=== PATIENT | female | born 1950 | race Caucasian/White ===

== ENCOUNTER 2020-05-05 13:05 | Emergency (ER) | payer MEDICARE, SELFPAY ==
--- NOTE | ~2020-05-05 | XR_ITS ---
EXAMINATION: XR chest 1V portable DATE: 05/05/2020 14:13 INDICATION: Cough and shortness of breath. TECHNIQUE: A single frontal view of the chest was obtained. COMPARISON: Chest 2 views 02/05/2018, CT abdomen and pelvis 08/18/2017 FINDINGS: The chest demonstrates clear lungs without pneumonia, pleural effusion, or pneumothorax. The heart si ze is normal. There are prominent paracardial fat pads. IMPRESSION: 1. No acute cardiopulmonary disease. Reviewed, dictated and finalized at location A.
[2020-05-05 13:05] VITALS: PULSE 107; RESP 16; TEMP 36.8; O2SAT 95
[2020-05-05 13:10] VITALS: BP 154/83
[2020-05-05 13:15] VITALS: PULSE 100
--- NOTE | 2020-05-05 13:38 | ED.SOB ---
HPI - SOB/Dyspnea General Chief Complaint: Shortness of Breath/Dyspnea Stated Complaint: sob Time Seen by Provider: 05/05/20 13:38 Source: patient Mode of arrival: ambulatory Limitations: no limitations History of Present Illness HPI Narrative: 69-year-old woman who smokes comes in today complaining of shortness of breath and cough which has been present for the last 2 weeks. Patient states that [facility] went to [facility] where they recommended she get a chest x-ray and prescribed Augmentin for her. She denies fever, nausea, vomiting, sputum production, diarrhea, abdominal pain and dysuria. She denies any sick contacts or contacts with patients who have COVID-19. She states that she is having sharp chest pains on her left chest and upper back that is worse with twisting her trunk, coughing, and taking a deep breath. MD elicited complaint: shortness of breath, cough and chest pain Onset (ago): week(s) (2) Timing: constant and progressively worsening Severity: moderate Exacerbating factors: exertion Relieving factors: rest Associated symptoms: chest pain and cough Treatment prior to arrival: none Related Data Home oxygen amount: none Home Medications Medication Instructions Recorded Confirmed amoxicillin-pot clavulanate 1 tablet PO BID 05/05/20 05/05/20 losartan-hydrochlorothiazide 1 tablet PO DAILY 05/05/20 05/05/20 Allergies Allergy/AdvReac Type Severity Reaction Status Date / Time oxycodone Allergy Intermediate Verified 02/24/18 14:04 alprazolam Allergy Mild NAUSEA AND Verified 10/19/08 10:48 VOMITING. 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 Uncoded 12/28/02 11:33 Review of Systems Constitutional: Constitutional: Denies chills and Denies fever(s) Eyes: Eyes: Denies change in vision and Denies photophobia ENT: Denies dysphagia, Denies nasal congestion and Denies sore throat Cardiovascular: Cardiovascular: Reports chest pain and Denies radiating jaw, neck or arm pain Respiratory: Respiratory: Reports cough, Reports dyspnea and Denies wheezing Gastrointestinal: Gastrointestinal: Denies abdominal pain, Denies diarrhea, Denies nausea and Denies vomiting Genitourinary: Genitourinary: Denies hematuria, Denies nocturia and Denies dysuria Musculoskeletal: Musculoskeletal: Reports back pain (with cough and deep breath), Denies arthralgias and Denies joint swelling Integumentary/Breasts: Skin/Breast: Denies pruritus, Denies erythema and Denies rash Neurologic: Denies vertigo, Denies dizziness and Denies syncope Endocrine: Endocrine: Denies polydipsia and Denies polyuria Hematologic/Lymphatic: Hematologic/Lymphatic: Denies easy bleeding and Denies easy bruising Allergic/Immunologic: Allergic/Immunologic: Denies lip swelling and Denies tongue swelling PMFSH Past Medical History Medical History (Updated 05/05/20 @ 15:14 by Jeremy Matt MD) Anxiety DVT (deep venous thrombosis) After knee surgery years ago. Hypertension Myocardial infarction Pneumonia Surgical History Surgical History H/O right knee surgery History of cholecystectomy History of coronary artery stent placement Social History Social History Smoking status: Current every day smoker Tobacco type: cigarettes Alcohol use details: rarely Substance use type: does not use Living arrangements: alone Exam Const: General: healthy appearing, no acute distress and alert Nutritional Appearance: obese Orientation/consciousness: patient oriented x3 Limitations: other limitations HENMT: Head: normal to inspection Ears: external ears normal, TM's normal bilaterally and EAC's normal General nose exam: Normal nares present Face and sinus: normal facial exam Mouth: Yes moist mucous membranes Throat: posterior oropharynx normal Eyes: Conjunctivae: conjunctivae normal Pupils: Equal, round and reactive pupi
--- NOTE | 2020-05-05 13:47 | ECG_ITS ---
Measurements Intervals [place] Rate: 94 P: 64 NC: 157 QRS: 53 QRSD: 109 T: 53 QT: 354 QTc: 445 Interpretive Statements SINUS RHYTHM NORMAL ECG Electronically Signed On 05-05-2020 15:47:36 CDT by Mike Sung D.O.
[2020-05-05] MEDS: ASPIRIN 81 MG CHEWABLE TABLET 324 MG PO (14:14)
[2020-05-05] MEDS: ALBUTEROL SULFATE (*SP) INHALER 4 PUFF INHALATION (14:14)
[2020-05-05 14:16] VITALS: PULSE 100; RESP 16; O2SAT 95
[2020-05-05 14:21] VITALS: PULSE 97; RESP 16; O2SAT 97
[2020-05-05 14:27] LABS: Basophils Absolute Auto 0.04 K/mm3 (0.00-0.10); Basophils Percent Auto 0.4 % (0.0-1.0); Eosinophils Percent Auto 2.1 % (1.0-6.0); Hematocrit 45.4 % (35.0-42.0); Hemoglobin 15.3 g/dL (11.7-13.8); Immature Granulocyte Absolute 0.03 K/mm3 (0.00-0.00); Immature Granulocyte Percent A 0.3 % (0.0-0.0); Lymphocytes Absolute Auto 2.37 K/mm3 (1.10-4.50); Lymphocytes Percent Auto 24.6 % (18.0-42.0); Mean Corpuscular HGB Conc 33.7 g/dL (32.0-36.0); Mean Corpuscular Hemoglobin 29.1 pg (27.0-31.0); Mean Corpuscular Volume 86.3 fL (78.0-102.0); Mean Platelet Volume 10.6 fl (9.2-11.8); Monocytes Absolute Auto 0.73 K/mm3 (0.10-0.90); Monocytes Percent Auto 7.6 % (2.0-11.0); Neutrophils Absolute Auto 6.3 K/mm3 (1.7-7.2); Platelet Count Result 257 K/mm3 (150-420); Red Blood Count 5.26 M/mm3 (4.20-5.40); Red Cell Distribution Width 12.6 % (11.6-14.4); White Blood Count 9.7 K/mm3 (4.8-10.8)
[2020-05-05 14:41] LABS: Partial Thromboplastin Time 29.4 SEC (22.3-31.6)
--- NOTE | 2020-05-05 14:43 | PC.NURSE ---
CRITICAL DDIMER 1.40 CALLED TO RN BY [employer]. DMITRIY HICKMAN NOTIFIED.
[2020-05-05 14:45] LABS: Alanine Aminotransferase 42 U/L (14-59); Albumin Level 3.8 g/dL (3.4-5.0); Alkaline Phosphatase 75 U/L (46-116); Anion Gap 13 mmol/L (8-16); Aspartate Amino Transferase 22 U/L (15-37); Bilirubin,Total 0.3 mg/dL (0.00-1.00); Blood Urea Nitrogen 17 mg/dL (7-18); Calcium 9.3 mg/dL (8.5-10.1); Carbon Dioxide 24 mmol/L (21-32); Chloride 102 mmol/L (98-108); Estimated CRCL calculation 51 ml/min; Estimated Glomerular Filt Rate > 60; Glucose 150 mg/dL (70-99); Osmolality Calculated 292 mOsm/kg (285-295); Potassium 3.5 mmol/L (3.5-5.1); Sodium 139 mmol/L (136-145); Total Protein 7.4 g/dL (6.4-8.2)
[2020-05-05 14:52] LABS: Troponin I < 0.02 ng/mL (0.00-0.056)
[2020-05-05 14:53] LABS: BNP < 5.0 pg/mL (0-100)
[2020-05-05 15:07] VITALS: BP 122/71; PULSE 86; RESP 14; O2SAT 98
[2020-05-06 15:24] LABS: SARS-CoV-2 RNA PCR Negative
== END 2020-05-05 15:10 | disposition home or self-care (01) ==
PROVIDERS: Emergency Provider Emergency Medicine; PCP Physician Assistant
DX: J40 Bronchitis, not specified as acute or chronic (principal); Z20.828 Contact with and (suspected) exposure to other viral communicable diseases; Z86.718 Personal history of other venous thrombosis and embolism; I10 Essential (primary) hypertension; F17.200 Nicotine dependence, unspecified, uncomplicated
CPT/HCPCS: 36415; 71045; 80053; 83880; 84484; 85025; 85380; 85610; 85730; 87635; 93005; 99283; 99284; A9270; C9803; U0003

== ENCOUNTER 2020-08-03 12:45 | Outpatient (CLI) | payer OTHER, SELFPAY ==
[2020-08-03 13:37] LABS: SARS-CoV-2 Ag Negative (Negative)
== END 2020-08-03 12:46 | disposition home or self-care (01) ==
PROVIDERS: PCP Physician Assistant; Visit Provider Physician Assistant
DX: Z20.822 Contact with and (suspected) exposure to COVID-19 (principal)
CPT/HCPCS: 87426; C9803

== ENCOUNTER 2020-11-02 12:47 | Outpatient (CLI) | payer OTHER, SELFPAY ==
--- NOTE | ~2020-11-02 | DEXA_ITS ---
Bone Density Report Name: Vero Ramos Age: 70 Sex: Female Ethnicity: White Date of : 1950 Indication: postmenopausal; screening for osteoporosis; asthma or emphysema; Referring Provider: Martinez Ag Study: Bone densitometry was performed. Exam Date: November 02, 2020 Accession number: [id number] Bone Density: Region BMD T-score Z-score Classification AP Spine(L1-L4) 0.919 -1.2 0.9 Osteopenia Femoral Neck (Left) 0.660 -1.7 0.0 Osteopenia Total Hip (Left) 0.792 -1.2 0.2 Osteopenia Femoral Neck (Right) 0.565 -2.6 -0.8 Osteoporosis Total Hip (Right) 0.700 -2.0 -0.5 Osteopenia Femoral Neck Mean 0.613 -2.1 -0.4 Osteopenia Total Hip Mean 0.746 -1.6 -0.2 Osteopenia World Health Organization criteria for BMD impression classify patients as: Normal (T-score at or above -1.0), Osteopenia (T-score between -1.0 and -2.5), or Osteoporosis (T-score at or below -2.5). 10-year Fracture Risk: FRAX not reported because: Some T-score for Spine Total or Hip Total or Femoral Neck at or below -2.5 Clinical Information Provided by Patient: Smokes Has used the following medications: Vitamin D Has the following medical conditions: Asthma or Emphysema Patient maximum height was 62 Menopause Age: 61 No regular weight bearing exercise Drinks caffeinated beverages Onset of menses at age 15 Number of children 3 Impression: The patient has osteoporosis, based on the Right Femoral Neck T-score. The patient has risk factors, including: smoking. Discussion: INCREASED RISK OF FRACTURE. BONE DENSITY IS UNDESIRABLY LOW AT ONE OR MORE SKELETAL SITES, CONSISTENT WITH POSTMENOPAUSAL OSTEOPOROSIS. This patient's lowest T-score meets the World Health Organization's (WHO) criteria for osteoporosis at one or more sites (T-score -2.5 or below). In untreated patients, the risk of osteoporotic fracture increases approximately two-fold for each 1.0 SD decrease in T-score. Low bone density is not the only risk factor for fracture; also consider factors such as patient's age, frailty or poor health, risk of falling, risk of injury, previous osteoporotic fracture, family history of osteoporosis, cigarette smoking, low body weight, etc. Not everyone with low bone mineral density has osteoporosis; osteomalacia and other metabolic bone disorders should also be considered. Patients who have osteoporosis should be evaluated for specific diseases and conditions (secondary causes) that may cause or contribute to bone loss. The [place] [employer]ocrinologists (AACE) and National Osteoporosis Foundation (NOF) recommend pharmacologic intervention for all postmenopausal women whose T-score is in this range. The patient should follow a healthful lifestyle (good nutrition with adequate calcium and vitamin D
== END 2020-11-02 12:48 | disposition home or self-care (01) ==
LOC: CHSIMG 12:49
DX: M81.0 Age-related osteoporosis without current pathological fracture (principal)
CPT/HCPCS: 77080

== ENCOUNTER 2021-10-19 12:44 | Outpatient (CLI) | payer OTHER, SELFPAY ==
--- NOTE | ~2021-10-19 | CT_ITS ---
EXAMINATION: CT lung screening DATE: 10/19/2021 13:06 INDICATION: Personal history of nicotine dependence, 52 pack year history TECHNIQUE: Computed tomography (CT) of the chest was performed without intravenous contrast. The dose -length product (DLP) was 115.50 mGy-cm. 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 COMPARISON: None FINDINGS: There is an approximately 1.8 x 1.2 cm part solid nodule of the right middle lobe with a 10 mm solid component. There is mild emphysema. Respiratory motion artifact limits evaluation of the yonatan ng bases. Atelectasis is noted. There is no pleural effusion or pneumothorax. No pathologically enlar ged thoracic lymph nodes are identified. The heart size is normal. There is moderate thoracic spondyl osis. IMPRESSION: 1. Lung-RADS category 4B: Very suspicious. Findings for which additional diagnostic testing and/or ti ssue sampling is recommended. Reviewed, dictated and finalized at location A. IMPRESSION: 1. Lung-RADS category 4B: Very suspicious. Findings for which additional diagno stic testing and/or tissue sampling is recommended.
== END 2021-10-19 12:45 | disposition home or self-care (01) ==
LOC: CHSIMG 12:48
PROVIDERS: PCP Hospitalist; Visit Provider Hospitalist
DX: Z12.2 Encounter for screening for malignant neoplasm of respiratory organs (principal); F17.210 Nicotine dependence, cigarettes, uncomplicated
CPT/HCPCS: 71271

== ENCOUNTER 2022-02-21 15:08 | Emergency (ER) | payer OTHER, SELFPAY ==
--- NOTE | ~2022-02-21 | XR_ITS ---
EXAMINATION: XR knee RT 2V DATE: 02/21/2022 15:49 INDICATION: Right knee pain TECHNIQUE: Two views of the right knee were obtained. COMPARISON: 12/16/2016 FINDINGS: Changes of total knee arthroplasty are noted. Alignment is normal. No fracture or osteochon dral lesion. No joint effusion/synovitis. Soft tissues are unremarkable. IMPRESSION: 1. No acute osseous abnormality. Reviewed, dictated and finalized at location A.
--- NOTE | ~2022-02-21 | US_ITS ---
EXAMINATION: US venous doppler LE RT DATE: 02/21/2022 15:49 INDICATION: Right lower extremity pain TECHNIQUE: Mckeon scale images without and with compression and Doppler images of the right lower extre mity veins were obtained. COMPARISON: None FINDINGS: The right common femoral vein, profunda femoral vein, femoral vein, popliteal vein, peronea l trunk, posterior tibial veins, and greater saphenous vein are patent. IMPRESSION: 1. Patent right lower extremity veins. No evidence of deep venous thrombosis. Reviewed, dictated and finalized at location A.
[2022-02-21 15:10] VITALS: BP 169/104; PULSE 92; RESP 20; TEMP 36.3; O2SAT 94
[2022-02-21] MEDS: KETOROLAC 30 MG/ML VIAL (*BKC) IM (15:54)
--- NOTE | 2022-02-21 16:12 | ED.LOWEXIN ---
HPI - Extremity Injury (Lower) General Chief Complaint: Extremity Injury, Lower Stated Complaint: leg pain Time Seen by Provider: 02/21/22 15:18 Source: patient Mode of arrival: ambulatory Limitations: no limitations History of Present Illness HPI Narrative: this is a 71-year-old female with a history of knee surgery about 4 to 5 years ago presents because she is having increased pain in her right knee with some mild calf pain and tenderness with no swelling no redness no fever chills no shortness of breath. complaint: knee injury Onset (ago): year(s) Related Data Home Medications Medication Instructions Recorded Confirmed gabapentin 100 mg capsule 100 mg PO TID 02/21/22 02/21/22 ipratropium 20 mcg-albuterol 100 1 puff inhalation QID PRN short of 02/21/22 02/21/22 mcg/actuation mist for inhalation breath (Combivent Respimat) losartan 50 mg-hydrochlorothiazide 1 tablet PO DAILY 02/21/22 02/21/22 12.5 mg tablet metformin 500 mg tablet,extended 500 mg PO DAILY 02/21/22 02/21/22 release 24 hr Allergies Allergy/AdvReac Type Severity Reaction Status Date / Time oxycodone Allergy Intermediate Verified 02/24/18 14:04 alprazolam Allergy Mild NAUSEA AND Verified 10/19/08 10:48 VOMITING. 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 Uncoded 12/28/02 11:33 Review of Systems Review of Systems: All systems reviewed & are unremarkable except as noted in HPI and below PMFSH Past Medical History Medical History Anxiety DVT (deep venous thrombosis) After knee surgery years ago. Hypertension Myocardial infarction Pneumonia Surgical History Surgical History H/O right knee surgery History of cholecystectomy History of coronary artery stent placement Social History Social History Smoking status: Current every day smoker Tobacco type: cigarettes Alcohol use details: rarely Substance use type: does not use Exam Const: General: healthy appearing and no acute distress Nutritional Appearance: well nourished Limitations: no limitations HENMT: Head: normal to inspection General nose exam: Normal external nose present Eyes: Conjunctivae: conjunctivae normal Neck: Neck: normal visual inspection, no lymphadenopathy and no meningeal signs Chest: Chest palpation & inspection: normal inspection of the chest Resp: Effort & Inspection: normal respiratory effort Auscultation: clear to auscultation bilaterally Cardio: Rate: regular rate Rhythm: regular rhythm GI: GI Palp: Yes Soft to palpation : General: Yes bladder normal to palpation Skin: General skin exam: normal color Rashes: no rashes Wounds: no wounds Neuro: General: patient oriented x3 and moves all extremities Cranial nerves: Yes Nystagmus not present Speech: normal speech Extrem: General: normal to inspection Psych: Mental Status: mental status grossly normal Course Course Emergency Course: X-ray and ultrasound performed which showed no acute DVT and no acute issues with her right knee Toradol was given and reassessment the patient and her pain has improved. Vital Signs Vital signs: Vital Signs Temperature 36.3 C L 02/21/22 15:10 Pulse Rate 92 02/21/22 15:10 Respiratory Rate 20 02/21/22 15:10 Blood Pressure 169/104 H 02/21/22 15:10 Pulse Oximetry 94 02/21/22 15:10 Oxygen Delivery Room Air 02/21/22 15:10 Temperature 36.3 C L 02/21/22 15:10 Pulse Rate 92 02/21/22 15:10 Respiratory Rate 20 02/21/22 15:10 Blood Pressure 169/104 H 02/21/22 15:10 Pulse Oximetry 94 02/21/22 15:10 Oxygen Delivery Room Air 02/21/22 15:10 Critical Care Time Critical Care Time Critical Care Time: No Discharge Plan Discharge Clinical Impression: Chronic knee pain Qualifiers: Laterality: right Qualified Code(s): M25.561 - Pain in
== END 2022-02-21 16:45 | disposition home or self-care (01) ==
PROVIDERS: Emergency Provider Emergency Medicine; PCP Hospitalist
DX: M25.561 Pain in right knee (principal); I10 Essential (primary) hypertension; Z86.718 Personal history of other venous thrombosis and embolism; F17.200 Nicotine dependence, unspecified, uncomplicated
CPT/HCPCS: 73560; 93971; 96372; 99284; J1885

== ENCOUNTER 2022-05-15 11:54 | Outpatient (CLI) | payer OTHER, SELFPAY ==
--- NOTE | ~2022-05-15 | XR_ITS ---
EXAMINATION: XR knee RT 3V DATE: 05/15/2022 12:18 INDICATION: Right knee pain TECHNIQUE: Three views of the right knee were obtained. COMPARISON: 02/21/2022 FINDINGS: There are changes of total knee arthroplasty. Bone alignment is normal. There is no fractur e. No joint effusion/synovitis. Soft tissues are unremarkable. IMPRESSION: 1. Changes of total knee arthroplasty without acute osseous abnormality. Reviewed, dictated and finalized at location B. NEER SECOND ASSISTANT
== END 2022-05-15 11:55 | disposition home or self-care (01) ==
LOC: CHSIMG 11:58
PROVIDERS: PCP Hospitalist; Visit Provider Physician Assistant
DX: M25.561 Pain in right knee (principal)
CPT/HCPCS: 73562

== ENCOUNTER 2023-02-20 11:20 | Outpatient (CLI) | payer OTHER, SELFPAY ==
--- NOTE | ~2023-02-20 | XR_ITS ---
EXAMINATION: XR chest 2V Exam Date/Time: 02/20/2023 11:30 CDT HISTORY: SINUS INFECTION X 8 YEARS/CP AND CONGESTION X 2 YEARS Comparison: 05/05/2020 10/19/2021. RESULT: Lines, tubes, and devices: None. Lungs and pleura: Increased size of the right middle lobe nodule, mixed solid and some solid in the prior CT. No focal consolidation, pneumothorax, or effusion Cardiomediastinal silhouette: Stable. Other: No acute osseous or upper abdominal finding. IMPRESSION: Enlarging, suspicious right middle lobe nodule. Recommend CT-guided biopsy, unless already performed elsewhere. Reviewed, dictated and finalized at location K. IMPRESSION: Enlarging, suspicious right middle lobe nodule. Recommend CT-guided biopsy, unl ess already performed elsewhere.
== END 2023-02-20 11:21 | disposition home or self-care (01) ==
LOC: CHSIMG 11:23
PROVIDERS: PCP Physician Assistant; Visit Provider Physician Assistant
DX: J20.8 Acute bronchitis due to other specified organisms (principal); R91.8 Other nonspecific abnormal finding of lung field
CPT/HCPCS: 71046

== ENCOUNTER 2023-04-03 12:50 | Emergency (ER) | payer OTHER, SELFPAY ==
[2023-04-03] VITALS (9 sets, daily range): BP systolic 162–189; BP diastolic 77–104; PULSE 106–120; RESP 19–20; TEMP 36.9; O2SAT 92–95
--- NOTE | ~2023-04-03 | XR_ITS ---
EXAMINATION: XR chest 1V portable DATE: 04/03/2023 13:42 INDICATION: Congestion TECHNIQUE: Portable AP upright view of the chest was obtained. COMPARISON: Chest radiograph dated 02/20/2023 FINDINGS: Mild linear discoid atelectasis/scarring at the lateral left lower lung zone. Possible 1 cm right mid dle lobe nodule opacity appears more subtle than on the prior study. No other airspace opacities, pul monary edema, pleural effusion or pneumothorax. The cardiomediastinal silhouette is normal. Mild dege nerative skeletal changes in the spine and right shoulder. IMPRESSION: 1. Persistent subtle 1 cm nodular opacity right midlung zone. Would recommend follow-up chest CT if t his has not been further worked up in the interval since the prior CT imaging on 10/19/2021. Reviewed, dictated and finalized at location A. IMPRESSION: 1. Persistent subtle 1 cm nodular opacity right midlung zone. Would recommend f ollow-up chest CT if this has not been further worked up in the interval since the prior CT imaging on 10/19/2021.
[2023-04-03 13:32] LABS: Occult Blood Positive (Negative)
[2023-04-03 13:41] LABS: Basophils Absolute Auto 0.04 K/mm3 (0.00-0.10); Basophils Percent Auto 0.4 % (0.0-1.0); Eosinophils Absolute Auto 0.21 K/mm3 (0.02-0.50); Eosinophils Percent Auto 1.9 % (1.0-6.0); Hematocrit 38.4 % (35.0-42.0); Hemoglobin 12.9 g/dL (11.7-13.8); Immature Granulocyte Absolute 0.03 K/mm3 (0.00-0.00); Immature Granulocyte Percent A 0.3 % (0.0-0.0); Lymphocytes Absolute Auto 1.37 K/mm3 (1.10-4.50); Lymphocytes Percent Auto 12.6 % (18.0-42.0); Mean Corpuscular HGB Conc 33.6 g/dL (32.0-36.0); Mean Corpuscular Hemoglobin 28.4 pg (27.0-31.0); Mean Corpuscular Volume 84.4 fL (78.0-102.0); Mean Platelet Volume 10.5 fl (9.2-11.8); Monocytes Absolute Auto 0.69 K/mm3 (0.10-0.90); Monocytes Percent Auto 6.3 % (2.0-11.0); Neutrophils Absolute Auto 8.6 K/mm3 (1.7-7.2); Neutrophils Percent Auto 78.5 % (50.0-70.0); Platelet Count Result 226 K/mm3 (150-420); Red Blood Count 4.55 M/mm3 (4.20-5.40); Red Cell Distribution Width 12.4 % (11.6-14.4); White Blood Count 10.9 K/mm3 (4.8-10.8)
[2023-04-03] MEDS: PANTOPRAZOLE SODIUM IV 40 MG VIAL 80 MG IV PUSH (13:41)
[2023-04-03] MEDS: MAG HYDROX/ALUMINUM HYD/SIMETH 30 ML, PHENobarb/HYOSCY/ATROPINE/SCOP 32.4 MG, LIDOCAINE... PO (13:41)
[2023-04-03 13:56] LABS: Alanine Aminotransferase 29 U/L (14-59); Albumin Level 3.7 g/dL (3.4-5.0); Alkaline Phosphatase 81 U/L (46-116); Anion Gap 14 mmol/L (8-16); Aspartate Amino Transferase 12 U/L (15-37); Bilirubin,Total 0.5 mg/dL (0.00-1.00); Blood Urea Nitrogen 24 mg/dL (7-18); Calcium 9.8 mg/dL (8.5-10.1); Carbon Dioxide 21 mmol/L (21-32); Chloride 105 mmol/L (98-108); Estimated Glomerular Filt Rate 40; Glucose 144 mg/dL (70-99); Osmolality Calculated 297 mOsm/kg (285-295); Potassium 3.7 mmol/L (3.5-5.1); Sodium 140 mmol/L (136-145); Total Protein 7.2 g/dL (6.4-8.2)
[2023-04-03 14:01] LABS: Lactic Acid Reflex 0.6 mmol/L (0.4-2.0)
--- NOTE | 2023-04-03 14:02 | ED.GENADULT ---
HPI - General Adult General Chief complaint: GI Bleed Stated complaint: blood in stool Time Seen by Provider: 04/03/23 13:24 Source: patient Mode of arrival: ambulatory Limitations: no limitations History of Present Illness HPI narrative: this is a 72-year-old female with a history of GERD with diabetes and hypertension that presents with some history of 2 to 3 months reflux symptoms with epigastric burning been taking [id number] medications with minimal relief, called her primary because she was having specks of blood on the toilet paper and presented to the emergency department. Otherwise no fever chills no overt GI bleed no fever chills no nausea vomiting no abdominal pain no diarrhea constipation. Onset (ago): month(s) Severity: mild and moderate Quality: burning Pain Consistency: intermittent Related Data Home Medications Medication Instructions Recorded Confirmed gabapentin 100 mg capsule 100 mg PO TID 02/21/22 02/21/22 ipratropium 20 mcg-albuterol 100 1 puff inhalation QID PRN short of 02/21/22 02/21/22 mcg/actuation mist for inhalation breath (Combivent Respimat) losartan 50 mg-hydrochlorothiazide 1 tablet PO DAILY 02/21/22 02/21/22 12.5 mg tablet metformin 500 mg tablet,extended 500 mg PO DAILY 02/21/22 02/21/22 release 24 hr Allergies Allergy/AdvReac Type Severity Reaction Status Date / Time oxycodone Allergy Intermediate Verified 02/24/18 14:04 alprazolam Allergy Mild NAUSEA AND Verified 10/19/08 10:48 VOMITING. 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 Uncoded 12/28/02 11:33 Review of Systems Review of Systems: All systems reviewed & are unremarkable except as noted in HPI and below PMFSH Past Medical History Medical History Anxiety DVT (deep venous thrombosis) After knee surgery years ago. Hypertension Myocardial infarction Pneumonia Surgical History Surgical History H/O right knee surgery History of cholecystectomy History of coronary artery stent placement Social History Social History Smoking status: Current every day smoker Tobacco type: cigarettes Alcohol use details: rarely Substance use type: does not use Living arrangements: alone Exam Const: General: healthy appearing, no acute distress and alert Nutritional Appearance: well nourished Orientation/consciousness: patient oriented x3 Limitations: no limitations Neck: Neck: normal visual inspection, no lymphadenopathy and no meningeal signs Chest: Chest palpation & inspection: normal inspection of the chest Resp: Effort & Inspection: normal respiratory effort Auscultation: clear to auscultation bilaterally Cardio: Rate: regular rate Rhythm: regular rhythm GI: GI Palp: Yes Soft to palpation Other: epigastric tenderness Urinary Catheter: Urinary Catheter: patent and draining Back/Spine/Pelvis: Back: no CVA tenderness Skin: General skin exam: normal color Rashes: no rashes Neuro: General: patient oriented x3 and moves all extremities Extrem: General: normal to inspection Psych: Mental Status: mental status grossly normal Affect: normal affect Course Course Emergency Course: labs reviewed with patient there is some her H&H is within normal limits patient had a positive stool guaiac but did have external hemorrhoids that were visualized and she described just specks of bright red blood on her toilet paper there is no over bleeding from the rectum or in the rectal vault, patient did receive IV Protonix and GI cocktail. The patient states that she has some congestion and had an x-ray of the chest performed which shows a nodule and advised patient to follow with her primary to have the nodule evaluated with a CT scan. Vital Signs Vital signs: Vital Signs Temperature 36.9 C 04/03/23 12:50 Pulse Rate 120 H
== END 2023-04-03 14:43 | disposition home or self-care (01) ==
PROVIDERS: Emergency Provider Emergency Medicine; PCP Hospitalist
DX: K64.9 Unspecified hemorrhoids (principal); K21.00 Gastro-esophageal reflux disease with esophagitis, without bleeding; E11.9 Type 2 diabetes mellitus without complications; I10 Essential (primary) hypertension; I25.2 Old myocardial infarction; F17.210 Nicotine dependence, cigarettes, uncomplicated; Z86.718 Personal history of other venous thrombosis and embolism
CPT/HCPCS: 36415; 71045; 80053; 82272; 83605; 85025; 96374; 99284; A9270; C9113

== ENCOUNTER 2023-04-09 22:19 | Emergency (ER) | payer OTHER, SELFPAY ==
[2023-04-09] VITALS (8 sets, daily range): BP systolic 175–199; BP diastolic 88–129; PULSE 118–125; RESP 24–30; TEMP 36.2; O2SAT 85–95
--- NOTE | ~2023-04-09 | XR_ITS ---
EXAMINATION: XR chest 1V portable Exam Date/Time: 04/09/2023 22:22 CDT HISTORY: Shortness of breath/HX OF COPD Comparison: 03/26/2023; CT lung screening 10/19/2021. RESULT: Lines, tubes, and devices: None. Lungs and pleura: Moderate diffuse reticular opacities, with indistinct vessels. Right midlung nodul e, located in the middle lobe and the prior CT. Ill-defined somewhat opacities in the right lower alexand[place] g, likely related to edema or atelectasis. Cardiomediastinal silhouette: Stable. Other: No acute osseous or upper abdominal finding. IMPRESSION: Moderate interstitial edema. Persistent, suspicious right middle lobe nodule. Reviewed, dictated and finalized at location K.
--- NOTE | 2023-04-09 22:20 | ECG_ITS ---
Measurements Intervals [place] Rate: 123 P: 65 MT: 157 QRS: 74 QRSD: 95 T: 7 QT: 315 QTc: 452 Interpretive Statements SINUS TACHYCARDIA WITH OCCASIONAL VENTRICULAR PREMATURE COMPLEXES NONSPECIFIC ST & T-WAVE ABNORMALITY ABNORMAL ECG COMPARED TO ECG 05/05/2020 14:05:31 SINUS TACHYCARDIA NOW PRESENT T-WAVE ABNORMALITY NOW PRESENT Electronically Signed On 04-12-2023 8:34:32 CDT by Sherwin Garcia M.D.
--- NOTE | 2023-04-09 22:34 | ED.SOB ---
HPI - SOB/Dyspnea General Chief Complaint: Upper Respiratory Infection Stated Complaint: Chest Pain Source: patient Mode of arrival: wheelchair History of Present Illness HPI Narrative: 72-year-old female smoker with a history of hypertension, coronary artery status post [place], COPD, Right middle lobe lung nodule, presents to long history -- worsening shortness of breath. patient is noted to be wheezing. patient was noted to be hypoxic on presentation with an oxygen saturation of 85% on room air. Patient was emergently placed on 5 L of O2. -- Cough which is productive of mucoid sputum. Patient is noted to have increased quantity of sputum production. -- Left-sided chest pain which radiates to the shoulder and the back of the chest. Pain is intermittent and unrelated to activity. No radiation of the pain. pain is rated as 7/10. No fever or chills. MD elicited complaint: shortness of breath, cough and chest pain Pertinent past history: COPD and DVT Onset (ago): week(s) Timing: constant Severity: severe Exacerbating factors: exertion Relieving factors: rest Known history of: COPD, diabetes and DVT Associated symptoms: chest pain, cough and wheezing Related Data Home oxygen amount: none Home Medications Medication Instructions Recorded Confirmed ipratropium 20 mcg-albuterol 100 1 puff inhalation QID PRN short of 02/21/22 04/09/23 mcg/actuation mist for inhalation breath (Combivent Respimat) losartan 50 mg-hydrochlorothiazide 1 tablet PO DAILY 02/21/22 04/09/23 12.5 mg tablet metformin 500 mg tablet,extended 500 mg PO DAILY 02/21/22 04/09/23 release 24 hr Allergies Allergy/AdvReac Type Severity Reaction Status Date / Time oxycodone Allergy Intermediate Verified 02/24/18 14:04 alprazolam Allergy Mild NAUSEA AND Verified 10/19/08 10:48 VOMITING. 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 Uncoded 12/28/02 11:33 Review of Systems Review of Systems: All systems reviewed & are unremarkable except as noted in HPI and below Constitutional: Constitutional: Reports as per HPI and Reports no additional constitutional complaints Eyes: Eyes: Reports as per HPI and Reports no additional eye complaints ENT: Reports system reviewed and no additional complaints, except as documented and Reports as per HPI Cardiovascular: Cardiovascular: Reports as per HPI and Reports no additional cardiovascular complaints Respiratory: Respiratory: Reports as per HPI, Reports no additional respiratory complaints, Reports cough, Reports dyspnea and Reports wheezing Gastrointestinal: Gastrointestinal: Reports as per HPI and Reports no additional gastrointestinal complaints Genitourinary: Genitourinary: Reports no additional female genitourinary complaints and Reports as per HPI Musculoskeletal: Musculoskeletal: Reports no additional musculoskeletal complaints and Reports as per HPI Integumentary/Breasts: Skin/Breast: Reports system reviewed and no additional complaints, except as docu and Reports as per HPI Neurologic: Reports system reviewed and no additional complaints, except as documented Psychiatric: Psychiatric: Reports no additional psychiatric complaints and Reports as per HPI Endocrine: Endocrine: Reports no additional endocrine complaints and Reports as per HPI Hematologic/Lymphatic: Hematologic/Lymphatic: Reports no additional hematologic/lymphatic complaints and Reports as per HPI Allergic/Immunologic: Allergic/Immunologic: Reports no additional allergic/immunologic complaints and Reports as per HPI PMFSH Past Medical History Medical History Anxiety DVT (deep venous thrombosis) After knee surgery years ago. Hypertension Myocardial infarction Pneumonia Surgical History Surgical History H/O right knee surgery History of cholecystectomy History of coronary artery stent placement Social History Soci
[2023-04-09] MEDS: ASPIRIN 81 MG CHEWABLE TABLET 324 MG PO (22:43)
[2023-04-09] MEDS: IPRATROPIUM 0.5 MG/ALBUTEROL SULFATE 2.5 MG AMPUL.NEB 3 ML INHALATION (22:44)
[2023-04-09] MEDS: methylPREDNISolone SOD SUCC 125 MG VIAL IV PUSH (22:44)
[2023-04-09 22:46] LABS: Base Excess ABG -5.3 mmol/L (0-2); Basophils Absolute Auto 0.07 K/mm3 (0.00-0.10); Basophils Percent Auto 0.5 % (0.0-1.0); Eosinophils Absolute Auto 0.21 K/mm3 (0.02-0.50); Eosinophils Percent Auto 1.4 % (1.0-6.0); HCO3 ABG 20.6 mmol/L (23-29); Hematocrit 38.3 % (35.0-42.0); Hemoglobin 12.9 g/dL (11.7-13.8); Immature Granulocyte Absolute 0.08 K/mm3 (0.00-0.00); Immature Granulocyte Percent A 0.5 % (0.0-0.0); Lymphocytes Percent Auto 12.1 % (18.0-42.0); Mean Corpuscular HGB Conc 33.7 g/dL (32.0-36.0); Mean Corpuscular Hemoglobin 28.4 pg (27.0-31.0); Mean Corpuscular Volume 84.4 fL (78.0-102.0); Mean Platelet Volume 11.1 fl (9.2-11.8); Monocytes Absolute Auto 0.85 K/mm3 (0.10-0.90); Monocytes Percent Auto 5.7 % (2.0-11.0); Neutrophils Absolute Auto 11.9 K/mm3 (1.7-7.2); Neutrophils Percent Auto 79.8 % (50.0-70.0); Oxygen Content ABG 17.8 %vol (16.0-22.0); Oxygen Saturation ABG 94.1 % (95-97); Oxyhemoglobin 91.5 % (94-100); PCO2 ABG 41.4 mmHg (35-45); PO2 ABG 72.6 mmHg (75-85); Platelet Count Result 279 K/mm3 (150-420); Red Blood Count 4.54 M/mm3 (4.20-5.40); Red Cell Distribution Width 12.2 % (11.6-14.4); Total Hemoglobin 13.8 g/dL (12.0-18.0); White Blood Count 14.9 K/mm3 (4.8-10.8); pH ABG 7.32 (7.35-7.45)
[2023-04-09 22:50] LABS: Device NASAL CANNULA; Modified Allen's Test Pass; Site Drawn RIGHT RADIAL
[2023-04-09] MEDS: FUROSEMIDE INJ 20 MG/2 ML VIAL IV PUSH (22:50)
[2023-04-09 23:03] LABS: INR 0.9; Partial Thromboplastin Time 31.9 SEC (23.90-30.70); Prothrombin Time 10.3 Seconds (9.50-12.10)
[2023-04-09 23:07] LABS: D Dimer 1.29 mg/L (0.19-0.50)
[2023-04-09 23:09] LABS: Appearance Urine Clear (Clear); Bilirubin Urine Negative (Negative); Blood Urine Negative (Negative); Color Urine Yellow (Yellow); Glucose Urine UA Negative (Negative); Ketones Urine Negative (Negative); Leukocyte Esterase Ur Negative LEU/UL (Negative); Nitrate Urine Negative (Negative); Protein Urine 2+ (Negative); Specific Grav Ur >= 1.030 (1.010-1.020); Urobilinogen Urine 0.2 mg/dL (0.2-1.0); pH Urine 5.5 (5.0-8.0)
[2023-04-09 23:11] LABS: Alanine Aminotransferase 48 U/L (14-59); Albumin Level 3.7 g/dL (3.4-5.0); Alkaline Phosphatase 87 U/L (46-116); Anion Gap 13 mmol/L (8-16); Aspartate Amino Transferase 20 U/L (15-37); Bilirubin,Total 0.3 mg/dL (0.00-1.00); Blood Urea Nitrogen 33 mg/dL (7-18); Calcium 9.2 mg/dL (8.5-10.1); Carbon Dioxide 22 mmol/L (21-32); Chloride 101 mmol/L (98-108); Estimated CRCL calculation 27 ml/min; Estimated Glomerular Filt Rate 30; Glucose 184 mg/dL (70-99); Osmolality Calculated 294 mOsm/kg (285-295); Potassium 3.8 mmol/L (3.5-5.1); Sodium 136 mmol/L (136-145); Total Protein 7.6 g/dL (6.4-8.2)
[2023-04-09 23:12] LABS: NT Pro B Type Natriuretic Pept 9751 pg/mL (0-125)
[2023-04-09 23:14] LABS: Add Urine Microscopic? YES; RBC Urine 0-2 /hpf (0-2); Squamous Epithelial Cell Urine Moderate /hpf (Few); WBC Urine 0-3 /hpf (0-3)
[2023-04-09 23:15] LABS: Bacteria Urine Trace /hpf
--- NOTE | 2023-04-09 23:22 | PC.NURSE ---
[id number] DISPATCHER RECEIVED CALL FROM LAB FOR CRITICAL TROP, 64. PHYSICIAN MADE AWARE.
[2023-04-09 23:24] LABS: Influenza A QL RT-PCR Negative (Negative); Influenza B QL RT-PCR Negative (Negative); SARS-CoV-2 RNA PCR Negative (Negative)
[2023-04-09 23:25] LABS: RSV RNA, RT-PCR Negative (Negative)
[2023-04-09] MEDS: NITROGLYCERIN SL 0.4 MG TABLET SUBLINGUAL (23:26)
[2023-04-10 00:30] VITALS: BP 178/91; PULSE 113; RESP 26; O2SAT 96
[2023-04-10] MEDS: HEPARIN SODIUM 5,000 UNITS/ML VIAL 5000 UNITS IV PUSH (00:41)
[2023-04-10] MEDS: HEPARIN SOD/D5W 100 UNITS/ML 25,000 UNITS/250 ML BAG 11 UNITS IV CONT (00:42)
[2023-04-10] MEDS: FUROSEMIDE INJ 20 MG/2 ML VIAL IV PUSH (00:50)
[2023-04-10 01:30] VITALS: BP 173/92; PULSE 109; RESP 22; O2SAT 94
--- NOTE | 2023-04-10 01:47 | PC.NURSE ---
0147-IV HEPARIN DRIP INFUSING AT TIME OF TRANSFER [facility].
== END 2023-04-10 01:47 | disposition short-term general hospital (02) ==
PROVIDERS: Emergency Provider Internal Medicine Critical Care Medicine; PCP Hospitalist
DX: J96.01 Acute respiratory failure with hypoxia (principal); J44.1 Chronic obstructive pulmonary disease with (acute) exacerbation; R07.9 Chest pain, unspecified; R79.1 Abnormal coagulation profile; I11.0 Hypertensive heart disease with heart failure; I50.9 Heart failure, unspecified; I25.10 Atherosclerotic heart disease of native coronary artery without angina pectoris; I25.2 Old myocardial infarction; Z20.822 Contact with and (suspected) exposure to COVID-19; Z86.718 Personal history of other venous thrombosis and embolism; Z79.84 Long term (current) use of oral hypoglycemic drugs; Z79.51 Long term (current) use of inhaled steroids; F17.210 Nicotine dependence, cigarettes, uncomplicated
CPT/HCPCS: 36415; 36600; 71045; 80053; 81001; 82805; 83605; 83880; 84484; 85025; 85380; 85610; 85730; 87637; 93005; 96374; 96375; 99291; A9270; J1644; J1940; J2930

== ENCOUNTER 2023-04-28 17:09 | Inpatient (IN) | payer OTHER, SELFPAY ==
[2023-04-28] VITALS (83 sets, daily range): BP systolic 83–181; BP diastolic 51–110; PULSE 71–122; RESP 18–27; TEMP 36.3; O2SAT 91–100; BMI 32.6
--- NOTE | ~2023-04-28 | XR_ITS ---
EXAMINATION: XR chest port-a-cath/central INDICATION: Permacath insertion TECHNIQUE: Portable AP chest at 1547 hours COMPARISON: 05/10/2023 FINDINGS: A right internal jugular catheter is been inserted which ends with its tip in the midsuperi or vena cava. No pneumothorax is identified. There is mild atelectasis of the left midlung zone. Smal l pleural effusions are present. Cardiomegaly is noted. There is mild pulmonary edema with interval i mprovement. Surgical clips in the right upper quadrant are likely from prior cholecystectomy. IMPRESSION: 1. Right internal jugular permacath insertion. No pneumothorax. 2. Mild pulmonary edema with interval improvement. Reviewed, dictated and finalized at location B. 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
--- NOTE | ~2023-04-28 | XR_ITS ---
EXAMINATION: XR chest 1V portable DATE: 05/09/2023 05:45 INDICATION: Respiratory failure. TECHNIQUE: A single frontal view of the chest was obtained. COMPARISON: Chest single view 05/08/2023 FINDINGS: There are airspace and interstitial opacities throughout the lungs bilaterally with a lower lung predominance. There are small pleural effusions. No pneumothorax. Cardiomegaly is noted. A righ t internal jugular central venous catheter is seen with tip in the superior vena cava. IMPRESSION: 1. Worsened diffuse lung disease, likely moderate pulmonary edema. 2. Small pleural effusions. Reviewed, dictated and finalized at location E.
--- NOTE | ~2023-04-28 | XR_ITS ---
Portable chest x-ray Comparison: 04/29/2023 Clinical History: COPD Findings: Endotracheal tube and NG tube are in satisfactory positions. Possible mild bibasilar pulmo nary edema. Probable underlying COPD. Cardiomediastinal silhouette is stable. Bones and soft tissues are unremarkable. Impression: Support tubes, as above. Suspected mild bibasilar pulmonary edema. Underlying COPD. Reviewed, dictated and finalized at location . Impression: Support tubes, as above. Suspected mild bibasilar pulmonary edema. Underlying COPD.
--- NOTE | ~2023-04-28 | XR_ITS ---
EXAMINATION: XR chest 1V portable DATE: 05/07/2023 05:40 INDICATION: Respiratory failure. TECHNIQUE: A single frontal view of the chest was obtained. COMPARISON: Chest single view 05/06/2023 FINDINGS: There is a diffuse interstitial pattern in the lungs, consistent with mild pulmonary edema. There is a nodule in right middle lobe. There are small pleural effusions. No pneumothorax. The hear t size is normal. The endotracheal tube tip is 4.0 cm above the ana. The nasogastric tube tip is b eyond the inferior margin of the radiograph, but at least to the stomach. A right internal jugular ce ntral venous catheter is seen with tip at the superior cavoatrial junction. IMPRESSION: 1. Mild pulmonary edema. 2. Nodule in right lung middle lobe suspicious for primary bronchogenic carcinoma. 3. Small pleural effusions. Reviewed, dictated and finalized at location E. IMPRESSION: 1. Mild pulmonary edema. 2. Nodule in right lung middle lobe suspicious for primary bronchogenic carcino ma. 3. Small pleural effusions.
--- NOTE | ~2023-04-28 | XR_ITS ---
EXAMINATION: XR fl guide central line place INDICATION: Permacath insertion TECHNIQUE: A single intraoperative fluoroscopic images submitted for review. Total fluoroscopic time was 21.4 seconds. COMPARISON: None available FINDINGS: Fluoroscopic image demonstrates a partially imaged right internal jugular permacath. Its ti p is followed to at least the midsuperior vena cava. IMPRESSION: 1. Please refer to procedure note for full details. Reviewed, dictated and finalized at location B. 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
--- NOTE | ~2023-04-28 | XR_ITS ---
Portable chest x-ray Comparison: 04/28/2023 Clinical History: COPD Findings: Endotracheal tube and NG tube are in satisfactory positions. There is bibasilar airspace d isease Cardiomediastinal silhouette is stable. Bones and soft tissues are unremarkable. Impression: Probable bibasilar pulmonary edema/atelectasis. Correlate clinically for pneumonia. Support tubes, as above. Reviewed, dictated and finalized at location . Impression: Probable bibasilar pulmonary edema/atelectasis. Correlate clinically for pneumo cesar. Support tubes, as above.
--- NOTE | ~2023-04-28 | XR_ITS ---
EXAMINATION: XR chest 1V portable DATE: 05/06/2023 05:37 INDICATION: Respiratory failure. TECHNIQUE: A single frontal view of the chest was obtained. COMPARISON: Chest single view 05/05/2023 FINDINGS: There is a nodule in right middle lobe. There are airspace opacities in the lower lung zone s. No pleural effusion or pneumothorax. The heart size is normal. The endotracheal tube tip is 3.5 cm above the ana. A right internal jugular central venous catheter is seen with tip at the superior cavoatrial junction. The nasogastric tube tip is beyond the inferior margin of the radiograph, but at least to the stomach. IMPRESSION: 1. Worsened airspace opacities in the lower lung zones, consistent with atelectasis versus pneumonia. 2. Nodule in right lung middle lobe suspicious for primary bronchogenic carcinoma. Reviewed, dictated and finalized at location E. IMPRESSION: 1. Worsened airspace opacities in the lower lung zones, consistent with atelect asis versus pneumonia. 2. Nodule in right lung middle lobe suspicious for primary bronchogenic carcino ma.
--- NOTE | ~2023-04-28 | XR_ITS ---
XR chest port-a-cath/central 05/01/2023 10:52 Indication: Hemodialysis catheter placement Procedure: AP portable chest Comparison: Comparison to multiple prior studies sequentially, with oldest reviewed study dated 04/07. Findings: Endotracheal tube tip 4.8 cm above the ana. NG tube in in the stomach. Cardiomegaly. Mil d interstitial edema. Focal nodular opacity right mid thorax, suspicious for malignancy. Impression: 1: Cardiomegaly with mild interstitial edema. 2: Focal nodular opacity right mid thorax, suspicious for malignancy. This corresponds to a pulmonary nodule seen on CT dated 04/28/2023. Reviewed, dictated and finalized at location L. Impression: 1: Cardiomegaly with mild interstitial edema. 2: Focal nodular opacity right mid thorax, suspicious for malignancy. This trey esponds to a pulmonary nodule seen on CT dated 04/28/2023.
--- NOTE | ~2023-04-28 | XR_ITS ---
Clinical Indication: Evaluate hemodialysis catheter for kink AP and lateral views of the chest: Comparison: 05/12/2023 Findings: Right-sided dialysis catheter is unremarkable. The lungs are clear, without evidence of foc al consolidation or pleural effusion. Cardiomediastinal silhouette is within normal limits. Bones an d soft tissues are unremarkable. Impression: Unremarkable. Dialysis catheter. Clear lungs. Reviewed, dictated and finalized at location M. 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 Dialysis catheter. Clear lungs.
--- NOTE | ~2023-04-28 | XR_ITS ---
EXAMINATION: XR chest 1V portable DATE: 05/08/2023 05:20 INDICATION: Respiratory failure. TECHNIQUE: A single frontal view of the chest was obtained. COMPARISON: Chest single view 05/07/2023 FINDINGS: There is a diffuse interstitial pattern in the lungs. There are airspace opacities in the l ower lung zones. There are small pleural effusions. No pneumothorax. The heart size is normal. The en dotracheal tube tip is 4.1 cm above the ana. The nasogastric tube tip is beyond the inferior arnold n of the radiograph, but at least to the stomach. A right internal jugular central venous catheter is seen with tip in the superior vena cava. IMPRESSION: 1. Diffuse lung disease with worsening at right lung base, likely mild pulmonary edema and basilar at electasis versus pneumonia. 2. Small pleural effusions. Reviewed, dictated and finalized at location E. IMPRESSION: 1. Diffuse lung disease with worsening at right lung base, likely mild pulmonar y edema and basilar atelectasis versus pneumonia. 2. Small pleural effusions.
--- NOTE | ~2023-04-28 | XR_ITS ---
EXAMINATION: XR chest 1V portable DATE: 05/02/2023 05:44 INDICATION: Chronic obstructive pulmonary disease. Intubation. TECHNIQUE: A single frontal view of the chest was obtained. COMPARISON: Chest single view 05/01/2023 FINDINGS: There is a diffuse interstitial pattern in the lungs. There is a nodule in right middle lob e. There are airspace opacities in the lower lung zones. There is a small left pleural effusion. No p neumothorax. The heart size is normal. The endotracheal tube tip is 4.9 cm above the ana. The naso gastric tube tip is beyond the inferior margin of the radiograph, but at least to the stomach. A righ t internal jugular central venous catheter is seen with tip in the superior vena cava. IMPRESSION: 1. Disuse lung disease with worsening in the lower lung zones, consistent with mild pulmonary edema a nd lower lung atelectasis versus pneumonia. 2. Small left pleural effusion. 3. Right middle lobe nodule suspicious for primary bronchogenic carcinoma. Reviewed, dictated and finalized at location E. IMPRESSION: 1. Disuse lung disease with worsening in the lower lung zones, consistent with mild pulmonary edema and lower lung atelectasis versus pneumonia. 2. Small left pleural effusion. 3. Right middle lobe nodule suspicious for primary bronchogenic carcinoma.
--- NOTE | ~2023-04-28 | XR_ITS ---
EXAMINATION: XR chest 1V portable DATE: 05/01/2023 05:26 INDICATION: Intubation. TECHNIQUE: A single frontal view of the chest was obtained. COMPARISON: Chest single view 04/30/2023, chest CT 04/28/2023 FINDINGS: There is a diffuse interstitial pattern, consistent with mild pulmonary edema. There is a n odule in right middle lobe. There are airspace opacities in the lower lung zones. No pleural effusion or pneumothorax. The heart size is normal. The endotracheal tube tip is 5.6 cm above the ana. The nasogastric tube tip is beyond the inferior margin of the radiograph, but at least to the stomach. IMPRESSION: 1. Mild pulmonary edema with interval improvement. 2. Airspace opacities in the lower lung zones with improvement on the left, consistent with atelectas is versus pneumonia. 3. Right middle lobe nodule suspicious for primary bronchogenic carcinoma. Reviewed, dictated and finalized at location E. IMPRESSION: 1. Mild pulmonary edema with interval improvement. 2. Airspace opacities in the lower lung zones with improvement on the left, con sistent with atelectasis versus pneumonia. 3. Right middle lobe nodule suspicious for primary bronchogenic carcinoma.
--- NOTE | ~2023-04-28 | XR_ITS ---
EXAMINATION: XR chest 1V portable DATE: 05/05/2023 06:11 INDICATION: Respiratory failure. TECHNIQUE: A single frontal view of the chest was obtained. COMPARISON: Chest single view 05/04/2023, chest CT 04/28/2023 FINDINGS: There are airspace opacities in the lower lung zones. Thierry B-lines are noted, consistent with mild pulmonary edema. There are small pleural effusions. No pneumothorax. The heart size is norm al. The endotracheal tube tip is 4.2 cm above the ana. The nasogastric tube tip is in the stomach. A right internal jugular central venous catheter is seen with tip in the superior vena cava. IMPRESSION: 1. Mild pulmonary edema. 2. Airspace opacities in the lower lung zones with worsening on the right, consistent with atelectasi s or less likely pneumonia. 3. Small pleural effusions with worsening on the right. Reviewed, dictated and finalized at location E. IMPRESSION: 1. Mild pulmonary edema. 2. Airspace opacities in the lower lung zones with worsening on the right, cons istent with atelectasis or less likely pneumonia. 3. Small pleural effusions with worsening on the right.
--- NOTE | ~2023-04-28 | XR_ITS ---
XR chest 1V portable DATE: 05/04/2023 06:10 INDICATION: Respiratory failure TECHNIQUE: Portable upright AP chest on 05/04/2023 at 0522 hours COMPARISON: 05/03/2023 portable AP chest at 0516 hours. FINDINGS: ET tube in satisfactory position 4.8 cm above ana. NG tube in stomach. Right internal ju gular central venous catheter tip overlies the lower superior vena cava. No pneumothorax. Small left pleural effusion. There is left lower lobe infiltrate and/or atelectasis and medial right basilar infiltrate or atelectasis. Cardiomegaly. Thierry B-lines are noted which may indicate pulmonary interstitial edema. IMPRESSION: Persistent bilateral lower lung infiltrate and/or atelectasis Cardiomegaly, suggestion of pulmonary social edema. Small left pleural effusion ET and NG tubes in satisfactory position Right internal jugular central venous catheter overlying the lower superior vena cava Reviewed, dictated and finalized at location A. IMPRESSION: Persistent bilateral lower lung infiltrate and/or atelectasis Cardiomegaly, suggestion of pulmonary social edema. Small left pleural effusion ET and NG tubes in satisfactory position Right internal jugular central venous catheter overlying the lower superior reyna a cava
--- NOTE | ~2023-04-28 | XR_ITS ---
XR chest 1V portable DATE: 05/03/2023 05:27 INDICATION: Mechanical ventilation. COPD. TECHNIQUE: Portable AP chest on 05/03/2023 at 0516 hours COMPARISON: 05/02/2023 portable AP chest at 0526 hours FINDINGS: ET tube tip in satisfactory position 4.4 cm above ana. NG tube in stomach. Right internal jugular central venous catheter tip overlies superior vena cava. No pneumothorax is de tected. There is bilateral predominantly lower lung infiltrate and/atelectasis, relatively stable since 05/02. Small left pleural effusion. Osteopenia. IMPRESSION: Bilateral predominantly lower lung zone infiltrates; little interval change since 023 Reviewed, dictated and finalized at location A. IMPRESSION: Bilateral predominantly lower lung zone infiltrates; little interva l change since 05/02/2023
--- NOTE | ~2023-04-28 | XR_ITS ---
EXAMINATION: XR chest ET placement, XR abdomen gastric tube insert DATE: 04/28/2023 17:34 INDICATION: Respiratory arrest postintubation and nasogastric tube placement. TECHNIQUE: Line 1. Portable AP supine view of the chest was obtained. 2. Portable AP supine view of the abdomen was obtained. COMPARISON: Chest radiograph dated 04/09/2023 FINDINGS: Chest: Endotracheal tube tip 2.8 cm above the ana. Diffuse increased interstitial pattern throughout both lungs with peripheral Thierry B-lines consistent with mild pulmonary edema. No pleural effusion or pn eumothorax. Cardiomegaly. Abdomen: Nasogastric tube tip in proximal side port in the body of the stomach. Cholecystectomy clips in right upper quadrant. No dilated loops of gas-filled bowel to suggest obstruction. IMPRESSION: 1. Endotracheal tube and nasogastric tube in expected positions. 2. Likely congestive heart failure with cardiomegaly and diffuse pulmonary edema throughout both lung s. Differential for the lung disease would include less likely pneumonia. Reviewed, dictated and finalized at location A. IMPRESSION: 1. Endotracheal tube and nasogastric tube in expected positions. 2. Likely congestive heart failure with cardiomegaly and diffuse pulmonary zarina a throughout both lungs. Differential for the lung disease would include less l ikely pneumonia.
--- NOTE | ~2023-04-28 | CT_ITS ---
EXAMINATION: CT chest abdomen pelvis wo con DATE: 04/28/2023 20:28 INDICATION: sepsis w/ unclear source . TECHNIQUE: Computed tomography (CT) of the chest, abdomen, and pelvis was performed with 100 mL Omnip aque-350 intravenous contrast. Automated exposure control and iterative reconstruction technique were employed. The dose-length product was 1432.48 mGy-cm. COMPARISON: CT lung screening 10/19/2021 FINDINGS: CHEST: Endotracheal tube terminating in the lower thoracic trachea. Nasogastric tube terminating in the stom ach. Thoracic aorta: Moderate arch calcification. Lung parenchyma and airways: Moderate interlobular septal thickening. Centrilobular groundglass nodul es. Nodular consolidative opacities in the right middle lobe and left lower lobe, adjacent to the ple ura, and possibly exhibiting pleural retraction. Lingular and bibasilar dependent atelectasis. Thoracic inlet, axillae and chest wall: No thyroid or soft tissue mass. No axillary lymphadenopathy. Mediastinum: No mass or lymphadenopathy. Heart and pericardium: Normal heart size. No pericardial effusion. Coronary artery calcifications: Moderate. Pleura: Small bilateral pleural fluid collections. Thoracic bones: No acute osseous finding in the chest. ABDOMEN/PELVIS: Liver: Normal. Biliary/Gallbladder: Gallbladder is absent. No bile duct dilation. Pancreas: No mass or duct dilation. Spleen: Normal. Adrenals:No mass. Kidneys: No suspicious mass, obstructing stone, or hydronephrosis. GI tract: No small or large bowel dilation. Normal appendix. Diverticulosis without diverticulitis. Mesentery/Peritoneum: No ascites, mass, or free air. Retroperitoneum: No mass Atherosclerotic abdominal aortic and/or arterial calcifications. Pelvis: The urinary bladder is decompressed by a Montemayor catheter. Normal-appearing uterus. Soft Tissues: Soft tissues and body wall unremarkable. Abdominopelvic bones: No acute osseous finding in the abdomen/pelvis. IMPRESSION: Nodular right middle and lower lobe opacities suspicious for neoplastic lesions. Consider PET/CT or t issue sampling. Moderate pulmonary edema. Small bilateral effusions. Infection is not excluded. No septic source detected in the chest, or abdomen/pelvis. Reviewed, dictated and finalized at location K. IMPRESSION: Nodular right middle and lower lobe opacities suspicious for neoplastic lesions . Consider PET/CT or tissue sampling. Moderate pulmonary edema. Small bilateral effusions. Infection is not excluded. No septic source detected in the chest, or abdomen/pelvis.
--- NOTE | ~2023-04-28 | XR_ITS ---
EXAMINATION: XR chest 1V portable INDICATION: Pulmonary edema TECHNIQUE: Portable AP chest at 0527 hours COMPARISON: 05/09/2023 FINDINGS: A right internal jugular central venous catheter ends with its tip in the superior vena cav a. A mild diffuse interstitial pattern persists but has improved. There is atelectasis of the left mi dlung zone. Cardiomegaly is noted. Small pleural effusions are stable. There is no pneumothorax. IMPRESSION: 1. Cardiomegaly with improving pulmonary edema. Reviewed, dictated and finalized at location F.
--- NOTE | 2023-04-28 17:15 | ECG_ITS ---
Measurements Intervals [place] Rate: 90 P: 68 SD: 174 QRS: 89 QRSD: 107 T: -56 QT: 425 QTc: 521 Interpretive Statements SINUS RHYTHM POSSIBLE LEFT ATRIAL ENLARGEMENT [-0.1mV P WAVE IN V1/V2] MODERATE INTRAVENTRICULAR CONDUCTION DELAY [105+ ms QRS DURATION, 80+ ms Q/S IN V1/V2, NO Q AND 60+ ms R IN I/aVL/V5/V6] ST DEVIATION AND MODERATE T-WAVE ABNORMALITY, CONSIDER INFERIOR ISCHEMIA [-0.1+ mV T WAVE IN II/aVF] COMPARED TO ECG 04/28/2023 19:09:14 THE RATE IS SLOWER THE INFERIOR ST-ELEVATION HAS IMPROVED. Electronically Signed On 04-29-2023 19:49:47 CDT by Sharri Lombardo M.D.
--- NOTE | 2023-04-28 17:20 | ED.SOB ---
HPI - SOB/Dyspnea General Chief Complaint: Shortness of Breath/Dyspnea Stated Complaint: resp arrest Time Seen by Provider: 04/28/23 17:14 History of Present Illness HPI Narrative: Patient is a 72-year-old female with a history of COPD, hypertension, diabetes presenting as a respiratory arrest. History obtained from EMS. Patient reportedly called them for shortness of breath. She reported a history of COPD, she continues to smoke cigarettes. She was very wheezy for EMS and then she started to decompensate. EMS gave a dose of etomidate and then attempted to intubate but the patient then started to clench so they put in an LMA. On arrival, patient arrives with LMA in place being bagged. Further history is limited secondary to acuity of condition. Related Data Home Medications Medication Instructions Recorded Confirmed ipratropium 20 mcg-albuterol 100 1 puff inhalation QID PRN short of 02/21/22 04/28/23 mcg/actuation mist for inhalation breath (Combivent Respimat) albuterol sulfate 90 mcg/actuation 2 puff inhalation Q8H PRN 04/28/23 04/28/23 aerosol inhaler Shortness Of Breath Or Wheezing amlodipine 5 mg tablet 5 mg PO DAILY 04/28/23 04/28/23 losartan 100 mg tablet 100 mg PO DAILY 04/28/23 04/28/23 Allergies Allergy/AdvReac Type Severity Reaction Status Date / Time oxycodone Allergy Intermediate Verified 02/24/18 14:04 alprazolam AdvReac Mild NAUSEA AND Verified 04/29/23 09:26 VOMITING. 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 Hypertension Myocardial infarction Pneumonia Surgical History Surgical History H/O right knee surgery History of cholecystectomy History of coronary artery stent placement Social History Social History Smoking packs per day: 1 Smoking cigarettes per day: 20.0 Smoking status: Current every day smoker Tobacco type: cigarettes Alcohol use details: rarely Substance use type: does not use Living arrangements: alone Spiritual care concerns: No Exam Narrative: GENERAL: Unresponsive, being bagged HEAD: Normocephalic, atraumatic. EYES: Pinpoint pupils ENT: Mucous membranes dry NECK: Grossly unremarkable CHEST: Being bagged via supraglottic device, crackles and wheezing appreciated diffusely HEART: Tachycardic, regular rhythm ABDOMEN: Soft, obese abdomen EXTREMITIES: Normal range of motion. No edema. SKIN: Warm, dry, no rash. NEURO: Unresponsive PSYCH: unresponsive Course Vital Signs Vital signs: Vital Signs Temperature 97.4 F L 04/28/23 17:09 Pulse Rate 118 H 04/28/23 17:09 Respiratory Rate 19 04/28/23 17:09 Blood Pressure 165/95 H 04/28/23 17:09 Pulse Oximetry 100 04/28/23 17:09 Oxygen Delivery Room Air 04/28/23 17:09 Temperature 98.7 F 05/07/23 20:00 Pulse Rate 82 05/07/23 23:03 Respiratory Rate 18 05/07/23 21:35 Blood Pressure 149/73 H 05/07/23 20:00 Pulse Oximetry 100 05/07/23 23:03 Oxygen Delivery Mechanical Ventilation 05/07/23 23:03 Fraction of Inspired Oxygen 35 05/07/23 23:03 Procedures Intubation Intubation #1: Intubation Date: 04/28/23 Intubation Time: 17:20 sedative: Etomidate paralytic: Succinylcholine Laryngoscope: fiber optic video scope Tube Size (cm): 7.5 Method of Intubation: orotracheal Number of Attempts: 1 Tube Secured Depth (cm): 23 Tube Secured Location: lips Tube Placement Confirmation: visualized tube passing through cords, equal breath sounds bilaterally, no breath soun
[2023-04-28] MEDS: FENTANYL 2,500MCG/NS250ML(*CRX 2,500 MCG/250 ML BAG IV CONT (17:28)
[2023-04-28] MEDS: ALBUTEROL SULFATE NEB 2.5 MG/3 ML INH 10 MG INHALATION ×2 (17:29→21:31)
[2023-04-28] MEDS: IPRATROPIUM BR 0.02% INH SOLN 0.5 MG/2.5 ML VIAL INHALATION ×2 (17:29→21:31)
[2023-04-28] MEDS: SODIUM CHLORIDE 0.9% IV 1,000 ML 999 ML IV CONT ×2 (17:30→22:34)
[2023-04-28 17:47] LABS: Alveolar/Arterial O2 Gradient 255.1 mmHg; Base Excess ABG -12.8 mEq/l (+/-2.0); Fractional Inspired Oxygen 100 %; Oxygen Content ABG 18.9 %vol (16.0-22.0); Oxygen Saturation ABG 99.6 % (95.0-100.0); PO2 FiO2 Ratio Arterial Blood 3.84 %; Total Hemoglobin 13.1 g/dL (12.0-18.0)
--- NOTE | 2023-04-28 18:02 | PCRCNOTE ---
RT called to ED 3 due to respiratory distress pt being bagged, Dr Jadon CONROY intubated successfully with a 7.5 at 23 at the lip. Patient placed on vent of settings of CMV 400 R 20 Peep 5 and fiO2 of 100%, ABG obtained results: ph 7.028, PCO2 73.9, PO2 384.0, HCO3 19.0, verbally read to Dr. Diop.
[2023-04-28 18:06] LABS: Device VENTILATOR; Modified Allen's Test Pass; PCO2 ABG 73.9 mmHg (35.0-45.0); Site Drawn RIGHT RADIAL; pH ABG 7.028 (7.350-7.450)
[2023-04-28] MEDS: PROPOFOL IV EMULSION 100 ML 7.7 MG IV CONT (18:06)
[2023-04-28 18:07] LABS: Arterial Blood Gas PEEP 5 cmH2O; Arterial Blood Gas Tidal Volume 400 ml; Arterial Blood Gas Vent Mode CMV; Arterial Blood Gas Ventilator rate 20 /MIN
[2023-04-28] MEDS: MIDAZOLAM HCL (*CRX) 2 MG/2 ML VIAL IV PUSH (18:23)
[2023-04-28] MEDS: MIDAZOLAM HCL (*CRX) 2 MG/2 ML VIAL (18:23)
[2023-04-28 18:32] LABS: Basophils Absolute Auto 0.1 K/mm3 (0.0-0.1); Basophils Percent Auto 0.6 % (0.2-1.2); Eosinophils Absolute Auto 0.3 K/mm3 (0-0.3); Eosinophils Percent Auto 1.3 % (0-4.4); Hematocrit 42.7 % (37.0-47.0); Immature Granulocyte Absolute 0.17 K/mm3 (0.00-0.031); Immature Granulocyte Percent A 0.9 % (0-0.5); Lymphocytes Absolute Auto 4.83 K/mm3 (0.9-3.2); Lymphocytes Percent Auto 24.7 % (18.3-44.2); Mean Corpuscular HGB Conc 30.4 g/dl (32-36); Mean Corpuscular Hemoglobin 27.4 pg (26-34); Mean Corpuscular Volume 89.9 fl (80-100); Mean Platelet Volume 11.9 fl (7.4-10.4); Monocytes Percent Auto 5.3 % (2.6-8.5); Neutrophils Absolute Auto 13.2 K/mm3 (1.3-6.7); Neutrophils Percent Auto 67.2 % (45.5-73.1); Platelet Count Result 341 k/mm3 (150-375); Red Blood Count 4.75 M/mm3 (4.2-5.4); Red Cell Distribution Width 12.8 % (11.5-14.5); White Blood Count 19.6 K/mm3 (4.5-10.0)
[2023-04-28 18:49] LABS: Alanine Aminotransferase 28 U/L (6-35); Albumin Level 4.5 g/dL (3.5-5.1); Alkaline Phosphatase 77 U/L (38-126); Anion Gap 14 mmol/L (8-16); Aspartate Amino Transferase 31 U/L (14-36); Bilirubin,Total 0.8 mg/dL (0.2-1.3); Blood Urea Nitrogen 29 mg/dL (7-17); Calcium 9.1 mg/dL (8.4-10.2); Carbon Dioxide 20 mmol/L (22-30); Chloride 103 mmol/L (98-107); Estimated CRCL calculation 31 ml/min; Estimated Glomerular Filt Rate 32; Glucose 384 mg/dL (65-110); Magnesium 2.5 mg/dL (1.6-2.3); Partial Thromboplastin Time 31.5 SECONDS (22.3-36.8); Potassium 3.8 mmol/L (3.4-5.0); Prothrombin Time 13.7 Seconds (11.1-14.7); Sodium 137 mmol/L (137-145)
[2023-04-28 18:55] LABS: NT Pro B Type Natriuretic Pept 8790 pg/mL (19.9-100); Troponin I 0.019 ng/mL (0.000-0.034)
[2023-04-28 18:59] LABS: Lactic Acid Reflex 2.2 mmol/L (0.7-2.0)
[2023-04-28] MEDS: CEFEPIME 2 GM/NS 50 ML 2 GM/50 ML BAG IVPB (19:15)
[2023-04-28 19:36] LABS: Influenza A QL RT-PCR Negative (Negative); Influenza B QL RT-PCR Negative (Negative); RSV RNA, RT-PCR Negative (Negative); SARS-CoV-2 RNA PCR Negative (Negative)
[2023-04-28] MEDS: VANCOMYCIN 1,250 MG/NS 250 ML 1,250 MG/250 ML BAG 166.67 MG IVPB (19:36)
--- NOTE | 2023-04-28 21:11 | ECG_ITS ---
Measurements Intervals [place] Rate: 100 P: 64 [place]: 148 QRS: 90 QRSD: 105 T: -57 QT: 402 QTc: 519 Interpretive Statements SINUS TACHYCARDIA MARKED ST ELEVATION, CONSIDER INFERIOR INJURY [MARKED ST ELEVATION W/O NORMALLY INFLECTED T WAVE IN II/aVF] ACUTE [place] COMPARED TO ECG 04/09/2023 22:27:[address]-ELEVATION IS NEW Electronically Signed On 04-29-2023 19:47:26 CDT by Sharri Lombardo M.D.
[2023-04-28 21:16] LABS: Alveolar/Arterial O2 Gradient 208.5 mmHg; Fractional Inspired Oxygen 50 %; HCO3 ABG 16.9 mEq/l (22.0-26.0); Oxygen Content ABG 15.6 %vol (16.0-22.0); Oxygen Saturation ABG 88.1 % (95.0-100.0); Oxyhemoglobin 88.5 % THb (90.0-100.0); PO2 ABG 76.8 mmHg (80.0-100.0); PO2 FiO2 Ratio Arterial Blood 1.54 %; Total Hemoglobin 12.5 g/dL (12.0-18.0)
[2023-04-28 21:22] LABS: pH ABG 7.044 (7.350-7.450)
[2023-04-28 21:23] LABS: Arterial Blood Gas PEEP 5 cmH2O; Arterial Blood Gas Tidal Volume 400 ml; Arterial Blood Gas Vent Mode CMV; Arterial Blood Gas Ventilator rate 20 /MIN; Device VENTILATOR; Modified Allen's Test Pass; PCO2 ABG 63.3 mmHg (35.0-45.0); Site Drawn RIGHT RADIAL
[2023-04-28 21:23] LABS: Ethanol < 10 mg/dL (<10); Triglycerides 268 mg/dL (<150)
[2023-04-28] MEDS: FUROSEMIDE INJ 40 MG/4 ML VIAL IV PUSH (21:27)
[2023-04-28] MEDS: VANCOMYCIN 1,000 MG/NS 250 ML 1,000 MG/250 ML BAG 250 MG IVPB (21:27)
--- NOTE | 2023-04-28 21:38 | PM.IMHP ---
H&P: HPI History of Present Illness Date/Time: 04/28/23 21:38 Chief Complaint: SOB Narrative: This is a 72-year-old female with past medical history significant for tobacco dependence, COPD,/emphysema, lung nodule, mi, DVT, hypertension. Patient is a and everyday current smoker, was brought to the emergency room via EMS after patient called due to shortness of breath patient with LMA in place and being back upon arrival to emergency room intubated in emergency room preliminary workup was significant for lactic acid of 7, an ABG showed a pH of 7.028 pCO2 73 PO2 383 this was on while on the ventilator, chemistry panel was significant for a creatinine of 2.5 BUN 34 anion gap 18. EXAMINATION: CT chest abdomen pelvis wo con DATE: 04/28/2023 20:28 INDICATION: sepsis w/ unclear source . TECHNIQUE: Computed tomography (CT) of the chest, abdomen, and pelvis was performed with 100 mL Omnipaque-350 intravenous contrast. Automated exposure control and iterative reconstruction technique were employed. The dose-length product was 1432.48 mGy-cm. COMPARISON: CT lung screening 10/19/2021 FINDINGS: CHEST: Endotracheal tube terminating in the lower thoracic trachea. Nasogastric tube terminating in the stomach. Thoracic aorta: Moderate arch calcification. Lung parenchyma and airways: Moderate interlobular septal thickening. Centrilobular groundglass nodules. Nodular consolidative opacities in the right middle lobe and left lower lobe, adjacent to the pleura, and possibly exhibiting pleural retraction. Lingular and bibasilar dependent atelectasis. Thoracic inlet, axillae and chest wall: No thyroid or soft tissue mass. No axillary lymphadenopathy. Mediastinum: No mass or lymphadenopathy. Heart and pericardium: Normal heart size. No pericardial effusion. Coronary artery calcifications: Moderate. Pleura: Small bilateral pleural fluid collections. Thoracic bones: No acute osseous finding in the chest. ABDOMEN/PELVIS: Liver: Normal.? Biliary/Gallbladder: Gallbladder is absent. No bile duct dilation. Pancreas: No mass or duct dilation. Spleen: Normal. Adrenals:No mass. Kidneys: No suspicious mass, obstructing stone, or hydronephrosis. GI tract: No small or large bowel dilation. Normal appendix. Diverticulosis without diverticulitis. Mesentery/Peritoneum: No ascites, mass, or free air. Retroperitoneum: No mass Atherosclerotic abdominal aortic and/or arterial calcifications. Pelvis: The urinary bladder is decompressed by a Montemayor catheter. Normal-appearing uterus. Soft Tissues: Soft tissues and body wall unremarkable. Abdominopelvic bones:? No acute osseous finding in the abdomen/pelvis. IMPRESSION: Nodular right middle and lower lobe opacities suspicious for neoplastic lesions. Consider PET/CT or tissue sampling. Moderate pulmonary edema. Small bilateral effusions. Infection is not excluded. No septic source detected in the chest, or abdomen/pelvis. ekg Rate 90 NV 174 QRSd 107 QT 425 QTc 521 --[place]-- P 68 QRS 89 T -56 SINUS RHYTHM POSSIBLE LEFT ATRIAL ENLARGEMENT [-0.1mV P WAVE IN V1/V2] MODERATE INTRAVENTRICULAR CONDUCTION DELAY [105+ ms QRS DURATION, 80+ ms Q/S IN V1/V2, NO Q AND 60+ ms R IN I/aVL/V5/V6] ST DEVIATION AND MODERATE T-WAVE ABNORMALITY, CONSIDER INFERIOR ISCHEMIA [-0.1+ mV T WAVE IN II/aVF] COMPARED TO ECG 04/09/2023 22:27:01 SINUS RHYTHM NOW PRESENT INTRAVENTRICULAR CONDUCTION DELAY NOW PRESENT Review of Systems Review of Systems: sob ROS unobtainable: Yes unobtainable due to medical condition (on ventilator support) [facility] Past Medical History Medical History Anxiety DVT (deep venous thrombosis) After knee surgery years ago. Hypertension Myocardial infarction Pneumonia Surgical History Surgical History H/O right knee surgery History of cholecystectomy History of coronary artery stent placement
[2023-04-28 21:45] LABS: Reflex Lactic Acid Yes or No Add Lactic
[2023-04-28 22:09] LABS: Lactic Acid 4.1 mmol/L (0.7-2.0)
[2023-04-28 22:28] LABS: Troponin I 0.371 ng/mL (0.000-0.034)
[2023-04-28] MEDS: PROPOFOL IV EMULSION 100 ML 17.96 MG (22:40)
[2023-04-28 23:13] LABS: MRSA (PCR) NOT DETECTED (NOT DETECTE)
[2023-04-28 23:44] LABS: Glucose Point of Care 229 mg/dl (65-105)
--- NOTE | 2023-04-28 23:52 | ADMGEN ---
This patient, Vero Ramos, was admitted to Intensive Care Unit-5. Patient/family oriented to hospital policies and general routines including ID bracelet, bed and alarms, visiting hours, pain management, procedures, bathroom and other care routines, personal items, smoking policy, room service/diet, and visiting hours. Information on how to activate the Rapid Response Team has been discussed. Patient/Family are encouraged to report perceived risks to care and to ask questions if they do not understand what they are told or what they should do.
[2023-04-29] VITALS (60 sets, daily range): BP systolic 92–151; BP diastolic 49–85; PULSE 70–115; RESP 18–24; TEMP 32.8–36.9; O2SAT 93–100; BMI 34.2
--- NOTE | 2023-04-29 | ECHO_ITS ---
Patient Info Name: Vero Ramos Age: 72 years : 1950 Gender: Female Ht: 62 in Wt: 178 lbs BSA: 1.91 m2 HR: 107 bpm BP: 161 / 85 mmHg Heart Rhythm: Sinus Rhythm Technical Quality: Fair Exam Date: 04/29/2023 9:59 AM Exam Location: [facility] Pulmonary Exam Room: ICU5 Patient Status: Inpatient Admit Date: 04/29/2023 Staff Ordering Physician: El Vargas MD Field Sales Engineer: Juanita Teague RDCS Attending Provider: El Vargas MD Referring Physician: Alicia ESPOSITO; Exam Type: CA echo doppler color flow Study Info Indications - ELEVATED TROPONINS Complete two-dimensional, color flow and Doppler transthoracic echocardiogram is performed with contrast to opacify the left ventricle and to improve the deliniation of the left ventricle endocardial borders. Contrast/Agitated Saline Contrast/Ag. Saline: Definity Amount: 2.00 ml Administered By: Juanita Teague [facility] Existing IV Access: Yes IV Access Condition: patent with no signs of infiltration Summary 1. Mild left ventricular enlargement with mild concentric hypertrophy. Mild global hypokinesis with severe hypokinesis to akinesis of the basal inferior and septal segments. Ejection fraction visually is 40-45%. Grade 2 diastolic dysfunction is present. 2. Left atrial chamber dimension is severely enlarged. 3. No pulmonary hypertension, estimated pulmonary arterial systolic pressure is 30 mmHg. 4. No significant valve disease. 5. Technically difficult study. Definity echo contrast used. 6. Normal sinus rhythm. Left Ventricle Left ventricular chamber dimension is mildly enlarged. Left ventricular systolic function is mildly reduced, estimated at 40-45%. There is mildly increased left ventricular wall thickness. Left ventricular septal wall motion is normal. The left ventricular diastolic function is grade II diastolic dysfunction. Right Ventricle Right ventricular chamber dimension is normal. Right ventricular systolic function is normal. Left Atria Left atrial chamber dimension is severely enlarged. Right Atria Right atrial chamber dimension is normal. Aortic Valve The aortic valve is trileaflet. There is moderate aortic valve sclerosis. There is no aortic valve stenosis. There is no aortic valve regurgitation. Pulmonic Valve The pulmonic valve is normal. There is no pulmonic valve stenosis. There is no pulmonic regurgitation. Mitral Valve The mitral valve has normal leaflets. There is no mitral valve stenosis. There is trace mitral valve regurgitation. Tricuspid Valve The tricuspid valve leaflets are normal. There is no significant tricuspid valve stenosis. There is trace tricuspid valve regurgitation. No pulmonary hypertension, estimated pulmonary arterial systolic pressure is 30 mmHg. Pericardium/Pleural The pericardium appears normal. There is no pericardial effusion. Inferior Vena Cava Normal inferior vena cava with >50% collapse upon inspiration consistent with Empty right atrial pressure, 8 mmHg. Aorta The aortic root size at the sinus of Valsalva is normal. The prox ascending aorta size is normal. Left Ventricular Outflow Tract Name Value Normal LVOT 2D LVOT Diameter 2.1 cm LVOT Doppler
[2023-04-29] MEDS: SODIUM CHLORIDE 0.9% IV 1,000 ML 999 ML IV CONT ×2 (00:02→05:56)
[2023-04-29] MEDS: FENTANYL 2,500MCG/NS250ML(*CRX 2,500 MCG/250 ML BAG 20 MCG IV CONT (00:03)
[2023-04-29] MEDS: PROPOFOL IV EMULSION 100 ML 17.96 MG IV CONT (00:07)
[2023-04-29] MEDS: MIDAZOLAM 100MG/NS 100ML(*CRX) 100 MG/100 ML BAG IV CONT ×2 (00:28→17:27)
[2023-04-29] MEDS: SODIUM BICARBONATE 8.4% 50 MEQ/50 ML SYRINGE 100 MEQ IV PUSH (00:35)
[2023-04-29 01:19] LABS: Triglycerides 220 mg/dL (<150)
[2023-04-29] MEDS: IPRATROPIUM BR 0.02% INH SOLN 0.5 MG/2.5 ML VIAL INHALATION ×4 (01:45→19:07)
[2023-04-29] MEDS: LEVALBUTEROL NEB 1.25 MG/3 ML INHALATION ×4 (01:46→19:07)
--- NOTE | 2023-04-29 01:57 | ECG_ITS ---
Measurements Intervals Elbe Rate: 88 P: 66 ME: 171 QRS: 76 QRSD: 111 T: -22 QT: 400 QTc: 485 Interpretive Statements SINUS RHYTHM POSSIBLE LEFT ATRIAL ENLARGEMENT [-0.1mV P WAVE IN V1/V2] SEPTAL MYOCARDIAL INFARCTION [40+ ms Q WAVE IN V1/V2], PROBABLY OLD COMPARED TO ECG 04/28/2023 21:15:02 MYOCARDIAL INFARCT FINDING NOW PRESENT Electronically Signed On 04-29-2023 19:51:56 CDT by Sharri Lombardo M.D.
[2023-04-29] MEDS: PROPOFOL IV EMULSION 100 ML 10.26 MG IV CONT (03:27)
[2023-04-29 04:39] LABS: Hematocrit 36.9 % (37.0-47.0); Hemoglobin 10.9 g/dL (12.0-15.0); Mean Corpuscular HGB Conc 29.5 g/dl (32-36); Mean Corpuscular Hemoglobin 27.6 pg (26-34); Mean Corpuscular Volume 93.4 fl (80-100); Mean Platelet Volume 11.1 fl (7.4-10.4); Platelet Count Result 161 k/mm3 (150-375); Red Blood Count 3.95 M/mm3 (4.2-5.4); Red Cell Distribution Width 12.9 % (11.5-14.5); White Blood Count 12.7 K/mm3 (4.5-10.0)
[2023-04-29 04:51] LABS: Anion Gap 18 mmol/L (8-16); Blood Urea Nitrogen 34 mg/dL (7-17); Calcium 7.7 mg/dL (8.4-10.2); Carbon Dioxide 12 mmol/L (22-30); Chloride 111 mmol/L (98-107); Estimated CRCL calculation 19 ml/min; Estimated Glomerular Filt Rate 19; Glucose 219 mg/dL (65-110); Lactic Acid Reflex 7.4 mmol/L (0.7-2.0); Magnesium 2.3 mg/dL (1.6-2.3); Phosphorus 5.3 mg/dL (2.5-4.5); Potassium 3.8 mmol/L (3.4-5.0); Sodium 141 mmol/L (137-145)
[2023-04-29 04:57] LABS: Hemoglobin A1C 6.4 % (<5.7)
[2023-04-29 05:21] LABS: Alveolar/Arterial O2 Gradient 204.7 mmHg; Base Excess ABG -10.5 mEq/l (+/-2.0); Carboxyhemoglobin 0.3 % THb (0-2.0); Fractional Inspired Oxygen 50 %; HCO3 ABG 15.9 mEq/l (22.0-26.0); Methemoglobin ABG 0.2 %THb (0-1.5); Oxygen Content ABG 15.9 %vol (16.0-22.0); Oxygen Saturation ABG 97.3 % (95.0-100.0); Oxyhemoglobin 96.6 % THb (90.0-100.0); PO2 ABG 110.2 mmHg (80.0-100.0); Reduced Hemoglobin 2.9 %THb (0-5.0); Total Hemoglobin 11.6 g/dL (12.0-18.0)
[2023-04-29 05:24] LABS: Arterial Blood Gas PEEP 5 cmH2O; Arterial Blood Gas Tidal Volume 400 ml; Arterial Blood Gas Vent Mode CMV; Arterial Blood Gas Ventilator rate 24 /MIN; Device VENTILATOR; Modified Allen's Test Pass; Site Drawn LEFT RADIAL
--- NOTE | 2023-04-29 09:14 | WPDCNINT ---
Assessment and Plan Assessment and plan (1) Acute kidney injury superimposed on CKD: Code(s): N17.9 - Acute kidney failure, unspecified; N18.9 - Chronic kidney disease, unspecified Status: Acute Assessment and Plan: Patient appears to have chronic kidney disease as her last recorded creatinine were elevated. She has elevated phosphate Presented with elevated creatinine of 1.6 which has increased to 2.5. Poor urine output Will give cautious amount of IV fluids since patient does have pulmonary edema CT scan does not show any obstruction or stones. Check CK level and urine electrolytes Consult nephrology Sodium bicarbonate for metabolic acidosis (2) Acute respiratory failure with hypoxia and hypercarbia: Code(s): J96.01 - Acute respiratory failure with hypoxia; J96.02 - Acute respiratory failure with hypercapnia Status: Acute Assessment and Plan: Multifactorial acute Respiratory failure secondary to AECOPD, pulmonary edema, ? CAP Patient intubated in the ER Continue full mechanical ventilation support to prevent hypoxemia/hypercarbia and end organ damage. ABG and PCXR reviewed and will repeat in am. Low tidal volume ventilation strategy to prevent volutrauma Continue Solu-Medrol, bronchodilators Hold Lasix due to acute renal failure COVID and flu PCR negative Nasal MRSA screen negative Blood culture sent. Will also check sputum cultures Empiric Rocephin and doxycycline. Will DC vancomycin (3) NSTEMI (non-ST elevated myocardial infarction): Code(s): I21.4 - Non-ST elevation (NSTEMI) myocardial infarction Status: Acute Assessment and Plan: Patient presented with elevated troponin. EKG reviewed and shows no ST changes Check echocardiogram Consult cardiology Aspirin Will start beta-topher once blood pressure allows (4) Congestive heart failure: Code(s): I50.9 - Heart failure, unspecified Status: Acute Assessment and Plan: Check echocardiogram (5) Pulmonary edema: Code(s): J81.1 - Chronic pulmonary edema Status: Acute Assessment and Plan: See above (6) COPD (chronic obstructive pulmonary disease): Code(s): J44.9 - Chronic obstructive pulmonary disease, unspecified Status: Acute Assessment and Plan: See above (7) Lung nodule: Code(s): R91.1 - Solitary pulmonary nodule Status: Acute Assessment and Plan: Patient has a known right middle lobe lung nodule which was evident again on the CT scan. Patient was supposed to get workup done outpatient I and I am not sure if there was any done. Will try to obtain records from [facility] before pursuing further workup Plan DVT prophylaxis -Lovenox Stress ulcer prophylaxis -PPI Nutrition -start Tube Feeds Code Status - Full Code Total Critical Care Time - 45 minutes Due to a high probability of clinically significant, life threatening deterioration, the patient required my highest level of preparedness to intervene emergently and I personally spent this critical care time directly and personally managing the patient. This critical care time included obtaining a history; examining the patient; pulse oximetry; ordering and review of studies; arranging urgent treatment with development of a management plan; evaluation of patient's response to treatment; frequent reassessment; and discussions with other providers. It was exclusive of separately billable procedures and treating other patients and teaching time. 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
[2023-04-29] MEDS: methylPREDNISolone SOD SUCC 125 MG VIAL 60 MG IV PUSH (09:16)
[2023-04-29] MEDS: ASPIRIN 325 MG TABLET FEED TUBE (09:17)
[2023-04-29] MEDS: ENOXAPARIN 30 MG/0.3 ML SYRINGE SUB-Q (09:17)
[2023-04-29] MEDS: PANTOPRAZOLE SODIUM IV 40 MG VIAL IV PUSH (09:17)
[2023-04-29] MEDS: DOXYCYCLINE 100 MG/NS 100 ML 100 MG/100 ML BAG IVPB ×2 (09:18→20:02)
[2023-04-29] MEDS: cefTRIAXone 2 GM/NS 100 ML 2 GM/100 ML BAG IVPB (09:18)
--- NOTE | 2023-04-29 09:46 | P.CONNP_ITS ---
Assessment and Plan Assessment and plan (1) FRANCIS (acute kidney injury): Code(s): N17.9 - Acute kidney failure, unspecified Status: Acute Assessment and Plan: * clear deterioration noted on this hospitalization * admission creatinine 1.6mg/dl and up to 2.5mg/dl by AM labs * complicated by low urine output and metabolic acidosis * etiology? 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 * follow repeat labs and UOP (2) Stage 3b chronic kidney disease: Code(s): N18.32 - Chronic kidney disease, stage 3b Status: Chronic Assessment and Plan: * has baseline CKD or is this just random fluctuations in baseline kidney function??? * creatinine running around 1.3 - 1.7mg/dl by recent labs done at [facility] * HOWEVER, labs review from other hospitalizations at other facilities demonstrate that her creatinine has been as low as 0.9mg/dl in this year.... * however, perhaps this normal creatinine value could be dilutional from her previous bouts of CHF... * risk factors for CKD include HTN, vascular disease, and age (3) Acute respiratory failure with hypoxia and hypercarbia: Code(s): J96.01 - Acute respiratory failure with hypoxia; J96.02 - Acute respiratory fail ure with hypercapnia Status: Acute Assessment and Plan: * multifactorial etiology: * COPD exacerbation * pulmonary edema * pneumonia * other? * on ventilator support * continue sternoids and bronchodilators * viral testing negative to date * empiric antibiotics for pneumonia * continue supportive therapy (4) NSTEMI (non-ST elevated myocardial infarction): Code(s): I21.4 - Non-ST elevation (NSTEMI) myocardial infarction Status: Acute Assessment and Plan: * elevated troponins noted on admission * no acute EKG changes noted * Cardiology consulted * echo pending * follow telemetery (5) Congestive heart failure: Code(s): I50.9 - Heart failure, unspecified Status: Acute Assessment and Plan: * known apparent history * evidence of pulmonary edema by imaging * checking Echo * diuresis on hold but may still be needed (6) COPD (chronic obstructive pulmonary disease): Code(s): J44.9 - Chronic obstructive pulmonary disease, unspecified Status: Acute Assessment and Plan: * on steroids and bronchodilators * see #3 * continue supportive therapy I will continue follow patient with you while she remains hospitalized and make further recommendations as needed. Thank you for allowing me to participate in care this patient. History of Present Illness Reason for Consult Consult date: 04/29/23 Reason for consult: acute renal failure (on chronic kidney disease?) Chief Complaint Chief complaint: Respiratory Arrest History of Present Illness Narrative: Most the information I have obtained is from review of the electronic medical record as well as discussion with the physician/nurses involved in the patient's care as the patient is unable to provide any history as she is currently intubated and on mechanical ventilation. The patient is a same 2-year-old female with a past medical history as outlined below who presented to [facility] Emergency Room with complaints
--- NOTE | 2023-04-29 09:46 | PM.CNNEP ---
Assessment and Plan Assessment and plan (1) FRANCIS (acute kidney injury): Code(s): N17.9 - Acute kidney failure, unspecified Status: Acute Assessment and Plan: clear deterioration noted on this hospitalization admission creatinine 1.6mg/dl and up to 2.5mg/dl by AM labs complicated by low urine output and metabolic acidosis etiology? 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 follow repeat labs and UOP (2) Stage 3b chronic kidney disease: Code(s): N18.32 - Chronic kidney disease, stage 3b Status: Chronic Assessment and Plan: has baseline CKD or is this just random fluctuations in baseline kidney function??? creatinine running around 1.3 - 1.7mg/dl by recent labs done at [facility] HOWEVER, labs review from other hospitalizations at other facilities demonstrate that her creatinine has been as low as 0.9mg/dl in this year.... however, perhaps this normal creatinine value could be dilutional from her previous bouts of CHF... risk factors for CKD include HTN, vascular disease, and age (3) Acute respiratory failure with hypoxia and hypercarbia: Code(s): J96.01 - Acute respiratory failure with hypoxia; J96.02 - Acute respiratory failure with hypercapnia Status: Acute Assessment and Plan: multifactorial etiology: COPD exacerbation pulmonary edema pneumonia other? on ventilator support continue sternoids and bronchodilators viral testing negative to date empiric antibiotics for pneumonia continue supportive therapy (4) NSTEMI (non-ST elevated myocardial infarction): Code(s): I21.4 - Non-ST elevation (NSTEMI) myocardial infarction Status: Acute Assessment and Plan: elevated troponins noted on admission no acute EKG changes noted Cardiology consulted echo pending follow telemetery (5) Congestive heart failure: Code(s): I50.9 - Heart failure, unspecified Status: Acute Assessment and Plan: known apparent history evidence of pulmonary edema by imaging checking Echo diuresis on hold but may still be needed (6) COPD (chronic obstructive pulmonary disease): Code(s): J44.9 - Chronic obstructive pulmonary disease, unspecified Status: Acute Assessment and Plan: on steroids and bronchodilators see #3 continue supportive therapy I will continue follow patient with you while she remains hospitalized and make further recommendations as needed. Thank you for allowing me to participate in care this patient. History of Present Illness Reason for Consult Consult date: 04/29/23 Reason for consult: acute renal failure (on chronic kidney disease?) Chief Complaint Chief complaint: Respiratory Arrest History of Present Illness Narrative: Most the information I have obtained is from review of the electronic medical record as well as discussion with the physician/nurses involved in the patient's care as the patient is unable to provide any history as she is currently intubated and on mechanical ventilation. The patient is a same 2-year-old female with a past medical history as outlined below who presented to [facility] Emergency Room with complaints of shortness of breath. The patient apparently was just recently hospitalized at [facility] in [place] with respiratory failure. The specifics of that hospitalization are not entirely clear to me and records have been requested. In any case, to the progressive and ongoing symptoms of shortness of breath, EMS was called. Supplemental oxygen was provided to the patient and she was subsequently transferred to the ER. Workup and evaluation emergency room demonstrated the patien
[2023-04-29] MEDS: PERFLUTREN LIPID MICROSPHERES 1.5 ML VIAL DILUTED TO 10 ML TOTAL VOLUME IV PUSH (10:30)
[2023-04-29] MEDS: SODIUM BICARBONATE TAB 650 MG TABLET PO (10:53)
[2023-04-29] MEDS: LACTATED RINGERS 1,000 ML 100 ML IV CONT ×2 (10:54→19:57)
--- NOTE | 2023-04-29 10:59 | IVDEFINITY ---
Prior to administration of IV Definity the patient was educated on the risks and benefits of the imaging enhancing agent including potential adverse side effects. The patient verbalized understanding. Allergies were verified. No exclusion criteria were identified and at least one of the following inclusion criteria were met: 1) physician request, 2) patient technically difficult to image (per the [place] [employer] guidelines of two or more segments not discernable within the apical view), or 3) questionable left ventricular function. ?
--- NOTE | 2023-04-29 15:15 | PM.CNCAR ---
Assessment and Plan Assessment and plan (1) NSTEMI (non-ST elevated myocardial infarction): Code(s): I21.4 - Non-ST elevation (NSTEMI) myocardial infarction Status: Acute Assessment and Plan: Patient has elevated troponin levels (0.019, 0.371, and 1.960) in the setting of acute respiratory failure and acidosis. It does sound like she had been complaining of chest pain over the past couple of weeks, and she has a known history of coronary artery disease. Initial ECG concerning for inferior ST elevation but subsequent EKG shows resolution of ST segment elevation. Most recent ECG available shows a sinus rhythm with no ST or T-wave abnormalities concerning for ischemia. Awaiting records from [facility] from recent visit. Will also request records from [facility] in [place] to gather some details about previous LHC/stenting. Will initiate anticoagulation for NSTEMI with heparin drip per protocol Start aspirin, statin Start beta-topher Check echo Anticipate ischemic evaluation with coronary angiogram sometime in the next couple of days, when renal function improves. Unsure of her baseline-hope to get more information about this with medical records from outside hospital. (2) Congestive heart failure: Code(s): I50.9 - Heart failure, unspecified Status: Acute Assessment and Plan: Per report from patient's family, has history of CHF. Mild CHF on chest x-ray. Echo is pending. She does not appear significantly volume overloaded on exam, would hold off on any further diuretics because of acute kidney injury. Continue to monitor volume status. (3) Acute kidney injury superimposed on CKD: Code(s): N17.9 - Acute kidney failure, unspecified; N18.9 - Chronic kidney disease, unspecified Status: Acute Assessment and Plan: Unsure of patient's baseline, but does have acute kidney injury with creatinine in up to 3.5 this evening. Avoid nephrotoxic agents. Will need to wait for renal function to improve before undergoing coronary angiogram. Nephrology has been consulted. History of Present Illness History of Present Illness Consult date/time: 04/29/23 15:15 Requesting physician: Cristobal Grider MD Consult reason: Other (NSTEMI) Reason For Visit: Respiratory Arrest Narrative: Vero Ramos is a 72-year-old female with a history of COPD, coronary artery disease, and CHF. She presented to the hospital with a chief complaint of shortness of breath. Patient was brought to the emergency department via EMS and she was intubated in the emergency department. According to the family at the bedside, patient has had multiple recent emergency department visits and hospitalizations for shortness of breath and chest pain. The family states that the patient has also been treated for CHF recently. She does have a history of coronary artery disease and according to the family has had multiple myocardial infarctions and had some stents placed about 8 years ago at [facility]. Per family report, patient has been complaining of some intermittent chest pain for the past couple of weeks. 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 She is currently intubated in the ICU and Cardiology is being asked to see her because of elevated troponin levels. Review of Systems Review of Systems: ROS unobtainable: Yes unobtainable due to endotracheal tube and unobtainable due to medical condition PMF Past Medical History Medical History Anxiety DVT (deep venous thrombosis) After knee surgery years ago. Hypertension Myocardial infarction Pneumonia Surgical History Surgical History H/O right knee surgery History of cholecystectomy History of coronary artery stent placement Social History Socia
[2023-04-29 17:12] LABS: Anion Gap 10 mmol/L (8-16); Blood Urea Nitrogen 41 mg/dL (7-17); Calcium 7.6 mg/dL (8.4-10.2); Carbon Dioxide 18 mmol/L (22-30); Chloride 111 mmol/L (98-107); Estimated CRCL calculation 14 ml/min; Estimated Glomerular Filt Rate 13; Glucose 130 mg/dL (65-110); Sodium 139 mmol/L (137-145)
[2023-04-29] MEDS: SODIUM BICARBONATE TAB 650 MG TABLET FEED TUBE (17:27)
[2023-04-29] MEDS: HEPARIN SODIUM 5,000 UNITS/ML VIAL 4000 UNITS IV PUSH (17:42)
[2023-04-29] MEDS: HEPARIN SOD/D5W 100 UNITS/ML 25,000 UNITS/250 ML BAG 8 UNITS IV CONT (17:43)
[2023-04-29] MEDS: FENTANYL 2,500MCG/NS250ML(*CRX 2,500 MCG/250 ML BAG 12.5 MCG IV CONT (20:00)
[2023-04-30] VITALS (41 sets, daily range): BP systolic 97–138; BP diastolic 50–90; PULSE 90–109; RESP 19–25; TEMP 36.1–36.8; O2SAT 94–100
[2023-04-30] MEDS: LEVALBUTEROL NEB 1.25 MG/3 ML INHALATION ×4 (01:08→20:43)
[2023-04-30] MEDS: IPRATROPIUM BR 0.02% INH SOLN 0.5 MG/2.5 ML VIAL INHALATION ×4 (01:08→20:47)
[2023-04-30 01:14] LABS: Basophils Percent Auto 0.1 % (0.2-1.2); Hematocrit 32.1 % (37.0-47.0); Hemoglobin 9.8 g/dL (12.0-15.0); Immature Granulocyte Absolute 0.08 K/mm3 (0.00-0.031); Immature Granulocyte Percent A 0.4 % (0-0.5); Lymphocytes Percent Auto 3.2 % (18.3-44.2); Mean Corpuscular HGB Conc 30.5 g/dl (32-36); Mean Corpuscular Hemoglobin 27.3 pg (26-34); Mean Corpuscular Volume 89.4 fl (80-100); Mean Platelet Volume 11.4 fl (7.4-10.4); Monocytes Absolute Auto 0.8 K/mm3 (0.1-0.6); Monocytes Percent Auto 4.2 % (2.6-8.5); Neutrophils Absolute Auto 17.2 K/mm3 (1.3-6.7); Neutrophils Percent Auto 92.1 % (45.5-73.1); Platelet Count Result 150 k/mm3 (150-375); Red Blood Count 3.59 M/mm3 (4.2-5.4); Red Cell Distribution Width 13.4 % (11.5-14.5); White Blood Count 18.7 K/mm3 (4.5-10.0)
[2023-04-30 01:25] LABS: Glucose Point of Care 146 mg/dl (65-105)
[2023-04-30 01:34] LABS: Alanine Aminotransferase 47 U/L (6-35); Albumin Level 3.6 g/dL (3.5-5.1); Alkaline Phosphatase 58 U/L (38-126); Anion Gap 12 mmol/L (8-16); Aspartate Amino Transferase 119 U/L (14-36); Bilirubin,Total 0.3 mg/dL (0.2-1.3); Blood Urea Nitrogen 49 mg/dL (7-17); Calcium 8.2 mg/dL (8.4-10.2); Carbon Dioxide 18 mmol/L (22-30); Chloride 108 mmol/L (98-107); Estimated CRCL calculation 12 ml/min; Estimated Glomerular Filt Rate 11; Glucose 142 mg/dL (65-110); Sodium 138 mmol/L (137-145)
[2023-04-30 01:35] LABS: Partial Thromboplastin Time 60.1 SECONDS (22.3-36.8)
[2023-04-30] MEDS: PROPOFOL IV EMULSION 100 ML 7.7 MG IV CONT (01:41)
[2023-04-30] MEDS: HEPARIN SODIUM 5,000 UNITS/ML VIAL 2500 UNITS IV PUSH ×3 (01:44→20:49)
[2023-04-30 04:08] LABS: Alveolar/Arterial O2 Gradient 87.6 mmHg; Base Excess ABG -8.6 mEq/l (+/-2.0); Carboxyhemoglobin 0.3 % THb (0-2.0); Fractional Inspired Oxygen 30 %; HCO3 ABG 17.6 mEq/l (22.0-26.0); Methemoglobin ABG 0.2 %THb (0-1.5); Oxygen Content ABG 14.1 %vol (16.0-22.0); Oxygen Saturation ABG 94.4 % (95.0-100.0); Oxyhemoglobin 94.1 % THb (90.0-100.0); PCO2 ABG 39.1 mmHg (35.0-45.0); PO2 ABG 80.4 mmHg (80.0-100.0); PO2 FiO2 Ratio Arterial Blood 2.68 %; Reduced Hemoglobin 5.4 %THb (0-5.0); Total Hemoglobin 10.6 g/dL (12.0-18.0)
[2023-04-30 04:10] LABS: Arterial Blood Gas Vent Mode CMV; Arterial Blood Gas Ventilator rate 24 /MIN; Device VENTILATOR; Modified Allen's Test Pass; Site Drawn LEFT RADIAL; pH ABG 7.272 (7.350-7.450)
[2023-04-30 04:11] LABS: Arterial Blood Gas PEEP 5 cmH2O; Arterial Blood Gas Tidal Volume 400 ml
[2023-04-30] MEDS: SODIUM BICARBONATE 8.4% 50 MEQ/50 ML SYRINGE 100 MEQ IV PUSH (05:09)
[2023-04-30] MEDS: ASPIRIN 81 MG ENTERIC TABLET PO (08:27)
[2023-04-30] MEDS: SODIUM BICARBONATE TAB 650 MG TABLET FEED TUBE ×2 (08:27→16:41)
[2023-04-30] MEDS: FUROSEMIDE INJ 100 MG/10 ML VIAL 80 MG IV PUSH (08:27)
[2023-04-30] MEDS: ATORVASTATIN 40 MG TABLET 80 MG PO (08:28)
[2023-04-30] MEDS: cefTRIAXone 2 GM/NS 100 ML 2 GM/100 ML BAG IVPB (08:28)
[2023-04-30] MEDS: DOXYCYCLINE 100 MG/NS 100 ML 100 MG/100 ML BAG IVPB ×2 (08:30→20:49)
[2023-04-30] MEDS: PANTOPRAZOLE SODIUM IV 40 MG VIAL IV PUSH (08:30)
[2023-04-30] MEDS: methylPREDNISolone SOD SUCC 125 MG VIAL 60 MG IV PUSH (08:30)
[2023-04-30] MEDS: METOPROLOL TARTRATE 12.5 MG TABLET FEED TUBE ×2 (08:31→20:49)
[2023-04-30 08:53] LABS: Partial Thromboplastin Time 55.3 SECONDS (22.3-36.8)
--- NOTE | 2023-04-30 09:25 | WPDINTPN ---
Progress Note: A&P Assessment and Plan (1) Acute kidney injury superimposed on CKD: Code(s): N17.9 - Acute kidney failure, unspecified; N18.9 - Chronic kidney disease, unspecified Status: Acute Assessment and Plan: Patient appears to have chronic kidney disease as her last recorded creatinine were elevated. She has elevated phosphate Presented with elevated creatinine of 1.6 has continued to increase and she has minimal urine output Appears to have developed ATN Patient was given cautious amount of IV fluids after admission but has not made any impact Will give Lasix IV x1 CT scan does not show any obstruction or stones. Pending urine electrolytes nephrology following Continue per tube sodium bicarbonate for metabolic acidosis May need SLURRY CONTROL TENDER (2) Acute respiratory failure with hypoxia and hypercarbia: Code(s): J96.01 - Acute respiratory failure with hypoxia; J96.02 - Acute respiratory failure with hypercapnia Status: Acute Assessment and Plan: Multifactorial acute Respiratory failure secondary to AECOPD, pulmonary edema, ? CAP Patient intubated in the ER Continue full mechanical ventilation support to prevent hypoxemia/hypercarbia and end organ damage. ABG and PCXR reviewed and will repeat in am. Low tidal volume ventilation strategy to prevent volutrauma She continues to have diffuse wheezing and high peak pressures on the ventilator continue Solu-Medrol, bronchodilators Will give a dose of Lasix COVID and flu PCR negative Nasal MRSA screen negative Blood culture and sputum cultures pending. Procalcitonin level pending Continue empiric Rocephin and doxycycline. (3) NSTEMI (non-ST elevated myocardial infarction): Code(s): I21.4 - Non-ST elevation (NSTEMI) myocardial infarction Status: Acute Assessment and Plan: Patient presented with elevated troponin. EKG reviewed and shows no ST changes Cardiology following and patient is now on aspirin statin low-dose beta-topher and heparin infusion Echocardiogram Summary ? 1. Mild left ventricular enlargement with mild concentric hypertrophy.? Mild global hypokinesis with severe hypokinesis to akinesis of the basal inferior and septal segments.? Ejection fraction visually is 40-45%.? Grade 2 diastolic dysfunction is present. ? 2. Left atrial chamber dimension is severely enlarged. ? 3. No pulmonary hypertension, estimated pulmonary arterial systolic pressure is 30 mmHg. ? 4. No significant valve disease. ? 5. Technically difficult study.? Definity echo contrast used. ? 6. Normal sinus rhythm. (4) Congestive heart failure: Code(s): I50.9 - Heart failure, unspecified Status: Acute Assessment and Plan: See above (5) Pulmonary edema: Code(s): J81.1 - Chronic pulmonary edema Status: Acute Assessment and Plan: See above (6) COPD (chronic obstructive pulmonary disease): Code(s): J44.9 - Chronic obstructive pulmonary disease, unspecified Status: Acute Assessment and Plan: See above (7) Lung nodule: Code(s): R91.1 - Solitary pulmonary nodule Status: Acute Assessment and Plan: Patient has a known right middle lobe lung nodule which was evident again on the CT scan. Patient was supposed to get workup done outpatient I and I am not sure if there was any done. Will try to obtain records from [facility] before pursuing further workup Plan DVT prophylaxis -heparin drip Stress ulcer prophylaxis -PPI Nutrition -continue Tube Feeds Code Status - Full Code Spoke to patient's daughter granddaughter and other family members at bedside yesterday I updated them with patient's current status including respiratory failure COPD exacerbation pulmonary edema congestive heart failure acute kidney failure and possibility of her needing dialysis. Total Critical Care Time - 32 minutes Due to a high probability of clinically significant, life threatening deterioratio
[2023-04-30] MEDS: PROPOFOL IV EMULSION 100 ML 5.13 MG IV CONT (09:55)
[2023-04-30 10:05] LABS: Procalcitonin 6.4 ng/mL
[2023-04-30 10:32] LABS: Creatinine Urine < 3.2 mg/dL
[2023-04-30 11:06] LABS: Glucose Point of Care 161 mg/dl (65-105)
--- NOTE | 2023-04-30 11:51 | PCFNICU ---
ICU Rounding Note: Pt current nutrition is Nepro @ 40 ml/h, providin kcal, 98 g protein, 640 ml free water. Nutrition recommendation: Continue with current tube feeding orders. Agree with current orders. Last recorded weight is 86 kg. Bowel Motility: No bowel movement recorded yet Labs Reviewed: Hgb 9.8, Hct 32.1, GFR 11, BUN 49, Cre 4.1 (up from 2.5 yesterday). Glu 142 Meds Noted: Fentanyl, versed, propofol @5 ml/h= 132 kcals Skin: WNL Additional Notes: Remains on mechanical ventilation. Tolerating tube feedings well. Continue with current tube feeding orders with no changes. Following daily in ICU rounds. Will monitior weight, labs, skin, tube feeding tolerance, meds every Friday and Friday. .
--- NOTE | 2023-04-30 12:33 | P.PNNP_ITS ---
Progress Note: A&P Assessment and Plan (1) FRANCIS (acute kidney injury): Code(s): N17.9 - Acute kidney failure, unspecified Status: Acute Assessment and Plan: * conitnue to deteriorate * admission creatinine 1.6mg/dl -- continues to worsen * complicated by low urine output and metabolic acidosis * etiology? 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 * she remains at risk for LOSS CONTROL REPRESENTATIVE/hemodialysis... * follow repeat labs and UOP (2) Stage 3b chronic kidney disease: Code(s): N18.32 - Chronic kidney disease, stage 3b Status: Chronic Assessment and Plan: * has baseline CKD or is this just random fluctuations in baseline kidney function??? * creatinine running around 1.3 - 1.7mg/dl by recent labs done at [facility] * HOWEVER, labs review from other hospitalizations at other facilities demonstrate that her creatinine has been as low as 0.9mg/dl in this year.... * however, perhaps this normal creatinine value could be dilutional from her previous bouts of CHF... * risk factors for CKD include HTN, vascular disease, and age (3) Acute respiratory failure with hypoxia and hypercarbia: Code(s): J96.01 - Acute respiratory failure with hypoxia; J96.02 - Acute respiratory failure with hypercapnia Status: Acute Assessment and Plan: * multifactorial etiology: * COPD exacerbation * pulmonary edema * pneumonia * other? * on ventilator support * continue steroids and bronchodilators * viral testing negative to date * empiric antibiotics for pneumonia * follow culture data * continue supportive therapy (4) NSTEMI (non-ST elevated myocardial infarction): Code(s): I21.4 - Non-ST elevation (NSTEMI) myocardial infarction Status: Acute Assessment and Plan: * elevated troponins noted on admission * no acute EKG changes noted * Cardiology recommendations noted * Echo results noted * follow telemetry (5) Congestive heart failure: Code(s): I50.9 - Heart failure, unspecified Status: Acute Assessment and Plan: * known apparent history * evidence of pulmonary edema by imaging * Echo with EF of 40-45% with grade 2 diastolic dysfunction * trial of diuretics today (6) COPD (chronic obstructive pulmonary disease): Code(s): J44.9 - Chronic obstructive pulmonary disease, unspecified Status: Acute Assessment and Plan: * on steroids and bronchodilators * see #3 * continue supportive therapy Will continue to follow. Subjective Date/time seen: 04/30/23 12:33 Interval history: Follow-up for acute kidney injury/acute renal failure (possibly on chronic kidney disease). Remains intubated/sedated and on mechanical ventilation; renal function continues to worsen in association with minimal urine output; otherwise appears hemodynamically stable; no acute issues/events overnight. Exam Narrative: General: elderly female intubated/sedated and on mechaical ventilation Heart: normal S1 and S2; no rub Lungs: coarse breath sounds with associated wheezing Abdomen: soft, nontender, nondistended, positive bowel sounds Extremities: no cyanosis or clubbing; trace edema Skin: warm and dry
--- NOTE | 2023-04-30 12:33 | PM.PNNEP ---
Progress Note: A&P Assessment and Plan (1) FRANCIS (acute kidney injury): Code(s): N17.9 - Acute kidney failure, unspecified Status: Acute Assessment and Plan: conitnue to deteriorate admission creatinine 1.6mg/dl -- continues to worsen complicated by low urine output and metabolic acidosis etiology? 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 she remains at risk for JUNIOR ACCOUNT EXECUTIVE/hemodialysis... follow repeat labs and UOP (2) Stage 3b chronic kidney disease: Code(s): N18.32 - Chronic kidney disease, stage 3b Status: Chronic Assessment and Plan: has baseline CKD or is this just random fluctuations in baseline kidney function??? creatinine running around 1.3 - 1.7mg/dl by recent labs done at [facility] HOWEVER, labs review from other hospitalizations at other facilities demonstrate that her creatinine has been as low as 0.9mg/dl in this year.... however, perhaps this normal creatinine value could be dilutional from her previous bouts of CHF... risk factors for CKD include HTN, vascular disease, and age (3) Acute respiratory failure with hypoxia and hypercarbia: Code(s): J96.01 - Acute respiratory failure with hypoxia; J96.02 - Acute respiratory failure with hypercapnia Status: Acute Assessment and Plan: multifactorial etiology: COPD exacerbation pulmonary edema pneumonia other? on ventilator support continue steroids and bronchodilators viral testing negative to date empiric antibiotics for pneumonia follow culture data continue supportive therapy (4) NSTEMI (non-ST elevated myocardial infarction): Code(s): I21.4 - Non-ST elevation (NSTEMI) myocardial infarction Status: Acute Assessment and Plan: elevated troponins noted on admission no acute EKG changes noted Cardiology recommendations noted Echo results noted follow telemetry (5) Congestive heart failure: Code(s): I50.9 - Heart failure, unspecified Status: Acute Assessment and Plan: known apparent history evidence of pulmonary edema by imaging Echo with EF of 40-45% with grade 2 diastolic dysfunction trial of diuretics today (6) COPD (chronic obstructive pulmonary disease): Code(s): J44.9 - Chronic obstructive pulmonary disease, unspecified Status: Acute Assessment and Plan: on steroids and bronchodilators see #3 continue supportive therapy Will continue to follow. Subjective Date/time seen: 04/30/23 12:33 Interval history: Follow-up for acute kidney injury/acute renal failure (possibly on chronic kidney disease). Remains intubated/sedated and on mechanical ventilation; renal function continues to worsen in association with minimal urine output; otherwise appears hemodynamically stable; no acute issues/events overnight. Exam Narrative: General: elderly female intubated/sedated and on mechaical ventilation Heart: normal S1 and S2; no rub Lungs: coarse breath sounds with associated wheezing Abdomen: soft, nontender, nondistended, positive bowel sounds Extremities: no cyanosis or clubbing; trace edema Skin: warm and dry Objective Data Vital Signs Vital Signs: Vital Signs Temp Pulse Resp BP Pulse Ox O2 Del Method FiO2 04/30/23 12:00 98.3 F 90 24 H 114/67 94 04/30/23 12:00 90 04/30/23 11:22 92 24 H 04/30/23 11:11 93 95 Mechanical Ventilation 30 04/30/23 09:55 104 H 24 H 04/30/23 10:00 98.3 F 92 24 H 138/90 96 04/30/23 10:00 92 04/30/23 08:00 98.1 F 106 H 19 122/87 97 04/30/23 08:00 106 H 19 97 Mechanical Ventilation 30 04/30/23 08:00 106 H 04/30/23
[2023-04-30 13:43] LABS: Partial Thromboplastin Time 76.1 SECONDS (22.3-36.8)
[2023-04-30 16:25] LABS: Glucose Point of Care 191 mg/dl (65-105)
--- NOTE | 2023-04-30 16:34 | PM.IMPN ---
Progress Note: A&P Assessment and Plan (1) Acute respiratory failure with hypoxia and hypercarbia: Code(s): J96.01 - Acute respiratory failure with hypoxia; J96.02 - Acute respiratory failure with hypercapnia Status: Acute Assessment and Plan: Patient brought in by EMS for SOB. Attempted to intubate in the field but unable; patient intuabted in ED on admission. CXR showing CMG, diffuse pulmonary edema. ABG 7.//384 on MV. Stacy resp failure is multifactorial from CHF/pulm edema, COPD, AMI and/or possibly CAP. COVID and flu PCR negative. Nasal MRSA screen negative Continue full mechanical ventilation support to prevent hypoxemia/hypercarbia and end organ damage. ABG improved but still extremely acidotic. PCXR showing now only mild pulm edema. Low tidal volume ventilation strategy to prevent volutrauma She continues to have diffuse wheezing Sputum culture pending. BCx NGTD Continue Solu-Medrol, bronchodilators. abx Bicarb added for the metabolic acidosis. (2) NSTEMI (non-ST elevated myocardial infarction): Code(s): I21.4 - Non-ST elevation (NSTEMI) myocardial infarction Status: Acute Assessment and Plan: Patient presented in acute respiratory failure with CXR consistent with pulm edema. Troponin elevated and has climbed to 1.[address] elevation c/w inferior injury with improvement on repeat EKG. Echo showing EF 40-45% with mild global HK with severe HK-AK of the basal inferior and septal segments. Grade II diastolic dysfxn Cardiology following and appreciate their input. Concern for STEMI. Currently on Heparin drip, ASA, Lipitor and Lopressor. Will need heart cath once more stable (3) Acute kidney injury superimposed on CKD: Code(s): N17.9 - Acute kidney failure, unspecified; N18.9 - Chronic kidney disease, unspecified Status: Acute Assessment and Plan: Patient with CKD with prior values between 1.3-1.6. Cr 1.6 on admission. Creatinine has climbed to 4.1. Serum bicarb 18 with nml gap. Potassium 5.0. Consider ATN from CHF, COPD, PNA, AMI. Consider also AIN or RAAD No UA. Patient was given cautious amount of IV fluids after admission but has not made any impact Lasix IV given on 04/28 and again today. UOP listed as zero yesterday and so far today. I/O: +5.8L CT scan does not show any obstruction or stones. Nephrology following and appreciate their input. Continue per tube sodium bicarbonate for metabolic acidosis May need SCIENTIFIC MANAGER (4) Congestive heart failure: Code(s): I50.9 - Heart failure, unspecified Status: Acute Assessment and Plan: Patient with acute systolic and diastolic CHF. See above (5) COPD (chronic obstructive pulmonary disease): Code(s): J44.9 - Chronic obstructive pulmonary disease, unspecified Status: Acute Assessment and Plan: As above. (6) Lung nodule: Code(s): R91.1 - Solitary pulmonary nodule Status: Acute Assessment and Plan: Patient has a known right middle lobe lung nodule which was evident again on the CT scan. Patient was supposed to get workup done outpatient but not sure was done Old records ordered. (7) Tobacco dependence: Code(s): F17.200 - Nicotine dependence, unspecified, uncomplicated Status: Acute Assessment and Plan: Patient will need to be educated about the benefits of smoking cessation. Plan DVT prophylaxis -heparin drip Stress ulcer prophylaxis -PPI Nutrition -continue Tube Feeds Code Status - Full Code Subjective Date/time seen: 04/30/23 16:34 Interval history: 72yo female with tobacco abuse, known lung nodule, CAD with [place], DVT and HTN here for SOB. Assuming care. Chart reviewed. Patient intubated and sedated. Lasix IV given with poor response. Review of Systems Review of Systems: ROS unobtainable: Yes unobtainable due to endotracheal tube Exam Narrative: AF 98.0 113/62 94 24 96% MV
[2023-04-30] MEDS: FENTANYL 2,500MCG/NS250ML(*CRX 2,500 MCG/250 ML BAG 12.5 MCG IV CONT (16:41)
[2023-04-30] MEDS: MIDAZOLAM 100MG/NS 100ML(*CRX) 100 MG/100 ML BAG IV CONT (16:43)
--- NOTE | 2023-04-30 18:56 | PM.PNCARD ---
Progress Note: A&P Assessment and Plan (1) NSTEMI (non-ST elevated myocardial infarction): Code(s): I21.4 - Non-ST elevation (NSTEMI) myocardial infarction Status: Acute Assessment and Plan: Patient has elevated troponin levels (0.019, 0.371, and 1.960) in the setting of acute respiratory failure and acidosis. It does sound like she had been complaining of chest pain over the past couple of weeks, and she has a known history of coronary artery disease. Initial ECG concerning for inferior ST elevation but subsequent EKG shows resolution of ST segment elevation. Most recent ECG available shows a sinus rhythm with no ST or T-wave abnormalities concerning for ischemia. Awaiting records from [facility] from recent visit. Will also request records from [facility] in [place] to gather some details about previous LHC/stenting. Continue aspirin, statin, heparin, and beta-topher Echo showed moderate left ventricular dysfunction Anticipate ischemic evaluation with coronary angiogram hopefully prior to discharge, if renal function permits. Unsure of her baseline-hope to get more information about this with medical records from outside hospital. (2) Congestive heart failure: Code(s): I50.9 - Heart failure, unspecified Status: Acute Assessment and Plan: Mild acute systolic and diastolic CHF on chest x-ray. EF 40-45%.. She does not appear significantly volume overloaded on exam, would hold off on any further diuretics because of acute kidney injury. Continue to monitor volume status. (3) Acute kidney injury superimposed on CKD: Code(s): N17.9 - Acute kidney failure, unspecified; N18.9 - Chronic kidney disease, unspecified Status: Acute Assessment and Plan: Unsure of patient's baseline, but does have acute kidney injury with oliguric renal failure. Avoid nephrotoxic agents. Will need to wait for renal function to improve before undergoing coronary angiogram. Nephrology has been consulted. (4) Acute respiratory failure with hypoxia and hypercarbia: Code(s): J96.01 - Acute respiratory failure with hypoxia; J96.02 - Acute respiratory failure with hypercapnia Status: Acute Assessment and Plan: Multifactorial. intubated sedated. Per hospitalist. Subjective Date/time seen: 04/30/23 18:56 Interval history: Patient admitted with shortness of breath and respiratory failure requiring intubation, multifactorial secondary to CHF, COPD, possibly the CAP. Found to have had a non-STEMI with a peak troponin of 1.96. She had transient inferior ST-elevation which has resolved. Unfortunately she developed acute kidney failure. Echo showed EF 40-45%, diastolic dysfunction with hypokinesis of the inferior wall. 04/29/2023: Recommend aspirin, statin, heparin drip, beta-topher, echo, and anticipate ischemic evaluation with angiogram prior to discharge. 04/30/2023: Remains intubated sedated, on heparin drip and getting tube feedings. Creatinine has gone up to 4.1; has oliguric acute renal failure. Telemetry shows sinus rhythm/sinus tach with rare PVCs. EKG from 04/29/2023 at 2:06 a.m. shows sinus rhythm, nonspecific T-wave changes, resolution of the inferior ST elevation and no development of inferior Q-waves. Personally reviewed. Review of Systems Review of Systems: ROS unobtainable: Yes unobtainable due to endotracheal tube and unobtainable due to mental status Exam Const: General: confusion and uncomfortable Orientation/consciousness: oriented to person, patient oriented x3 and No confusion Other: Ill-appearing lady with multiple tubes and lines, who became a little agitated when I spoke with her. HENMT: Mouth: Yes moist mucous membranes Eyes: General: appearance normal, both eyes and all related structures Neck: Neck: supple Resp: Effort & Inspection: normal respiratory effort Auscultation: wheezes (Diffuse) Cardio: Rate: regular rate Rhyth
[2023-04-30 19:27] LABS: Triglycerides 259 mg/dL (<150)
[2023-04-30 19:32] LABS: Partial Thromboplastin Time 66.8 SECONDS (22.3-36.8)
--- NOTE | 2023-04-30 20:29 | PC.NURSE ---
Addendum entered by Teofilo Jain RN 04/30/23 21:08: EKG Shown to AC Rubin with the hospitalist team. Original Note: Elevated troponin reported to principal military analyst and hospitalist. EKG ordered. RN instructed to call cardiology if results differ from previous one.
--- NOTE | 2023-04-30 20:33 | ECG_ITS ---
Measurements Intervals [place] Rate: 107 P: 67 AK: 157 QRS: 59 QRSD: 102 T: -32 QT: 342 QTc: 458 Interpretive Statements SINUS TACHYCARDIA NONSPECIFIC ST & T-WAVE ABNORMALITY COMPARED TO ECG 04/29/2023 02:06:27 SINUS TACHYCARDIA NOW PRESENT T-WAVE ABNORMALITY NOW PRESENT Electronically Signed On 04-30-2023 20:39:53 CDT by Sharri Lombardo M.D.
[2023-04-30] MEDS: HEPARIN SOD/D5W 100 UNITS/ML 25,000 UNITS/250 ML BAG 11 UNITS IV CONT (20:48)
[2023-05-01] VITALS (48 sets, daily range): BP systolic 96–128; BP diastolic 54–75; PULSE 81–100; RESP 24–96; TEMP 36.9–37.5; O2SAT 24–99
[2023-05-01 00:58] LABS: Glucose Point of Care 158 mg/dl (65-105)
[2023-05-01] MEDS: IPRATROPIUM BR 0.02% INH SOLN 0.5 MG/2.5 ML VIAL INHALATION ×4 (02:39→20:00)
[2023-05-01] MEDS: LEVALBUTEROL NEB 1.25 MG/3 ML INHALATION ×4 (02:39→20:00)
[2023-05-01 03:49] LABS: Hematocrit 32.1 % (37.0-47.0); Hemoglobin 9.7 g/dL (12.0-15.0); Mean Corpuscular HGB Conc 30.2 g/dl (32-36); Mean Corpuscular Hemoglobin 27.5 pg (26-34); Mean Corpuscular Volume 90.9 fl (80-100); Mean Platelet Volume 11.8 fl (7.4-10.4); Platelet Count Result 154 k/mm3 (150-375); Red Blood Count 3.53 M/mm3 (4.2-5.4); Red Cell Distribution Width 14.1 % (11.5-14.5); White Blood Count 17.3 K/mm3 (4.5-10.0)
[2023-05-01 04:01] LABS: Partial Thromboplastin Time 79.5 SECONDS (22.3-36.8)
[2023-05-01 04:17] LABS: Alanine Aminotransferase 60 U/L (6-35); Albumin Level 3.2 g/dL (3.5-5.1); Alkaline Phosphatase 54 U/L (38-126); Anion Gap 9 mmol/L (8-16); Aspartate Amino Transferase 70 U/L (14-36); Bilirubin,Total 0.3 mg/dL (0.2-1.3); Blood Urea Nitrogen 74 mg/dL (7-17); Calcium 8.2 mg/dL (8.4-10.2); Carbon Dioxide 22 mmol/L (22-30); Chloride 106 mmol/L (98-107); Estimated CRCL calculation 8 ml/min; Estimated Glomerular Filt Rate 6; Glucose 133 mg/dL (65-110); Magnesium 2.3 mg/dL (1.6-2.3); Potassium 5.3 mmol/L (3.4-5.0); Sodium 137 mmol/L (137-145)
[2023-05-01 04:53] LABS: Hepatitis B Surface Antigen Negative (Negative)
[2023-05-01 05:10] LABS: Hepatitis B Surface Anti Res Negative
[2023-05-01 05:28] LABS: Alveolar/Arterial O2 Gradient 66.7 mmHg; Base Excess ABG -6.2 mEq/l (+/-2.0); Carboxyhemoglobin 0.3 % THb (0-2.0); Fractional Inspired Oxygen 30 %; HCO3 ABG 20.2 mEq/l (22.0-26.0); Methemoglobin ABG 0.3 %THb (0-1.5); Oxygen Content ABG 14.9 %vol (16.0-22.0); Oxygen Saturation ABG 96.5 % (95.0-100.0); Oxyhemoglobin 95.5 % THb (90.0-100.0); PCO2 ABG 43.5 mmHg (35.0-45.0); PO2 ABG 96.1 mmHg (80.0-100.0); Reduced Hemoglobin 3.9 %THb (0-5.0)
[2023-05-01 05:40] LABS: Device VENTILATOR; Modified Allen's Test Pass; Site Drawn LEFT RADIAL; pH ABG 7.285 (7.350-7.450)
[2023-05-01 05:41] LABS: Arterial Blood Gas PEEP 5 cmH2O; Arterial Blood Gas Tidal Volume 400 ml; Arterial Blood Gas Vent Mode CMV; Arterial Blood Gas Ventilator rate 24 /MIN
[2023-05-01] MEDS: ASPIRIN 81 MG ENTERIC TABLET PO (08:22)
[2023-05-01] MEDS: methylPREDNISolone SOD SUCC 125 MG VIAL 60 MG IV PUSH (08:22)
[2023-05-01] MEDS: ATORVASTATIN 40 MG TABLET 80 MG PO (08:22)
[2023-05-01] MEDS: cefTRIAXone 2 GM/NS 100 ML 2 GM/100 ML BAG IVPB (08:22)
[2023-05-01] MEDS: METOPROLOL TARTRATE 12.5 MG TABLET FEED TUBE ×2 (08:22→20:11)
[2023-05-01] MEDS: PANTOPRAZOLE SODIUM IV 40 MG VIAL IV PUSH (08:22)
[2023-05-01] MEDS: SODIUM BICARBONATE TAB 650 MG TABLET FEED TUBE ×2 (08:22→19:02)
[2023-05-01] MEDS: DOXYCYCLINE 100 MG/NS 100 ML 100 MG/100 ML BAG IVPB ×2 (08:23→20:11)
[2023-05-01] MEDS: SODIUM ZIRCONIUM CYCLOSILICATE 10 GM POWD.PACK FEED TUBE (08:33)
--- NOTE | 2023-05-01 09:01 | WPDINTPN ---
Progress Note: A&P Assessment and Plan (1) Acute kidney injury superimposed on CKD: Code(s): N17.9 - Acute kidney failure, unspecified; N18.9 - Chronic kidney disease, unspecified Status: Acute Assessment and Plan: Patient appears to have chronic kidney disease as her last recorded creatinine were elevated. She has elevated phosphate Presented with elevated creatinine of 1.6 has continued to increase Appears to have developed ATN Her creatinine has increased to 6.4 and she continues to have minimal urine output Patient was given cautious amount of IV fluids after admission but has not made any impact 04/30 Lasix IV x1 with no response CT scan does not show any obstruction or stones. Nephrology following. Discussed with narrow fabric calenderer. In light of worsening renal function, minimal urine output, volume overload, edema and mechanical ventilation will proceed with hemodialysis. Currently on per tube sodium bicarbonate for metabolic acidosis which will be discontinued once patient is on dialysis (2) Acute respiratory failure with hypoxia and hypercarbia: Code(s): J96.01 - Acute respiratory failure with hypoxia; J96.02 - Acute respiratory failure with hypercapnia Status: Acute Assessment and Plan: Multifactorial acute Respiratory failure secondary to AECOPD, pulmonary edema, ? CAP Patient intubated in the ER Continue full mechanical ventilation support to prevent hypoxemia/hypercarbia and end organ damage. ABG and PCXR reviewed. Advance ET tube by 2 cm Low tidal volume ventilation strategy to prevent volutrauma She continues to have diffuse wheezing and high peak pressures on the ventilator continue Solu-Medrol, bronchodilators COVID and flu PCR negative Nasal MRSA screen negative Blood culture and sputum cultures pending. Procalcitonin level elevated at 6.4 Continue empiric Rocephin and doxycycline. Plan to start hemodialysis to remove fluid (3) NSTEMI (non-ST elevated myocardial infarction): Code(s): I21.4 - Non-ST elevation (NSTEMI) myocardial infarction Status: Acute Assessment and Plan: Patient presented with elevated troponin. EKG reviewed and shows no ST changes Cardiology following and patient is now on aspirin statin low-dose beta-topher and heparin infusion. Heparin will be temporarily held for invasive procedure Diagnostic cardiac catheterization not done yet due to acute renal failure Echocardiogram Summary ? 1. Mild left ventricular enlargement with mild concentric hypertrophy.? Mild global hypokinesis with severe hypokinesis to akinesis of the basal inferior and septal segments.? Ejection fraction visually is 40-45%.? Grade 2 diastolic dysfunction is present. ? 2. Left atrial chamber dimension is severely enlarged. ? 3. No pulmonary hypertension, estimated pulmonary arterial systolic pressure is 30 mmHg. ? 4. No significant valve disease. ? 5. Technically difficult study.? Definity echo contrast used. ? 6. Normal sinus rhythm. (4) Congestive heart failure: Code(s): I50.9 - Heart failure, unspecified Status: Acute Assessment and Plan: See above (5) Pulmonary edema: Code(s): J81.1 - Chronic pulmonary edema Status: Acute Assessment and Plan: See above (6) COPD (chronic obstructive pulmonary disease): Code(s): J44.9 - Chronic obstructive pulmonary disease, unspecified Status: Acute Assessment and Plan: See above (7) Lung nodule: Code(s): R91.1 - Solitary pulmonary nodule Status: Acute Assessment and Plan: Patient has a known right middle lobe lung nodule which was evident again on the CT scan. It seems the patient had a PET-CT done which showed low uptake as an outpatient and plan was to follow up with repeat study. She does see a necktie maker as an outpatient who is currently doing evaluation for the lung mass. Plan DVT prophylaxis -heparin drip Stress ulcer prophylaxis -PPI Nutrition
--- NOTE | 2023-05-01 09:32 | PM.IMPN ---
Progress Note: A&P Assessment and Plan (1) Acute respiratory failure with hypoxia and hypercarbia: Code(s): J96.01 - Acute respiratory failure with hypoxia; J96.02 - Acute respiratory failure with hypercapnia Status: Acute Assessment and Plan: Patient brought in by EMS for SOB. Attempted to intubate in the field but unable; patient intuabted in ED on admission. CXR showing CMG, diffuse pulmonary edema. ABG 7.03/74/384 on MV. [place] resp failure is multifactorial from CHF/pulm edema, COPD, AMI and/or possibly CAP. COVID and flu PCR negative. Nasal MRSA screen negative Continue full mechanical ventilation support to prevent hypoxemia/hypercarbia and end organ damage. ABG improved but still extremely acidotic. PCXR showing now only mild pulm edema. Low tidal volume ventilation strategy to prevent volutrauma She continues to have diffuse wheezing Sputum culture pending. BCx NGTD Continue Solu-Medrol, bronchodilators, abx Bicarb added for the metabolic acidosis. (2) NSTEMI (non-ST elevated myocardial infarction): Code(s): I21.4 - Non-ST elevation (NSTEMI) myocardial infarction Status: Acute Assessment and Plan: Patient presented in acute respiratory failure with CXR consistent with pulm edema related to AMI. Troponin elevated and has climbed to 16.[address] elevation c/w inferior injury with improvement on repeat EKG. Echo showing EF 40-45% with mild global HK with severe HK-AK of the basal inferior and septal segments. Grade II diastolic dysfxn Cardiology following and appreciate their input. Concern for STEMI. Currently on ASA, Lipitor and Lopressor. Heparin drip held for HD cath placement. Will need heart cath once more stable but now with FRANCIS (3) Acute kidney injury superimposed on CKD: Code(s): N17.9 - Acute kidney failure, unspecified; N18.9 - Chronic kidney disease, unspecified Status: Acute Assessment and Plan: Patient with CKD with prior values between 1.3-1.6. Cr 1.6 on admission. Creatinine has climbed to 4.1. Serum bicarb 18 with nml gap. Potassium 5.0. Consider ATN from CHF, COPD, PNA, AMI. Consider also AIN or RAAD. No UA. Patient was given cautious amount of IV fluids after admission but has not made any impact Lasix IV given on 04/28 and again today. UOP listed as zero yesterday and so far today. I/O: +7.5L CT scan does not show any obstruction or stones. Nephrology following and appreciate their input. Continue per tube sodium bicarbonate for metabolic acidosis HD planned. (4) Congestive heart failure: Code(s): I50.9 - Heart failure, unspecified Status: Acute Assessment and Plan: Patient with acute systolic and diastolic CHF. See above (5) COPD (chronic obstructive pulmonary disease): Code(s): J44.9 - Chronic obstructive pulmonary disease, unspecified Status: Acute Assessment and Plan: As above. (6) Lung nodule: Code(s): R91.1 - Solitary pulmonary nodule Status: Acute Assessment and Plan: Patient has a known right middle lobe lung nodule which was evident again on the CT scan. Patient had workup done outpatient. Patient to follow-up with her pediatrics hospitalist as outpatient. (7) Tobacco dependence: Code(s): F17.200 - Nicotine dependence, unspecified, uncomplicated Status: Acute Assessment and Plan: Patient will need to be educated about the benefits of smoking cessation. Plan DVT prophylaxis -heparin drip (on-hold; resume when able) Stress ulcer prophylaxis -PPI Nutrition - Tube Feeds (on-hold; resume when able) Code Status - Full Code Subjective Date/time seen: 05/01/23 09:32 Interval history: 72yo female with tobacco abuse, known lung nodule, CAD with ND, DVT and HTN here for SOB. No issues overnight per RN. Patient remains intubated and sedated. Poor UOP. TF off and Heparin held for plan for HD cathater placement. Exam
--- NOTE | 2023-05-01 09:47 | PM.PNCARD ---
Progress Note: A&P Assessment and Plan (1) NSTEMI (non-ST elevated myocardial infarction): Code(s): I21.4 - Non-ST elevation (NSTEMI) myocardial infarction Status: Acute Assessment and Plan: Patient has elevated troponin levels (0.019, 0.371, and 1.960) in the setting of acute respiratory failure and acidosis. It does sound like she had been complaining of chest pain over the past couple of weeks, and she has a known history of coronary artery disease. Initial ECG concerning for inferior ST elevation but subsequent EKG shows resolution of ST segment elevation. Most recent ECG available shows a sinus rhythm with no ST or T-wave abnormalities concerning for ischemia. Awaiting records from [facility] from recent visit. Will also request records from [facility] in [place] to gather some details about previous LHC/stenting. Continue aspirin, statin, heparin, and beta-topher Heparin gtt can be d/c'd this afternoon Echo showed moderate left ventricular dysfunction Anticipate ischemic evaluation with coronary angiogram prior to discharge, perhaps tomorrow as she is having dialysis catheter placed today. (2) Congestive heart failure: Code(s): I50.9 - Heart failure, unspecified Status: Acute Assessment and Plan: Mild acute systolic and diastolic CHF on chest x-ray. EF 40-45%.. She does not appear significantly volume overloaded on exam, would hold off on any further diuretics because of acute kidney injury. Continue to monitor volume status. (3) Acute kidney injury superimposed on CKD: Code(s): N17.9 - Acute kidney failure, unspecified; N18.9 - Chronic kidney disease, unspecified Status: Acute Assessment and Plan: Unsure of patient's baseline, but does have acute kidney injury with oliguric renal failure. Dialysis catheter being placed today. (4) Acute respiratory failure with hypoxia and hypercarbia: Code(s): J96.01 - Acute respiratory failure with hypoxia; J96.02 - Acute respiratory failure with hypercapnia Status: Acute Assessment and Plan: Multifactorial. intubated sedated. Per hospitalist. Subjective Date/time seen: 05/01/23 09:47 Interval history: Patient admitted with shortness of breath and respiratory failure requiring intubation, multifactorial secondary to CHF, COPD, possibly the CAP. Found to have had a non-STEMI with a peak troponin of 1.96. She had transient inferior ST-elevation which has resolved. Unfortunately she developed acute kidney failure. Echo showed EF 40-45%, diastolic dysfunction with hypokinesis of the inferior wall. 04/29/2023: Recommend aspirin, statin, heparin drip, beta-topher, echo, and anticipate ischemic evaluation with angiogram prior to discharge. 04/30/2023: Remains intubated sedated, on heparin drip and getting tube feedings. Creatinine has gone up to 4.1; has oliguric acute renal failure. Telemetry shows sinus rhythm/sinus tach with rare PVCs. EKG from 04/29/2023 at 2:06 a.m. shows sinus rhythm, nonspecific T-wave changes, resolution of the inferior ST elevation and no development of inferior Q-waves. Personally reviewed. 05/01/2023: Remains intubated and sedated. Worsening renal failure. Remains on heparin gtt for now. Possible LHC tomorrow if plan is for dialysis Review of Systems Review of Systems: ROS unobtainable: Yes unobtainable due to endotracheal tube, unobtainable due to medical condition and unobtainable due to mental status Exam Const: General: comfortable, no acute distress, confusion and uncomfortable Orientation/consciousness: oriented to person, No patient oriented x3 and confusion Other: Ill-appearing lady with multiple tubes and lines. HENMT: Head: normal to inspection Mouth: Yes moist mucous membranes Other: OETT in place Eyes: General: appearance normal, both eyes and all related structures Pupils: Equal, round and reactive pupils present Neck: Neck: n
--- NOTE | 2023-05-01 10:44 | WPDPROCEDUR ---
Procedures Central Line Placement Right IJ: Central Line Date: 05/01/23 Central Line Time: 10:15 Discussed w/ the patient/family/POA,the placement of a central venous catheter, including its clinical necessity/indication & associated potential risks, benifits and alternatives.: Yes The patient/family/POA understand(s) and acknowledge(s) the need to proceed with central venous catheter insertion as an important element of the patient's clinical management.: Yes Consent: I have discussed with the patient and/or surrogate, the non-emergent placement of a temporary hemodialysis catheter, including its clinical necessity/indication and associated potential risks and complications. The patient and/or surrogate understand(s) and acknowledge(s) the need to proceed with temporary dialysis catheter insertion as an important element of the patient's clinical management. Time Out Performed: Yes Patient Position: supine Patient placed on monitor/pulse ox: Yes Provider Prep: mask, sterile gown, sterile gloves, Max. sterile barrier precautions and hand hygiene with conventional soap/water or alcohol based hand rub Central line prep: Povidone-Iodine 1% Local anesthesia used: lidocaine 1% Amount of anesthesia used (ml): 4 Sterile US Technique with sterile gel/sterile probe covers: Yes Central line lumen inserted: triple Length (cm): 20 Depth of Insertion (cm): 19 Post Procedure: sutured in place, good blood return, all ports aspirated, flushed, capped, transparent dressing, hemostatic product, antimicrobial product and aseptic technique maintained throughout procedure Post procedure x-ray: tip of catheter in good position Patient tolerated procedure: well Complications: none
--- NOTE | 2023-05-01 10:47 | PCFNICU ---
ICU Rounding Note: Pt current nutrition is Nepro at 40 ml/hr. Last recorded weight is 85.3 kg, stable Bowel Motility:No BM reported. Labs Reviewed:Glu 133, Cr 6.4.BUN 74, K 5.3 Meds Noted:Fentanyl, Versed, Propofol 10 higq=[id number] kcals. Skin:WNL Additional Notes: Patient remains on mechanical vent. Tube feedings are being tolerated of Nepro at 40 ml/hr. Flush 30 ml q 4 hours. Plans for Dialysis today. Central Line placed today. Agree with diet orders. Following daily in ICU rounds. Will monitor weight, labs, skin, tube feeding tolerance, meds every Friday and Friday.
[2023-05-01] MEDS: PROPOFOL IV EMULSION 100 ML 5.13 MG IV CONT (11:06)
[2023-05-01 11:38] LABS: Partial Thromboplastin Time 27.6 SECONDS (22.3-36.8)
[2023-05-01] MEDS: HEPARIN SODIUM 5,000 UNITS/ML VIAL 4000 UNITS IV PUSH (11:45)
[2023-05-01 11:53] LABS: Glucose Point of Care 134 mg/dl (65-105)
[2023-05-01] MEDS: FENTANYL 2,500MCG/NS250ML(*CRX 2,500 MCG/250 ML BAG 12.5 MCG IV CONT (12:05)
--- NOTE | 2023-05-01 13:00 | PM.PNNEP ---
Progress Note: A&P Assessment and Plan (1) FRANCIS (acute kidney injury): Code(s): N17.9 - Acute kidney failure, unspecified Status: Acute Assessment and Plan: continues to deteriorate complicated by low urine output and metabolic acidosis etiology? 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 creatinine running around 1.3 - 1.7mg/dl by recent labs done at [facility] HOWEVER, labs review from other hospitalizations at other facilities demonstrate that her creatinine has been as low as 0.9mg/dl in this year.... however, perhaps this normal creatinine value could be dilutional from her previous bouts of CHF... risk factors for CKD include HTN, vascular disease, and age (3) Acute respiratory failure with hypoxia and hypercarbia: Code(s): J96.01 - Acute respiratory failure with hypoxia; J96.02 - Acute respiratory failure with hypercapnia Status: Acute Assessment and Plan: multifactorial etiology: COPD exacerbation pulmonary edema pneumonia other? on ventilator support continue steroids and bronchodilators viral testing negative to date empiric antibiotics for pneumonia follow culture data continue supportive therapy (4) NSTEMI (non-ST elevated myocardial infarction): Code(s): I21.4 - Non-ST elevation (NSTEMI) myocardial infarction Status: Acute Assessment and Plan: elevated troponins noted on admission no acute EKG changes noted Cardiology recommendations noted Echo results noted on heparin gtt follow telemetry (5) Congestive heart failure: Code(s): I50.9 - Heart failure, unspecified Status: Acute Assessment and Plan: known apparent history evidence of pulmonary edema by imaging Echo with EF of 40-45% with grade 2 diastolic dysfunction plan fluid removal with dialysis today (6) COPD (chronic obstructive pulmonary disease): Code(s): J44.9 - Chronic obstructive pulmonary disease, unspecified Status: Acute Assessment and Plan: on steroids and bronchodilators see #3 continue supportive therapy Will continue to follow. Subjective Date/time seen: 05/01/23 13:00 Interval history: Follow-up for acute kidney injury/acute renal failure (possibly on chronic kidney disease). Renal function continues to deteriorate with almost no urine output/anuria; potassium on the higher side of normal; remains intubated/sedated and on mechanical ventilation; s/p temporary HDE catheter placement earlier today and currently tolerating hemodialysis treatment at the time of my visit (seen on HD at 12:50PM); otherwise, hemodynamically stable with the need for vasopressor therapy. Exam Narrative: General: elderly female intubated/sedated and on mechanical ventilation Heart: normal S1 and S2; no rub Lungs: coarse breath sounds with some associated wheezing Abdomen: soft, nontender, nondistended, positive bowel sounds Extremities: no cyanosis or clubbing; trace edema Skin: warm and intact Objective Data Vital Signs Vital Signs: Vital Signs Temp Pulse Resp BP Pulse Ox O2 Del Method FiO2 05/01/23 13:00 88 104/59 L 05/01/23 12:45 89 109/61 05/01/23 12:30 87 106/60 05/01/23 12:23 86 109/61 05/01/23 12:00 94 05/01/23 12:00 99.3 F 94 24 H 110/62 96 05/01/23 12:00 94 24 H 96 Mechanical Ventilati
--- NOTE | 2023-05-01 13:00 | P.PNNP_ITS ---
Progress Note: A&P Assessment and Plan (1) FRANCIS (acute kidney injury): Code(s): N17.9 - Acute kidney failure, unspecified Status: Acute Assessment and Plan: * continues to deteriorate * complicated by low urine output and metabolic acidosis * etiology? 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 * creatinine running around 1.3 - 1.7mg/dl by recent labs done at [facility] * HOWEVER, labs review from other hospitalizations at other facilities demonstrate that her creatinine has been as low as 0.9mg/dl in this year.... * however, perhaps this normal creatinine value could be dilutional from her previous bouts of CHF... * risk factors for CKD include HTN, vascular disease, and age (3) Acute respiratory failure with hypoxia and hypercarbia: Code(s): J96.01 - Acute respiratory failure with hypoxia; J96.02 - Acute respiratory failure with hypercapnia Status: Acute Assessment and Plan: * multifactorial etiology: * COPD exacerbation * pulmonary edema * pneumonia * other? * on ventilator support * continue steroids and bronchodilators * viral testing negative to date * empiric antibiotics for pneumonia * follow culture data * continue supportive therapy (4) NSTEMI (non-ST elevated myocardial infarction): Code(s): I21.4 - Non-ST elevation (NSTEMI) myocardial infarction Status: Acute Assessment and Plan: * elevated troponins noted on admission * no acute EKG changes noted * Cardiology recommendations noted * Echo results noted * on heparin gtt * follow telemetry (5) Congestive heart failure: Code(s): I50.9 - Heart failure, unspecified Status: Acute Assessment and Plan: * known apparent history * evidence of pulmonary edema by imaging * Echo with EF of 40-45% with grade 2 diastolic dysfunction * plan fluid removal with dialysis today (6) COPD (chronic obstructive pulmonary disease): Code(s): J44.9 - Chronic obstructive pulmonary disease, unspecified Status: Acute Assessment and Plan: * on steroids and bronchodilators * see #3 * continue supportive therapy Will continue to follow. Subjective Date/time seen: 05/01/23 13:00 Interval history: Follow-up for acute kidney injury/acute renal failure (possibly on chronic kidney disease). Renal function continues to deteriorate with almost no urine output/anuria; potassium on the higher side of normal; remains intubated/sedated and on mechanical ventilation; s/p temporary HDE catheter placement earlier today and currently tolerating hemodialysis treatment at the time of my visit (seen on HD at 12:50PM); otherwise, hemodynamically stable with the need for vasopressor therapy. Exam Narrative: General: elderly female intubated/sedated and on mechanical ventilation Heart: normal S1 and S2; no rub Lungs: coarse breath sounds with some associated
[2023-05-01] MEDS: EPOETIN ALFA-EPBX 10,000 UNITS/ML VIAL 10000 UNITS IV PUSH (14:27)
--- NOTE | 2023-05-01 15:20 | PC.NURSE ---
Propofol noted to be running at 10 mcg/kg/min (5.13 ml/hr) at start of shift 0700, which is appropriate dosing and what was reported in nurse handoff. MAR record did not reflect this, noted to be charted at 19.49 mcg/kg/min (10 ml/hr). Looking back, MAR has been improperly documented on since 04/29/23 1430. MAR corrected. caddie notified, pharmacy notified.
[2023-05-01] MEDS: HEPARIN SODIUM 1,000 UNITS/ML VIAL 4000 UNITS IV PUSH (15:38)
[2023-05-01] MEDS: CENTRAL LINE FLUSH 10 ML IV PUSH ×2 (16:25→20:12)
[2023-05-01 17:49] LABS: Glucose Point of Care 196 mg/dl (65-105)
[2023-05-01] MEDS: MIDAZOLAM 100MG/NS 100ML(*CRX) 100 MG/100 ML BAG IV CONT (19:02)
--- NOTE | 2023-05-01 19:26 | PC.NURSE ---
Documentation error brought to RN's attention regarding propofol titration. Dose rate and infusion rate were inverted for the following dates and times by this RN: 04/29 Documentation now corrected to match accurate pump rate.
[2023-05-02] VITALS (62 sets, daily range): BP systolic 86–153; BP diastolic 54–91; PULSE 75–102; RESP 20–24; TEMP 35.9–37.6; O2SAT 67–100
[2023-05-02 00:32] LABS: Glucose Point of Care 144 mg/dl (65-105)
[2023-05-02] MEDS: IPRATROPIUM BR 0.02% INH SOLN 0.5 MG/2.5 ML VIAL INHALATION ×3 (02:10→14:57)
[2023-05-02] MEDS: LEVALBUTEROL NEB 1.25 MG/3 ML INHALATION ×3 (02:11→14:57)
[2023-05-02] MEDS: PROPOFOL IV EMULSION 100 ML 7.7 MG IV CONT (03:30)
[2023-05-02 04:30] LABS: Hematocrit 28.3 % (37.0-47.0); Hemoglobin 8.9 g/dL (12.0-15.0); Mean Corpuscular HGB Conc 31.4 g/dl (32-36); Mean Corpuscular Hemoglobin 27.2 pg (26-34); Mean Corpuscular Volume 86.5 fl (80-100); Platelet Count Result 149 k/mm3 (150-375); Red Blood Count 3.27 M/mm3 (4.2-5.4); Red Cell Distribution Width 14.5 % (11.5-14.5); White Blood Count 14.3 K/mm3 (4.5-10.0)
[2023-05-02 04:35] LABS: Alveolar/Arterial O2 Gradient 81.8 mmHg; Arterial Blood Gas PEEP 5 cmH2O; Arterial Blood Gas Tidal Volume 400 ml; Arterial Blood Gas Vent Mode CMV; Arterial Blood Gas Ventilator rate 24 /MIN; Base Excess ABG 0.2 mEq/l (+/-2.0); Carboxyhemoglobin 0.3 % THb (0-2.0); Device VENTILATOR; Fractional Inspired Oxygen 30 %; Methemoglobin ABG 0.2 %THb (0-1.5); Modified Allen's Test Unable to perform; Oxygen Content ABG 14.6 %vol (16.0-22.0); Oxygen Saturation ABG 97.8 % (95.0-100.0); PCO2 ABG 30.9 mmHg (35.0-45.0); PO2 ABG 95.8 mmHg (80.0-100.0); PO2 FiO2 Ratio Arterial Blood 3.19 %; Reduced Hemoglobin 3.5 %THb (0-5.0); Site Drawn RIGHT RADIAL; Total Hemoglobin 10.7 g/dL (12.0-18.0)
[2023-05-02 04:55] LABS: Alanine Aminotransferase 56 U/L (6-35); Albumin Level 3.1 g/dL (3.5-5.1); Alkaline Phosphatase 53 U/L (38-126); Anion Gap 7 mmol/L (8-16); Aspartate Amino Transferase 51 U/L (14-36); Bilirubin,Total 0.3 mg/dL (0.2-1.3); Blood Urea Nitrogen 61 mg/dL (7-17); Calcium 8.2 mg/dL (8.4-10.2); Carbon Dioxide 28 mmol/L (22-30); Chloride 100 mmol/L (98-107); Estimated CRCL calculation 10 ml/min; Estimated Glomerular Filt Rate 9; Glucose 81 mg/dL (65-110); Magnesium 2.2 mg/dL (1.6-2.3); Potassium 4.9 mmol/L (3.4-5.0); Sodium 135 mmol/L (137-145)
[2023-05-02] MEDS: CENTRAL LINE FLUSH 10 ML IV PUSH ×3 (06:09→21:13)
[2023-05-02 06:21] LABS: Appearance Urine Turbid (Clear); Bacteria Urine 4+ /hpf; Bilirubin Urine 1+ (Negative); Blood Urine 2+ (Negative); Color Urine Red (Yellow); Glucose Urine UA Negative (Negative); Ketones Urine Negative (Negative); Leukocyte Esterase Ur 2+ LEU/UL (Negative); Nitrate Urine Positive (Negative); Protein Urine 2+ mg/dL (Negative); RBC Urine >100 /hpf (0-2); Specific Grav Ur 1.021 (1.001-1.035); Squamous Epithelial Cell Urine Occasional /hpf (Few); Urobilinogen Urine 0.2 mg/dL (<2.0); pH Urine 7.5 (5.0-9.0)
[2023-05-02 06:22] LABS: Need Manual Microscopic Reviewed
[2023-05-02 06:24] LABS: Add Urine Microscopic? YES
[2023-05-02 07:18] LABS: Creatinine Urine < 3.2 mg/dL
[2023-05-02 07:26] LABS: Eosinophil Urine None Seen % (None Seen)
[2023-05-02 07:27] LABS: Urine Eos QC 2nd Tech Confirmed
[2023-05-02 07:34] LABS: Urea Random Urine < 67 MG/DL
[2023-05-02 08:06] LABS: Total Protein Urine Random > 600 mg/dL
[2023-05-02] MEDS: FENTANYL 2,500MCG/NS250ML(*CRX 2,500 MCG/250 ML BAG 12.5 MCG IV CONT (08:14)
[2023-05-02] MEDS: cefTRIAXone 2 GM/NS 100 ML 2 GM/100 ML BAG IVPB (08:15)
[2023-05-02] MEDS: DOXYCYCLINE 100 MG/NS 100 ML 100 MG/100 ML BAG IVPB ×2 (08:16→21:12)
[2023-05-02] MEDS: ASPIRIN 81 MG ENTERIC TABLET PO (08:16)
[2023-05-02] MEDS: METOPROLOL TARTRATE 12.5 MG TABLET FEED TUBE ×2 (08:16→21:13)
[2023-05-02] MEDS: ATORVASTATIN 40 MG TABLET 80 MG PO (08:16)
[2023-05-02] MEDS: PANTOPRAZOLE SODIUM IV 40 MG VIAL IV PUSH (08:16)
[2023-05-02] MEDS: methylPREDNISolone SOD SUCC 125 MG VIAL 60 MG IV PUSH (08:16)
--- NOTE | 2023-05-02 08:46 | WPDINTPN ---
Progress Note: A&P Assessment and Plan (1) Acute kidney injury superimposed on CKD: Code(s): N17.9 - Acute kidney failure, unspecified; N18.9 - Chronic kidney disease, unspecified Status: Acute Assessment and Plan: Patient appears to have chronic kidney disease as her last recorded creatinine were elevated. She has elevated phosphate Presented with elevated creatinine of 1.6 has continued to increase Appears to have developed ATN Her creatinine has increased to 6.4 and she continues to have minimal urine output Patient was given cautious amount of IV fluids after admission but has not made any impact 04/30 Lasix IV x1 with no response CT scan does not show any obstruction or stones. 05/01 Discussed with head porter baggage. In light of worsening renal function, minimal urine output, volume overload, edema and mechanical ventilation, patient was started on hemodialysis. Temporary hemodialysis catheter placed 05/02 patient will receive her 2nd session of dialysis today. Discontinue sodium bicarbonate (2) Acute respiratory failure with hypoxia and hypercarbia: Code(s): J96.01 - Acute respiratory failure with hypoxia; J96.02 - Acute respiratory failure with hypercapnia Status: Acute Assessment and Plan: Multifactorial acute Respiratory failure secondary to AECOPD, pulmonary edema, ? CAP Patient intubated in the ER Continue full mechanical ventilation support to prevent hypoxemia/hypercarbia and end organ damage. ABG and PCXR reviewed. Advance ET tube by 2 cm Low tidal volume ventilation strategy to prevent volutrauma She continues to have diffuse wheezing and high peak pressures on the ventilator I will continue Solu-Medrol, bronchodilators COVID and flu PCR negative Nasal MRSA screen negative Blood culture and sputum cultures have been negative for now. Procalcitonin level elevated at 6.4 Continue empiric Rocephin and doxycycline. Patient was started on hemodialysis to remove fluid and will receive another session today. Will need to remove additional fluid before attempts to wean from ventilator (3) NSTEMI (non-ST elevated myocardial infarction): Code(s): I21.4 - Non-ST elevation (NSTEMI) myocardial infarction Status: Acute Assessment and Plan: Patient presented with elevated troponin. EKG reviewed and shows no ST changes Cardiology following and patient is now on aspirin statin low-dose beta-topher Diagnostic cardiac catheterization not done yet due to acute renal failure and there is no immediate plan. Heparin infusion has been discontinued Echocardiogram Summary ? 1. Mild left ventricular enlargement with mild concentric hypertrophy.? Mild global hypokinesis with severe hypokinesis to akinesis of the basal inferior and septal segments.? Ejection fraction visually is 40-45%.? Grade 2 diastolic dysfunction is present. ? 2. Left atrial chamber dimension is severely enlarged. ? 3. No pulmonary hypertension, estimated pulmonary arterial systolic pressure is 30 mmHg. ? 4. No significant valve disease. ? 5. Technically difficult study.? Definity echo contrast used. ? 6. Normal sinus rhythm. (4) Congestive heart failure: Code(s): I50.9 - Heart failure, unspecified Status: Acute Assessment and Plan: See above (5) Pulmonary edema: Code(s): J81.1 - Chronic pulmonary edema Status: Acute Assessment and Plan: See above (6) COPD (chronic obstructive pulmonary disease): Code(s): J44.9 - Chronic obstructive pulmonary disease, unspecified Status: Acute Assessment and Plan: See above (7) Lung nodule: Code(s): R91.1 - Solitary pulmonary nodule Status: Acute Assessment and Plan: Patient has a known right middle lobe lung nodule which was evident again on the CT scan. It seems the patient had a PET-CT done which showed low uptake as an outpatient and plan was to follow up with repeat study. She does see a access spec as
--- NOTE | 2023-05-02 09:57 | WPDMODSED ---
Moderate Sedation Note-Pt Data Patient Data Diagnosis: coronary artery disease presenting with acute respiratory failure requiring intubation in the setting of this transient inferior ST elevation was noted apparent history of coronary disease with previous PCI is elsewhere records not available to me acute renal failure progressing to end-stage renal disease now on hemodialysis Present Complaint: patient intubated Procedure to be performed/Plan: coronary angiography Allergies Allergy/AdvReac Type Severity Reaction Status Date / Time oxycodone Allergy Intermediate Verified 02/24/18 14:04 alprazolam AdvReac Mild NAUSEA AND Verified 04/29/23 09:26 VOMITING. 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 Uncoded 12/28/02 11:33 Home Medications Medication Instructions Recorded Confirmed Type ipratropium 20 mcg-albuterol 100 1 puff inhalation QID PRN short of 02/21/22 04/28/23 History mcg/actuation mist for inhalation breath (Combivent Respimat) pantoprazole 40 mg tablet,delayed 40 mg PO QAM 4 weeks #28 tabs 04/03/23 04/28/23 Rx release (Protonix) albuterol sulfate 90 mcg/actuation 2 puff inhalation Q8H PRN 04/28/23 04/28/23 History aerosol inhaler Shortness Of Breath Or Wheezing amlodipine 5 mg tablet 5 mg PO DAILY 04/28/23 04/28/23 History losartan 100 mg tablet 100 mg PO DAILY 04/28/23 04/28/23 History Current Medications: Active Medications Aspirin (Aspirin 81 Mg Enteric Tablet) 81 mg PO QAM [facility] Last Admin: 05/02/23 08:16 Dose: 81 mg Atorvastatin Calcium (Atorvastatin 40 Mg Tablet) 80 mg PO DAILY [facility] Last Admin: 05/02/23 08:16 Dose: 80 mg Dextrose (Dextrose 50% 25 Gm/50 Ml Syringe) 12.5 gm IV PUSH PRN PRN; Protocol PRN Reason: Hypoglycemia Enoxaparin Sodium (Enoxaparin 30 Mg/0.3 Ml Syringe) 30 mg SUB-Q DAILY [facility] Last Admin: 05/02/23 09:11 Dose: Not Given Epoetin Kaiser-epbx (Epoetin Kaiser-Epbx 10,000 Units/Ml Vial) 10,000 units IV PUSH ONCE ONE Stop: 05/02/23 20:17 Glucagon (Glucagon For Inj 1 Mg Vial) 1 mg IM PRN PRN; Protocol PRN Reason: Hypoglycemia Glucose (Glucose Oral Gel 15 Gm Of Glucse In 37.5 Gm Tube) 15 gm PO PRN PRN; Protocol PRN Reason: Hypoglycemia Fentanyl Citrate (Fentanyl 2,500 Mcg/Ns 250 Ml) 2,500 mcg in 250 mls @ 12.5 mls/hr IV CONT .Q20H [facility]; Protocol Last Titration: 05/02/23 09:12 Dose: 125 mcg/hr, 12.5 mls/hr Propofol (Diprivan) 100 mls @ 0 mls/hr IV CONT .Q0M [facility]; Protocol Last Titration: 05/02/23 09:12 Dose: 0 mcg/kg/min, 0 mls/hr Midazolam HCl (Versed 100 Mg/Ns 100 Ml) 100 mg in 100 mls @ 4 mls/hr IV CONT .Q25H [facility]; Protocol Last Titration: 05/02/23 09:12 Dose: 4 mg/hr, 4 mls/hr Ceftriaxone Sodium (Rocephin 2 Gm/Ns 100 Ml) 2 gm in 100 mls @ 200 mls/hr IVPB Q24H [facility] Stop: 05/05/23 09:29 Last Infusion: 05/02/23 08:45 Dose: Infused Doxycycline Hyclate (Vibramycin 100 Mg/Ns 100 Ml) 100 mg in 100 mls @ 100 mls/hr IVPB Q12H [facility] Stop: 05/03/23 21:59 Last Infusion: 05/02/23 09:16 Dose: Infused Dextrose (Dextrose 5% 1,000 Ml) 1,000 mls @ 100 mls/hr IVPB PRN PRN; Protocol PRN Reason: Hypoglycemia Albumin Human (Albutein) 50 mls @ 999 mls/hr IVPB Q10M PRN PRN Reason: HYPOTENSION Stop: 05/02/23 10:29 Insulin Aspart (Insulin Aspart (*Bkc) 100 Units/Ml) 3 - 6 units SUB-Q Q6HR [facility]; Protocol Last Admin: 05/02/23 08:06 Dose: Not Given Ipratropium Gordon (Ipratropium Br 0.02% Inh Soln 0.5 Mg/2.5 Ml Vial) 0.5 mg INHALATION Q6HRT [facility] Last Admin: 05/02/23 08:17 Dose: 0.5 mg Levalbuterol HCl (Levalbuterol Neb 1.25 Mg/3 Ml) 1.25 mg INHALATION Q6HRT [facility] Last Admin: 05/02/23 08:17 Dose: 1.25 mg Methylprednisolone Sodium Succinate (Methylprednisolone Sod Succ 125 Mg Vial) 60 mg IV PUSH QAM [facility] Stop: 05/03/23 08:59 Last Admin: 05/02/23 08:16 Dose: 60 mg Metoprolol Tartrate (Metoprolol Tartrate 12.5 Mg Tablet) 12.5 mg FEED TUBE Q12HR [facility] Last Admin: 05/02/23 08:16 Dose: 12.5 mg Pantoprazole Sodium (Pantoprazole Sodium Iv 40 Mg Vial)
--- NOTE | 2023-05-02 10:11 | PM.IMPN ---
Progress Note: A&P Assessment and Plan (1) Acute respiratory failure with hypoxia and hypercarbia: Code(s): J96.01 - Acute respiratory failure with hypoxia; J96.02 - Acute respiratory failure with hypercapnia Status: Acute Assessment and Plan: Patient brought in by EMS for SOB. Attempted to intubate in the field but unable; patient intuabted in ED on admission. CXR showing CMG, diffuse pulmonary edema. ABG 7.03/74/384 on MV. [place] resp failure is multifactorial from CHF/pulm edema, COPD, AMI and/or possibly CAP. COVID and flu PCR negative. Nasal MRSA screen negative Continue full mechanical ventilation support to prevent hypoxemia/hypercarbia and end organ damage. ABG improved. The acidosis better with HD. PCXR showing mild pulm edema vs PNA She continues to have diffuse wheezing but better with HD Sputum culture NGTD. BCx NGTD Continue Solu-Medrol, bronchodilators, abx. HD to control fluid status Bicarb added for the metabolic acidosis and now stopped (2) NSTEMI (non-ST elevated myocardial infarction): Code(s): I21.4 - Non-ST elevation (NSTEMI) myocardial infarction Status: Acute Assessment and Plan: Patient presented in acute respiratory failure with CXR consistent with pulm edema related to AMI more likely STEMI. Troponin elevated and has climbed to 16.[address] elevation c/w inferior injury with improvement on repeat EKG. Echo: EF 40-45% with mild global HK with severe HK-AK of the basal inferior and septal segments. Grade II diastolic dysfxn Cardiology following and appreciate their input. Currently on ASA, Lipitor and Lopressor. Heparin drip held for LHC planned for today (3) Acute kidney injury superimposed on CKD: Code(s): N17.9 - Acute kidney failure, unspecified; N18.9 - Chronic kidney disease, unspecified Status: Acute Assessment and Plan: Patient with CKD with prior values between 1.3-1.6. Cr 1.6 on admission. Creatinine has climbed to 4.1. Serum bicarb 18 with nml gap. Potassium 5.0. Consider ATN from CHF, COPD, PNA, AMI. Consider also AIN or RAAD. UA: 2+ protein, 2+ blood with >100 RBC. 2+ LE, Nit+ and 11-20 WBC. UCx pending. Patient was given cautious amount of IV fluids after admission but has not made any impact Lasix IV given but UOP listed as zero CT scan does not show any urinary obstruction or stones. Nephrology following and appreciate their input. HD catheter placed 05/01 with 3L removed. Continue HD per nephrology. (4) Congestive heart failure: Code(s): I50.9 - Heart failure, unspecified Status: Acute Assessment and Plan: Patient with acute systolic and diastolic CHF. See above (5) COPD (chronic obstructive pulmonary disease): Code(s): J44.9 - Chronic obstructive pulmonary disease, unspecified Status: Acute Assessment and Plan: As above. (6) Lung nodule: Code(s): R91.1 - Solitary pulmonary nodule Status: Acute Assessment and Plan: Patient has a known right middle lobe lung nodule which was evident again on the CT scan. Patient had workup done outpatient. Patient to follow-up with her hospital orderly as outpatient. (7) Tobacco dependence: Code(s): F17.200 - Nicotine dependence, unspecified, uncomplicated Status: Acute Assessment and Plan: Patient will need to be educated about the benefits of smoking cessation. Plan DVT prophylaxis -heparin drip (on-hold) Stress ulcer prophylaxis -PPI Nutrition - Tube Feeds (on-hold; resume when able) Code Status - Full Code Subjective Date/time seen: 05/02/23 10:11 Interval history: 72yo female with tobacco abuse, known lung nodule, CAD with LA, DVT and HTN here for SOB. No issues overnight. Plan for C today with HD after. BP soft so sedation being weaned. Review of Systems Review of Systems: ROS unobtainable: Yes unobtainable due to endotracheal tube Exam Narrative:
--- NOTE | 2023-05-02 11:17 | PCNFU ---
Nutrition Follow-Up Complete: Inadequate Oral Intake as related to mechaical ventilation as evidenced by NPO. Goal: Meet estimanted nutritional needs. - NPO today, not meeting goal Pt current nutrition is NPO for cardiac cath. Nutrition recommendation: When diet is advanced, resume previous TF order of Nepro @ 40 ml/h providing 1584 kcal, 98 g protein, 640 ml free water. Flush 30 ml q 4 h Last recorded weight is 87.6 kg. Bowel Motility: No BMs charted. Pt may benefit from bowel regimen Labs Reviewed:Hgb 8.9, Hct 28.3, Alb 3.1, Na 135, GFR 9, BUN 61, Cre 4.9, Glu 144 Meds Noted: Fentanyl, versed. Propofol is off Skin: WNL Additional Notes: Remains on vent and dialysis. Having cath today. Tube feeding to resume after cath. Will monitior weight, labs, skin, tube feeding tolerance, meds every Friday and Friday.
--- NOTE | 2023-05-02 12:04 | WPDCARDPROC ---
Cardiac Cath Procedure Note Date of procedure:: 05/02/23 Performing physician:: Zev Hensley MD Indication:: coronary artery disease with transient ST segment elevation in setting of acute respiratory Brief clinical history:: this is a 72-year-old woman apparently with history of coronary disease and previous PCI treated elsewhere. She entered this hospital several days ago with severe acute respiratory failure and was emergently intubated upon arrival. She transiently had inferior ST-elevation in the emergency room which resolved following intubation. There was a moderate troponin rise following this. She has severe COPD with ongoing cigarette smoking and has chronic renal failure which is now progressed to end-stage renal disease with hemodialysis being initiated during this hospital stay. Following all of this a coronary angiogram has been recommended for assessment of her coronary disease. Procedure Procedure performed:: Coronary angiography PCI (LILLIAN) to the proximal to mid right coronary artery Sedation/Medication given:: no additional sedation patient on intravenous midazolam infusion Access site:: right femoral artery Estimated blood loss:: 50 cc Procedure note:: patient was brought to cardiac phlebotomist lab assistant sedated and intubated on mechanical ventilation. The right femoral triangle was prepared and draped in the usual fashion. Anesthesia was provided with 10 cc of lidocaine infiltrated locally. Using the modified Seldinger technique the femoral artery was punctured and a 5 Lao sheath was placed. Following this I used standard 5 Lao FL4 and JR4 catheters to engage and inject the left and right coronary arteries in multiple projections. The cineangiograms were then reviewed. Following this PCI of the proximal to mid right coronary artery was performed as detailed below. Prior to PCI the patient received 600 mg of clopidogrel down her OG tube. She also received an additional 5000 units of IV heparin. A the ACT prior to this was 167. She had been receiving aspirin in the a ICU and therefore was not given additional aspirin in the phlebotomist lab assistant. The 5 Lao sheath was exchanged over a guidewire for 6 Lao sheath. The intervention was then carried out as detailed below. Following this the sheath was sutured into position the patient was taken to the ICU for post PCI recovery and ongoing intensive support and hemodialysis. Findings:: Central aortic pressure varied between 80/60 and 145/90. Left main coronary artery is medium in caliber and free of stenosis. The left anterior descending is a medium caliber artery extending down to the apex the LAD and its branches have mild atherosclerotic irregularities but no flow-limiting lesions are seen. The circumflex is a medium caliber artery giving rise to the marginal branches. The circumflex system has mild luminal irregularities as well but no flow-limiting lesions are identified. The right coronary artery is moderate caliber and dominant to the posterior circulation. There is previous stent material visible in the proximal to mid RCA. This area of the artery has mild InStent restenosis in its entire area of about 40-50% at the distal end of the stent and just outside of the distal margin of the stent there is 90-95% stenosis. The distal RCA in the ER PDA and PL branches are free of significant lesions. Intervention: The right coronary was engaged using a 6 Lao JR4 catheter with side holes. The right coronary was wired using a 0.014 BMW wire. This was advanced easily out into the large PL system. Following this the high-grade stenosis described above was pre-dilated using a 3.0 x 20 mm Nazario balloon. Following this this area plus the previously deployed stent was still treated using a 3.0 x 30 mm Orsiro drug-eluting stent deployed at nominal pressure. There was spasm in the distal right coronary artery at this time which was resolved with an intracoro
[2023-05-02 12:14] LABS: Activated Clotting Time 179 SEC (74-137)
[2023-05-02 12:14] LABS: Activated Clotting Time 167 SEC (74-137)
--- NOTE | 2023-05-02 12:16 | ECG_ITS ---
Measurements Intervals [place] Rate: 82 P: 78 MD: 159 QRS: 68 QRSD: 97 T: 95 QT: 399 QTc: 468 Interpretive Statements SINUS RHYTHM POSSIBLE LEFT ATRIAL ENLARGEMENT [-0.1mV P WAVE IN V1/V2] NONSPECIFIC ST & T-WAVE ABNORMALITY ABNORMAL ECG COMPARED TO ECG 04/30/2023 20:38:47 NO SIGNIFICANT CHANGE Electronically Signed On 05-02-2023 15:15:58 CDT by Zev Hensley M.D.
[2023-05-02 13:14] LABS: Glucose Point of Care 139 mg/dl (65-105)
[2023-05-02] MEDS: ALBUMIN HUMAN 25% 12.5 GM/50ML 150 ML 50 GM (14:07)
--- NOTE | 2023-05-02 14:45 | P.PNNP_ITS ---
Progress Note: A&P Assessment and Plan (1) FRANCIS (acute kidney injury): Code(s): N17.9 - Acute kidney failure, unspecified Status: Acute Assessment and Plan: * etiology - suspect multifactorial ATN: * prerenal factors * ATN...possibly from infection (pneumonia) * over-diuresis (on lasix [employer]ESSION[employer]INE[employer]) * ARB use * cardiac event * hypoxia * relative hypotension * imaging to date without obstruction * no improvement with trial of IVFs or IV lasix * HD yesterday and today for fluid removal and clearance of uremic toxins * likely plan HD tomorrow as well * follow repeat labs and UOP for potential for recovery (2) Stage 3b chronic kidney disease: Code(s): N18.32 - Chronic kidney disease, stage 3b Status: Chronic Assessment and Plan: * has baseline CKD or is this just random fluctuations in baseline kidney function??? * creatinine running around 1.3 - 1.7mg/dl by recent labs done at [facility] * HOWEVER, labs review from other hospitalizations at other facilities demonstrate that her creatinine has been as low as 0.9mg/dl in this year.... * however, perhaps this normal creatinine value could be dilutional from her previous bouts of CHF... * risk factors for CKD include HTN, vascular disease, and age (3) Acute respiratory failure with hypoxia and hypercarbia: Code(s): J96.01 - Acute respiratory failure with hypoxia; J96.02 - Acute respiratory failure with hypercapnia Status: Acute Assessment and Plan: * multifactorial etiology: * COPD exacerbation * pulmonary edema * pneumonia * other? * on ventilator support * continue steroids and bronchodilators * viral testing negative to date * empiric antibiotics for pneumonia * follow culture data * continue supportive therapy (4) NSTEMI (non-ST elevated myocardial infarction): Code(s): I21.4 - Non-ST elevation (NSTEMI) myocardial infarction Status: Acute Assessment and Plan: * elevated troponins noted on admission * no acute EKG changes noted * Cardiology recommendations noted * Echo results noted * s/p cardiac catheterization earlier today with intervention as noted * follow telemetry (5) Congestive heart failure: Code(s): I50.9 - Heart failure, unspecified Status: Acute Assessment and Plan: * known apparent history * evidence of pulmonary edema by imaging * Echo with EF of 40-45% with grade 2 diastolic dysfunction * continue fluid removal with dialysis as tolerated (6) COPD (chronic obstructive pulmonary disease): Code(s): J44.9 - Chronic obstructive pulmonary disease, unspecified Status: Acute Assessment and Plan: * on steroids and bronchodilators * see #3 * continue supportive therapy Will continue to follow. Subjective Date/time seen: 05/02/23 14:45 Interval history: Follow-up for acute kidney injury/acute renal failure (possibly on chronic kidney disease). Tolerated hemodialysis treatment yesterday without any issue or problems; s/p left heart catheterization earlier today and currently tolerating dialysis treatment at the time of my visit (seen on HD at 2:35PM); remains intubated/sedated and on mechanical ventilation. Exam Narrative: General: elderly female intubated/sedated and on mechanical ventilation Heart: normal S1 and S2; no rub Lungs: coarse breath sounds with some associated wheezing Abdomen: soft, nontender, nondistended, positive bowel sounds
--- NOTE | 2023-05-02 14:45 | PM.PNNEP ---
Progress Note: A&P Assessment and Plan (1) FRANCIS (acute kidney injury): Code(s): N17.9 - Acute kidney failure, unspecified Status: Acute Assessment and Plan: etiology - suspect multifactorial ATN: prerenal factors ATN...possibly from infection (pneumonia) over-diuresis (on lasix [employer]) ARB use cardiac event hypoxia relative hypotension imaging to date without obstruction no improvement with trial of IVFs or IV lasix HD yesterday and today for fluid removal and clearance of uremic toxins likely plan HD tomorrow as well follow repeat labs and UOP for potential for recovery (2) Stage 3b chronic kidney disease: Code(s): N18.32 - Chronic kidney disease, stage 3b Status: Chronic Assessment and Plan: has baseline CKD or is this just random fluctuations in baseline kidney function??? creatinine running around 1.3 - 1.7mg/dl by recent labs done at [facility] HOWEVER, labs review from other hospitalizations at other facilities demonstrate that her creatinine has been as low as 0.9mg/dl in this year.... however, perhaps this normal creatinine value could be dilutional from her previous bouts of CHF... risk factors for CKD include HTN, vascular disease, and age (3) Acute respiratory failure with hypoxia and hypercarbia: Code(s): J96.01 - Acute respiratory failure with hypoxia; J96.02 - Acute respiratory failure with hypercapnia Status: Acute Assessment and Plan: multifactorial etiology: COPD exacerbation pulmonary edema pneumonia other? on ventilator support continue steroids and bronchodilators viral testing negative to date empiric antibiotics for pneumonia follow culture data continue supportive therapy (4) NSTEMI (non-ST elevated myocardial infarction): Code(s): I21.4 - Non-ST elevation (NSTEMI) myocardial infarction Status: Acute Assessment and Plan: elevated troponins noted on admission no acute EKG changes noted Cardiology recommendations noted Echo results noted s/p cardiac catheterization earlier today with intervention as noted follow telemetry (5) Congestive heart failure: Code(s): I50.9 - Heart failure, unspecified Status: Acute Assessment and Plan: known apparent history evidence of pulmonary edema by imaging Echo with EF of 40-45% with grade 2 diastolic dysfunction continue fluid removal with dialysis as tolerated (6) COPD (chronic obstructive pulmonary disease): Code(s): J44.9 - Chronic obstructive pulmonary disease, unspecified Status: Acute Assessment and Plan: on steroids and bronchodilators see #3 continue supportive therapy Will continue to follow. Subjective Date/time seen: 05/02/23 14:45 Interval history: Follow-up for acute kidney injury/acute renal failure (possibly on chronic kidney disease). Tolerated hemodialysis treatment yesterday without any issue or problems; s/p left heart catheterization earlier today and currently tolerating dialysis treatment at the time of my visit (seen on HD at 2:35PM); remains intubated/sedated and on mechanical ventilation. Exam Narrative: General: elderly female intubated/sedated and on mechanical ventilation Heart: normal S1 and S2; no rub Lungs: coarse breath sounds with some associated wheezing Abdomen: soft, nontender, nondistended, positive bowel sounds Extremities: no cyanosis or clubbing; trace edema Skin: no rash Objective Data Vital Signs Vital Signs: Vital Signs Temp Pulse Resp BP Pulse Ox O2 Del Method FiO2 05/02/23 14:45 80 125/68 05/02/23 14:30 78 117/64 05/02/23 14:15 79 112/62 05/02/23 13:55 80 115/62 05/02/23 13:45 98.5 F 81 20 118/64 98 05/02/23 13:45 40 05/02/23 14:01 77 20 112/62 96 05/02/23 14:00 77 05/02/23 13:01 97.4 F L 88 20 113/63 94 05/02/23 12:30
[2023-05-02] MEDS: EPOETIN ALFA-EPBX 10,000 UNITS/ML VIAL 10000 UNITS IV PUSH (15:44)
[2023-05-02 18:10] LABS: Glucose Point of Care 118 mg/dl (65-105)
[2023-05-02 21:22] LABS: Triglycerides 184 mg/dL (<150)
[2023-05-02] MEDS: MIDAZOLAM 100MG/NS 100ML(*CRX) 100 MG/100 ML BAG IV CONT (21:52)
[2023-05-03] VITALS (49 sets, daily range): BP systolic 90–180; BP diastolic 56–101; PULSE 73–107; RESP 16–25; TEMP 37–38.1; O2SAT 90–99
[2023-05-03 00:12] LABS: Glucose Point of Care 99 mg/dl (65-105)
[2023-05-03 05:01] LABS: Base Excess ABG 0.2 mEq/l (+/-2.0); Fractional Inspired Oxygen 30 %; HCO3 ABG 23.6 mEq/l (22.0-26.0); Oxygen Content ABG 14.9 %vol (16.0-22.0); Oxygen Saturation ABG 97.6 % (95.0-100.0); Oxyhemoglobin 95.7 % THb (90.0-100.0); PCO2 ABG 33.7 mmHg (35.0-45.0); PO2 ABG 94.3 mmHg (80.0-100.0); PO2 FiO2 Ratio Arterial Blood 3.14 %; pH ABG 7.463 (7.350-7.450)
[2023-05-03 05:02] LABS: Device VENTILATOR; Modified Allen's Test Pass; Site Drawn LEFT RADIAL
[2023-05-03 05:03] LABS: Arterial Blood Gas PEEP 5 cmH2O; Arterial Blood Gas Vent Mode CMV; Arterial Blood Gas Ventilator rate 20 /MIN
[2023-05-03 05:04] LABS: Arterial Blood Gas Tidal Volume 400 ml
--- NOTE | 2023-05-03 05:11 | ECG_ITS ---
Measurements Intervals [place] Rate: 91 P: 76 WV: 171 QRS: 65 QRSD: 97 T: 59 QT: 380 QTc: 470 Interpretive Statements SINUS RHYTHM POSSIBLE LEFT ATRIAL ENLARGEMENT [-0.1mV P WAVE IN V1/V2] NONSPECIFIC ST ABNORMALITY BORDERLINE ECG COMPARED TO ECG 05/02/2023 14:34:19 ST (T WAVE) DEVIATION NOW PRESENT Electronically Signed On 05-03-2023 14:37:44 CDT by Patrick Garcia M.D.
[2023-05-03 05:46] LABS: Hematocrit 28.8 % (37.0-47.0); Mean Corpuscular HGB Conc 31.3 g/dl (32-36); Mean Corpuscular Hemoglobin 27.6 pg (26-34); Mean Corpuscular Volume 88.3 fl (80-100); Mean Platelet Volume 11.9 fl (7.4-10.4); Platelet Count Result 146 k/mm3 (150-375); Red Blood Count 3.26 M/mm3 (4.2-5.4); Red Cell Distribution Width 14.3 % (11.5-14.5); White Blood Count 12.2 K/mm3 (4.5-10.0)
[2023-05-03] MEDS: CENTRAL LINE FLUSH 10 ML IV PUSH ×3 (05:49→20:41)
[2023-05-03 06:00] LABS: Alanine Aminotransferase 72 U/L (6-35); Albumin Level 3.6 g/dL (3.5-5.1); Alkaline Phosphatase 69 U/L (38-126); Anion Gap 7 mmol/L (8-16); Aspartate Amino Transferase 56 U/L (14-36); Bilirubin,Total 0.4 mg/dL (0.2-1.3); Blood Urea Nitrogen 46 mg/dL (7-17); Calcium 8.5 mg/dL (8.4-10.2); Carbon Dioxide 28 mmol/L (22-30); Chloride 101 mmol/L (98-107); Estimated CRCL calculation 12 ml/min; Estimated Glomerular Filt Rate 11; Glucose 80 mg/dL (65-110); Magnesium 2.4 mg/dL (1.6-2.3); Potassium 4.7 mmol/L (3.4-5.0); Sodium 136 mmol/L (137-145); Triglycerides 154 mg/dL (<150)
[2023-05-03] MEDS: IPRATROPIUM BR 0.02% INH SOLN 0.5 MG/2.5 ML VIAL INHALATION ×4 (07:08→20:00)
[2023-05-03] MEDS: LEVALBUTEROL NEB 1.25 MG/3 ML INHALATION ×4 (07:09→20:00)
--- NOTE | 2023-05-03 08:22 | PM.IMPN ---
Progress Note: A&P Assessment and Plan (1) Acute respiratory failure with hypoxia and hypercarbia: Code(s): J96.01 - Acute respiratory failure with hypoxia; J96.02 - Acute respiratory failure with hypercapnia Status: Acute Assessment and Plan: Patient brought in by EMS for SOB. Attempted to intubate in the field but unable; patient intuabted in ED on admission. CXR showing CMG, diffuse pulmonary edema. ABG 7.03/74/384 on MV. [place] resp failure is multifactorial from CHF/pulm edema, COPD, AMI and/or possibly CAP. COVID and flu PCR negative. Nasal MRSA screen negative. Continue full mechanical ventilation support to prevent hypoxemia/hypercarbia and end organ damage. ABG improved. The acidosis better with HD. PCXR showing bilateral lower lobe airspace disease She continues to have diffuse wheezing Sputum culture NGTD. BCx NGTD Continue Solu-Medrol, bronchodilators, abx. HD to control fluid status. Still with positive fluid balance. Vent management per test tube maker. Discussed with test tube maker (2) NSTEMI (non-ST elevated myocardial infarction): Code(s): I21.4 - Non-ST elevation (NSTEMI) myocardial infarction Status: Acute Assessment and Plan: Patient presented in acute respiratory failure with CXR consistent with pulm edema related to AMI more likely STEMI. Troponin elevated and has climbed to 16.[address] elevation c/w inferior injury with improvement on repeat EKG. Echo: EF 40-45% with mild global HK with severe HK-AK of the basal inferior and septal segments. Grade II diastolic dysfxn Cardiology following and appreciate their input. [facility] 05/02 showing right coronary dominant circulation with single-vessel coronary disease with high-grade 90-95% stenosis in the region that was previously stented in this patient's RCA o/w mild atherosclerotic irregularities s/p PCI and LILLIAN placement of the RCA stenosis. Currently on ASA, Lipitor, Plavix and Lopressor. Heparin drip off. (3) Pneumonia: Code(s): J18.9 - Pneumonia, unspecified organism Status: Acute Assessment and Plan: As above. Contnue nebulizer treatments and abx. (4) Acute kidney injury superimposed on CKD: Code(s): N17.9 - Acute kidney failure, unspecified; N18.9 - Chronic kidney disease, unspecified Status: Acute Assessment and Plan: Patient with CKD with prior values between 1.3-1.6. Has hx of FRANCIS requiring HD. Cr 1.6 on admission. Creatinine has climbed to 4.1. Serum bicarb 18 with nml gap. Potassium 5.0. Consider ATN from CHF, COPD, PNA, AMI. Consider also AIN or RAAD. UA: 2+ protein, 2+ blood with >100 RBC. 2+ LE, Nit+ and 11-20 WBC. UCx pending. Patient was given cautious amount of IV fluids after admission but has not made any impact Lasix IV given but UOP listed as zero CT scan does not show any urinary obstruction or stones. Nephrology following and appreciate their input. HD catheter placed 05/01 and started on HD. Still with positive fluid balance Continue HD per nephrology. (5) Congestive heart failure: Code(s): I50.9 - Heart failure, unspecified Status: Acute Assessment and Plan: Patient with acute systolic and diastolic CHF. See above (6) COPD (chronic obstructive pulmonary disease): Code(s): J44.9 - Chronic obstructive pulmonary disease, unspecified Status: Acute Assessment and Plan: As above. (7) Lung nodule: Code(s): R91.1 - Solitary pulmonary nodule Status: Acute Assessment and Plan: Patient has a known right middle lobe lung nodule which was evident again on the CT scan. Patient had workup done outpatient. Patient to follow-up with her making department preparer as outpatient. (8) Tobacco dependence: Code(s): F17.200 - Nicotine dependence, unspecified, uncomplicated Status: Acute Assessment and Plan: Patient will need to be educated about the benefits of smoking cessation. [place]
[2023-05-03] MEDS: FENTANYL 2,500MCG/NS250ML(*CRX 2,500 MCG/250 ML BAG 10 MCG IV CONT (08:30)
[2023-05-03] MEDS: METOPROLOL TARTRATE 12.5 MG TABLET FEED TUBE ×2 (09:08→20:41)
[2023-05-03] MEDS: PANTOPRAZOLE SODIUM IV 40 MG VIAL IV PUSH (09:08)
[2023-05-03] MEDS: ASPIRIN 81 MG CHEWABLE TABLET PO (09:08)
[2023-05-03] MEDS: ENOXAPARIN 30 MG/0.3 ML SYRINGE SUB-Q (09:08)
[2023-05-03] MEDS: ATORVASTATIN 40 MG TABLET 80 MG PO (09:09)
[2023-05-03] MEDS: CLOPIDOGREL BISULFATE 75 MG TABLET PO (09:09)
--- NOTE | 2023-05-03 09:10 | WPDINTPN ---
Progress Note: A&P Assessment and Plan (1) Acute kidney injury superimposed on CKD: Code(s): N17.9 - Acute kidney failure, unspecified; N18.9 - Chronic kidney disease, unspecified Status: Acute Assessment and Plan: Patient appears to have chronic kidney disease as her last recorded creatinine were elevated. She has elevated phosphate Presented with elevated creatinine of 1.6 that continued to increase Appears to have developed ATN Her creatinine had increased to 6.4 and she continues to have minimal urine output Patient was given cautious amount of IV fluids after admission but has not made any impact 04/30 Lasix IV x1 was given with no response CT scan does not show any obstruction or stones. 05/01 Discussed with acid supervisor. In light of worsening renal function, minimal urine output, volume overload, edema and mechanical ventilation, patient was started on hemodialysis. Temporary hemodialysis catheter placed 05/02 patient will receive her 2nd session of dialysis today. Discontinue sodium bicarbonate 05/03 patient receiving another dialysis session today (2) Acute respiratory failure with hypoxia and hypercarbia: Code(s): J96.01 - Acute respiratory failure with hypoxia; J96.02 - Acute respiratory failure with hypercapnia Status: Acute Assessment and Plan: Multifactorial acute Respiratory failure secondary to AECOPD, pulmonary edema, ? CAP Patient intubated in the ER Continue full mechanical ventilation support to prevent hypoxemia/hypercarbia and end organ damage. ABG and PCXR reviewed. Decrease rate to 16 Low tidal volume ventilation strategy to prevent volutrauma She continues to have diffuse wheezing and high peak pressures on the ventilator I will continue Solu-Medrol, bronchodilators COVID and flu PCR negative Nasal MRSA screen negative Blood culture and sputum cultures have been negative for now. Procalcitonin level elevated at 6.4 Continue empiric Rocephin and doxycycline for a complete course to treat community-acquired pneumonia Patient was started on hemodialysis to remove fluid and will receive another session today. Will need to remove additional fluid before attempts to wean from ventilator (3) NSTEMI (non-ST elevated myocardial infarction): Code(s): I21.4 - Non-ST elevation (NSTEMI) myocardial infarction Status: Acute Assessment and Plan: Patient presented with elevated troponin. EKG reviewed and shows no ST changes Cardiology following and patient is now on aspirin statin low-dose beta-topher Diagnostic cardiac catheterization was delayed due to acute renal failure. Heparin infusion has been discontinued after 48 hours Echocardiogram Summary ? 1. Mild left ventricular enlargement with mild concentric hypertrophy.? Mild global hypokinesis with severe hypokinesis to akinesis of the basal inferior and septal segments.? Ejection fraction visually is 40-45%.? Grade 2 diastolic dysfunction is present. ? 2. Left atrial chamber dimension is severely enlarged. ? 3. No pulmonary hypertension, estimated pulmonary arterial systolic pressure is 30 mmHg. ? 4. No significant valve disease. ? 5. Technically difficult study.? Definity echo contrast used. ? 6. Normal sinus rhythm. 07/02 cardiac catheterization Conclusion:: 1.? ? Right coronary dominant circulation with single-vessel coronary disease with high-grade 90-95% stenosis in the region that was previously stented in this patient's RCA. 2.? ? Mild atherosclerotic irregularities in the left coronary without any significant lesions identified 3. ? successful PCI of this RCA stenosis using the PTCA, overlapping long drug-eluting stent which was post dilated with noncompliant balloon at high pressure resulting in excellent patency of the vessel (4) Congestive heart failure: Code(s): I50.9 - Heart failure, unspecified Status: Acute Assessment and Plan: See above (5) Pulmonary edema: Code(s): J81.1 - Chronic
[2023-05-03] MEDS: EPOETIN ALFA-EPBX 10,000 UNITS/ML VIAL 10000 UNITS IV PUSH (10:30)
--- NOTE | 2023-05-03 11:55 | PM.PNNEP ---
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) ARB use cardiac event/NSTEMI hypoxia relative hypotension no improvement with trial of IVFs or IV lasix evaluation to date: no evidence of obstruction of kidneys by imaging urine electrolyts non-prerenal UA suggestibe of infection urine eosinophils negatibe proteinuria noted (but in the context of possible infection/UTI) CPK mildly elevated - follow trend HD day before yesterday, yesterday and today for fluid removal and clearance of uremic toxins follow repeat labs and UOP for potential for recovery (2) Stage 3b chronic kidney disease: Code(s): N18.32 - Chronic kidney disease, stage 3b Status: Chronic Assessment and Plan: has baseline CKD or is this just random fluctuations in baseline kidney function??? creatinine running around 1.3 - 1.7mg/dl by recent labs done at [facility] HOWEVER, labs review from other hospitalizations at other facilities demonstrate that her creatinine has been as low as 0.9mg/dl in this year.... however, perhaps this normal creatinine value could be dilutional from her previous bouts of CHF... risk factors for CKD include HTN, vascular disease (CAD/CHF), and age (3) Acute respiratory failure with hypoxia and hypercarbia: Code(s): J96.01 - Acute respiratory failure with hypoxia; J96.02 - Acute respiratory failure with hypercapnia Status: Acute Assessment and Plan: multifactorial etiology: COPD exacerbation pulmonary edema pneumonia other? on ventilator support fluid removal as tolerated with HD continue steroids and bronchodilators viral testing negative to date empiric antibiotics for pneumonia follow culture data continue supportive therapy (4) NSTEMI (non-ST elevated myocardial infarction): Code(s): I21.4 - Non-ST elevation (NSTEMI) myocardial infarction Status: Acute Assessment and Plan: elevated troponins noted on admission no acute EKG changes noted Cardiology recommendations noted Echo results reviewed s/p cardiac catheterization on 05/02: PCI of RCA stenosis with drug-eluting stent overlapping with good results follow telemetry (5) Congestive heart failure: Qualifiers: Heart failure chronicity: acute Heart failure type: combined systolic and diastolic Qualified Code(s): I50.41 - Acute combined systolic (congestive) and diastolic (congestive) heart failure Code(s): I50.9 - Heart failure, unspecified Status: Acute Assessment and Plan: known apparent history evidence of pulmonary edema by imaging Echo with EF of 40-45% with grade 2 diastolic dysfunction continue fluid removal with dialysis as tolerated (6) COPD (chronic obstructive pulmonary disease): Code(s): J44.9 - Chronic obstructive pulmonary disease, unspecified Status: Acute Assessment and Plan: on steroids and bronchodilators see #3 continue supportive therapy Will continue to follow. Subjective Date/time seen: 05/03/23 11:55 Interval history: Follow-up for acute kidney injury/acute renal failure (possibly on chronic kidney disease). Tolerating dialysis treatment at the time of my visit (seen on HD at 11:40AM); s/p left heart catheterization yesterday followed by dialysis treatment and tolerated tolerated both of these interventions as well; remains intubated/sedated and on mechanical ventilation; remains hemodynamically stable; low grade fevers noted in the last earlier this AM. Exam Narrative: General: elderly female intubated/sedated and on mechanical ventilation Heart: normal S1 and S2; no rub Lungs: coarse breath sounds with a
--- NOTE | 2023-05-03 11:55 | P.PNNP_ITS ---
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 (on lasix [employer]) * ARB use * cardiac event/NSTEMI * hypoxia * relative hypotension * no improvement with trial of IVFs or IV lasix * evaluation to date: * no evidence of obstruction of kidneys by imaging * urine electrolyts non-prerenal * UA suggestibe of infection * urine eosinophils negatibe * proteinuria noted (but in the context of possible infection/UTI) * CPK mildly elevated - follow trend * HD day before yesterday, yesterday and today for fluid removal and clearance of uremic toxins * follow repeat labs and UOP for potential for recovery (2) Stage 3b chronic kidney disease: Code(s): N18.32 - Chronic kidney disease, stage 3b Status: Chronic Assessment and Plan: * has baseline CKD or is this just random fluctuations in baseline kidney function??? * creatinine running around 1.3 - 1.7mg/dl by recent labs done at [facility] * HOWEVER, labs review from other hospitalizations at other facilities demonstrate that her creatinine has been as low as 0.9mg/dl in this year.... * however, perhaps this normal creatinine value could be dilutional from her previous bouts of CHF... * risk factors for CKD include HTN, vascular disease (CAD/CHF), and age (3) Acute respiratory failure with hypoxia and hypercarbia: Code(s): J96.01 - Acute respiratory failure with hypoxia; J96.02 - Acute respiratory failure with hypercapnia Status: Acute Assessment and Plan: * multifactorial etiology: * COPD exacerbation * pulmonary edema * pneumonia * other? * on ventilator support * fluid removal as tolerated with HD * continue steroids and bronchodilators * viral testing negative to date * empiric antibiotics for pneumonia * follow culture data * continue supportive therapy (4) NSTEMI (non-ST elevated myocardial infarction): Code(s): I21.4 - Non-ST elevation (NSTEMI) myocardial infarction Status: Acute Assessment and Plan: * elevated troponins noted on admission * no acute EKG changes noted * Cardiology recommendations noted * Echo results reviewed * s/p cardiac catheterization on 05/02: PCI of RCA stenosis with drug-eluting stent overlapping with good results * follow telemetry (5) Congestive heart failure: Qualifiers: Heart failure chronicity: acute Heart failure type: combined systolic and diastolic Qualified Code(s): I50.41 - Acute combined systolic (congestive) and diastolic (congestive) heart failure Code(s): I50.9 - Heart failure, unspecified Status: Acute Assessment and Plan: * known apparent history * evidence of pulmonary edema by imaging * Echo with EF of 40-45% with grade 2 diastolic dysfunction * continue fluid removal with dialysis as tolerated (6) COPD (chronic obstructive pulmonary disease): Code(s): J44.9 - Chronic obstructive pulmonary disease, unspecified Status: Acute Assessment and Plan: * on steroids and bronchodilators * see #3 * continue supportive therapy Will continue to follow. Subjective Date/time seen: 05/03/23 11:55 Interval history: Follow-up for acute kidney injury/acute renal failure (possibly on chronic kidney disease). T
[2023-05-03 12:06] LABS: Glucose Point of Care 109 mg/dl (65-105)
[2023-05-03] MEDS: DOXYCYCLINE 100 MG/NS 100 ML 100 MG/100 ML BAG IVPB (12:32)
[2023-05-03] MEDS: cefTRIAXone 2 GM/NS 100 ML 2 GM/100 ML BAG IVPB (12:33)
--- NOTE | 2023-05-03 13:09 | PM.PNCARD ---
Progress Note: A&P Assessment and Plan (1) NSTEMI (non-ST elevated myocardial infarction): Code(s): I21.4 - Non-ST elevation (NSTEMI) myocardial infarction Status: Acute Assessment and Plan: Patient has elevated troponin levels (0.019, 0.371, and 1.960) in the setting of acute respiratory failure and acidosis. It does sound like she had been complaining of chest pain over the past couple of weeks, and she has a known history of coronary artery disease. Continue aspirin 81 mg daily, atorvastatin 80 mg daily, metoprolol 12.5 mg twice daily DVT prophylaxis Echo showed moderate left ventricular dysfunction Status post 3.0 x 30 mm drug-eluting stent overlapping previously placed stent at 90-95% stenosis proximal to mid RCA with good results. Continue dual antiplatelet therapy with aspirin 81 mg daily and clopidogrel 75 mg daily. (2) Acute respiratory failure with hypoxia and hypercarbia: Code(s): J96.01 - Acute respiratory failure with hypoxia; J96.02 - Acute respiratory failure with hypercapnia Status: Acute Assessment and Plan: Multifactorial including CHF COPD possible pneumonia. She has been treated with Rocephin and doxycycline. She remains intubated sedated. Management per Critical Care and hospitalist service. Patient remains critically ill intubated on mechanical ventilatory support. (3) Congestive heart failure: Qualifiers: Heart failure type: combined systolic and diastolic Heart failure chronicity: acute Qualified Code(s): I50.41 - Acute combined systolic (congestive) and diastolic (congestive) heart failure Code(s): I50.9 - Heart failure, unspecified Status: Acute Assessment and Plan: Mild acute systolic and diastolic CHF on chest x-ray. EF 40-45%. Diuretics on hold. Continue volume management with hemodialysis. Continue to monitor volume status closely. Chest x-ray in a.m.. Optimize medical therapy as renal function and BP permit. (4) Acute kidney injury superimposed on CKD: Code(s): N17.9 - Acute kidney failure, unspecified; N18.9 - Chronic kidney disease, unspecified Status: Acute Assessment and Plan: Acute fulminant kidney injury. Now on hemodialysis. Management per Nephrology. 4 L UF removal today. (5) Anemia: Qualifiers: Anemia type: other cause Code(s): D64.9 - Anemia, unspecified Status: Acute Assessment and Plan: H&H stable. Continue to monitor closely. Platelet count stable, borderline thrombocytopenia. Continue to follow trend. Monitor for bleeding. Subjective Date/time seen: Date of service: 05/03/23 13:09 Interval history: Patient admitted with shortness of breath and respiratory failure requiring intubation, multifactorial secondary to CHF, COPD, possibly the CAP. Found to have had a non-STEMI with a peak troponin of 1.96. She had transient inferior ST-elevation which has resolved. Unfortunately she developed acute kidney failure. Echo showed EF 40-45%, diastolic dysfunction with hypokinesis of the inferior wall. 04/29/2023: Recommend aspirin, statin, heparin drip, beta-topher, echo, and anticipate ischemic evaluation with angiogram prior to discharge. 04/30/2023: Remains intubated sedated, on heparin drip and getting tube feedings. Creatinine has gone up to 4.1; has oliguric acute renal failure. Telemetry shows sinus rhythm/sinus tach with rare PVCs. EKG from 04/29/2023 at 2:06 a.m. shows sinus rhythm, nonspecific T-wave changes, resolution of the inferior ST elevation and no development of inferior Q-waves. Personally reviewed. 05/01/2023: Remains intubated and sedated. Worsening renal failure. Remains on heparin gtt for now. Possible LHC tomorrow if plan is for dialysis Date of service 05/03/2023: Patient had hemodialysis today. 4 L ultrafiltration removal. Patient remains intubated/sedated. PCI of RCA stenosis with drug-eluting stent overlapping with go
[2023-05-03] MEDS: HEPARIN SODIUM 1,000 UNITS/ML VIAL 4000 UNITS IV PUSH (14:07)
[2023-05-03] MEDS: levoFLOXacin 750 MG/D5W 150 ML 750 MG/150 ML BAG 100 MG IVPB (18:00)
[2023-05-03 18:11] LABS: Glucose Point of Care 156 mg/dl (65-105)
[2023-05-03 18:24] LABS: Creatinine Urine < 3.2 mg/dL
[2023-05-03 18:32] LABS: Bacteria Urine 4+ /hpf; Need Manual Microscopic Reviewed; RBC Urine >100 /hpf (0-2); Squamous Epithelial Cell Urine Occasional /hpf (Few); WBC Urine >100 /hpf
--- NOTE | 2023-05-03 18:35 | PC.NURSE ---
Dr. Grider updated on hypertension, new orderers given.
[2023-05-03 18:38] LABS: Appearance Urine Slightly Cloudy (Clear); Bilirubin Urine 1+ (Negative); Blood Urine 3+ (Negative); Color Urine Red (Yellow); Glucose Urine UA Negative (Negative); Ketones Urine Negative (Negative); Leukocyte Esterase Ur Negative LEU/UL (Negative); Nitrate Urine Negative (Negative); Protein Urine 3+ mg/dL (Negative); Urobilinogen Urine 0.2 mg/dL (<2.0); pH Urine 8.5 (5.0-9.0)
[2023-05-03 18:40] LABS: Add Urine Microscopic? YES
[2023-05-03] MEDS: LABETALOL HCL INJ 100 MG/20 ML VIAL 20 MG IV PUSH (18:56)
[2023-05-03] MEDS: PROPOFOL IV EMULSION 100 ML 2.54 MG IV CONT (19:00)
[2023-05-03 19:23] LABS: Sodium Urine Random 145 meq/L
[2023-05-03 19:29] LABS: Total Protein Urine Random > 600 mg/dL; Urea Random Urine < 67 MG/DL
[2023-05-03 19:45] LABS: Eosinophil Urine None Seen % (None Seen); Urine Eos QC 2nd Tech Confirmed
[2023-05-03 20:13] LABS: Triglycerides 216 mg/dL (<150)
[2023-05-04] VITALS (34 sets, daily range): BP systolic 122–191; BP diastolic 56–83; PULSE 70–102; RESP 15–26; TEMP 36.9–37.7; O2SAT 93–98
[2023-05-04 00:08] LABS: Glucose Point of Care 188 mg/dl (65-105)
[2023-05-04] MEDS: IPRATROPIUM BR 0.02% INH SOLN 0.5 MG/2.5 ML VIAL INHALATION ×4 (02:12→20:28)
[2023-05-04] MEDS: LEVALBUTEROL NEB 1.25 MG/3 ML INHALATION ×4 (02:12→20:28)
[2023-05-04] MEDS: MINERAL OIL/WHITE PETROLATUM OINTMENT 1 APPLIC (04:54)
[2023-05-04] MEDS: CENTRAL LINE FLUSH 10 ML IV PUSH ×3 (04:55→21:21)
[2023-05-04 04:58] LABS: Hematocrit 31.7 % (37.0-47.0); Hemoglobin 9.8 g/dL (12.0-15.0); Mean Corpuscular HGB Conc 30.9 g/dl (32-36); Mean Corpuscular Hemoglobin 27.5 pg (26-34); Mean Platelet Volume 11.8 fl (7.4-10.4); Platelet Count Result 178 k/mm3 (150-375); Red Blood Count 3.56 M/mm3 (4.2-5.4); Red Cell Distribution Width 13.9 % (11.5-14.5); White Blood Count 13.5 K/mm3 (4.5-10.0)
[2023-05-04 05:10] LABS: Alveolar/Arterial O2 Gradient 141.5 mmHg; Base Excess ABG -0.5 mEq/l (+/-2.0); Fractional Inspired Oxygen 40 %; HCO3 ABG 24.6 mEq/l (22.0-26.0); Oxygen Content ABG 15.2 %vol (16.0-22.0); Oxygen Saturation ABG 97.1 % (95.0-100.0); Oxyhemoglobin 95.5 % THb (90.0-100.0); PCO2 ABG 42.5 mmHg (35.0-45.0); PO2 ABG 94.8 mmHg (80.0-100.0); PO2 FiO2 Ratio Arterial Blood 2.37 %; Total Hemoglobin 11.2 g/dL (12.0-18.0); pH ABG 7.381 (7.350-7.450)
[2023-05-04] MEDS: LABETALOL HCL INJ 100 MG/20 ML VIAL 20 MG IV PUSH ×3 (05:11→23:30)
[2023-05-04 05:13] LABS: Arterial Blood Gas Ventilator rate 16 /MIN; Device VENTILATOR; Modified Allen's Test Pass; Site Drawn RIGHT RADIAL
[2023-05-04 05:14] LABS: Alanine Aminotransferase 68 U/L (6-35); Albumin Level 3.7 g/dL (3.5-5.1); Alkaline Phosphatase 72 U/L (38-126); Anion Gap 11 mmol/L (8-16); Aspartate Amino Transferase 46 U/L (14-36); Bilirubin,Total 0.4 mg/dL (0.2-1.3); Blood Urea Nitrogen 50 mg/dL (7-17); Carbon Dioxide 26 mmol/L (22-30); Chloride 97 mmol/L (98-107); Creatine Kinase 937 U/L (30-135); Estimated CRCL calculation 13 ml/min; Estimated Glomerular Filt Rate 12; Glucose 111 mg/dL (65-110); Magnesium 2.3 mg/dL (1.6-2.3); Potassium 4.4 mmol/L (3.4-5.0); Sodium 134 mmol/L (137-145)
[2023-05-04 05:14] LABS: Arterial Blood Gas PEEP 5 cmH2O; Arterial Blood Gas Tidal Volume 400 ml; Arterial Blood Gas Vent Mode CMV
[2023-05-04] MEDS: ASPIRIN 81 MG CHEWABLE TABLET PO (08:36)
[2023-05-04] MEDS: methylPREDNISolone SOD SUCC 125 MG VIAL 60 MG IV PUSH (08:36)
[2023-05-04] MEDS: ATORVASTATIN 40 MG TABLET 80 MG PO (08:36)
[2023-05-04] MEDS: polyethylene glycoL 3350 17 GM POWD.PACK PO (08:36)
[2023-05-04] MEDS: CLOPIDOGREL BISULFATE 75 MG TABLET PO (08:37)
[2023-05-04] MEDS: METOPROLOL TARTRATE 12.5 MG TABLET FEED TUBE ×2 (08:37→21:20)
[2023-05-04] MEDS: PANTOPRAZOLE SODIUM IV 40 MG VIAL IV PUSH (08:37)
[2023-05-04] MEDS: MINERAL OIL/WHITE PETROLATUM OINTMENT 1 APPLIC EACH EYE ×2 (08:37→21:21)
[2023-05-04] MEDS: ENOXAPARIN 30 MG/0.3 ML SYRINGE SUB-Q (08:37)
--- NOTE | 2023-05-04 09:24 | PM.PNCARD ---
Progress Note: A&P Assessment and Plan (1) NSTEMI (non-ST elevated myocardial infarction): Code(s): I21.4 - Non-ST elevation (NSTEMI) myocardial infarction Status: Acute Assessment and Plan: Patient has elevated troponin levels (0.019, 0.371, and 1.960) in the setting of acute respiratory failure and acidosis. It does sound like she had been complaining of chest pain over the past couple of weeks, and she has a known history of coronary artery disease. Continue atorvastatin 80 mg daily, metoprolol 12.5 mg twice daily DVT prophylaxis Echo showed moderate left ventricular dysfunction Status post 3.0 x 30 mm drug-eluting stent overlapping previously placed stent at 90-95% stenosis proximal to mid RCA with good results. Continue dual antiplatelet therapy with aspirin 81 mg daily and clopidogrel 75 mg daily. Follow H&H. Stable thus far. (2) Acute respiratory failure with hypoxia and hypercarbia: Code(s): J96.01 - Acute respiratory failure with hypoxia; J96.02 - Acute respiratory failure with hypercapnia Status: Acute Assessment and Plan: Multifactorial including CHF COPD possible pneumonia. She has been treated with Rocephin and doxycycline. She remains intubated sedated. Management per Critical Care and hospitalist service. Patient remains critically ill intubated on mechanical ventilatory support. She remains on methylprednisolone 60 mg IV daily. Sedation is currently being weaned inpatient is attempting to follow commands which is encouraging. Defer to primary service and Critical Care with regards to febrile illness. Ceftriaxone discontinued. Bactrim initiated last night. (3) Congestive heart failure: Qualifiers: Heart failure chronicity: acute Heart failure type: combined systolic and diastolic Qualified Code(s): I50.41 - Acute combined systolic (congestive) and diastolic (congestive) heart failure Code(s): I50.9 - Heart failure, unspecified Status: Acute Assessment and Plan: Mild acute systolic and diastolic CHF on chest x-ray. EF 40-45%. Diuretics on hold. Continue volume management with hemodialysis. Continue to monitor volume status closely. Chest x-ray in a.m.. Optimize medical therapy as renal function and BP permit. Hemodialysis yesterday. Patient appears stable from a volume perspective at this time. HD per Nephrology. (4) Acute kidney injury superimposed on CKD: Code(s): N17.9 - Acute kidney failure, unspecified; N18.9 - Chronic kidney disease, unspecified Status: Acute Assessment and Plan: Acute fulminant kidney injury. Now on hemodialysis. Management per Nephrology. 4 L UF removal yesterday with hemodialysis. (5) Anemia: Qualifiers: Anemia type: other cause Code(s): D64.9 - Anemia, unspecified Status: Acute Assessment and Plan: H&H stable. Continue to monitor closely. Platelet count stable, borderline thrombocytopenia. Continue to follow trend. Monitor for bleeding. Subjective Date/time seen: Date of service: 05/04/23 09:24 Interval history: Patient admitted with shortness of breath and respiratory failure requiring intubation, multifactorial secondary to CHF, COPD, possibly the CAP. Found to have had a non-STEMI with a peak troponin of 1.96. She had transient inferior ST-elevation which has resolved. Unfortunately she developed acute kidney failure. Echo showed EF 40-45%, diastolic dysfunction with hypokinesis of the inferior wall. 04/29/2023: Recommend aspirin, statin, heparin drip, beta-topher, echo, and anticipate ischemic evaluation with angiogram prior to discharge. 04/30/2023: Remains intubated sedated, on heparin drip and getting tube feedings. Creatinine has gone up to 4.1; has oliguric acute renal failure. Telemetry shows sinus rhythm/sinus tach with rare PVCs. EKG from 04/29/2023 at 2:06 a.m. shows sinus rhythm, nonspecific T-wave changes, resolution of
--- NOTE | 2023-05-04 10:20 | PM.PNNEP ---
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) ARB use cardiac event/NSTEMI hypoxia relative hypotension no improvement with trial of IVFs or IV lasix evaluation to date: no evidence of obstruction of kidneys by imaging urine electrolyts non-prerenal UA suggestibe of infection urine eosinophils negative proteinuria noted (but in the context of possible infection/UTI) CPK mildly elevated - follow trend HD x 3 days in a row (/Fri/Friday from 05/01) plan next HD tomorrow or Friday follow repeat labs and UOP for potential for recovery (2) Stage 3b chronic kidney disease: Code(s): N18.32 - Chronic kidney disease, stage 3b Status: Chronic Assessment and Plan: has baseline CKD or is this just random fluctuations in baseline kidney function??? creatinine running around 1.3 - 1.7mg/dl by recent labs done at [facility] HOWEVER, labs review from other hospitalizations at other facilities demonstrate that her creatinine has been as low as 0.9mg/dl in this year.... however, perhaps this normal creatinine value could be dilutional from her previous bouts of CHF... risk factors for CKD include HTN, vascular disease (CAD/CHF), and age (3) Acute respiratory failure with hypoxia and hypercarbia: Code(s): J96.01 - Acute respiratory failure with hypoxia; J96.02 - Acute respiratory failure with hypercapnia Status: Acute Assessment and Plan: multifactorial etiology: COPD exacerbation pulmonary edema pneumonia other? on ventilator support fluid removal as tolerated with HD continue steroids and bronchodilators viral testing negative to date empiric antibiotics for pneumonia follow culture data continue supportive therapy (4) NSTEMI (non-ST elevated myocardial infarction): Code(s): I21.4 - Non-ST elevation (NSTEMI) myocardial infarction Status: Acute Assessment and Plan: elevated troponins noted on admission no acute EKG changes noted Cardiology recommendations noted Echo results reviewed s/p cardiac catheterization on 05/02: PCI of RCA stenosis with drug-eluting stent overlapping with good results follow telemetry (5) Congestive heart failure: Qualifiers: Heart failure type: combined systolic and diastolic Heart failure chronicity: acute Qualified Code(s): I50.41 - Acute combined systolic (congestive) and diastolic (congestive) heart failure Code(s): I50.9 - Heart failure, unspecified Status: Acute Assessment and Plan: known apparent history evidence of pulmonary edema by imaging Echo with EF of 40-45% with grade 2 diastolic dysfunction continue fluid removal with dialysis as tolerated (6) COPD (chronic obstructive pulmonary disease): Code(s): J44.9 - Chronic obstructive pulmonary disease, unspecified Status: Acute Assessment and Plan: on steroids and bronchodilators see #3 continue supportive therapy Will continue to follow. Subjective Date/time seen: 05/04/23 10:20 Interval history: Follow-up for acute kidney injury/acute renal failure (possibly on chronic kidney disease). Tolerated dialysis yesterday with 4L fluid removal; remains intubated at this time but weaning sedation and she appears to be following some simple commands; Tmax of 100.6 overnight; remains hemodynamically stable without the need for vasopressor therapy; no other issues/events overnight or earlier this morning. Exam Narrative: General: elderly female intubated and on mechanical ventilation Heart: normal S1 and S2; no rub Lungs: coarse breath sounds with a few scattered wheezes Abdomen: soft, nontender, nondi
--- NOTE | 2023-05-04 10:20 | P.PNNP_ITS ---
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) * ARB use * cardiac event/NSTEMI * hypoxia * relative hypotension * no improvement with trial of IVFs or IV lasix * evaluation to date: * no evidence of obstruction of kidneys by imaging * urine electrolyts non-prerenal * UA suggestibe of infection * urine eosinophils negative * proteinuria noted (but in the context of possible infection/UTI) * CPK mildly elevated - follow trend * HD x 3 days in a row (/Fri/Friday from 05/01) * plan next HD tomorrow or Friday * follow repeat labs and UOP for potential for recovery (2) Stage 3b chronic kidney disease: Code(s): N18.32 - Chronic kidney disease, stage 3b Status: Chronic Assessment and Plan: * has baseline CKD or is this just random fluctuations in baseline kidney function??? * creatinine running around 1.3 - 1.7mg/dl by recent labs done at [facility] * HOWEVER, labs review from other hospitalizations at other facilities demonstrate that her creatinine has been as low as 0.9mg/dl in this year.... * however, perhaps this normal creatinine value could be dilutional from her previous bouts of CHF... * risk factors for CKD include HTN, vascular disease (CAD/CHF), and age (3) Acute respiratory failure with hypoxia and hypercarbia: Code(s): J96.01 - Acute respiratory failure with hypoxia; J96.02 - Acute respiratory failure with hypercapnia Status: Acute Assessment and Plan: * multifactorial etiology: * COPD exacerbation * pulmonary edema * pneumonia * other? * on ventilator support * fluid removal as tolerated with HD * continue steroids and bronchodilators * viral testing negative to date * empiric antibiotics for pneumonia * follow culture data * continue supportive therapy (4) NSTEMI (non-ST elevated myocardial infarction): Code(s): I21.4 - Non-ST elevation (NSTEMI) myocardial infarction Status: Acute Assessment and Plan: * elevated troponins noted on admission * no acute EKG changes noted * Cardiology recommendations noted * Echo results reviewed * s/p cardiac catheterization on 05/02: PCI of RCA stenosis with drug-eluting stent overlapping with good results * follow telemetry (5) Congestive heart failure: Qualifiers: Heart failure type: combined systolic and diastolic Heart failure chr onicity: acute Qualified Code(s): I50.41 - Acute combined systolic (congestive) and diastolic (congestive) heart failure Code(s): I50.9 - Heart failure, unspecified Status: Acute Assessment and Plan: * known apparent history * evidence of pulmonary edema by imaging * Echo with EF of 40-45% with grade 2 diastolic dysfunction * continue fluid removal with dialysis as tolerated (6) COPD (chronic obstructive pulmonary disease): Code(s): J44.9 - Chronic obstructive pulmonary disease, unspecified Status: Acute Assessment and Plan: * on steroids and bronchodilators * see #3 * continue supportive therapy Will continue to follow. Subjective Date/time seen: 05/04/23 10:20 Interval history: Follow-up for acute kidney injury/acute renal failure (possibly on chronic kidney disease). Tolerated
--- NOTE | 2023-05-04 11:01 | WPDINTPN ---
Progress Note: A&P Assessment and Plan (1) Acute kidney injury superimposed on CKD: Code(s): N17.9 - Acute kidney failure, unspecified; N18.9 - Chronic kidney disease, unspecified Status: Acute Assessment and Plan: Patient appears to have chronic kidney disease as her last recorded creatinine were elevated. She has elevated phosphate Presented with elevated creatinine of 1.6 that continued to increase Appears to have developed ATN Her creatinine had increased to 6.4 and she continues to have minimal urine output Patient was given cautious amount of IV fluids after admission but has not made any impact 04/30 Lasix IV x1 was given with no response CT scan does not show any obstruction or stones. 05/01 Discussed with social service technician. In light of worsening renal function, minimal urine output, volume overload, edema and mechanical ventilation, patient was started on hemodialysis. Temporary hemodialysis catheter placed 05/02 patient will receive her 2nd session of dialysis today. Discontinue sodium bicarbonate 05/03 patient receiving another dialysis session today Continue dialysis per Nephrology (2) Acute respiratory failure with hypoxia and hypercarbia: Code(s): J96.01 - Acute respiratory failure with hypoxia; J96.02 - Acute respiratory failure with hypercapnia Status: Acute Assessment and Plan: Multifactorial acute Respiratory failure secondary to AECOPD, pulmonary edema, ? CAP Patient intubated in the ER Continue full mechanical ventilation support to prevent hypoxemia/hypercarbia and end organ damage. ABG and PCXR reviewed. Decrease rate to 16 Low tidal volume ventilation strategy to prevent volutrauma She continues to have diffuse wheezing and high peak pressures on the ventilator although they have improved as compared to before I will continue Solu-Medrol, bronchodilators COVID and flu PCR negative Nasal MRSA screen negative Blood culture negative sputum cultures growing stenotrophomonas. Procalcitonin level elevated at 6.4 Patient was earlier on empiric Rocephin and doxycycline. Which was switched to Levaquin and Bactrim 05/03 Patient was started on hemodialysis to remove fluid Patient placed on sedation holiday and will evaluate for weaning trial (3) NSTEMI (non-ST elevated myocardial infarction): Code(s): I21.4 - Non-ST elevation (NSTEMI) myocardial infarction Status: Acute Assessment and Plan: Patient presented with elevated troponin. EKG reviewed and shows no ST changes Cardiology following and patient is now on aspirin statin low-dose beta-topher Diagnostic cardiac catheterization was delayed due to acute renal failure. Heparin infusion has been discontinued after 48 hours Echocardiogram Summary ? 1. Mild left ventricular enlargement with mild concentric hypertrophy.? Mild global hypokinesis with severe hypokinesis to akinesis of the basal inferior and septal segments.? Ejection fraction visually is 40-45%.? Grade 2 diastolic dysfunction is present. ? 2. Left atrial chamber dimension is severely enlarged. ? 3. No pulmonary hypertension, estimated pulmonary arterial systolic pressure is 30 mmHg. ? 4. No significant valve disease. ? 5. Technically difficult study.? Definity echo contrast used. ? 6. Normal sinus rhythm. 07/02 cardiac catheterization Conclusion:: 1.? ? Right coronary dominant circulation with single-vessel coronary disease with high-grade 90-95% stenosis in the region that was previously stented in this patient's RCA. 2.? ? Mild atherosclerotic irregularities in the left coronary without any significant lesions identified 3. ? successful PCI of this RCA stenosis using the PTCA, overlapping long drug-eluting stent which was post dilated with noncompliant balloon at high pressure resulting in excellent patency of the vessel (4) Congestive heart failure: Qualifiers: Heart failure type: combined systolic and diastolic Heart failure chronicity: acute Qu
--- NOTE | 2023-05-04 11:33 | PM.IMPN ---
Progress Note: A&P Assessment and Plan (1) Acute respiratory failure with hypoxia and hypercarbia: Code(s): J96.01 - Acute respiratory failure with hypoxia; J96.02 - Acute respiratory failure with hypercapnia Status: Acute Assessment and Plan: Patient brought in by EMS for SOB. Attempted to intubate in the field but unable; patient intuabted in ED on admission. CXR showing CMG, diffuse pulmonary edema. ABG 7.03/74/384 on MV. [place] resp failure is multifactorial from CHF/pulm edema, COPD, AMI and/or possibly CAP. COVID and flu PCR negative. Nasal MRSA screen negative. Continue full mechanical ventilation support to prevent hypoxemia/hypercarbia and end organ damage. ABG improved. The acidosis better with HD. PCXR showing bilateral lower lobe airspace disease She continues to have coarse wheezing Sputum culture growing stenotrophomonas. BCx NGTD Continue Solu-Medrol, bronchodilators. Change Abx to levaquin and TMP/SMX. HD to control fluid status. Still with positive fluid balance. Vent management per leathersmith (2) NSTEMI (non-ST elevated myocardial infarction): Code(s): I21.4 - Non-ST elevation (NSTEMI) myocardial infarction Status: Acute Assessment and Plan: Patient presented in acute respiratory failure with CXR consistent with pulm edema related to AMI more likely STEMI. Troponin elevated and climbed to 16.[address] elevation c/w inferior injury with improvement on repeat EKG. Echo: EF 40-45% with mild global HK with severe HK-AK of the basal inferior and septal segments. Grade II diastolic dysfxn Cardiology following and appreciate their input. [facility] 05/02 showing right coronary dominant circulation with single-vessel coronary disease with high-grade 90-95% stenosis in the region that was previously stented in this patient's RCA o/w mild atherosclerotic irregularities s/p PCI and LILLIAN placement of the RCA stenosis. Currently on ASA, Lipitor, Plavix and Lopressor. Heparin drip off. (3) Pneumonia: Code(s): J18.9 - Pneumonia, unspecified organism Status: Acute Assessment and Plan: As above. Contnue nebulizer treatments and abx. (4) Acute kidney injury superimposed on CKD: Code(s): N17.9 - Acute kidney failure, unspecified; N18.9 - Chronic kidney disease, unspecified Status: Acute Assessment and Plan: Patient with CKD with prior values between 1.3-1.6. Has hx of FRANCIS requiring HD. Cr 1.6 on admission. Creatinine has climbed to 4.1. Serum bicarb 18 with nml gap. Potassium 5.0. She had no UOP. Consider ATN from CHF, COPD, PNA, AMI. Consider also AIN or RAAD. UA: 2+ protein, 2+ blood with >100 RBC. 2+ LE, Nit+ and 11-20 WBC. UCx negative Patient was given cautious amount of IV fluids after admission but has not made any impact Lasix IV given but UOP listed as zero CT scan does not show any urinary obstruction or stones. HD catheter placed 05/01 and started on HD. Still with positive fluid balance Nephrology following and appreciate their input. Continue HD per nephrology. (5) Congestive heart failure: Qualifiers: Heart failure chronicity: acute Heart failure type: combined systolic and diastolic Qualified Code(s): I50.41 - Acute combined systolic (congestive) and diastolic (congestive) heart failure Code(s): I50.9 - Heart failure, unspecified Status: Acute Assessment and Plan: Patient with acute systolic and diastolic CHF. See above. (6) COPD (chronic obstructive pulmonary disease): Code(s): J44.9 - Chronic obstructive pulmonary disease, unspecified Status: Acute Assessment and Plan: As above. (7) Lung nodule: Code(s): R91.1 - Solitary pulmonary nodule Status: Acute Assessment and Plan: Patient has a known right middle lobe lung nodule which was evident again on the CT scan. Patient had workup done outpatient. Patient to follow-up with her commercial assistant as
[2023-05-04] MEDS: INSULIN ASPART (*BKC) 100 UNITS/ML SUB-Q ×2 (12:16→18:41)
[2023-05-04 12:17] LABS: Glucose Point of Care 204 mg/dl (65-105)
[2023-05-04 18:32] LABS: Glucose Point of Care 205 mg/dl (65-105)
[2023-05-04 23:40] LABS: Glucose Point of Care 112 mg/dl (65-105)
[2023-05-05] VITALS (48 sets, daily range): BP systolic 125–187; BP diastolic 55–120; PULSE 75–109; RESP 18–28; TEMP 36.4–37.7; O2SAT 94–99
[2023-05-05] MEDS: LEVALBUTEROL NEB 1.25 MG/3 ML INHALATION ×4 (01:59→19:46)
[2023-05-05] MEDS: IPRATROPIUM BR 0.02% INH SOLN 0.5 MG/2.5 ML VIAL INHALATION ×4 (01:59→19:46)
[2023-05-05 05:00] LABS: Hemoglobin 9.3 g/dL (12.0-15.0); Mean Corpuscular Hemoglobin 27.3 pg (26-34); Mean Platelet Volume 11.9 fl (7.4-10.4); Platelet Count Result 190 k/mm3 (150-375); Red Blood Count 3.41 M/mm3 (4.2-5.4); Red Cell Distribution Width 13.7 % (11.5-14.5); White Blood Count 14.7 K/mm3 (4.5-10.0)
[2023-05-05 05:07] LABS: Alveolar/Arterial O2 Gradient 141.7 mmHg; Base Excess ABG -5.5 mEq/l (+/-2.0); Carboxyhemoglobin 0.3 % THb (0-2.0); Fractional Inspired Oxygen 40 %; HCO3 ABG 18.9 mEq/l (22.0-26.0); Methemoglobin ABG 0.3 %THb (0-1.5); Oxygen Content ABG 14.4 %vol (16.0-22.0); Oxygen Saturation ABG 97.8 % (95.0-100.0); Oxyhemoglobin 96.2 % THb (90.0-100.0); PCO2 ABG 32.7 mmHg (35.0-45.0); PO2 ABG 105.9 mmHg (80.0-100.0); PO2 FiO2 Ratio Arterial Blood 2.65 %; Reduced Hemoglobin 3.2 %THb (0-5.0); Total Hemoglobin 10.5 g/dL (12.0-18.0); pH ABG 7.379 (7.350-7.450)
[2023-05-05 05:10] LABS: Modified Allen's Test Pass; Site Drawn LEFT RADIAL
[2023-05-05 05:11] LABS: Arterial Blood Gas PEEP 5 cmH2O; Arterial Blood Gas Tidal Volume 400 ml; Arterial Blood Gas Vent Mode CMV; Arterial Blood Gas Ventilator rate 16 /MIN; Device VENTILATOR
[2023-05-05 05:16] LABS: Alanine Aminotransferase 68 U/L (6-35); Albumin Level 3.7 g/dL (3.5-5.1); Alkaline Phosphatase 77 U/L (38-126); Anion Gap 14 mmol/L (8-16); Aspartate Amino Transferase 39 U/L (14-36); Bilirubin,Total 0.4 mg/dL (0.2-1.3); Blood Urea Nitrogen 92 mg/dL (7-17); Calcium 8.9 mg/dL (8.4-10.2); Carbon Dioxide 22 mmol/L (22-30); Chloride 96 mmol/L (98-107); Estimated CRCL calculation 8 ml/min; Estimated Glomerular Filt Rate 7; Glucose 123 mg/dL (65-110); Magnesium 2.7 mg/dL (1.6-2.3); Potassium 5.2 mmol/L (3.4-5.0); Sodium 132 mmol/L (137-145); Triglycerides 92 mg/dL (<150)
[2023-05-05 07:50] LABS: Glucose Point of Care 139 mg/dl (65-105)
[2023-05-05] MEDS: CENTRAL LINE FLUSH 10 ML IV PUSH ×3 (08:06→21:28)
[2023-05-05] MEDS: ASPIRIN 81 MG CHEWABLE TABLET PO (08:43)
[2023-05-05] MEDS: PANTOPRAZOLE SODIUM IV 40 MG VIAL IV PUSH (08:43)
[2023-05-05] MEDS: polyethylene glycoL 3350 17 GM POWD.PACK PO (08:43)
[2023-05-05] MEDS: CLOPIDOGREL BISULFATE 75 MG TABLET PO (08:43)
[2023-05-05] MEDS: ATORVASTATIN 40 MG TABLET 80 MG PO (08:43)
[2023-05-05] MEDS: METOPROLOL TARTRATE 25 MG TABLET FEED TUBE ×2 (08:43→21:16)
[2023-05-05] MEDS: MINERAL OIL/WHITE PETROLATUM OINTMENT 1 APPLIC EACH EYE ×2 (08:44→21:16)
[2023-05-05] MEDS: methylPREDNISolone SOD SUCC 125 MG VIAL 60 MG IV PUSH (08:44)
[2023-05-05] MEDS: ENOXAPARIN 30 MG/0.3 ML SYRINGE SUB-Q (08:51)
[2023-05-05] MEDS: LABETALOL HCL INJ 100 MG/20 ML VIAL 20 MG IV PUSH (09:04)
--- NOTE | 2023-05-05 09:41 | WPDINTPN ---
Progress Note: A&P Assessment and Plan (1) Acute kidney injury superimposed on CKD: Code(s): N17.9 - Acute kidney failure, unspecified; N18.9 - Chronic kidney disease, unspecified Status: Acute Assessment and Plan: Patient appears to have chronic kidney disease as her last recorded creatinine were elevated. She has elevated phosphate Presented with elevated creatinine of 1.6 that continued to increase Appears to have developed ATN Her creatinine had increased to 6.4 and she continues to have minimal urine output Patient was given cautious amount of IV fluids after admission but has not made any impact 04/30 Lasix IV x1 was given with no response CT scan does not show any obstruction or stones. 05/01 Discussed with rate clerk passenger. In light of worsening renal function, minimal urine output, volume overload, edema and mechanical ventilation, patient was started on hemodialysis. Temporary hemodialysis catheter placed 05/02 patient will receive her 2nd session of dialysis today. Discontinue sodium bicarbonate 05/03 patient receiving another dialysis session today 05/05 scheduled for another dialysis session today Continue dialysis per Nephrology (2) Acute respiratory failure with hypoxia and hypercarbia: Code(s): J96.01 - Acute respiratory failure with hypoxia; J96.02 - Acute respiratory failure with hypercapnia Status: Acute Assessment and Plan: Multifactorial acute Respiratory failure secondary to AECOPD, pulmonary edema, ? CAP Patient intubated in the ER Continue full mechanical ventilation support to prevent hypoxemia/hypercarbia and end organ damage. ABG and PCXR reviewed. Decrease rate to 16 Low tidal volume ventilation strategy to prevent volutrauma She continues to have diffuse wheezing and high peak pressures on the ventilator although they have improved as compared to before I will continue Solu-Medrol, bronchodilators COVID and flu PCR negative Nasal MRSA screen negative Blood culture negative sputum cultures growing stenotrophomonas. Procalcitonin level elevated at 6.4 Patient was earlier on empiric Rocephin and doxycycline. Which was switched to Levaquin and Bactrim 05/03 Patient was started on hemodialysis to remove fluid 05/04 Patient placed on sedation holiday and she tolerated 10/5 PSV for few hours. She was exhibiting paradoxical abdominal breathing Patient continues to be on sedation holiday and is slowly waking up. Plan to continue holding sedation, dialyze again today to remove additional fluid and then evaluated again for weaning trial (3) NSTEMI (non-ST elevated myocardial infarction): Code(s): I21.4 - Non-ST elevation (NSTEMI) myocardial infarction Status: Acute Assessment and Plan: Patient presented with elevated troponin. EKG reviewed and shows no ST changes Cardiology following and patient is now on aspirin statin low-dose beta-topher Diagnostic cardiac catheterization was delayed due to acute renal failure. Heparin infusion has been discontinued after 48 hours Echocardiogram Summary ? 1. Mild left ventricular enlargement with mild concentric hypertrophy.? Mild global hypokinesis with severe hypokinesis to akinesis of the basal inferior and septal segments.? Ejection fraction visually is 40-45%.? Grade 2 diastolic dysfunction is present. ? 2. Left atrial chamber dimension is severely enlarged. ? 3. No pulmonary hypertension, estimated pulmonary arterial systolic pressure is 30 mmHg. ? 4. No significant valve disease. ? 5. Technically difficult study.? Definity echo contrast used. ? 6. Normal sinus rhythm. 07/02 cardiac catheterization Conclusion:: 1.? ? Right coronary dominant circulation with single-vessel coronary disease with high-grade 90-95% stenosis in the region that was previously stented in this patient's RCA. 2.? ? Mild atherosclerotic irregularities in the left coronary without any significant lesions identified 3. ? successful PCI of this RCA stenosis
--- NOTE | 2023-05-05 09:59 | PM.PNCARD ---
Progress Note: A&P Assessment and Plan (1) NSTEMI (non-ST elevated myocardial infarction): Code(s): I21.4 - Non-ST elevation (NSTEMI) myocardial infarction Status: Acute Assessment and Plan: Patient has elevated troponin levels (0.019, 0.371, and 1.960) in the setting of acute respiratory failure and acidosis. It does sound like she had been complaining of chest pain over the past couple of weeks, and she has a known history of coronary artery disease. Continue atorvastatin 80 mg daily, metoprolol 12.5 mg twice daily DVT prophylaxis Echo showed moderate left ventricular dysfunction Status post 3.0 x 30 mm drug-eluting stent overlapping previously placed stent at 90-95% stenosis proximal to mid RCA with good results. Continue dual antiplatelet therapy with aspirin 81 mg daily and clopidogrel 75 mg daily. Follow H&H. Stable thus far. Echo shows mildly decreased LV systolic function, EF 40-45%, grade 2 diastolic dysfunction. Not on any medical therapy for this because of her renal function Cardiology will follow along on an as needed basis at this point. Please call with any questions. (2) Acute respiratory failure with hypoxia and hypercarbia: Code(s): J96.01 - Acute respiratory failure with hypoxia; J96.02 - Acute respiratory failure with hypercapnia Status: Acute Assessment and Plan: Multifactorial including CHF COPD possible pneumonia. She has been treated with Rocephin and doxycycline. She remains intubated sedated. Management per Critical Care and hospitalist service. Patient remains critically ill intubated on mechanical ventilatory support. She remains on methylprednisolone 60 mg IV daily. Sedation is currently being weaned inpatient is attempting to follow commands which is encouraging. Defer to primary service and Critical Care with regards to febrile illness. Ceftriaxone discontinued. Bactrim initiated last night. (3) Congestive heart failure: Qualifiers: Heart failure chronicity: acute Heart failure type: combined systolic and diastolic Qualified Code(s): I50.41 - Acute combined systolic (congestive) and diastolic (congestive) heart failure Code(s): I50.9 - Heart failure, unspecified Status: Acute Assessment and Plan: Mild acute systolic and diastolic CHF on chest x-ray. EF 40-45%. Diuretics on hold, continue volume management with hemodialysis. Continue to monitor volume status closely. Chest x-ray in a.m.. Optimize medical therapy as renal function and BP permit. Patient appears stable from a volume perspective at this time. HD per Nephrology. (4) Acute kidney injury superimposed on CKD: Code(s): N17.9 - Acute kidney failure, unspecified; N18.9 - Chronic kidney disease, unspecified Status: Acute Assessment and Plan: Acute fulminant kidney injury. Now on hemodialysis. Management per Nephrology. (5) Anemia: Qualifiers: Anemia type: other cause Code(s): D64.9 - Anemia, unspecified Status: Acute Assessment and Plan: H&H stable. Continue to monitor closely. Platelet count stable, borderline thrombocytopenia. Continue to follow trend. Monitor for bleeding. Subjective Date/time seen: 05/05/23 09:59 Interval history: Patient admitted with shortness of breath and respiratory failure requiring intubation, multifactorial secondary to CHF, COPD, possibly the CAP. Found to have had a non-STEMI with a peak troponin of 1.96. She had transient inferior ST-elevation which has resolved. Unfortunately she developed acute kidney failure. Echo showed EF 40-45%, diastolic dysfunction with hypokinesis of the inferior wall. 04/29/2023: Recommend aspirin, statin, heparin drip, beta-topher, echo, and anticipate ischemic evaluation with angiogram prior to discharge. 04/30/2023: Remains intubated sedated, on heparin drip and getting tube feedings. Creatinine has gone up to 4.1; has oliguric
--- NOTE | 2023-05-05 11:17 | PCFNICU ---
ICU Rounding Note: Pt current nutrition is Nepro @ 40 ml/h restarted. Water flush 30 ml q 4 h. Nutrition recommendation: Continue with current tube feeding orders, no changes. Agree with current nutrition care plan and orders. Last recorded weight is 83.8 kg. Bowel Motility: No BM charted Labs Reviewed:Hgb 9.3, Hct 30, Na 132, K+ 5.2, GFR 7, BUN 92, Cre 6.0, Glu 139. Meds Noted: Protonix. No sedation Skin: No pressure related skin breakdown Additional Notes: tube feeding was restarted. tolerating well. Remains on mechanical ventilation. Continue with current orders. Following daily in ICU rounds. Will monitior weight, labs, skin, tube feeding tolerance, meds every Friday and Friday. .
[2023-05-05 12:04] LABS: Glucose Point of Care 149 mg/dl (65-105)
--- NOTE | 2023-05-05 12:06 | PM.IMPN ---
Progress Note: A&P Assessment and Plan (1) Acute respiratory failure with hypoxia and hypercarbia: Code(s): J96.01 - Acute respiratory failure with hypoxia; J96.02 - Acute respiratory failure with hypercapnia Status: Acute Assessment and Plan: Patient brought in by EMS for SOB. Attempted to intubate in the field but unable; patient intuabted in ED on admission. CXR showing CMG, diffuse pulmonary edema. ABG 7.03/74/384 on MV. Salters resp failure is multifactorial from CHF/pulm edema, COPD, AMI and/or possibly CAP. COVID and flu PCR negative. Nasal MRSA screen negative. Continue full mechanical ventilation support to prevent hypoxemia/hypercarbia and end organ damage. ABG improved. The acidosis better with HD. PCXR showing bilateral lower lobe airspace disease She continues to have coarse wheezing Sputum culture growing stenotrophomonas so abx adjusted. BCx NGTD Continue Solu-Medrol, bronchodilators. Abx changed to levaquin HD to control fluid status. Still with positive fluid balance. HD planned for today Vent management per finance executive (2) NSTEMI (non-ST elevated myocardial infarction): Code(s): I21.4 - Non-ST elevation (NSTEMI) myocardial infarction Status: Acute Assessment and Plan: Patient presented in acute respiratory failure with CXR consistent with pulm edema related to AMI more likely STEMI. Troponin elevated and climbed to 16.6. Heparin drip started. EKG showing marked ST elevation c/w inferior injury with improvement on repeat EKG. Echo: EF 40-45% with mild global HK with severe HK-AK of the basal inferior and septal segments. Grade II diastolic dysfxn Cardiology following and appreciate their input. Heparin drip stopped. [facility] 05/02 showing right coronary dominant circulation with single-vessel coronary disease with high-grade 90-95% stenosis in the region that was previously stented in this patient's RCA o/w mild atherosclerotic irregularities s/p PCI and LILLIAN placement of the RCA stenosis. Continue medical management with ASA, Lipitor, Plavix and Lopressor. Appreciate Cardiology input (3) Pneumonia: Code(s): J18.9 - Pneumonia, unspecified organism Status: Acute Assessment and Plan: As above. Contnue nebulizer treatments and abx. (4) Acute kidney injury superimposed on CKD: Code(s): N17.9 - Acute kidney failure, unspecified; N18.9 - Chronic kidney disease, unspecified Status: Acute Assessment and Plan: Patient with CKD with prior values between 1.3-1.6. Has hx of FRANCIS requiring HD. Cr 1.6 on admission. Creatinine has climbed to 4.1. Serum bicarb 18 with nml gap. Potassium 5.0. She had no UOP. Consider ATN from CHF, COPD, PNA, AMI. Consider also AIN or RAAD. UA: 2+ protein, 2+ blood with >100 RBC. 2+ LE, Nit+ and 11-20 WBC. UCx negative Patient was given cautious amount of IV fluids after admission but has not made any impact Lasix IV given but UOP listed as zero CT scan does not show any urinary obstruction or stones. HD catheter placed 05/01 and started on HD. Still with positive fluid balance Nephrology following and appreciate their input. Continue HD per nephrology. Plan for today. (5) Congestive heart failure: Qualifiers: Heart failure type: combined systolic and diastolic Heart failure chronicity: acute Qualified Code(s): I50.41 - Acute combined systolic (congestive) and diastolic (congestive) heart failure Code(s): I50.9 - Heart failure, unspecified Status: Acute Assessment and Plan: Patient with acute systolic and diastolic CHF. See above. (6) COPD (chronic obstructive pulmonary disease): Code(s): J44.9 - Chronic obstructive pulmonary disease, unspecified Status: Acute Assessment and Plan: As above. (7) Lung nodule: Code(s): R91.1 - Solitary pulmonary nodule Status: Acute Assessment and Plan: Patient has a known right middle lobe lung nodule wh
--- NOTE | 2023-05-05 17:02 | PM.PNNEP ---
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 cardiac event/NSTEMI hypoxia relative hypotension no improvement with trial of IVFs or IV lasix evaluation to date: no evidence of obstruction of kidneys by imaging urine electrolyts non-prerenal UA suggestibe of infection - culture negative urine eosinophils negative proteinuria noted (but in the context of possible infection/UTI) CPK mildly elevated - follow trend HD today follow repeat labs and UOP for potential for recovery (2) Stage 3b chronic kidney disease: Code(s): N18.32 - Chronic kidney disease, stage 3b Status: Chronic Assessment and Plan: has baseline CKD or is this just random fluctuations in baseline kidney function??? creatinine running around 1.3 - 1.7mg/dl by recent labs done at [facility] HOWEVER, labs review from other hospitalizations at other facilities demonstrate that her creatinine has been as low as 0.9mg/dl in this year.... however, perhaps this normal creatinine value could be dilutional from her previous bouts of CHF... risk factors for CKD include HTN, vascular disease (CAD/CHF), and age (3) Acute respiratory failure with hypoxia and hypercarbia: Code(s): J96.01 - Acute respiratory failure with hypoxia; J96.02 - Acute respiratory failure with hypercapnia Status: Acute Assessment and Plan: multifactorial etiology: COPD exacerbation pulmonary edema pneumonia other? on ventilator support fluid removal as tolerated with HD continue steroids and bronchodilators viral testing negative to date empiric antibiotics for pneumonia follow culture data continue supportive therapy (4) NSTEMI (non-ST elevated myocardial infarction): Code(s): I21.4 - Non-ST elevation (NSTEMI) myocardial infarction Status: Acute Assessment and Plan: elevated troponins noted on admission no acute EKG changes noted Cardiology recommendations noted Echo results reviewed s/p cardiac catheterization on 05/02: PCI of RCA stenosis with drug-eluting stent overlapping with good results follow telemetry (5) Congestive heart failure: Qualifiers: Heart failure type: combined systolic and diastolic Heart failure chronicity: acute Qualified Code(s): I50.41 - Acute combined systolic (congestive) and diastolic (congestive) heart failure Code(s): I50.9 - Heart failure, unspecified Status: Acute Assessment and Plan: known apparent history evidence of pulmonary edema by imaging Echo with EF of 40-45% with grade 2 diastolic dysfunction continue fluid removal with dialysis as tolerated (6) COPD (chronic obstructive pulmonary disease): Code(s): J44.9 - Chronic obstructive pulmonary disease, unspecified Status: Acute Assessment and Plan: on steroids and bronchodilators see #3 continue supportive therapy Will continue to follow. Subjective Date/time seen: 05/05/23 17:02 Interval history: Follow-up for acute kidney injury/acute renal failure (possibly on chronic kidney disease). Seen earlier today and currently -- tolerating dialysis treatment at the time of my visit (seen on HD at 4:50PM); remains intubated and on mechanical ventilation; minimal urine output noted; low grade fevers overnight; no other issues/events overnight or earlier this morning. Exam Narrative: General: elderly female intubated and on mechanical ventilation Heart: normal S1 and S2; no rub Lungs: coarse breath sounds with a few wheezes Abdomen: soft, nontender, nondistended, positive bowel sounds Extremities: no cyanosis or clubbing; trace edema Skin: warm and intact
--- NOTE | 2023-05-05 17:02 | P.PNNP_ITS ---
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) * ARB use * cardiac event/NSTEMI * hypoxia * relative hypotension * no improvement with trial of IVFs or IV lasix * evaluation to date: * no evidence of obstruction of kidneys by imaging * urine electrolyts non-prerenal * UA suggestibe of infection - culture negative * urine eosinophils negative * proteinuria noted (but in the context of possible infection/UTI) * CPK mildly elevated - follow trend * HD today * follow repeat labs and UOP for potential for recovery (2) Stage 3b chronic kidney disease: Code(s): N18.32 - Chronic kidney disease, stage 3b Status: Chronic Assessment and Plan: * has baseline CKD or is this just random fluctuations in baseline kidney function??? * creatinine running around 1.3 - 1.7mg/dl by recent labs done at [facility] * HOWEVER, labs review from other hospitalizations at other facilities demonstrate that her creatinine has been as low as 0.9mg/dl in this year.... * however, perhaps this normal creatinine value could be dilutional from her previous bouts of CHF... * risk factors for CKD include HTN, vascular disease (CAD/CHF), and age (3) Acute respiratory failure with hypoxia and hypercarbia: Code(s): J96.01 - Acute respiratory failure with hypoxia; J96.02 - Acute respiratory fail ure with hypercapnia Status: Acute Assessment and Plan: * multifactorial etiology: * COPD exacerbation * pulmonary edema * pneumonia * other? * on ventilator support * fluid removal as tolerated with HD * continue steroids and bronchodilators * viral testing negative to date * empiric antibiotics for pneumonia * follow culture data * continue supportive therapy (4) NSTEMI (non-ST elevated myocardial infarction): Code(s): I21.4 - Non-ST elevation (NSTEMI) myocardial infarction Status: Acute Assessment and Plan: * elevated troponins noted on admission * no acute EKG changes noted * Cardiology recommendations noted * Echo results reviewed * s/p cardiac catheterization on 05/02: PCI of RCA stenosis with drug-eluting stent overlapping with good results * follow telemetry (5) Congestive heart failure: Qualifiers: Heart failure type: combined systolic and diastolic Heart failure chronicity: acute Qualified Code(s): I50.41 - Acute combined systolic (congestive) and diastolic (congestive) heart failure Code(s): I50.9 - Heart failure, unspecified Status: Acute Assessment and Plan: * known apparent history * evidence of pulmonary edema by imaging * Echo with EF of 40-45% with grade 2 diastolic dysfunction * continue fluid removal with dialysis as tolerated (6) COPD (chronic obstructive pulmonary disease): Code(s): J44.9 - Chronic obstructive pulmonary disease, unspecified Status: Acute Assessment and Plan: * on steroids and bronchodilators * see #3 * continue supportive therapy Will continue to follow. Subjective Date/time seen: 05/05/23 17:02 Interval history: Follow-up for acute kidney injury/acute renal failure (possibly on chronic kidney disease). Seen earlier today and currently -- tolerating dialysis treatment at the
[2023-05-05] MEDS: PROPOFOL IV EMULSION 100 ML 2.54 MG IV CONT (17:26)
[2023-05-05 17:58] LABS: Glucose Point of Care 156 mg/dl (65-105)
[2023-05-05] MEDS: EPOETIN ALFA-EPBX 10,000 UNITS/ML VIAL 10000 UNITS IV PUSH (18:04)
[2023-05-05] MEDS: levoFLOXacin 500 MG/D5W 100 ML 500 MG/100 ML BAG 100 MG IVPB (21:20)
[2023-05-06] VITALS (38 sets, daily range): BP systolic 115–174; BP diastolic 60–88; PULSE 76–99; RESP 15–28; TEMP 36.7–37.6; O2SAT 94–98
[2023-05-06] MEDS: INSULIN ASPART (*BKC) 100 UNITS/ML SUB-Q (00:03)
[2023-05-06 00:24] LABS: Glucose Point of Care 201 mg/dl (65-105)
[2023-05-06] MEDS: LEVALBUTEROL NEB 1.25 MG/3 ML INHALATION ×4 (01:28→19:26)
[2023-05-06] MEDS: IPRATROPIUM BR 0.02% INH SOLN 0.5 MG/2.5 ML VIAL INHALATION ×4 (01:29→19:26)
[2023-05-06] MEDS: LABETALOL HCL INJ 100 MG/20 ML VIAL 20 MG IV PUSH ×2 (02:33→10:14)
[2023-05-06 05:04] LABS: Hematocrit 29.7 % (37.0-47.0); Hemoglobin 9.3 g/dL (12.0-15.0); Mean Corpuscular HGB Conc 31.3 g/dl (32-36); Mean Corpuscular Hemoglobin 27.5 pg (26-34); Mean Corpuscular Volume 87.9 fl (80-100); Mean Platelet Volume 11.4 fl (7.4-10.4); Platelet Count Result 210 k/mm3 (150-375); Red Blood Count 3.38 M/mm3 (4.2-5.4); Red Cell Distribution Width 13.8 % (11.5-14.5); White Blood Count 14.4 K/mm3 (4.5-10.0)
[2023-05-06] MEDS: CENTRAL LINE FLUSH 10 ML IV PUSH ×3 (05:43→22:30)
[2023-05-06 05:45] LABS: Alveolar/Arterial O2 Gradient 122.2 mmHg; Base Excess ABG 0.5 mEq/l (+/-2.0); Carboxyhemoglobin 0.3 % THb (0-2.0); Device VENTILATOR; Fractional Inspired Oxygen 35 %; HCO3 ABG 24.5 mEq/l (22.0-26.0); Methemoglobin ABG 0.2 %THb (0-1.5); Modified Allen's Test Pass; Oxygen Content ABG 14.5 %vol (16.0-22.0); Oxygen Saturation ABG 96.7 % (95.0-100.0); Oxyhemoglobin 94.7 % THb (90.0-100.0); PCO2 ABG 37.1 mmHg (35.0-45.0); PO2 ABG 84.2 mmHg (80.0-100.0); PO2 FiO2 Ratio Arterial Blood 2.41 %; Reduced Hemoglobin 4.8 %THb (0-5.0); Site Drawn RIGHT RADIAL; Total Hemoglobin 10.8 g/dL (12.0-18.0); pH ABG 7.438 (7.350-7.450)
[2023-05-06 05:46] LABS: Arterial Blood Gas PEEP 5 cmH2O; Arterial Blood Gas Tidal Volume 400 ml; Arterial Blood Gas Vent Mode CMV; Arterial Blood Gas Ventilator rate 16 /MIN
[2023-05-06] MEDS: METOPROLOL TARTRATE 25 MG TABLET FEED TUBE ×2 (08:49→20:02)
[2023-05-06] MEDS: PANTOPRAZOLE SODIUM IV 40 MG VIAL IV PUSH (08:49)
[2023-05-06] MEDS: CLOPIDOGREL BISULFATE 75 MG TABLET PO (08:49)
[2023-05-06] MEDS: polyethylene glycoL 3350 17 GM POWD.PACK PO (08:50)
[2023-05-06] MEDS: methylPREDNISolone SOD SUCC 125 MG VIAL 60 MG IV PUSH (08:50)
[2023-05-06] MEDS: ATORVASTATIN 40 MG TABLET 80 MG PO (08:50)
[2023-05-06] MEDS: ENOXAPARIN 30 MG/0.3 ML SYRINGE SUB-Q (08:50)
[2023-05-06] MEDS: ASPIRIN 81 MG CHEWABLE TABLET PO (08:50)
[2023-05-06] MEDS: MINERAL OIL/WHITE PETROLATUM OINTMENT 1 APPLIC EACH EYE ×2 (08:51→20:02)
--- NOTE | 2023-05-06 09:10 | PM.PNNEP ---
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) ARB use cardiac event/NSTEMI hypoxia relative hypotension no improvement with trial of IVFs or IV lasix evaluation to date: no evidence of obstruction of kidneys by imaging urine electrolyts non-prerenal UA suggestibe of infection - culture negative urine eosinophils negative proteinuria noted (but in the context of possible infection/UTI) CPK mildly elevated - follow trend HD tomorrow follow repeat labs and UOP for potential for recovery (2) Stage 3b chronic kidney disease: Code(s): N18.32 - Chronic kidney disease, stage 3b Status: Chronic Assessment and Plan: has baseline CKD or is this just random fluctuations in baseline kidney function??? creatinine running around 1.3 - 1.7mg/dl by recent labs done at [facility] HOWEVER, labs review from other hospitalizations at other facilities demonstrate that her creatinine has been as low as 0.9mg/dl in this year.... however, perhaps this normal creatinine value could be dilutional from her previous bouts of CHF... risk factors for CKD include HTN, vascular disease (CAD/CHF), and age (3) Acute respiratory failure with hypoxia and hypercarbia: Code(s): J96.01 - Acute respiratory failure with hypoxia; J96.02 - Acute respiratory failure with hypercapnia Status: Acute Assessment and Plan: multifactorial etiology: COPD exacerbation pulmonary edema pneumonia other? on ventilator support fluid removal as tolerated with HD continue steroids and bronchodilators viral testing negative to date empiric antibiotics for pneumonia follow culture data continue supportive therapy (4) NSTEMI (non-ST elevated myocardial infarction): Code(s): I21.4 - Non-ST elevation (NSTEMI) myocardial infarction Status: Acute Assessment and Plan: elevated troponins noted on admission no acute EKG changes noted Cardiology recommendations noted Echo results reviewed s/p cardiac catheterization on 05/02: PCI of RCA stenosis with drug-eluting stent overlapping with good results follow telemetry (5) Congestive heart failure: Qualifiers: Heart failure chronicity: acute Heart failure type: combined systolic and diastolic Qualified Code(s): I50.41 - Acute combined systolic (congestive) and diastolic (congestive) heart failure Code(s): I50.9 - Heart failure, unspecified Status: Acute Assessment and Plan: known apparent history evidence of pulmonary edema by imaging Echo with EF of 40-45% with grade 2 diastolic dysfunction continue fluid removal with dialysis as tolerated (6) COPD (chronic obstructive pulmonary disease): Code(s): J44.9 - Chronic obstructive pulmonary disease, unspecified Status: Acute Assessment and Plan: on steroids and bronchodilators see #3 continue supportive therapy Will continue to follow. Subjective Date/time seen: 05/06/23 09:10 Interval history: Follow-up for acute kidney injury/acute renal failure (possibly on chronic kidney disease). Tolerated dialysis treatment yesterdy with 4L fluid removal; remains intubated and on mechanical ventilation; still with minimal urine output; appears comfortable; remains hemodynamically stable. Exam Narrative: General: elderly female intubated and on mechanical ventilation Heart: normal S1 and S2; no rub Lungs: coarse breath sounds with a few wheezes Abdomen: soft, nontender, nondistended, positive bowel sounds Extremities: no cyanosis or clubbing; trace edema Skin: no rash Objective Data Vital Signs Vital Signs: Vital Signs Temp Pulse Resp BP Pu
--- NOTE | 2023-05-06 09:10 | P.PNNP_ITS ---
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) * ARB use * cardiac event/NSTEMI * hypoxia * relative hypotension * no improvement with trial of IVFs or IV lasix * evaluation to date: * no evidence of obstruction of kidneys by imaging * urine electrolyts non-prerenal * UA suggestibe of infection - culture negative * urine eosinophils negative * proteinuria noted (but in the context of possible infection/UTI) * CPK mildly elevated - follow trend * HD tomorrow * follow repeat labs and UOP for potential for recovery (2) Stage 3b chronic kidney disease: Code(s): N18.32 - Chronic kidney disease, stage 3b Status: Chronic Assessment and Plan: * has baseline CKD or is this just random fluctuations in baseline kidney function??? * creatinine running around 1.3 - 1.7mg/dl by recent labs done at [facility] * HOWEVER, labs review from other hospitalizations at other facilities demonstrate that her creatinine has been as low as 0.9mg/dl in this year.... * however, perhaps this normal creatinine value could be dilutional from he r previous bouts of CHF... * risk factors for CKD include HTN, vascular disease (CAD/CHF), and age (3) Acute respiratory failure with hypoxia and hypercarbia: Code(s): J96.01 - Acute respiratory failure with hypoxia; J96.02 - Acute respiratory f ailure with hypercapnia Status: Acute Assessment and Plan: * multifactorial etiology: * COPD exacerbation * pulmonary edema * pneumonia * other? * on ventilator support * fluid removal as tolerated with HD * continue steroids and bronchodilators * viral testing negative to date * empiric antibiotics for pneumonia * follow culture data * continue supportive therapy (4) NSTEMI (non-ST elevated myocardial infarction): Code(s): I21.4 - Non-ST elevation (NSTEMI) myocardial infarction Status: Acute Assessment and Plan: * elevated troponins noted on admission * no acute EKG changes noted * Cardiology recommendations noted * Echo results reviewed * s/p cardiac catheterization on 05/02: PCI of RCA stenosis with drug-eluting stent overlapping with good results * follow telemetry (5) Congestive heart failure: Qualifiers: Heart failure chronicity: acute Heart failure type: combined systolic and diastolic Qualified Code(s): I50.41 - Acute combined systolic (congestive) and diastolic (congestive) heart failure Code(s): I50.9 - Heart failure, unspecified Status: Acute Assessment and Plan: * known apparent history * evidence of pulmonary edema by imaging * Echo with EF of 40-45% with grade 2 diastolic dysfunction * continue fluid removal with dialysis as tolerated (6) COPD (chronic obstructive pulmonary disease): Code(s): J44.9 - Chronic obstructive pulmonary disease, unspecified Status: Acute Assessment and Plan: * on steroids and bronchodilators * see #3 * continue supportive therapy Will continue to follow. Subjective Date/time seen: 05/06/23 09:10 Interval history: Follow-up for acute kidney injury/acute renal failure (possibly on chronic kidney disease). Tolerated dialysis treatment yesterdy with 4L fluid removal; remains i
--- NOTE | 2023-05-06 11:11 | PCNFU ---
Nutrition Follow-Up Complete: Inadequate Oral Intake as related to mechanical ventilation as evidenced by NPO. Goal: Meet estimated nutritional needs. Patient is meeting current needs. Will continue current goal. Pt current nutrition is Nepro at 40 ml/hr. Last recorded weight is 82 kg, down from 85 kg on admit. Bowel Motility: +BM reported 05/05 Labs Reviewed:Cr 4.10,BUN 52, Na 135, Hct 29.7,Hgb 9.3 Meds Noted: Miralax, Protonix, Lopressor. Skin: WNL Additional Notes: Patient remains on mechanical vent. Tube feedings are being tolerated of Nepro at 40 ml/hr which are providing 1584 kcals/98 gms protein/640 ml water. Flush 30 ml q 4 hours. Tube feeding meeting 100% kcal needs at 19 kcal/kg and 96% protein needs at 1.2-1.4 gm/kg. Dialysis on 05/05-4 Liters removed. Plans for breathing trial. Agree with diet orders. Will monitor weight, labs, skin, tube feeding tolerance, meds every Friday and Friday.
--- NOTE | 2023-05-06 11:43 | WPDINTPN ---
Progress Note: A&P Assessment and Plan (1) Acute kidney injury superimposed on CKD: Code(s): N17.9 - Acute kidney failure, unspecified; N18.9 - Chronic kidney disease, unspecified Status: Acute Assessment and Plan: Patient appears to have chronic kidney disease as her last recorded creatinine were elevated. She has elevated phosphate Presented with elevated creatinine of 1.6 that continued to increase -Appears to have developed ATN -Her creatinine had increased to 6.4 and she continues to have minimal urine output -Patient was given cautious amount of IV fluids after admission but has not made any impact -04/30 Lasix IV x1 was given with no response -CT scan does not show any obstruction or stones. -05/01 Discussed with operations support specialist. In light of worsening renal function, minimal urine output, volume overload, edema and mechanical ventilation, patient was started on hemodialysis. Temporary hemodialysis catheter placed 05/02 patient will receive her 2nd session of dialysis today. Discontinue sodium bicarbonate 05/03 patient receiving another dialysis session today 05/05 scheduled for another dialysis session today Continue dialysis per Nephrology (2) Acute respiratory failure with hypoxia and hypercarbia: Code(s): J96.01 - Acute respiratory failure with hypoxia; J96.02 - Acute respiratory failure with hypercapnia Status: Acute Assessment and Plan: Multifactorial acute Respiratory failure secondary to AECOPD, pulmonary edema, ? CAP 04/28: Patient intubated in the ER -Continue full mechanical ventilation support to prevent hypoxemia/hypercarbia and end organ damage. -ABG and PCXR reviewed. On PEEP of 5 and 35% FiO2 -Low tidal volume ventilation strategy to prevent volutrauma -l continue Solu-Medrol, bronchodilators -COVID and flu PCR negative -Nasal MRSA screen negative -04/28: Blood culture negative -04/30: sputum cultures growing stenotrophomonas. Procalcitonin level elevated at 6.4 -Patient was earlier on empiric Rocephin and doxycycline. Which was switched to Levaquin and Bactrim 05/03 - continue hemodialysis to remove fluid -05/04 Patient placed on sedation holiday and she tolerated 10/5 PSV for few hours. She was exhibiting paradoxical abdominal breathing Patient continues to be on sedation holiday and is slowly waking up. Plan to continue holding sedation, dialyze again today to remove additional fluid and then evaluated again for weaning trial 05/06: off sedation, placed on PSV 12/5 and will decrease to 8/5 and evaluate for extubation (3) NSTEMI (non-ST elevated myocardial infarction): Code(s): I21.4 - Non-ST elevation (NSTEMI) myocardial infarction Status: Acute Assessment and Plan: Patient presented with elevated troponin. EKG reviewed and shows no ST changes Cardiology following and patient is now on aspirin statin low-dose beta-topher Diagnostic cardiac catheterization was delayed due to acute renal failure. Heparin infusion has been discontinued after 48 hours Echocardiogram Summary ? 1. Mild left ventricular enlargement with mild concentric hypertrophy.? Mild global hypokinesis with severe hypokinesis to akinesis of the basal inferior and septal segments.? Ejection fraction visually is 40-45%.? Grade 2 diastolic dysfunction is present. ? 2. Left atrial chamber dimension is severely enlarged. ? 3. No pulmonary hypertension, estimated pulmonary arterial systolic pressure is 30 mmHg. ? 4. No significant valve disease. ? 5. Technically difficult study.? Definity echo contrast used. ? 6. Normal sinus rhythm. 07/02 cardiac catheterization Conclusion:: 1.? ? Right coronary dominant circulation with single-vessel coronary disease with high-grade 90-95% stenosis in the region that was previously stented in this patient's RCA. 2.? ? Mild atherosclerotic irregularities in the left coronary without any significant lesions identified 3. ? successful PCI of this RCA stenosis using the PTC
[2023-05-06 12:04] LABS: Glucose Point of Care 122 mg/dl (65-105)
--- NOTE | 2023-05-06 14:27 | PCRCNOTE ---
Dr. Carpio at bedside with RT and pt's family, pt has been on trial most of the day since 0850 this morning with reaching the lowest levels of cpap of 8/5 with fiO2 of 35%, RR is maintaining at 26 to 30 which is a little on the higher side and RSBI of 80's to 90's. Discussed with Dr. Carpio will keep pt on cpap until about 1800 tonight and will switch to ASV mode for night time, to re-trial pt tomorrow morning for possible extubation.
--- NOTE | 2023-05-06 15:21 | PM.IMPN ---
Progress Note: A&P Assessment and Plan (1) Acute respiratory failure with hypoxia and hypercarbia: Code(s): J96.01 - Acute respiratory failure with hypoxia; J96.02 - Acute respiratory failure with hypercapnia Status: Acute Assessment and Plan: Patient brought in by EMS for SOB. Attempted to intubate in the field but unable; patient intuabted in ED on admission. CXR showing CMG, diffuse pulmonary edema. ABG 7.03/74/384 on MV. [place] resp failure is multifactorial from CHF/pulm edema, COPD, AMI and/or possibly CAP. COVID and flu PCR negative. Nasal MRSA screen negative. Continue full mechanical ventilation support to prevent hypoxemia/hypercarbia and end organ damage. ABG improved. The acidosis better with HD. PCXR showing bilateral lower lobe airspace disease She continues to have coarse wheezing Sputum culture growing stenotrophomonas so abx adjusted. BCx NGTD Continue Solu-Medrol, bronchodilators. Abx changed to levaquin and bactrim HD to control fluid status. Fluid balance about even. Vent management per tents assembler (2) NSTEMI (non-ST elevated myocardial infarction): Code(s): I21.4 - Non-ST elevation (NSTEMI) myocardial infarction Status: Acute Assessment and Plan: Patient presented in acute respiratory failure with CXR consistent with pulm edema related to AMI more likely STEMI. Troponin elevated and climbed to 16.6. Heparin drip started. EKG showing marked ST elevation c/w inferior injury with improvement on repeat EKG. Echo: EF 40-45% with mild global HK with severe HK-AK of the basal inferior and septal segments. Grade II diastolic dysfxn Cardiology following and appreciate their input. Heparin drip stopped. [facility] 05/02 showing right coronary dominant circulation with single-vessel coronary disease with high-grade 90-95% stenosis in the region that was previously stented in this patient's RCA o/w mild atherosclerotic irregularities s/p PCI and LILLIAN placement of the RCA stenosis. Continue medical management with ASA, Lipitor, Plavix and Lopressor. (3) Pneumonia: Code(s): J18.9 - Pneumonia, unspecified organism Status: Acute Assessment and Plan: As above. Contnue nebulizer treatments and abx. (4) Acute kidney injury superimposed on CKD: Code(s): N17.9 - Acute kidney failure, unspecified; N18.9 - Chronic kidney disease, unspecified Status: Acute Assessment and Plan: Patient with CKD with prior values between 1.3-1.6. Has hx of FRANCIS requiring HD. Cr 1.6 on admission. Creatinine has climbed to 4.1. Serum bicarb 18 with nml gap. Potassium 5.0. She had no UOP. Consider ATN from CHF, COPD, PNA, AMI. Consider also AIN or RAAD. UA: 2+ protein, 2+ blood with >100 RBC. 2+ LE, Nit+ and 11-20 WBC. UCx negative Patient was given cautious amount of IV fluids after admission but has not made any impact Lasix IV given but UOP listed as zero CT scan does not show any urinary obstruction or stones. HD catheter placed 05/01 and started on HD. Still with positive fluid balance Nephrology following and appreciate their input. Continue HD per nephrology. Plan for today. (5) Congestive heart failure: Qualifiers: Heart failure type: combined systolic and diastolic Heart failure chronicity: acute Qualified Code(s): I50.41 - Acute combined systolic (congestive) and diastolic (congestive) heart failure Code(s): I50.9 - Heart failure, unspecified Status: Acute Assessment and Plan: Patient with acute systolic and diastolic CHF. See above. (6) COPD (chronic obstructive pulmonary disease): Code(s): J44.9 - Chronic obstructive pulmonary disease, unspecified Status: Acute Assessment and Plan: As above. (7) Lung nodule: Code(s): R91.1 - Solitary pulmonary nodule Status: Acute Assessment and Plan: Patient has a known right middle lobe lung nodule which was evident again on the CT scan. Patient
[2023-05-06 16:39] LABS: Glucose Point of Care 180 mg/dl (65-105)
[2023-05-06 18:56] LABS: Hepatitis B Core Ab Total Nonreactive (Nonreactive)
[2023-05-07] VITALS (31 sets, daily range): BP systolic 113–174; BP diastolic 58–96; PULSE 67–114; RESP 14–24; TEMP 36–37.5; O2SAT 92–100
[2023-05-07 00:22] LABS: Glucose Point of Care 111 mg/dl (65-105)
[2023-05-07] MEDS: LEVALBUTEROL NEB 1.25 MG/3 ML INHALATION ×4 (01:06→21:05)
[2023-05-07] MEDS: IPRATROPIUM BR 0.02% INH SOLN 0.5 MG/2.5 ML VIAL INHALATION ×4 (01:07→21:06)
[2023-05-07 04:04] LABS: Alveolar/Arterial O2 Gradient 126.8 mmHg; Base Excess ABG -2.9 mEq/l (+/-2.0); Carboxyhemoglobin 0.3 % THb (0-2.0); Fractional Inspired Oxygen 35 %; HCO3 ABG 21.4 mEq/l (22.0-26.0); Methemoglobin ABG 0.3 %THb (0-1.5); Modified Allen's Test Pass; Oxygen Content ABG 15.5 %vol (16.0-22.0); Oxyhemoglobin 93.9 % THb (90.0-100.0); PCO2 ABG 35.9 mmHg (35.0-45.0); PO2 FiO2 Ratio Arterial Blood 2.31 %; Reduced Hemoglobin 5.5 %THb (0-5.0); Site Drawn RIGHT RADIAL; Total Hemoglobin 11.7 g/dL (12.0-18.0); pH ABG 7.394 (7.350-7.450)
[2023-05-07 04:05] LABS: Arterial Blood Gas Minute Volume 5.5 LPM; Arterial Blood Gas PEEP 5 cmH2O; Arterial Blood Gas Vent Mode ASV; Device VENTILATOR; Peak Inspiratory Pressure 15 cmH2O
[2023-05-07 05:19] LABS: Glucose Point of Care 92 mg/dl (65-105)
[2023-05-07 05:21] LABS: Hematocrit 30.6 % (37.0-47.0); Hemoglobin 9.6 g/dL (12.0-15.0); Mean Corpuscular HGB Conc 31.4 g/dl (32-36); Mean Corpuscular Hemoglobin 27.3 pg (26-34); Mean Corpuscular Volume 86.9 fl (80-100); Mean Platelet Volume 11.6 fl (7.4-10.4); Platelet Count Result 221 k/mm3 (150-375); Red Blood Count 3.52 M/mm3 (4.2-5.4); Red Cell Distribution Width 14.1 % (11.5-14.5); White Blood Count 16.3 K/mm3 (4.5-10.0)
[2023-05-07] MEDS: CENTRAL LINE FLUSH 10 ML IV PUSH ×3 (05:38→23:06)
[2023-05-07 05:44] LABS: Alanine Aminotransferase 58 U/L (6-35); Albumin Level 3.7 g/dL (3.5-5.1); Alkaline Phosphatase 81 U/L (38-126); Anion Gap 15 mmol/L (8-16); Aspartate Amino Transferase 41 U/L (14-36); Bilirubin,Total 0.4 mg/dL (0.2-1.3); Blood Urea Nitrogen 93 mg/dL (7-17); Calcium 8.8 mg/dL (8.4-10.2); Carbon Dioxide 24 mmol/L (22-30); Chloride 95 mmol/L (98-107); Estimated CRCL calculation 8 ml/min; Estimated Glomerular Filt Rate 7; Glucose 99 mg/dL (65-110); Magnesium 2.9 mg/dL (1.6-2.3); Phosphorus 8.7 mg/dL (2.5-4.5); Potassium 4.4 mmol/L (3.4-5.0); Sodium 134 mmol/L (137-145); Triglycerides 189 mg/dL (<150)
[2023-05-07] MEDS: ENOXAPARIN 30 MG/0.3 ML SYRINGE SUB-Q (08:33)
[2023-05-07] MEDS: methylPREDNISolone SOD SUCC 125 MG VIAL 60 MG IV PUSH (08:34)
[2023-05-07] MEDS: ASPIRIN 81 MG CHEWABLE TABLET PO (08:34)
[2023-05-07] MEDS: PANTOPRAZOLE SODIUM IV 40 MG VIAL IV PUSH (08:35)
[2023-05-07] MEDS: CLOPIDOGREL BISULFATE 75 MG TABLET PO (08:35)
[2023-05-07] MEDS: MINERAL OIL/WHITE PETROLATUM OINTMENT 1 APPLIC EACH EYE ×2 (08:35→20:22)
[2023-05-07] MEDS: METOPROLOL TARTRATE 25 MG TABLET FEED TUBE ×2 (08:35→20:19)
[2023-05-07] MEDS: ATORVASTATIN 40 MG TABLET 80 MG PO (08:35)
--- NOTE | 2023-05-07 09:31 | PM.PNCARD ---
Progress Note: A&P Assessment and Plan (1) NSTEMI (non-ST elevated myocardial infarction): Code(s): I21.4 - Non-ST elevation (NSTEMI) myocardial infarction Status: Acute Assessment and Plan: Patient has elevated troponin levels (0.019, 0.371, and 1.960) in the setting of acute respiratory failure and acidosis. It does sound like she had been complaining of chest pain over the past couple of weeks, and she has a known history of coronary artery disease. Status post 3.0 x 30 mm drug-eluting stent overlapping previously placed stent at 90-95% stenosis proximal to mid RCA with good results. Continue dual antiplatelet therapy with aspirin 81 mg daily and clopidogrel 75 mg daily. Continue statin and beta topher. Follow H&H. Stable thus far. Echo shows mildly decreased LV systolic function, EF 40-45%, grade 2 diastolic dysfunction. Not on any medical therapy for this because of her renal function Cardiology will follow along on an as needed basis at this point. Please call with any questions. (2) Acute respiratory failure with hypoxia and hypercarbia: Code(s): J96.01 - Acute respiratory failure with hypoxia; J96.02 - Acute respiratory failure with hypercapnia Status: Acute Assessment and Plan: Remains intubated. Management as per ICU team. (3) Congestive heart failure: Qualifiers: Heart failure type: combined systolic and diastolic Heart failure chronicity: acute Qualified Code(s): I50.41 - Acute combined systolic (congestive) and diastolic (congestive) heart failure Code(s): I50.9 - Heart failure, unspecified Status: Acute Assessment and Plan: EF 40-45%. Continue volume management with hemodialysis. Continue to monitor volume status closely. (4) Acute kidney injury superimposed on CKD: Code(s): N17.9 - Acute kidney failure, unspecified; N18.9 - Chronic kidney disease, unspecified Status: Acute Assessment and Plan: Acute fulminant kidney injury. Now on hemodialysis. Management per Nephrology. (5) Anemia: Qualifiers: Anemia type: other cause Code(s): D64.9 - Anemia, unspecified Status: Acute Assessment and Plan: H&H stable. Continue to monitor closely. Platelet count stable, borderline thrombocytopenia. Continue to follow trend. Monitor for bleeding. Plan Recommendations/Plan discussed with Trail Maintenance Worker. Subjective Date/time seen: 05/07/23 09:31 Interval history: Patient admitted with shortness of breath and respiratory failure requiring intubation, multifactorial secondary to CHF, COPD, possibly the CAP. Found to have had a non-STEMI with a peak troponin of 1.96. She had transient inferior ST-elevation which has resolved. Unfortunately she developed acute kidney failure. Echo showed EF 40-45%, diastolic dysfunction with hypokinesis of the inferior wall. Date of service 04/29/2023: Recommend aspirin, statin, heparin drip, beta-topher, echo, and anticipate ischemic evaluation with angiogram prior to discharge. Date of service 04/30/2023: Remains intubated sedated, on heparin drip and getting tube feedings. Creatinine has gone up to 4.1; has oliguric acute renal failure. Telemetry shows sinus rhythm/sinus tach with rare PVCs. EKG from 04/29/2023 at 2:06 a.m. shows sinus rhythm, nonspecific T-wave changes, resolution of the inferior ST elevation and no development of inferior Q-waves. Personally reviewed. Date of service 05/01/2023: Remains intubated and sedated. Worsening renal failure. Remains on heparin gtt for now. Possible LHC tomorrow if plan is for dialysis Date of service 05/03/2023: Patient had hemodialysis today. 4 L ultrafiltration removal. Patient remains intubated/sedated. PCI of RCA stenosis with drug-eluting stent overlapping with good results 05/02/2023. Further history obtained from nursing staff and review electronic medical record. Date of service 05/04/2023: Sedation is be
--- NOTE | 2023-05-07 11:43 | WPDINTPN ---
Progress Note: A&P Assessment and Plan (1) Acute kidney injury superimposed on CKD: Code(s): N17.9 - Acute kidney failure, unspecified; N18.9 - Chronic kidney disease, unspecified Status: Acute Assessment and Plan: Patient appears to have chronic kidney disease as her last recorded creatinine were elevated. She has elevated phosphate Presented with elevated creatinine of 1.6 that continued to increase -Appears to have developed ATN -Her creatinine had increased to 6.4 and she continues to have minimal urine output -Patient was given cautious amount of IV fluids after admission but has not made any impact -04/30 Lasix IV x1 was given with no response -CT scan does not show any obstruction or stones. -05/01 Discussed with social media marketing specialist. In light of worsening renal function, minimal urine output, volume overload, edema and mechanical ventilation, patient was started on hemodialysis. Temporary hemodialysis catheter placed 05/02 patient will receive her 2nd session of dialysis today. Discontinue sodium bicarbonate 05/03 patient receiving another dialysis session today 05/05 scheduled for another dialysis session today Continue dialysis per Nephrology (2) Acute respiratory failure with hypoxia and hypercarbia: Code(s): J96.01 - Acute respiratory failure with hypoxia; J96.02 - Acute respiratory failure with hypercapnia Status: Acute Assessment and Plan: Multifactorial acute Respiratory failure secondary to AECOPD, pulmonary edema, ? CAP 04/28: Patient intubated in the ER -Continue full mechanical ventilation support to prevent hypoxemia/hypercarbia and end organ damage. -ABG and PCXR reviewed. On PEEP of 5 and 35% FiO2 -Low tidal volume ventilation strategy to prevent volutrauma -l continue Solu-Medrol, bronchodilators -COVID and flu PCR negative -Nasal MRSA screen negative -04/28: Blood culture negative -04/30: sputum cultures growing stenotrophomonas. Procalcitonin level elevated at 6.4 -Patient was earlier on empiric Rocephin and doxycycline. Which was switched to Levaquin and Bactrim 05/03 - continue hemodialysis to remove fluid -05/04 Patient placed on sedation holiday and she tolerated 10/5 PSV for few hours. She was exhibiting paradoxical abdominal breathing Patient continues to be on sedation holiday and is slowly waking up. Plan to continue holding sedation, dialyze again today to remove additional fluid and then evaluated again for weaning trial 05/06: Patient tolerated pressure support ventilation was tachypneic with higher RSBI between 90-110s. 05/07: Patient was able to be placed on SBT after dialysis, but dialysis was unable to be done due to her catheter nonfunctioning. Have placed the patient in support ventilation, 04/10, patient is tachypneic length slightly low tidal volumes, patient may require dialysis before extubation (3) NSTEMI (non-ST elevated myocardial infarction): Code(s): I21.4 - Non-ST elevation (NSTEMI) myocardial infarction Status: Acute Assessment and Plan: Patient presented with elevated troponin. EKG reviewed and shows no ST changes Cardiology following and patient is now on aspirin statin, clopidogrel, metoprolol 07/02 cardiac catheterization Conclusion:: 1.? ? Right coronary dominant circulation with single-vessel coronary disease with high-grade 90-95% stenosis in the region that was previously stented in this patient's RCA. 2.? ? Mild atherosclerotic irregularities in the left coronary without any significant lesions identified 3. ? successful PCI of this RCA stenosis using the PTCA, overlapping long drug-eluting stent which was post dilated with noncompliant balloon at high pressure resulting in excellent patency of the vessel Echocardiogram Summary ? 1. Mild left ventricular enlargement with mild concentric hypertrophy.? Mild global hypokinesis with severe hypokinesis to akinesis of the basal inferior and septal segments.? Ejection fraction visually
--- NOTE | 2023-05-07 11:44 | PCFNICU ---
ICU Rounding Note: Pt current nutrition is Nepro at 40 ml/hr. Last recorded weight is 82.2 kg, down from 85 kg on admit. Bowel Motility:+BM reported 05/07 Labs Reviewed:TG 189, Cr 6.3,BUN 93, Na 134 Meds Noted:Miralax, Protonix, Solu-Medrol. Skin: WNL Additional Notes:Patient remains on a mechanical vent. Breathing trial today. Tube feedings on hold. If patient remains on tube feedings, recommend restarting Nepro at 40 ml/hr. Flush 30 ml q 4 hours. Agree with diet orders. Following daily in ICU rounds. Will monitor weight, labs, skin, tube feeding tolerance, meds every Friday and Friday.
[2023-05-07 11:51] LABS: Glucose Point of Care 142 mg/dl (65-105)
--- NOTE | 2023-05-07 12:35 | PM.PNNEP ---
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) ARB use cardiac event/NSTEMI hypoxia relative hypotension no improvement with trial of IVFs or IV lasix evaluation to date: no evidence of obstruction of kidneys by imaging urine electrolyts non-prerenal UA suggestibe of infection - culture negative urine eosinophils negative proteinuria noted (but in the context of possible infection/UTI) CPK mildly elevated - follow trend re-attempt HD once new HD catheter placement follow repeat labs and UOP for potential for recovery (2) Stage 3b chronic kidney disease: Code(s): N18.32 - Chronic kidney disease, stage 3b Status: Chronic Assessment and Plan: has baseline CKD or is this just random fluctuations in baseline kidney function??? creatinine running around 1.3 - 1.7mg/dl by recent labs done at [facility] HOWEVER, labs review from other hospitalizations at other facilities demonstrate that her creatinine has been as low as 0.9mg/dl in this year.... however, perhaps this normal creatinine value could be dilutional from her previous bouts of CHF... risk factors for CKD include HTN, vascular disease (CAD/CHF), and age (3) Acute respiratory failure with hypoxia and hypercarbia: Code(s): J96.01 - Acute respiratory failure with hypoxia; J96.02 - Acute respiratory failure with hypercapnia Status: Acute Assessment and Plan: multifactorial etiology: COPD exacerbation pulmonary edema pneumonia other? on ventilator support fluid removal as tolerated with HD continue steroids and bronchodilators viral testing negative to date empiric antibiotics for pneumonia follow culture data continue supportive therapy (4) NSTEMI (non-ST elevated myocardial infarction): Code(s): I21.4 - Non-ST elevation (NSTEMI) myocardial infarction Status: Acute Assessment and Plan: elevated troponins noted on admission no acute EKG changes noted Cardiology recommendations noted Echo results reviewed s/p cardiac catheterization on 05/02: PCI of RCA stenosis with drug-eluting stent overlapping with good results follow telemetry (5) Congestive heart failure: Qualifiers: Heart failure type: combined systolic and diastolic Heart failure chronicity: acute Qualified Code(s): I50.41 - Acute combined systolic (congestive) and diastolic (congestive) heart failure Code(s): I50.9 - Heart failure, unspecified Status: Acute Assessment and Plan: known apparent history evidence of pulmonary edema by imaging Echo with EF of 40-45% with grade 2 diastolic dysfunction continue fluid removal with dialysis as tolerated (6) COPD (chronic obstructive pulmonary disease): Code(s): J44.9 - Chronic obstructive pulmonary disease, unspecified Status: Acute Assessment and Plan: on steroids and bronchodilators see #3 continue supportive therapy Will continue to follow. Subjective Date/time seen: 05/07/23 12:35 Interval history: Follow-up for acute kidney injury/acute renal failure (possibly on chronic kidney disease). Attempted dialysis treatment earlier this AM aborted due to non-functioning temporary dialysis catheter; remains intubated and on mechanical ventilation; off sedation; remains hemodynamically stable at this time; Surgery consulted for tunneled HD catheter placement. Exam Narrative: General: elderly female intubated and on mechanical ventilation Heart: normal S1 and S2; no rub Lungs: coarse breath sounds with a few wheezes Abdomen: soft, nontender, nondistended, positive bowel sounds Extremities: no cyanosis or clubbing; trace edema
--- NOTE | 2023-05-07 12:35 | P.PNNP_ITS ---
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) * ARB use * cardiac event/NSTEMI * hypoxia * relative hypotension * no improvement with trial of IVFs or IV lasix * evaluation to date: * no evidence of obstruction of kidneys by imaging * urine electrolyts non-prerenal * UA suggestibe of infection - culture negative * urine eosinophils negative * proteinuria noted (but in the context of possible infection/UTI) * CPK mildly elevated - follow trend * re-attempt HD once new HD catheter placement * follow repeat labs and UOP for potential for recovery (2) Stage 3b chronic kidney disease: Code(s): N18.32 - Chronic kidney disease, stage 3b Status: Chronic Assessment and Plan: * has baseline CKD or is this just random fluctuations in baseline kidney function??? * creatinine running around 1.3 - 1.7mg/dl by recent labs done at [facility] * HOWEVER, labs review from other hospitalizations at other facilities demonstrate that her creatinine has been as low as 0.9mg/dl in this year.... * however, perhaps this normal creatinine value could be dilutional from her previous bouts of CHF... * risk factors for CKD include HTN, vascular disease (CAD/CHF), and age (3) Acute respiratory failure with hypoxia and hypercarbia: Code(s): J96.01 - Acute respiratory failure with hypoxia; J96.02 - Acute respiratory failure with hypercapnia Status: Acute Assessment and Plan: * multifactorial etiology: * COPD exacerbation * pulmonary edema * pneumonia * other? * on ventilator support * fluid removal as tolerated with HD * continue steroids and bronchodilators * viral testing negative to date * empiric antibiotics for pneumonia * follow culture data * continue supportive therapy (4) NSTEMI (non-ST elevated myocardial infarction): Code(s): I21.4 - Non-ST elevation (NSTEMI) myocardial infarction Status: Acute Assessment and Plan: * elevated troponins noted on admission * no acute EKG changes noted * Cardiology recommendations noted * Echo results reviewed * s/p cardiac catheterization on 05/02: PCI of RCA stenosis with drug-eluting stent overlapping with good results * follow telemetry (5) Congestive heart failure: Qualifiers: Heart failure type: combined systolic and diastolic Heart failure chronicity: acute Qualified Code(s): I50.41 - Acute combined systolic (congestive) and diastolic (congestive) heart failure Code(s): I50.9 - Heart failure, unspecified Status: Acute Assessment and Plan: * known apparent history * evidence of pulmonary edema by imaging * Echo with EF of 40-45% with grade 2 diastolic dysfunction * continue fluid removal with dialysis as tolerated (6) COPD (chronic obstructive pulmonary disease): Code(s): J44.9 - Chronic obstructive pulmonary disease, unspecified Status: Acute Assessment and Plan: * on steroids and bronchodilators * see #3 * continue supportive therapy Will continue to follow. Subjective Date/time seen: 05/07/23 12:35 Interval history: Follow-up for acute kidney injury/acute renal failure (possibly on chronic kidney disease). Attempted dialysis treatment earlier
--- NOTE | 2023-05-07 14:03 | PM.CNGS ---
Assessment and Plan Assessment and plan (1) Hemodialysis catheter malfunction: Code(s): T82.41XA - Breakdown (mechanical) of vascular dialysis catheter, initial encounter Status: Acute Assessment and Plan: Patient with acute on chronic kidney disease currently receiving hemodialysis. She has a temporary right IJ dialysis catheter that was placed by the Order Entry Administrator and is no longer functioning. We have been asked to see the patient and replace her hemodialysis catheter. We would recommend replacing a temporary hemodialysis catheter at this time while she is acutely ill in the ICU and she can have a tunnelled hemodialysis catheter placed in the future prior to discharge when she is more medically stable. Description of the procedure, risks, benefits, and alternatives were discussed with the patient's daughter. They agree to proceed. Will obtain consent and Dr. Noble plans to proceed with bedside procedure later today. (2) Acute kidney injury superimposed on CKD: Code(s): N17.9 - Acute kidney failure, unspecified; N18.9 - Chronic kidney disease, unspecified Status: Acute (3) Acute respiratory failure with hypoxia and hypercarbia: Code(s): J96.01 - Acute respiratory failure with hypoxia; J96.02 - Acute respiratory failure with hypercapnia Status: Acute (4) COPD (chronic obstructive pulmonary disease): Code(s): J44.9 - Chronic obstructive pulmonary disease, unspecified Status: Acute (5) NSTEMI (non-ST elevated myocardial infarction): Code(s): I21.4 - Non-ST elevation (NSTEMI) myocardial infarction Status: Acute (6) Congestive heart failure: Qualifiers: Heart failure type: combined systolic and diastolic Heart failure chronicity: acute Qualified Code(s): I50.41 - Acute combined systolic (congestive) and diastolic (congestive) heart failure Code(s): I50.9 - Heart failure, unspecified Status: Acute (7) Antiplatelet or antithrombotic long-term use: Code(s): Z79.02 - retirement (current) use of antithrombotics/antiplatelets Status: Acute Assessment and Plan: Currently on Plavix with last dose this morning. Increases risks of bleeding and this was discussed with Dr. Noble. Plan I have discussed the patient's case and plan of care with Dr. Noble. History of Present Illness Consult details Consult date: 05/07/23 Reason for consult: other (Placement of hemodialysis catheter) Requesting physician: Power Carpio MD Narrative: This is a 72-year-old female with a history of COPD, continued tobacco use, and multiple other medical problems, who presented to the ER with respiratory arrest on 04/28/2023. She was admitted to the ICU for acute respiratory failure, NSTEMI, acute on chronic kidney disease, and pulmonary edema. She has been intubated and treated in the ICU since admission. She had a right IJ temporary hemodialysis catheter placed by the centrifugal separator on 05/01/2023. She has been receiving hemodialysis and today they were unable to dialyze the patient. Her catheter is not functioning. Our service has been consulted for replacement of a hemodialysis catheter. She is still intubated in the ICU and awake. She is currently off sedation. Her daughter and granddaughter are at the bedside. Review of Systems Review of Systems: ROS unobtainable: Yes unobtainable due to endotracheal tube PMFSH Past Medical History Medical History Anxiety DVT (deep venous thrombosis) After knee surgery years ago. Hypertension Myocardial infarction Pneumonia Surgical History Surgical History H/O right knee surgery History of cholecystectomy History of coronary artery stent placement Social History Social History Smoking packs per day: 1 Smoking cigarettes per day: 20.0 Smoking status
--- NOTE | 2023-05-07 16:02 | W.PM.PROC2 ---
Procedure Note - Detailed Date of Procedure 05/07/23 Pre-op Diagnosis Acute Coronary Syndrome/Transient St Elevation, acute renal failure Post-op Diagnosis Same Procedure Performed Removal of nonfunctioning right internal jugular vein non tunneled Quentin hemodialysis catheter with replacement over guidewire of new non tunneled Quentin hemodialysis catheter. Surgeon Dmitriy Noble MD Anesthesia Local Indications Patient is a 72-year-old female who is in the intensive care unit currently intubated. She has acute renal failure and a right internal jugular vein Quentin hemodialysis catheter was initially placed. She was able to get 1 or 2 treatments of hemodialysis but then the catheter quit working. I have been asked to place a new catheter. Findings None significant Description of Procedure After informed consent was obtained from patient's family she was placed supine the intensive care unit bed. The securing sutures and dressing to the catheter were removed. The area was then prepped and draped in usual sterile fashion. I 1st started by placing a guidewire through the blue port to the Quentin hemodialysis catheter and extending it into the superior vena cava and right atrium of the heart. The catheter was then backed out over the guidewire leaving the guidewire in place. The old catheter was a non tunneled Quentin hemodialysis catheter measuring 20cm in length. A new non tunneled temporary Quentin hemodialysis catheter was advanced over the guidewire into the right internal jugular vein and subsequently into the superior vena cava. The catheter was 16cm in length. No new subcutaneous needlestick was needed. The catheter was then advanced to a distance of 16cm from the tip at the skin. It was then secured in place with nylon sutures. I then aspirated both hemodialysis ports and both the venous and arterial ports aspirated very easily and flushed very easily with high flows. The 3rd pigtail IV port was also aspirated and flushed easily. I then flushed all 3 ports with heparinized saline solution. A sterile dressing was then placed. The patient tolerated the procedure well no complications. All sponges, needles, and instrument counts were correct at the end procedure. EBL was _20__cc. The patient was awakened and taken to recovery in stable and satisfactory condition. Implants New non tunneled Quentin hemodialysis catheter 16cm in length Estimated Blood Loss 20 Drains No Packing No Pathology None sent Complications No immediate complications Condition Stable Disposition PACU [facility] Billing Surgery - Charge Forward: Surgery Billing
[2023-05-07] MEDS: HEPARIN SODIUM LOCK FLUSH 500 UNITS/5 ML VIAL 5000 UNITS IV PUSH (16:15)
[2023-05-07] MEDS: levoFLOXacin 500 MG/D5W 100 ML 500 MG/100 ML BAG 100 MG IVPB (17:43)
[2023-05-07 18:21] LABS: Glucose Point of Care 143 mg/dl (65-105)
[2023-05-07] MEDS: PROPOFOL IV EMULSION 100 ML 2.54 MG IV CONT (21:35)
[2023-05-07 23:44] LABS: Glucose Point of Care 104 mg/dl (65-105)
[2023-05-08] VITALS (49 sets, daily range): BP systolic 126–177; BP diastolic 61–111; PULSE 79–115; RESP 16–27; TEMP 37–37.7; O2SAT 91–100
[2023-05-08] MEDS: LEVALBUTEROL NEB 1.25 MG/3 ML INHALATION ×4 (01:57→20:26)
[2023-05-08] MEDS: IPRATROPIUM BR 0.02% INH SOLN 0.5 MG/2.5 ML VIAL INHALATION ×4 (01:57→20:26)
[2023-05-08 05:14] LABS: Alveolar/Arterial O2 Gradient 117.8 mmHg; Base Excess ABG -1.9 mEq/l (+/-2.0); Carboxyhemoglobin 0.3 % THb (0-2.0); Fractional Inspired Oxygen 35 %; HCO3 ABG 22.3 mEq/l (22.0-26.0); Methemoglobin ABG 0.3 %THb (0-1.5); Oxygen Content ABG 14.8 %vol (16.0-22.0); Oxyhemoglobin 95.1 % THb (90.0-100.0); PCO2 ABG 36.2 mmHg (35.0-45.0); PO2 ABG 89.7 mmHg (80.0-100.0); PO2 FiO2 Ratio Arterial Blood 2.56 %; Reduced Hemoglobin 4.3 %THb (0-5.0); pH ABG 7.408 (7.350-7.450)
[2023-05-08 05:16] LABS: Device VENTILATOR; Modified Allen's Test Pass; Site Drawn RIGHT RADIAL
[2023-05-08 05:17] LABS: Arterial Blood Gas PEEP 5 cmH2O; Arterial Blood Gas Tidal Volume 400 ml; Arterial Blood Gas Vent Mode CMV; Arterial Blood Gas Ventilator rate 16 /MIN
[2023-05-08 05:28] LABS: Hematocrit 28.5 % (37.0-47.0); Hemoglobin 8.9 g/dL (12.0-15.0); Mean Corpuscular HGB Conc 31.2 g/dl (32-36); Mean Corpuscular Volume 86.4 fl (80-100); Mean Platelet Volume 11.2 fl (7.4-10.4); Platelet Count Result 203 k/mm3 (150-375); Red Cell Distribution Width 13.7 % (11.5-14.5); White Blood Count 15.8 K/mm3 (4.5-10.0)
[2023-05-08] MEDS: CENTRAL LINE FLUSH 10 ML IV PUSH ×3 (05:34→21:53)
[2023-05-08 05:39] LABS: Alanine Aminotransferase 46 U/L (6-35); Albumin Level 3.6 g/dL (3.5-5.1); Alkaline Phosphatase 72 U/L (38-126); Anion Gap 17 mmol/L (8-16); Aspartate Amino Transferase 35 U/L (14-36); Bilirubin,Total 0.5 mg/dL (0.2-1.3); Blood Urea Nitrogen 112 mg/dL (7-17); Calcium 8.8 mg/dL (8.4-10.2); Carbon Dioxide 22 mmol/L (22-30); Chloride 95 mmol/L (98-107); Estimated CRCL calculation 6 ml/min; Estimated Glomerular Filt Rate 5; Glucose 96 mg/dL (65-110); Phosphorus 9.6 mg/dL (2.5-4.5); Potassium 4.6 mmol/L (3.4-5.0); Sodium 134 mmol/L (137-145)
[2023-05-08] MEDS: ATORVASTATIN 40 MG TABLET 80 MG PO (09:22)
[2023-05-08] MEDS: CLOPIDOGREL BISULFATE 75 MG TABLET PO (09:22)
[2023-05-08] MEDS: ENOXAPARIN 30 MG/0.3 ML SYRINGE SUB-Q (09:22)
[2023-05-08] MEDS: PANTOPRAZOLE SODIUM IV 40 MG VIAL IV PUSH (09:22)
[2023-05-08] MEDS: methylPREDNISolone SOD SUCC 125 MG VIAL 60 MG IV PUSH (09:22)
[2023-05-08] MEDS: ASPIRIN 81 MG CHEWABLE TABLET PO (09:22)
[2023-05-08] MEDS: MINERAL OIL/WHITE PETROLATUM OINTMENT 1 APPLIC EACH EYE (09:23)
--- NOTE | 2023-05-08 09:31 | P.PNIM_ITS ---
Progress Note: A&P Assessment and Plan (1) Acute kidney injury superimposed on CKD: Code(s): N17.9 - Acute kidney failure, unspecified; N18.9 - Chronic kidney disease, unspecified Status: Acute Assessment and Plan: Patient appears to have chronic kidney disease as her last recorded creatinine were elevated. She has elevated phosphate Presented with elevated creatinine of 1.6 that continued to increase -Appears to have developed ATN -Her creatinine had increased to 6.4 and she continues to have minimal urine output -Patient was given cautious amount of IV fluids after admission but has not made any impact -04/30 Lasix IV x1 was given with no response -CT scan does not show any obstruction or stones. -05/01 Discussed with archivist political history. In light of worsening renal function, minimal urine output, volume overload, edema and mechanical ventilation, patient was started on hemodialysis. Temporary hemodialysis catheter placed 05/02 patient will receive her 2nd session of dialysis today. Discontinue s odium bicarbonate 05/03 patient receiving another dialysis session today 05/05 scheduled for another dialysis session today Continue dialysis per Nephrology 05/08 getting dialyzed (2) Acute respiratory failure with hypoxia and hypercarbia: Code(s): J96.01 - Acute respiratory failure with hypoxia; J96.02 - Acute respiratory failure with hypercapnia Status: Acute Assessment and Plan: Multifactorial acute Respiratory failure secondary to AECOPD, pulmonary edema, ? CAP 04/28: Patient intubated in the ER -Continue full mechanical ventilation support to prevent hypoxemia/hypercarbia and end organ damage. -ABG and PCXR reviewed. On PEEP of 5 and 35% FiO2 -Low tidal volume ventilation strategy to prevent volutrauma -l continue Solu-Medrol, bronchodilators -COVID and flu PCR negative -Nasal MRSA screen negative -04/28: Blood culture negative -04/30: sputum cultures growing stenotrophomonas. Procalcitonin level elevated at 6.4 -Patient was earlier on empiric Rocephin and doxycycline. Which was switched to Levaquin and Bactrim 05/03 - continue hemodialysis to remove fluid -05/04 Patient placed on sedation holiday and she tolerated 10/5 PSV for few hours. She was exhibiting paradoxical abdominal breathing Patient continues to be on sedation holiday and is slowly waking up. Plan to continue holding sedation, dialyze again today to remove additional fluid and then evaluated again for weaning trial 05/06: Patient tolerated pressure support ventilation was tachypneic with higher RSBI between 90-110s. 05/07: Patient was able to be placed on SBT after dialysis, but dialysis was unable to be done due to her catheter nonfunctioning. Have placed the patient in support ventilation, 04/10, patient is tachypneic length slightly low tidal volumes, patient may require dialysis before extubation (3) NSTEMI (non-ST elevated myocardial infarction): Code(s): I21.4 - Non-ST elevation (NSTEMI) myocardial infarction Status: Acute Assessment and Plan: Patient presented with elevated troponin. EKG reviewed and shows no ST changes Cardiology following and patient is now on aspirin statin, clopidogrel, metoprolol 07/02 cardiac catheterization Conclusion:: 1.? ? Right coronary dominant circulation with single-vessel coronary disease with high-grade 90-95% stenosis in the region that was previously stented in this patient's RCA. 2.? ? Mild atherosclerotic irregularities in the left coronary without any significant lesions identified 3. ? successful PCI of this RCA stenosis using the PTCA, overlapping long drug- eluting stent which was post dil
[2023-05-08] MEDS: EPOETIN ALFA-EPBX 10,000 UNITS/ML VIAL 10000 UNITS IV PUSH (10:43)
[2023-05-08] MEDS: METOPROLOL TARTRATE 25 MG TABLET FEED TUBE ×2 (10:46→21:52)
--- NOTE | 2023-05-08 11:09 | P.PNNP_ITS ---
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) * ARB use * cardiac event/NSTEMI * hypoxia * relative hypotension * no improvement with trial of IVFs or IV lasix * evaluation to date: * no evidence of obstruction of kidneys by imaging * urine electrolyts non-prerenal * UA suggestibe of infection - culture negative * urine eosinophils negative * proteinuria noted (but in the context of possible infection/UTI) * CPK mildly elevated - not enough to affect kidneys * HD today * follow repeat labs and UOP for potential for recovery (2) Stage 3b chronic kidney disease: Code(s): N18.32 - Chronic kidney disease, stage 3b Status: Chronic Assessment and Plan: * has baseline CKD or is this just random fluctuations in baseline kidney functi on??? * creatinine running around 1.3 - 1.7mg/dl by recent labs done at [facility] * HOWEVER, labs review from other hospitalizations at other facilities demonstrate that her creatinine has been as low as 0.9mg/dl in this year.... * however, perhaps this normal creatinine value could be dilutional from her previous bouts of CHF... * risk factors for CKD include HTN, vascular disease (CAD/CHF), and age (3) Acute respiratory failure with hypoxia and hypercarbia: Code(s): J96.01 - Acute respiratory failure with hypoxia; J96.02 - Acute respiratory failure with hypercapnia Status: Acute Assessment and Plan: * multifactorial etiology: * COPD exacerbation * pulmonary edema * pneumonia * other? * on ventilator support * fluid removal as tolerated with HD * continue steroids and bronchodilators * viral testing negative to date * antibiotics for pneumonia * follow culture data * continue supportive therapy (4) NSTEMI (non-ST elevated myocardial infarction): Code(s): I21.4 - Non-ST elevation (NSTEMI) myocardial infarction Status: Acute Assessment and Plan: * elevated troponins noted on admission * no acute EKG changes noted * Cardiology recommendations noted * Echo results reviewed * s/p cardiac catheterization on 05/02: PCI of RCA stenosis with drug-eluting stent overlapping with good results * follow telemetry (5) Congestive heart failure: Code(s): I50.9 - Heart failure, unspecified Status: Acute Assessment and Plan: * known apparent history * evidence of pulmonary edema by admission imaging * Echo with EF of 40-45% with grade 2 diastolic dysfunction * continue fluid removal with dialysis as tolerated (6) COPD (chronic obstructive pulmonary disease): Code(s): J44.9 - Chronic obstructive pulmonary disease, unspecified Status: Acute Assessment and Plan: * on steroids and bronchodilators * see #3 * continue supportive therapy Will continue to follow. Subjective Date/time seen: 05/08/23 11:09 Interval history: Follow-up for acute kidney injury/acute renal failure (possibly on chronic kidney disease). Tolerating dialysis treatment at the time of my visit (seen on HD at 11:00AM); s/p guidewire exchange of temporary HD catheter yesterday afternoon by Surgery (previous HD catheter failed to work with attempted HD treatment yesterday); remains intubated but follows simple command
--- NOTE | 2023-05-08 11:09 | PM.PNNEP ---
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 use cardiac event/NSTEMI hypoxia relative hypotension no improvement with trial of IVFs or IV lasix evaluation to date: no evidence of obstruction of kidneys by imaging urine electrolyts non-prerenal UA suggestibe of infection - culture negative urine eosinophils negative proteinuria noted (but in the context of possible infection/UTI) CPK mildly elevated - not enough to affect kidneys HD today follow repeat labs and UOP for potential for recovery (2) Stage 3b chronic kidney disease: Code(s): N18.32 - Chronic kidney disease, stage 3b Status: Chronic Assessment and Plan: has baseline CKD or is this just random fluctuations in baseline kidney function??? creatinine running around 1.3 - 1.7mg/dl by recent labs done at [facility] HOWEVER, labs review from other hospitalizations at other facilities demonstrate that her creatinine has been as low as 0.9mg/dl in this year.... however, perhaps this normal creatinine value could be dilutional from her previous bouts of CHF... risk factors for CKD include HTN, vascular disease (CAD/CHF), and age (3) Acute respiratory failure with hypoxia and hypercarbia: Code(s): J96.01 - Acute respiratory failure with hypoxia; J96.02 - Acute respiratory failure with hypercapnia Status: Acute Assessment and Plan: multifactorial etiology: COPD exacerbation pulmonary edema pneumonia other? on ventilator support fluid removal as tolerated with HD continue steroids and bronchodilators viral testing negative to date antibiotics for pneumonia follow culture data continue supportive therapy (4) NSTEMI (non-ST elevated myocardial infarction): Code(s): I21.4 - Non-ST elevation (NSTEMI) myocardial infarction Status: Acute Assessment and Plan: elevated troponins noted on admission no acute EKG changes noted Cardiology recommendations noted Echo results reviewed s/p cardiac catheterization on 05/02: PCI of RCA stenosis with drug-eluting stent overlapping with good results follow telemetry (5) Congestive heart failure: Code(s): I50.9 - Heart failure, unspecified Status: Acute Assessment and Plan: known apparent history evidence of pulmonary edema by admission imaging Echo with EF of 40-45% with grade 2 diastolic dysfunction continue fluid removal with dialysis as tolerated (6) COPD (chronic obstructive pulmonary disease): Code(s): J44.9 - Chronic obstructive pulmonary disease, unspecified Status: Acute Assessment and Plan: on steroids and bronchodilators see #3 continue supportive therapy Will continue to follow. Subjective Date/time seen: 05/08/23 11:09 Interval history: Follow-up for acute kidney injury/acute renal failure (possibly on chronic kidney disease). Tolerating dialysis treatment at the time of my visit (seen on HD at 11:00AM); s/p guidewire exchange of temporary HD catheter yesterday afternoon by Surgery (previous HD catheter failed to work with attempted HD treatment yesterday); remains intubated but follows simple commands and nods to yes/no questions; remains hemodynamically stable; still with minimal urine output. Exam Narrative: General: elderly female intubated and on mechanical ventilation Heart: normal S1 and S2; no rub Lungs: coarse breath sounds with a few wheezes Abdomen: soft, nontender, nondistended, positive bowel sounds Extremities: no cyanosis or clubbing; trace edema Skin: warm and dry Objective Data Vital Signs Vital Signs: Vital Signs Temp Pulse Resp BP Pulse Ox O2 Del Meth
--- NOTE | 2023-05-08 11:51 | PCFNICU ---
ICU Rounding Note: Pt current nutrition is Nepro at 40 ml/hr. Last recorded weight is 81.6 kg, down from 85 kg on admit. Bowel Motility: +BM reported 05/08 Labs Reviewed:Mg 3.0,GFR 5, BUN 112, Cr 7.4, Hct 28.5,Hgb 8.9 Meds Noted:Protonix, Miralax,Plavix Skin: WNL Additional Notes: Patient remains on mechanical vent and tube feedings of Nepro at 40 ml/hr. Tolerating tube feedings well. Flush 30 ml q 4 hours. Plans for breathing trial today. Agree with diet orders. Following daily in ICU rounds. Will monitor weight, labs, skin, tube feeding tolerance, meds every Friday and Friday. .
--- NOTE | 2023-05-08 11:56 | PM.PNGS ---
Progress Note: A&P Assessment and Plan (1) Hemodialysis catheter malfunction: Code(s): T82.41XA - Breakdown (mechanical) of vascular dialysis catheter, initial encounter Status: Acute Assessment and Plan: Nonfunctioning temporary hemodialysis catheter was exchanged over guidewire today in the intensive care unit. New catheter seems to be working for hemodialysis today. Eventually if patient medically stabilizes and this moved out of the intensive care unit then placement of a tunneled hemodialysis catheter in the operating room can probably be done before she is discharged if she needs continued hemodialysis. Subjective Subjective Date/Time Seen: 05/08/23 11:56 Interval history: Patient getting hemodialysis this morning. Dialysis nurse states that the catheter then exchanged over guidewire yesterday is positional but is working today. Exam Skin: Other: Right anterior lateral neck non tunneled Quentin hemodialysis catheter in place. No bleeding around the catheter or redness. Objective Data Vital Signs Vital Signs: Vital Signs - 24 hr 05/07/23 12:00 05/07/23 12:00 05/07/23 12:00 Temperature 37.0 C Pulse Rate 77 77 77 Respiratory Rate 23 H 23 H Blood Pressure 118/58 L Pulse Oximetry 92 92 Oxygen Delivery Mechanical Ventilation Fraction of Inspired Oxygen 05/07/23 14:00 05/07/23 14:00 05/07/23 13:56 Temperature 36.8 C Pulse Rate 87 86 86 Respiratory Rate 23 H Blood Pressure 157/70 H Pulse Oximetry 94 94 Oxygen Delivery Mechanical Ventilation Fraction of Inspired Oxygen 35 05/07/23 13:56 05/07/23 14:29 05/07/23 14:29 Temperature Pulse Rate 86 80 83 Respiratory Rate 24 H 16 Blood Pressure Pulse Oximetry 95 Oxygen Delivery Mechanical Ventilation Fraction of Inspired Oxygen 35 05/07/23 13:56 05/07/23 16:00 05/07/23 16:00 Temperature 36.7 C Pulse Rate 86 88 88 Respiratory Rate 16 Blood Pressure 143/69 H Pulse Oximetry 94 98 Oxygen Delivery Mechanical Ventilation Fraction of Inspired Oxygen 35 05/07/23 16:00 05/07/23 16:00 05/07/23 18:00 Temperature Pulse Rate 88 67 Respiratory Rate 17 Blood Pressure Pulse Oximetry 95 Oxygen Delivery Mechanical Ventilation Fraction of Inspired Oxygen 35 35 05/07/23 18:00 05/07/23 16:58 05/07/23 20:00 Temperature 37.0 C 37.1 C Pulse Rate 67 77 90 Respiratory Rate 16 18 Blood Pressure 118/60 149/73 H Pulse Oximetry 95 96 97 Oxygen Delivery Mechanical Ventilation Fraction of Inspired Oxygen 35 05/07/23 20:00 05/07/23 20:19 05/07/23 21:00 Temperature Pulse Rate 90 83 Respiratory Rate 20 Blood Pressure Pulse Oximetry Oxygen Delivery Fraction of Inspired Oxygen 35 05/07/23 21:07 05/07/23 23:03 05/07/23 21:35 Temperature Pulse Rate 82 82 82 Respiratory Rate 18 Blood Pressure Pulse Oximetry 97 100 Oxygen Delivery Mechanical Ventilation Mechanical Ventilation Fraction of Inspired Oxygen 35 35 05/07/23 20:00 05/07/23 20:00 05/07/23 22:00 Temperature Pulse Rate 92 71 Respiratory Rate Blood Pressure Pulse Oximetry 97 Oxygen Delivery Mechanical Ventilation Fraction of Inspired Oxygen 35 05/07/23 22:00 05/08/23 00:00 05/08/23 00:00 Temperature 37.2 C Pulse Rate 71 Respiratory Rate 16 Blood Pressure 125/66 Pulse Oximetry 98 97 Oxygen Delivery Mechanical Ventilation Fraction of Inspired Oxygen 35 35 05/08/23 00:00 05/08/23 00:00 05/08/23 00:30 Temperature 37.3 C Pulse Rate 82 82 84 Respiratory Rate 16 22 H Blood Pressure 143/80 H Pulse Oximetry 98 Oxygen Delivery Fraction of Inspired Oxygen 05/08/23 01:58 05/08/23 01:59 05/08/23 02:20 Temperature Pulse Rate 82 85 89 Respiratory Rate 21 H 20 Blood Pressure Pulse Oximetry 98 Oxygen Delivery Mechanical Ventilation Fraction of Inspired Oxygen 35 05/08/23 02:00 05/08/23
[2023-05-08 12:04] LABS: Glucose Point of Care 122 mg/dl (65-105)
--- NOTE | 2023-05-08 12:22 | WPDINTPN ---
Progress Note: A&P Assessment and Plan (1) Acute kidney injury superimposed on CKD: Code(s): N17.9 - Acute kidney failure, unspecified; N18.9 - Chronic kidney disease, unspecified Status: Acute Assessment and Plan: Patient appears to have chronic kidney disease as her last recorded creatinine were elevated. She has elevated phosphate Presented with elevated creatinine of 1.6 that continued to increase -Appears to have developed ATN -Her creatinine had increased to 6.4 and she continues to have minimal urine output -Patient was given cautious amount of IV fluids after admission but has not made any impact -04/30 Lasix IV x1 was given with no response -CT scan does not show any obstruction or stones. -05/01 Discussed with vice president quality improvement. In light of worsening renal function, minimal urine output, volume overload, edema and mechanical ventilation, patient was started on hemodialysis. Temporary hemodialysis catheter placed 05/02 patient will receive her 2nd session of dialysis today. Discontinue sodium bicarbonate 05/03 patient receiving another dialysis session today 05/05 scheduled for another dialysis session today 05/07: Right IJ dialysis catheter was exchanged over a guidewire by surgery since the previous dialysis catheter on the same side was nonfunctional. 05/08: Patient to get dialyzed today (2) Acute respiratory failure with hypoxia and hypercarbia: Code(s): J96.01 - Acute respiratory failure with hypoxia; J96.02 - Acute respiratory failure with hypercapnia Status: Acute Assessment and Plan: Multifactorial acute Respiratory failure secondary to AECOPD, pulmonary edema, ? CAP 04/28: Patient intubated in the ER -Continue full mechanical ventilation support to prevent hypoxemia/hypercarbia and end organ damage. -ABG and PCXR reviewed. On PEEP of 5 and 35% FiO2 -Low tidal volume ventilation strategy to prevent volutrauma - continue Solu-Medrol, bronchodilators -COVID and flu PCR negative -Nasal MRSA screen negative -04/28: Blood culture negative -04/30: sputum cultures growing stenotrophomonas. Procalcitonin level elevated at 6.4 - Rocephin and doxycycline and Bactrim discontinued. Switched to Levaquin 05/03 (continue for 14 days) - continue hemodialysis to remove fluid -05/04 Patient placed on sedation holiday and she tolerated 10/5 PSV for few hours. She was exhibiting paradoxical abdominal breathing Patient continues to be on sedation holiday and is slowly waking up. Plan to continue holding sedation, dialyze again today to remove additional fluid and then evaluated again for weaning trial 05/06: Patient tolerated pressure support ventilation was tachypneic with higher RSBI between 90-110s. 05/07: Patient was able to be placed on SBT after dialysis, but dialysis was unable to be done due to her catheter nonfunctioning. Have placed the patient in support ventilation, 04/10, patient is tachypneic length slightly low tidal volumes, patient may require dialysis before extubation 05/08: Is getting dialyzed this morning, will place patient on SBT to dialysis and evaluate for extubation. Patient is more awake, alert this morning (3) NSTEMI (non-ST elevated myocardial infarction): Code(s): I21.4 - Non-ST elevation (NSTEMI) myocardial infarction Status: Acute Assessment and Plan: Patient presented with elevated troponin. EKG reviewed and shows no ST changes Cardiology following and patient is now on aspirin statin, clopidogrel, metoprolol 07/02 cardiac catheterization Conclusion:: 1.? ? Right coronary dominant circulation with single-vessel coronary disease with high-grade 90-95% stenosis in the region that was previously stented in this patient's RCA. 2.? ? Mild atherosclerotic irregularities in the left coronary without any significant lesions identified 3. ? successful PCI of this RCA stenosis using the PTCA, overlapping long drug-eluting stent which was post dilated with noncompliant
--- NOTE | 2023-05-08 13:32 | PM.PNCARD ---
Progress Note: A&P Assessment and Plan (1) NSTEMI (non-ST elevated myocardial infarction): Code(s): I21.4 - Non-ST elevation (NSTEMI) myocardial infarction Status: Acute Assessment and Plan: Patient has elevated troponin levels (0.019, 0.371, and 1.960) in the setting of acute respiratory failure and acidosis. It does sound like she had been complaining of chest pain over the past couple of weeks, and she has a known history of coronary artery disease. Status post 3.0 x 30 mm drug-eluting stent overlapping previously placed stent at 90-95% stenosis proximal to mid RCA with good results. Continue dual antiplatelet therapy with aspirin 81 mg daily and clopidogrel 75 mg daily. Continue statin and beta topher. Follow H&H. Stable thus far. Echo shows mildly decreased LV systolic function, EF 40-45%, grade 2 diastolic dysfunction. Not on any medical therapy for this because of her renal function Cardiology will follow along on an as needed basis at this point. Please call with any questions. (2) Acute respiratory failure with hypoxia and hypercarbia: Code(s): J96.01 - Acute respiratory failure with hypoxia; J96.02 - Acute respiratory failure with hypercapnia Status: Acute Assessment and Plan: Remains intubated. Management as per ICU team. (3) Congestive heart failure: Code(s): I50.9 - Heart failure, unspecified Status: Acute Assessment and Plan: EF 40-45%. Continue volume management with hemodialysis. Continue to monitor volume status closely. (4) Acute kidney injury superimposed on CKD: Code(s): N17.9 - Acute kidney failure, unspecified; N18.9 - Chronic kidney disease, unspecified Status: Acute Assessment and Plan: Acute fulminant kidney injury. Now on hemodialysis. Management per Nephrology. (5) Anemia: Qualifiers: Anemia type: other cause Code(s): D64.9 - Anemia, unspecified Status: Acute Assessment and Plan: H&H stable. Continue to monitor closely. Platelet count stable, borderline thrombocytopenia. Continue to follow trend. Monitor for bleeding. Plan Recommendations/Plan discussed with Re Examiner. Subjective Date/time seen: 05/08/23 13:32 Interval history: Patient admitted with shortness of breath and respiratory failure requiring intubation, multifactorial secondary to CHF, COPD, possibly the CAP. Found to have had a non-STEMI with a peak troponin of 1.96. She had transient inferior ST-elevation which has resolved. Unfortunately she developed acute kidney failure. Echo showed EF 40-45%, diastolic dysfunction with hypokinesis of the inferior wall. Date of service 04/29/2023: Recommend aspirin, statin, heparin drip, beta-topher, echo, and anticipate ischemic evaluation with angiogram prior to discharge. Date of service 04/30/2023: Remains intubated sedated, on heparin drip and getting tube feedings. Creatinine has gone up to 4.1; has oliguric acute renal failure. Telemetry shows sinus rhythm/sinus tach with rare PVCs. EKG from 04/29/2023 at 2:06 a.m. shows sinus rhythm, nonspecific T-wave changes, resolution of the inferior ST elevation and no development of inferior Q-waves. Personally reviewed. Date of service 05/01/2023: Remains intubated and sedated. Worsening renal failure. Remains on heparin gtt for now. Possible C tomorrow if plan is for dialysis Date of service 05/03/2023: Patient had hemodialysis today. 4 L ultrafiltration removal. Patient remains intubated/sedated. PCI of RCA stenosis with drug-eluting stent overlapping with good results 05/02/2023. Further history obtained from nursing staff and review electronic medical record. Date of service 05/04/2023: Sedation is being weaned this morning. She is following some commands, moving her head trying to open her eyes. She remains intubated. No new issues overnight. She was febrile at 38.1? C last night. Chest x-ray with persistent
[2023-05-08 14:49] LABS: Alveolar/Arterial O2 Gradient 125.9 mmHg; Base Excess ABG 0.5 mEq/l (+/-2.0); Fractional Inspired Oxygen 35 %; HCO3 ABG 23.6 mEq/l (22.0-26.0); Oxygen Saturation ABG 97.1 % (95.0-100.0); Oxyhemoglobin 94.8 % THb (90.0-100.0); PCO2 ABG 32.9 mmHg (35.0-45.0); PO2 ABG 85.4 mmHg (80.0-100.0); PO2 FiO2 Ratio Arterial Blood 2.44 %; Total Hemoglobin 11.2 g/dL (12.0-18.0); pH ABG 7.474 (7.350-7.450)
[2023-05-08 14:50] LABS: Device VENTILATOR; Modified Allen's Test Pass; Site Drawn RIGHT RADIAL
[2023-05-08 14:51] LABS: Arterial Blood Gas PEEP 5 cmH2O; Arterial Blood Gas Pressure Support 8 cmH2O; Arterial Blood Gas Vent Mode SPONTANEOUS
--- NOTE | 2023-05-08 15:14 | PC.NURSE ---
Patient extubated at 1455 per RT per MD orders Dr. Carpio. Patient placed on 2L NC. Tolerated well. RN to continue to monitor.
[2023-05-08 17:50] LABS: Glucose Point of Care 157 mg/dl (65-105)
[2023-05-08] MEDS: LABETALOL HCL INJ 100 MG/20 ML VIAL 20 MG IV PUSH (17:57)
[2023-05-08 23:54] LABS: Glucose Point of Care 108 mg/dl (65-105)
[2023-05-09] VITALS (40 sets, daily range): BP systolic 114–187; BP diastolic 45–97; PULSE 62–93; RESP 19–30; TEMP 0–37.2; O2SAT 77–98
[2023-05-09] MEDS: IPRATROPIUM BR 0.02% INH SOLN 0.5 MG/2.5 ML VIAL INHALATION ×4 (01:46→20:30)
[2023-05-09] MEDS: LEVALBUTEROL NEB 1.25 MG/3 ML INHALATION ×4 (01:46→20:30)
[2023-05-09 04:53] LABS: Alveolar/Arterial O2 Gradient 135.2 mmHg; Base Excess ABG -3.3 mEq/l (+/-2.0); Carboxyhemoglobin 0.2 % THb (0-2.0); Fractional Inspired Oxygen 36 %; Methemoglobin ABG 0.3 %THb (0-1.5); Oxygen Content ABG 14.8 %vol (16.0-22.0); Oxygen Saturation ABG 94.5 % (95.0-100.0); PCO2 ABG 40.3 mmHg (35.0-45.0); PO2 ABG 74.7 mmHg (80.0-100.0); PO2 FiO2 Ratio Arterial Blood 2.07 %; Reduced Hemoglobin 6.5 %THb (0-5.0); Total Hemoglobin 11.3 g/dL (12.0-18.0); pH ABG 7.355 (7.350-7.450)
[2023-05-09 05:30] LABS: Device NASAL CANNULA; Modified Allen's Test Pass; Site Drawn RIGHT RADIAL
[2023-05-09] MEDS: CENTRAL LINE FLUSH 10 ML IV PUSH ×3 (05:46→22:00)
[2023-05-09 06:14] LABS: Hematocrit 32.7 % (37.0-47.0); Mean Corpuscular HGB Conc 30.6 g/dl (32-36); Mean Corpuscular Hemoglobin 27.3 pg (26-34); Mean Corpuscular Volume 89.3 fl (80-100); Mean Platelet Volume 11.1 fl (7.4-10.4); Platelet Count Result 235 k/mm3 (150-375); Red Blood Count 3.66 M/mm3 (4.2-5.4)
[2023-05-09 06:26] LABS: Alanine Aminotransferase 44 U/L (6-35); Albumin Level 3.9 g/dL (3.5-5.1); Alkaline Phosphatase 78 U/L (38-126); Anion Gap 16 mmol/L (8-16); Aspartate Amino Transferase 29 U/L (14-36); Bilirubin,Total 0.7 mg/dL (0.2-1.3); Blood Urea Nitrogen 72 mg/dL (7-17); Calcium 8.6 mg/dL (8.4-10.2); Carbon Dioxide 20 mmol/L (22-30); Chloride 101 mmol/L (98-107); Estimated CRCL calculation 8 ml/min; Estimated Glomerular Filt Rate 7; Glucose 105 mg/dL (65-110); Magnesium 2.9 mg/dL (1.6-2.3); Phosphorus 8.2 mg/dL (2.5-4.5); Potassium 4.9 mmol/L (3.4-5.0); Sodium 137 mmol/L (137-145); Triglycerides 158 mg/dL (<150)
[2023-05-09] MEDS: FUROSEMIDE INJ 40 MG/4 ML VIAL IV PUSH (08:00)
[2023-05-09] MEDS: METOPROLOL TARTRATE INJ 5 MG/5 ML VIAL IV PUSH (08:00)
[2023-05-09] MEDS: ATORVASTATIN 40 MG TABLET 80 MG PO (09:13)
[2023-05-09] MEDS: hydrALAZINE HCL 20 MG/ML VIAL 10 MG IV PUSH ×2 (09:13→20:28)
[2023-05-09] MEDS: CLOPIDOGREL BISULFATE 75 MG TABLET PO (09:13)
[2023-05-09] MEDS: ASPIRIN 81 MG CHEWABLE TABLET PO (09:13)
[2023-05-09] MEDS: ENOXAPARIN 30 MG/0.3 ML SYRINGE SUB-Q (09:14)
[2023-05-09] MEDS: METOPROLOL TARTRATE 25 MG TABLET FEED TUBE ×2 (09:14→20:28)
--- NOTE | 2023-05-09 09:14 | WPDINTPN ---
Progress Note: A&P Assessment and Plan (1) Acute kidney injury superimposed on CKD: Code(s): N17.9 - Acute kidney failure, unspecified; N18.9 - Chronic kidney disease, unspecified Status: Acute Assessment and Plan: Patient appears to have chronic kidney disease as her last recorded creatinine were elevated. She has elevated phosphate Presented with elevated creatinine of 1.6 that continued to increase -Appears to have developed ATN -Her creatinine had increased to 6.4 and she continues to have minimal urine output -Patient was given cautious amount of IV fluids after admission but has not made any impact -04/30 Lasix IV x1 was given with no response -CT scan does not show any obstruction or stones. -05/01 Discussed with medical anthropology director. In light of worsening renal function, minimal urine output, volume overload, edema and mechanical ventilation, patient was started on hemodialysis. Temporary hemodialysis catheter placed 05/02 patient will receive her 2nd session of dialysis today. Discontinue sodium bicarbonate 05/03 patient receiving another dialysis session today 05/05 scheduled for another dialysis session today 05/07: Right IJ dialysis catheter was exchanged over a guidewire by surgery since the previous dialysis catheter on the same side was nonfunctional. 05/08: He received dialysis with fluid 4000 mL in fluid removal 05/09: Patient to get dialyzed again today (2) Acute respiratory failure with hypoxia and hypercarbia: Code(s): J96.01 - Acute respiratory failure with hypoxia; J96.02 - Acute respiratory failure with hypercapnia Status: Acute Assessment and Plan: Multifactorial acute Respiratory failure secondary to AECOPD, pulmonary edema, ? CAP -04/28: Patient intubated in the ER -05/08: Extubated -COVID and flu PCR negative -Nasal MRSA screen negative -04/28: Blood culture negative -04/30: sputum cultures growing stenotrophomonas. Procalcitonin level elevated at 6.4 - Rocephin and doxycycline and Bactrim discontinued. Switched to Levaquin 05/03 (continue for 14 days) - continue hemodialysis to remove fluid Continue bronchodilators -will have PT/OT evaluate the patient -speech to evaluate the patient for bedside swallow (3) NSTEMI (non-ST elevated myocardial infarction): Code(s): I21.4 - Non-ST elevation (NSTEMI) myocardial infarction Status: Acute Assessment and Plan: Patient presented with elevated troponin. EKG reviewed and shows no ST changes Cardiology following and patient is now on aspirin statin, clopidogrel, metoprolol 07/02 cardiac catheterization Conclusion:: 1.? ? Right coronary dominant circulation with single-vessel coronary disease with high-grade 90-95% stenosis in the region that was previously stented in this patient's RCA. 2.? ? Mild atherosclerotic irregularities in the left coronary without any significant lesions identified 3. ? successful PCI of this RCA stenosis using the PTCA, overlapping long drug-eluting stent which was post dilated with noncompliant balloon at high pressure resulting in excellent patency of the vessel Echocardiogram Summary ? 1. Mild left ventricular enlargement with mild concentric hypertrophy.? Mild global hypokinesis with severe hypokinesis to akinesis of the basal inferior and septal segments.? Ejection fraction visually is 40-45%.? Grade 2 diastolic dysfunction is present. ? 2. Left atrial chamber dimension is severely enlarged. ? 3. No pulmonary hypertension, estimated pulmonary arterial systolic pressure is 30 mmHg. ? 4. No significant valve disease. ? 5. Technically difficult study.? Definity echo contrast used. ? 6. Normal sinus rhythm. (4) Congestive heart failure: Code(s): I50.9 - Heart failure, unspecified Status: Acute Assessment and Plan: See above (5) Pulmonary edema: Code(s): J81.1 - Chronic pulmonary edema Status: Acute Assessment and Plan: Continue dialysi
[2023-05-09] MEDS: PANTOPRAZOLE SODIUM IV 40 MG VIAL IV PUSH (09:16)
--- NOTE | 2023-05-09 09:24 | PCSTNOTE ---
Please refer to the Bedside Swallow Evaluation in the EMR. Please note, silent aspiration cannot be ruled out at bedside.
[2023-05-09] MEDS: cloNIDine 0.1 MG/24 HR PATCH 1 PATCH TRANSDERM (09:34)
--- NOTE | 2023-05-09 10:11 | PM.PNNEP ---
Progress Note: A&P Assessment and Plan (1) FRANCIS (acute kidney injury): Code(s): N17.9 - Acute kidney failure, unspecified Status: Acute Assessment and Plan: suspected etiology is multifactorial ATN: prerenal factors infection (pneumonia) over-diuresis (on lasix [employer]IC[employer]) ARB use cardiac event/NSTEMI hypoxia relative hypotension no improvement with trial of IVFs or IV lasix evaluation to date: no evidence of obstruction of kidneys by imaging urine electrolyts non-prerenal UA suggestibe of infection - culture negative urine eosinophils negative proteinuria noted (but in the context of possible infection/UTI) CPK mildly elevated - not enough to affect kidneys HD yesterday and plan HD tomorrow DUF today for further fluid removal follow repeat labs and UOP for potential for recovery (2) Stage 3b chronic kidney disease: Code(s): N18.32 - Chronic kidney disease, stage 3b Status: Chronic Assessment and Plan: has baseline CKD or is this just random fluctuations in baseline kidney function??? creatinine running around 1.3 - 1.7mg/dl by recent labs done at [facility] HOWEVER, labs review from other hospitalizations at other facilities demonstrate that her creatinine has been as low as 0.9mg/dl in this year.... however, perhaps this normal creatinine value could be dilutional from her previous bouts of CHF... risk factors for CKD include HTN, vascular disease (CAD/CHF), and age (3) Acute respiratory failure with hypoxia and hypercarbia: Code(s): J96.01 - Acute respiratory failure with hypoxia; J96.02 - Acute respiratory failure with hypercapnia Status: Acute Assessment and Plan: extubated multifactorial etiology: COPD exacerbation pulmonary edema pneumonia other? fluid removal as tolerated with HD; DUF today continue steroids and bronchodilators viral testing negative to date antibiotics for pneumonia follow culture data continue supportive therapy (4) NSTEMI (non-ST elevated myocardial infarction): Code(s): I21.4 - Non-ST elevation (NSTEMI) myocardial infarction Status: Acute Assessment and Plan: elevated troponins noted on admission no acute EKG changes noted Cardiology recommendations noted Echo results reviewed s/p cardiac catheterization on 05/02: PCI of RCA stenosis with drug-eluting stent overlapping with good results follow telemetry (5) Congestive heart failure: Code(s): I50.9 - Heart failure, unspecified Status: Acute Assessment and Plan: known apparent history evidence of pulmonary edema by admission imaging Echo with EF of 40-45% with grade 2 diastolic dysfunction continue fluid removal with dialysis as tolerated (6) COPD (chronic obstructive pulmonary disease): Code(s): J44.9 - Chronic obstructive pulmonary disease, unspecified Status: Acute Assessment and Plan: on steroids and bronchodilators see #3 continue supportive therapy Will continue to follow. Subjective Date/time seen: 05/09/23 10:11 Interval history: Follow-up for acute kidney injury/acute renal failure (possibly on chronic kidney disease). Tolerated dialysis treatment yesterday with 4L fluid removal; successfully extubated yesterday and on 4L of supplemental oxygen but states she feels short of breath and respiratory status somewhat tenuous; tolerating dry ultrafiltration at the time of my visit (seen on DUF at 10:00AM) although HD catheter is not working very well; remains hemodynamically stable if not hypertensive; following simple commands on my visit. Exam Narrative: General: elderly female in NAD Heart: normal S1 and S2; no rub Lungs: coarse breath sounds with a few wheezes Abdomen: soft, nontender, nondistended, positive bowel sounds Extremities: no cyanosis or clubbing; trace edema Skin: warm and intact Objective Data Vital
--- NOTE | 2023-05-09 10:11 | P.PNNP_ITS ---
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 (on lasix [employer]) * ARB use * cardiac event/NSTEMI * hypoxia * relative hypotension * no improvement with trial of IVFs or IV lasix * evaluation to date: * no evidence of obstruction of kidneys by imaging * urine electrolyts non-prerenal * UA suggestibe of infection - culture negative * urine eosinophils negative * proteinuria noted (but in the context of possible infection/UTI) * CPK mildly elevated - not enough to affect kidneys * HD yesterday and plan HD tomorrow * DUF today for further fluid removal * follow repeat labs and UOP for potential for recovery (2) Stage 3b chronic kidney disease: Code(s): N18.32 - Chronic kidney disease, stage 3b Status: Chronic Assessment and Plan: * has baseline CKD or is this just random fluctuations in baseline kidney function??? * creatinine running around 1.3 - 1.7mg/dl by recent labs done at [facility] * HOWEVER, labs review from other hospitalizations at other facilities demonstrate that her creatinine has been as low as 0.9mg/dl in this year.... * however, perhaps this normal creatinine value could be dilutional from her previous bouts of CHF... * risk factors for CKD include HTN, vascular disease (CAD/CHF), and age (3) Acute respiratory failure with hypoxia and hypercarbia: Code(s): J96.01 - Acute respiratory failure with hypoxia; J96.02 - Acute respiratory failure with hypercapnia Status: Acute Assessment and Plan: * extubated * multifactorial etiology: * COPD exacerbation * pulmonary edema * pneumonia * other? * fluid removal as tolerated with HD; DUF today * continue steroids and bronchodilators * viral testing negative to date * antibiotics for pneumonia * follow culture data * continue supportive therapy (4) NSTEMI (non-ST elevated myocardial infarction): Code(s): I21.4 - Non-ST elevation (NSTEMI) myocardial infarction Status: Acute Assessment and Plan: * elevated troponins noted on admission * no acute EKG changes noted * Cardiology recommendations noted * Echo results reviewed * s/p cardiac catheterization on 05/02: PCI of RCA stenosis with drug-eluting stent overlapping with good results * follow telemetry (5) Congestive heart failure: Code(s): I50.9 - Heart failure, unspecified Status: Acute Assessment and Plan: * known apparent history * evidence of pulmonary edema by admission imaging * Echo with EF of 40-45% with grade 2 diastolic dysfunction * continue fluid removal with dialysis as tolerated (6) COPD (chronic obstructive pulmonary disease): Code(s): J44.9 - Chronic obstructive pulmonary disease, unspecified Status: Acute Assessment and Plan: * on steroids and bronchodilators * see #3 * continue supportive therapy Will continue to follow. Subjective Date/time seen: 05/09/23 10:11 Interval history: Follow-up for acute kidney injury/acute renal failure (possibly on chronic kidne y disease). Tolerated dialysis treatment yesterday with 4L fluid removal; successfully extubated yesterday and on 4L of supplemental oxygen but states she feels short of breath and respiratory status somewhat tenuous; tolerating
--- NOTE | 2023-05-09 10:18 | PM.PNCARD ---
Progress Note: A&P Assessment and Plan (1) NSTEMI (non-ST elevated myocardial infarction): Code(s): I21.4 - Non-ST elevation (NSTEMI) myocardial infarction Status: Acute Assessment and Plan: Patient has elevated troponin levels (0.019, 0.371, and 1.960) in the setting of acute respiratory failure and acidosis. It does sound like she had been complaining of chest pain over the past couple of weeks, and she has a known history of coronary artery disease. Status post 3.0 x 30 mm drug-eluting stent overlapping previously placed stent at 90-95% stenosis proximal to mid RCA with good results. Continue dual antiplatelet therapy with aspirin 81 mg daily and clopidogrel 75 mg daily. Continue statin and beta topher. Follow H&H. Stable thus far. Echo shows mildly decreased LV systolic function, EF 40-45%, grade 2 diastolic dysfunction. Not on any medical therapy for this because of her renal function Cardiology will follow along on an as needed basis at this point. Please call with any questions. (2) Acute respiratory failure with hypoxia and hypercarbia: Code(s): J96.01 - Acute respiratory failure with hypoxia; J96.02 - Acute respiratory failure with hypercapnia Status: Acute Assessment and Plan: Extubated. Management as per ICU team. (3) Congestive heart failure: Code(s): I50.9 - Heart failure, unspecified Status: Acute Assessment and Plan: EF 40-45%. Continue volume management with hemodialysis. Continue to monitor volume status closely. (4) Acute kidney injury superimposed on CKD: Code(s): N17.9 - Acute kidney failure, unspecified; N18.9 - Chronic kidney disease, unspecified Status: Acute Assessment and Plan: Acute fulminant kidney injury. Now on hemodialysis. Management per Nephrology. Creatinine 5.8 today. Undergoing dialysis (5) Anemia: Qualifiers: Anemia type: other cause Code(s): D64.9 - Anemia, unspecified Status: Acute Assessment and Plan: H&H stable. Continue to monitor closely. Platelet count stable, borderline thrombocytopenia. Continue to follow trend. Monitor for bleeding. Subjective Date/time seen: 05/09/23 10:18 Interval history: Patient admitted with shortness of breath and respiratory failure requiring intubation, multifactorial secondary to CHF, COPD, possibly the CAP. Found to have had a non-STEMI with a peak troponin of 1.96. She had transient inferior ST-elevation which has resolved. Unfortunately she developed acute kidney failure. Echo showed EF 40-45%, diastolic dysfunction with hypokinesis of the inferior wall. Date of service 04/29/2023: Recommend aspirin, statin, heparin drip, beta-topher, echo, and anticipate ischemic evaluation with angiogram prior to discharge. Date of service 04/30/2023: Remains intubated sedated, on heparin drip and getting tube feedings. Creatinine has gone up to 4.1; has oliguric acute renal failure. Telemetry shows sinus rhythm/sinus tach with rare PVCs. EKG from 04/29/2023 at 2:06 a.m. shows sinus rhythm, nonspecific T-wave changes, resolution of the inferior ST elevation and no development of inferior Q-waves. Personally reviewed. Date of service 05/01/2023: Remains intubated and sedated. Worsening renal failure. Remains on heparin gtt for now. Possible C tomorrow if plan is for dialysis Date of service 05/03/2023: Patient had hemodialysis today. 4 L ultrafiltration removal. Patient remains intubated/sedated. PCI of RCA stenosis with drug-eluting stent overlapping with good results 05/02/2023. Further history obtained from nursing staff and review electronic medical record. Date of service 05/04/2023: Sedation is being weaned this morning. She is following some commands, moving her head trying to open her eyes. She remains intubated. No new issues overnight. She was febrile at 38.1? C last night. Chest x-ray with persistent bilateral lower lung in
--- NOTE | 2023-05-09 11:36 | PCNFU ---
Nutrition Follow-Up Complete: Inadequate Oral Intake as related to mechanical ventilation as evidenced by NPO. Goal: Meet estimated nutritional needs. Patient is progressing towards goal. Pt current nutrition is Renal Dialysis/Minced Moist, Level 5 with Mildly Thick, Level 2. Nutrition Recommendations: Nepro BID Last recorded weight is 77.2 kg, down from 85 kg on admit. Bowel Motility:+BM report 05/09. Labs Reviewed:TG 158,BUN 72, Cr 5.8,Mg 2.9 Meds Noted:Miralax, Protonix Skin: WNL Additional Notes: Patient has been extubated. Bedside Swallow today recommend Minced and Moist, Level 5 with Mildly Thick liquids, Level 2. Discussed with Vice President Of Manufacturing about adding diet supplements for increased kcal and protein needs. Dialysis again today. Agree with diet orders. Will monitor weight, labs, skin, tube feeding tolerance, meds every Friday and Friday.
[2023-05-09 12:31] LABS: Glucose Point of Care 134 mg/dl (65-105)
[2023-05-09] MEDS: CEFEPIME 1 GM/NS 50 ML 1 GM/50 ML BAG IVPB (12:33)
[2023-05-09] MEDS: levoFLOXacin 500 MG/D5W 100 ML 500 MG/100 ML BAG 100 MG IVPB (17:44)
[2023-05-09 18:18] LABS: Glucose Point of Care 131 mg/dl (65-105)
[2023-05-09 20:42] LABS: Glucose Point of Care 112 mg/dl (65-105)
[2023-05-10] VITALS (25 sets, daily range): BP systolic 123–172; BP diastolic 55–92; PULSE 16–96; RESP 16–28; TEMP 35.7–37; O2SAT 94–98
[2023-05-10] MEDS: LABETALOL HCL INJ 100 MG/20 ML VIAL 20 MG IV PUSH (01:47)
[2023-05-10 06:21] LABS: Basophils Absolute Auto 0.1 K/mm3 (0.0-0.1); Basophils Percent Auto 0.4 % (0.2-1.2); Eosinophils Absolute Auto 0.3 K/mm3 (0-0.3); Eosinophils Percent Auto 1.6 % (0-4.4); Hematocrit 34.4 % (37.0-47.0); Hemoglobin 10.7 g/dL (12.0-15.0); Immature Granulocyte Absolute 0.65 K/mm3 (0.00-0.031); Immature Granulocyte Percent A 3.3 % (0-0.5); Lymphocytes Absolute Auto 1.45 K/mm3 (0.9-3.2); Lymphocytes Percent Auto 7.4 % (18.3-44.2); Mean Corpuscular HGB Conc 31.1 g/dl (32-36); Mean Corpuscular Hemoglobin 26.8 pg (26-34); Mean Platelet Volume 10.1 fl (7.4-10.4); Monocytes Absolute Auto 1.4 K/mm3 (0.1-0.6); Monocytes Percent Auto 7.3 % (2.6-8.5); Neutrophils Absolute Auto 15.8 K/mm3 (1.3-6.7); Platelet Count Result 256 k/mm3 (150-375); White Blood Count 19.7 K/mm3 (4.5-10.0)
[2023-05-10 06:38] LABS: Alanine Aminotransferase 44 U/L (6-35); Albumin Level 4.1 g/dL (3.5-5.1); Alkaline Phosphatase 88 U/L (38-126); Anion Gap 19 mmol/L (8-16); Aspartate Amino Transferase 34 U/L (14-36); Bilirubin,Total 0.8 mg/dL (0.2-1.3); Blood Urea Nitrogen 108 mg/dL (7-17); Calcium 8.6 mg/dL (8.4-10.2); Carbon Dioxide 19 mmol/L (22-30); Chloride 100 mmol/L (98-107); Glucose 108 mg/dL (65-110); Potassium 5.4 mmol/L (3.4-5.0); Sodium 138 mmol/L (137-145)
[2023-05-10] MEDS: CENTRAL LINE FLUSH 10 ML IV PUSH ×3 (06:41→22:14)
[2023-05-10 06:47] LABS: Estimated CRCL calculation 6 ml/min; Estimated Glomerular Filt Rate 6
[2023-05-10 07:38] LABS: Glucose Point of Care 100 mg/dl (65-105)
[2023-05-10] MEDS: LEVALBUTEROL NEB 1.25 MG/3 ML INHALATION ×3 (08:04→20:37)
[2023-05-10] MEDS: IPRATROPIUM BR 0.02% INH SOLN 0.5 MG/2.5 ML VIAL INHALATION ×3 (08:04→20:37)
--- NOTE | 2023-05-10 08:23 | WPDINTPN ---
Progress Note: A&P Assessment and Plan (1) Acute kidney injury superimposed on CKD: Code(s): N17.9 - Acute kidney failure, unspecified; N18.9 - Chronic kidney disease, unspecified Status: Acute Assessment and Plan: Patient appears to have chronic kidney disease as her last recorded creatinine were elevated. She has elevated phosphate Presented with elevated creatinine of 1.6 that continued to increase -Appears to have developed ATN -Her creatinine had increased to 6.4 and she continues to have minimal urine output -Patient was given cautious amount of IV fluids after admission but has not made any impact -04/30 Lasix IV x1 was given with no response -CT scan does not show any obstruction or stones. -05/01 Discussed with member of technical staff. In light of worsening renal function, minimal urine output, volume overload, edema and mechanical ventilation, patient was started on hemodialysis. Temporary hemodialysis catheter placed 05/02 patient will receive her 2nd session of dialysis today. Discontinue sodium bicarbonate 05/03 patient receiving another dialysis session today 05/05 scheduled for another dialysis session today 05/07: Right IJ dialysis catheter was exchanged over a guidewire by surgery since the previous dialysis catheter on the same side was nonfunctional. 05/08: He received dialysis with fluid 4000 mL in fluid removal 05/09: Dialysis with 2887 mL in fluid removal, dialysis had to be stopped because malfunction of dialysis catheter. Tunneled dialysis catheter to be placed on 05/12/2023 (2) Acute respiratory failure with hypoxia and hypercarbia: Code(s): J96.01 - Acute respiratory failure with hypoxia; J96.02 - Acute respiratory failure with hypercapnia Status: Acute Assessment and Plan: Multifactorial acute Respiratory failure secondary to AECOPD, pulmonary edema, ? CAP -04/28: Patient intubated in the ER -05/08: Extubated -COVID and flu PCR negative -Nasal MRSA screen negative -04/28: Blood culture negative -04/30: sputum cultures growing stenotrophomonas. Procalcitonin level elevated at 6.4 - Rocephin and doxycycline and Bactrim discontinued. Switched to Levaquin 05/03 (continue for 14 days) -05/09: started on cefepime for pneumonia given elevated white blood cell count and chest x-ray findings - continue hemodialysis to remove fluid Continue bronchodilators -continue PT/OT -up in chair as tolerated -patient did pass the swallow test with minced and moist diet with mildly thickened liquids (3) NSTEMI (non-ST elevated myocardial infarction): Code(s): I21.4 - Non-ST elevation (NSTEMI) myocardial infarction Status: Acute Assessment and Plan: Patient presented with elevated troponin. EKG reviewed and shows no ST changes Cardiology following and patient is now on aspirin statin, clopidogrel, metoprolol 07/02 cardiac catheterization Conclusion:: 1.? ? Right coronary dominant circulation with single-vessel coronary disease with high-grade 90-95% stenosis in the region that was previously stented in this patient's RCA. 2.? ? Mild atherosclerotic irregularities in the left coronary without any significant lesions identified 3. ? successful PCI of this RCA stenosis using the PTCA, overlapping long drug-eluting stent which was post dilated with noncompliant balloon at high pressure resulting in excellent patency of the vessel Echocardiogram Summary ? 1. Mild left ventricular enlargement with mild concentric hypertrophy.? Mild global hypokinesis with severe hypokinesis to akinesis of the basal inferior and septal segments.? Ejection fraction visually is 40-45%.? Grade 2 diastolic dysfunction is present. ? 2. Left atrial chamber dimension is severely enlarged. ? 3. No pulmonary hypertension, estimated pulmonary arterial systolic pressure is 30 mmHg. ? 4. No significant valve disease. ? 5. Technically difficult study.? Definity echo contrast used. ? 6. Normal sinus rhythm. (4) C
[2023-05-10] MEDS: ALBUTEROL SULFATE NEB 2.5 MG/3 ML INH 10 MG INHALATION (09:08)
[2023-05-10] MEDS: ATORVASTATIN 40 MG TABLET 80 MG PO (09:12)
[2023-05-10] MEDS: DEXTROSE 50% 25 GM/50 ML SYRINGE IV PUSH (09:12)
[2023-05-10] MEDS: INSULIN HUMAN REGULAR (*BKC) 100 UNITS/ML 10 UNITS IV PUSH (09:12)
[2023-05-10] MEDS: ENOXAPARIN 30 MG/0.3 ML SYRINGE SUB-Q (09:12)
[2023-05-10] MEDS: ASPIRIN 81 MG CHEWABLE TABLET PO (09:13)
[2023-05-10] MEDS: SODIUM BICARBONATE 8.4% 50 MEQ/50 ML SYRINGE IV PUSH (09:13)
[2023-05-10] MEDS: SODIUM ZIRCONIUM CYCLOSILICATE 10 GM POWD.PACK PO (09:13)
[2023-05-10] MEDS: PANTOPRAZOLE SODIUM IV 40 MG VIAL IV PUSH (09:14)
[2023-05-10] MEDS: METOPROLOL TARTRATE 50 MG TAB FEED TUBE ×2 (09:14→22:10)
[2023-05-10] MEDS: CLOPIDOGREL BISULFATE 75 MG TABLET PO (09:14)
--- NOTE | 2023-05-10 09:19 | PM.PNCARD ---
Progress Note: A&P Assessment and Plan (1) NSTEMI (non-ST elevated myocardial infarction): Code(s): I21.4 - Non-ST elevation (NSTEMI) myocardial infarction Status: Acute Assessment and Plan: Patient has elevated troponin levels (0.019, 0.371, and 1.960) in the setting of acute respiratory failure and acidosis. It does sound like she had been complaining of chest pain over the past couple of weeks, and she has a known history of coronary artery disease. Status post 3.0 x 30 mm drug-eluting stent overlapping previously placed stent at 90-95% stenosis proximal to mid RCA with good results. Continue dual antiplatelet therapy with aspirin 81 mg daily and clopidogrel 75 mg daily. Continue statin and beta topher. Follow H&H. Stable thus far. Echo shows mildly decreased LV systolic function, EF 40-45%, grade 2 diastolic dysfunction. Not on any medical therapy for this because of her renal function Discussed with upholstered goods crafter and will increase her metoprolol to 50 mg p.o. b.i.d. today. (2) Acute respiratory failure with hypoxia and hypercarbia: Code(s): J96.01 - Acute respiratory failure with hypoxia; J96.02 - Acute respiratory failure with hypercapnia Status: Acute Assessment and Plan: Extubated. Management as per ICU team. (3) Congestive heart failure: Code(s): I50.9 - Heart failure, unspecified Status: Acute Assessment and Plan: EF 40-45%. Continue volume management with hemodialysis. Continue to monitor volume status closely. (4) Acute kidney injury superimposed on CKD: Code(s): N17.9 - Acute kidney failure, unspecified; N18.9 - Chronic kidney disease, unspecified Status: Acute Assessment and Plan: Acute fulminant kidney injury. Now on hemodialysis. Management per Nephrology. (5) Anemia: Qualifiers: Anemia type: other cause Code(s): D64.9 - Anemia, unspecified Status: Acute Assessment and Plan: H&H stable. Continue to monitor closely. Platelet count stable, borderline thrombocytopenia. Continue to follow trend. Monitor for bleeding. Subjective Date/time seen: 05/10/23 09:19 Interval history: Patient admitted with shortness of breath and respiratory failure requiring intubation, multifactorial secondary to CHF, COPD, possibly the CAP. Found to have had a non-STEMI with a peak troponin of 1.96. She had transient inferior ST-elevation which has resolved. Unfortunately she developed acute kidney failure. Echo showed EF 40-45%, diastolic dysfunction with hypokinesis of the inferior wall. Date of service 04/29/2023: Recommend aspirin, statin, heparin drip, beta-topher, echo, and anticipate ischemic evaluation with angiogram prior to discharge. Date of service 04/30/2023: Remains intubated sedated, on heparin drip and getting tube feedings. Creatinine has gone up to 4.1; has oliguric acute renal failure. Telemetry shows sinus rhythm/sinus tach with rare PVCs. EKG from 04/29/2023 at 2:06 a.m. shows sinus rhythm, nonspecific T-wave changes, resolution of the inferior ST elevation and no development of inferior Q-waves. Personally reviewed. Date of service 05/01/2023: Remains intubated and sedated. Worsening renal failure. Remains on heparin gtt for now. Possible C tomorrow if plan is for dialysis Date of service 05/03/2023: Patient had hemodialysis today. 4 L ultrafiltration removal. Patient remains intubated/sedated. PCI of RCA stenosis with drug-eluting stent overlapping with good results 05/02/2023. Further history obtained from nursing staff and review electronic medical record. Date of service 05/04/2023: Sedation is being weaned this morning. She is following some commands, moving her head trying to open her eyes. She remains intubated. No new issues overnight. She was febrile at 38.1? C last night. Chest x-ray with persistent bilateral lower lung infiltrate. Date of service 05/05/2023: Overall stable
[2023-05-10 12:01] LABS: Glucose Point of Care 94 mg/dl (65-105)
[2023-05-10] MEDS: CEFEPIME 1 GM/NS 50 ML 1 GM/50 ML BAG IVPB (12:26)
--- NOTE | 2023-05-10 15:19 | PC.NURSE ---
VINI Arora, here for consult.
[2023-05-10 17:03] LABS: Glucose Point of Care 136 mg/dl (65-105)
[2023-05-10 17:17] LABS: Anion Gap 19 mmol/L (8-16); Calcium 8.4 mg/dL (8.4-10.2); Carbon Dioxide 18 mmol/L (22-30); Chloride 98 mmol/L (98-107); Estimated CRCL calculation 6 ml/min; Estimated Glomerular Filt Rate 5; Glucose 133 mg/dL (65-110); Potassium 5.2 mmol/L (3.4-5.0); Sodium 135 mmol/L (137-145)
[2023-05-10 18:10] LABS: Blood Urea Nitrogen 124 mg/dL (7-17)
--- NOTE | 2023-05-10 18:28 | PC.NURSE ---
This patient, Vero Ramos, was transferred to [facility] on 05/10/23 at 1800. Personal belongings sent with patient. Report given to Fred. Appropriate documentation sent with patient.
[2023-05-10 20:42] LABS: Glucose Point of Care 103 mg/dl (65-105)
[2023-05-11] VITALS (24 sets, daily range): BP systolic 137–174; BP diastolic 61–88; PULSE 76–101; RESP 16–22; TEMP 36.2–36.6; O2SAT 95–100
[2023-05-11] MEDS: IPRATROPIUM BR 0.02% INH SOLN 0.5 MG/2.5 ML VIAL INHALATION ×4 (01:24→21:16)
[2023-05-11] MEDS: LEVALBUTEROL NEB 1.25 MG/3 ML INHALATION ×4 (01:25→21:16)
--- NOTE | 2023-05-11 01:40 | PC.NURSE ---
Daylight Savings Time For Daylight Savings Time Ending in the Fall - Clocks are moved back. For Daylight Savings Time Beginning in the Spring - Clocks are moved ahead. For [facility], the time of change occurs at 0200 hrs. Time is taken from the senior sql server database developer. This entry on the patient's chart recognizes the change in time reflected during documentation. Example: 2 entries for vital signs may be charted for 0200 hrs.
[2023-05-11] MEDS: CENTRAL LINE FLUSH 10 ML IV PUSH ×3 (04:07→21:51)
[2023-05-11 04:29] LABS: Triglycerides 176 mg/dL (<150)
[2023-05-11 04:46] LABS: Estimated CRCL calculation 5 ml/min; Estimated Glomerular Filt Rate 5
[2023-05-11 08:27] LABS: Anion Gap 21 mmol/L (8-16); Calcium 8.5 mg/dL (8.4-10.2); Carbon Dioxide 19 mmol/L (22-30); Chloride 96 mmol/L (98-107); Glucose 93 mg/dL (65-110); Potassium 5.5 mmol/L (3.4-5.0); Sodium 136 mmol/L (137-145)
[2023-05-11 08:32] LABS: Estimated CRCL calculation 5 ml/min; Estimated Glomerular Filt Rate 4
[2023-05-11 08:39] LABS: Glucose Point of Care 99 mg/dl (65-105)
[2023-05-11 08:41] LABS: Blood Urea Nitrogen 134 mg/dL (7-17)
--- NOTE | 2023-05-11 08:47 | PM.PNCARD ---
Progress Note: A&P Assessment and Plan (1) NSTEMI (non-ST elevated myocardial infarction): Code(s): I21.4 - Non-ST elevation (NSTEMI) myocardial infarction Status: Acute Assessment and Plan: Patient has elevated troponin levels (0.019, 0.371, and 1.960) in the setting of acute respiratory failure and acidosis. It does sound like she had been complaining of chest pain over the past couple of weeks, and she has a known history of coronary artery disease. Status post 3.0 x 30 mm drug-eluting stent overlapping previously placed stent at 90-95% stenosis proximal to mid RCA with good results. Continue dual antiplatelet therapy with aspirin 81 mg daily and clopidogrel 75 mg daily. Continue statin and beta topher. Follow H&H. Stable thus far. Echo shows mildly decreased LV systolic function, EF 40-45%, grade 2 diastolic dysfunction. Not on any medical therapy for this because of her renal function Continue metoprolol. BP is elevated. Will add back her amlodipine 5 mg p.o. daily (2) Acute respiratory failure with hypoxia and hypercarbia: Code(s): J96.01 - Acute respiratory failure with hypoxia; J96.02 - Acute respiratory failure with hypercapnia Status: Acute Assessment and Plan: Extubated. Management as per ICU team. (3) Congestive heart failure: Code(s): I50.9 - Heart failure, unspecified Status: Acute Assessment and Plan: EF 40-45%. Continue volume management with hemodialysis. Continue to monitor volume status closely. (4) Acute kidney injury superimposed on CKD: Code(s): N17.9 - Acute kidney failure, unspecified; N18.9 - Chronic kidney disease, unspecified Status: Acute Assessment and Plan: Acute fulminant kidney injury. Now on hemodialysis. Management per Nephrology. (5) Anemia: Qualifiers: Anemia type: other cause Code(s): D64.9 - Anemia, unspecified Status: Acute Assessment and Plan: H&H stable. Continue to monitor closely. Platelet count stable, borderline thrombocytopenia. Continue to follow trend. Monitor for bleeding. Subjective Date/time seen: 05/11/23 08:47 Interval history: Patient admitted with shortness of breath and respiratory failure requiring intubation, multifactorial secondary to CHF, COPD, possibly the CAP. Found to have had a non-STEMI with a peak troponin of 1.96. She had transient inferior ST-elevation which has resolved. Unfortunately she developed acute kidney failure. Echo showed EF 40-45%, diastolic dysfunction with hypokinesis of the inferior wall. Date of service 04/29/2023: Recommend aspirin, statin, heparin drip, beta-topher, echo, and anticipate ischemic evaluation with angiogram prior to discharge. Date of service 04/30/2023: Remains intubated sedated, on heparin drip and getting tube feedings. Creatinine has gone up to 4.1; has oliguric acute renal failure. Telemetry shows sinus rhythm/sinus tach with rare PVCs. EKG from 04/29/2023 at 2:06 a.m. shows sinus rhythm, nonspecific T-wave changes, resolution of the inferior ST elevation and no development of inferior Q-waves. Personally reviewed. Date of service 05/01/2023: Remains intubated and sedated. Worsening renal failure. Remains on heparin gtt for now. Possible C tomorrow if plan is for dialysis Date of service 05/03/2023: Patient had hemodialysis today. 4 L ultrafiltration removal. Patient remains intubated/sedated. PCI of RCA stenosis with drug-eluting stent overlapping with good results 05/02/2023. Further history obtained from nursing staff and review electronic medical record. Date of service 05/04/2023: Sedation is being weaned this morning. She is following some commands, moving her head trying to open her eyes. She remains intubated. No new issues overnight. She was febrile at 38.1? C last night. Chest x-ray with persistent bilateral lower lung infiltrate. Date of service 05/05/2023: Overall stable with
--- NOTE | 2023-05-11 09:25 | PM.PNGS ---
Progress Note: A&P Assessment and Plan (1) Acute kidney injury superimposed on CKD: Code(s): N17.9 - Acute kidney failure, unspecified; N18.9 - Chronic kidney disease, unspecified Status: Acute Assessment and Plan: will setup for placement TDC in OR tomorrow Subjective Subjective Date/Time Seen: 05/11/23 09:25 Interval history: no acute issues, breathing better, rudy renal diet Review of Systems Review of Systems: All systems reviewed & are unremarkable except as noted in HPI and below Exam HENMT: Head: normal to inspection, normocephalic and atraumatic Neck: Other: RIJ HD cath - C/D/I Resp: Auscultation: diminished lung sounds Cardio: Rate: regular rate Rhythm: regular rhythm GI: Inspection: normal to inspection and non-distended GI Palp: No abdominal tenderness and Yes Soft to palpation Objective Data Vital Signs Vital Signs: Vital Signs - 24 hr 05/10/23 11:30 05/10/23 12:00 05/10/23 14:00 Temperature 36.6 C 36.6 C Pulse Rate 77 78 Respiratory Rate 28 H 20 Blood Pressure 142/70 H 132/69 Pulse Oximetry 94 Oxygen Delivery Room Air 05/10/23 12:00 05/10/23 14:00 05/10/23 12:00 Temperature Pulse Rate 79 78 79 Respiratory Rate 26 H Blood Pressure Pulse Oximetry 94 Oxygen Delivery Room Air 05/10/23 15:49 05/10/23 16:00 05/10/23 16:00 Temperature Pulse Rate 75 80 80 Respiratory Rate 22 H 21 H Blood Pressure Pulse Oximetry 98 Oxygen Delivery Room Air 05/10/23 16:00 05/10/23 18:00 05/10/23 20:00 Temperature 36.8 C 35.7 C L Pulse Rate 80 82 16 L Respiratory Rate 21 H 18 Blood Pressure 123/55 L 156/82 H Pulse Oximetry 98 96 Oxygen Delivery 05/10/23 20:42 05/10/23 20:42 05/10/23 22:10 Temperature Pulse Rate 89 93 Respiratory Rate 23 H Blood Pressure Pulse Oximetry 94 Oxygen Delivery Room Air 05/10/23 23:49 05/11/23 01:26 CDT 05/10/23 20:55 Temperature 36.4 C Pulse Rate 83 85 86 Respiratory Rate 16 21 H 22 H Blood Pressure 163/71 H Pulse Oximetry 94 Oxygen Delivery 05/10/23 20:00 05/10/23 22:00 05/11/23 00:00 Temperature Pulse Rate 87 92 85 Respiratory Rate Blood Pressure Pulse Oximetry Oxygen Delivery 05/10/23 20:00 05/11/23 00:00 05/11/23 02:00 Temperature Pulse Rate 85 Respiratory Rate Blood Pressure Pulse Oximetry Oxygen Delivery Room Air Room Air 05/11/23 04:00 05/11/23 04:00 05/11/23 04:00 Temperature 36.6 C Pulse Rate 88 89 Respiratory Rate 20 Blood Pressure 160/74 H Pulse Oximetry 96 Oxygen Delivery Room Air 05/11/23 06:00 05/11/23 08:08 05/11/23 08:15 Temperature Pulse Rate 93 93 Respiratory Rate 20 Blood Pressure Pulse Oximetry 96 Oxygen Delivery Room Air 05/11/23 08:15 05/11/23 08:29 05/11/23 08:00 Temperature 36.3 C L Pulse Rate 91 96 97 Respiratory Rate 20 18 Blood Pressure 174/81 H Pulse Oximetry 96 Oxygen Delivery Intake/Output Intake/Output: Intake & Output 05/08/23 05/09/23 05/10/23 05/11/23 23:59 23:59 23:59 22:59 Intake Total 874 200 695 Output Total 4040 2917 51 100 [id number] -[id number] 644 -100 Meds/Results Medications: Active Medications Generic Name Dose Route Start Last Admin Trade Name Freq PRN Reason Stop Dose Admin Acetaminophen 650 mg 05/08/23 13:59 Acetaminophen Elixir 325 Mg/10.15 Ml Udc PO Q6H PRN Mild Pain (1-3) or Fever Amlodipine Besylate 5 mg 05/11/23 09:00 Amlodipine Besylate 5 Mg Tablet PO QAM VALENTINA Aspirin 81 mg 05/03/23 08:00 05/10/23 09:13 Aspirin 81 Mg Chewable Tablet PO 81 mg DAILY@0800 VALENTINA Administration Atorvastatin Calcium 80 mg 04/30/23 09:00 05/10/23 09:12 Atorvastatin 40 Mg Tablet PO 80 mg DAILY VALENTINA Administration Bisacodyl 10 mg 05/04/23 07:56 Bisacodyl 10 Mg Suppository RECTAL QAM PRN Constipation Clonidine HCl 1 patch 05/09/23 10:00
[2023-05-11] MEDS: PANTOPRAZOLE SODIUM IV 40 MG VIAL IV PUSH (10:30)
[2023-05-11] MEDS: METOPROLOL TARTRATE 50 MG TAB FEED TUBE ×2 (10:30→21:51)
[2023-05-11] MEDS: ASPIRIN 81 MG CHEWABLE TABLET PO (10:30)
[2023-05-11] MEDS: ATORVASTATIN 40 MG TABLET 80 MG PO (10:30)
[2023-05-11] MEDS: CLOPIDOGREL BISULFATE 75 MG TABLET PO (10:30)
[2023-05-11] MEDS: ENOXAPARIN 30 MG/0.3 ML SYRINGE SUB-Q (10:31)
[2023-05-11] MEDS: amLODIPine BESYLATE 5 MG TABLET PO (10:31)
[2023-05-11] MEDS: SODIUM ZIRCONIUM CYCLOSILICATE 10 GM POWD.PACK PO (10:31)
--- NOTE | 2023-05-11 11:03 | P.PNIM_ITS ---
Progress Note: A&P Assessment and Plan (1) Acute kidney injury superimposed on CKD: Code(s): N17.9 - Acute kidney failure, unspecified; N18.9 - Chronic kidney disease, unspecified Status: Acute Assessment and Plan: Patient appears to have chronic kidney disease as her last recorded creatinine were elevated. She has elevated phosphate Presented with elevated creatinine of 1.6 that continued to increase. Appears to have developed ATN. Her creatinine had increased to 6.4 and she continues to have minimal urine output. Patient was given cautious amount of IV fluids after admission but has not made any impact. 04/30 Lasix IV x1 was given with no response. CT scan does not show any obstruction or stones. 05/01 Discussed with metal sprayer. In light of worsening renal function, minimal urine output, volum e overload, edema and mechanical ventilation, patient was started on hemodialysis. Temporary hemodialysis catheter placed. 05/02 patient will receive her 2nd session of dialysis today. Discontinue s odium bicarbonate 05/03 patient receiving another dialysis session today 05/05 scheduled for another dialysis session today 05/07 Right IJ dialysis catheter was exchanged over a guidewire by surgery since the previous dialysis catheter on the same side was nonfunctional. 05/08 He received dialysis with fluid 4000 mL in fluid removal 05/09 Dialysis with 2887 mL in fluid removal, dialysis had to be stopped because malfunction of dialysis catheter. 05/12 Tunneled dialysis catheter to be placed (2) Acute respiratory failure with hypoxia and hypercarbia: Code(s): J96.01 - Acute respiratory failure with hypoxia; J96.02 - Acute respiratory failure with hypercapnia Status: Acute Assessment and Plan: Multifactorial acute Respiratory failure secondary to AECOPD, pulmonary edema, ? CAP 04/28 Patient intubated in the ER, 05/08: Extubated COVID and flu PCR negative, nasal MRSA screen negative 04/28 Blood and urine culture negative 04/30 sputum cultures growing stenotrophomonas. Procalcitonin level elevated at 6.4 Rocephin and doxycycline and Bactrim discontinued. Switched to Levaquin 05/03 (continue for 14 days) 05/09 started on cefepime for pneumonia given elevated white blood cell count and chest x-ray findings 05/11 leuk stable, cont cefepime for now (3) NSTEMI (non-ST elevated myocardial infarction): Code(s): I21.4 - Non-ST elevation (NSTEMI) myocardial infarction Status: Acute Assessment and Plan: Patient presented with elevated troponin. EKG reviewed and shows no ST changes Cardiology following and patient is now on aspirin statin, clopidogrel, metoprolol 07/02 cardiac catheterization with right coronary dominant circulation with single-vessel coronary disease with high-grade 90-95% stenosis in the region that was previously stented in this patient's RCA, successful PCI of this RCA stenosis using the PTCA, overlapping long drug-eluting stent which was post dilated with noncompliant balloon at high pressure resulting in excellent patency of the vessel. Echo showed mild left ventricular enlargement with mild concentric hypertrophy.? Mild global hypokinesis with severe hypokinesis to akinesis of the basal inferior and septal segments.? Ejection fraction visually is 40-45%.? Grade 2 diastolic dysfunction is present. Left atrial chamber dimension is severely enlarged. No pulmonary hypertension, no significant valve disease. (4) Congestive heart failure: Code(s): I50.9 - Heart failure, unspecified Status: Acute Assessment and Plan: See above (5) Pulmonary edema: Code(s): J81.1
[2023-05-11 12:19] LABS: Glucose Point of Care 127 mg/dl (65-105)
[2023-05-11] MEDS: CEFEPIME 1 GM/NS 50 ML 1 GM/50 ML BAG IVPB (12:53)
--- NOTE | 2023-05-11 15:25 | P.PNNP_ITS ---
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 * She has trouble with lines. She is going to get a tunneled dialysis catheter tomorrow and get dialysis after that. * Volume status looks okay. She has a little bit of fluid excess but she is comfortable breathing. * Potassium is a little bit on the high side. Will give locale in a and repeat this afternoon. * CO2 is a little bit on the low side. Dialysis should fix this. (2) Stage 3b chronic kidney disease: Code(s): N18.32 - Chronic kidney disease, stage 3b Status: Chronic Assessment and Plan: * has baseline CKD or is this just random fluctuations in baseline kidney function??? * creatinine running around 1.3 - 1.7mg/dl by recent labs done at [facility] * HOWEVER, labs review from other hospitalizations at other facilities demonstrate that her creatinine has been as low as 0.9mg/dl in this year.... * however, perhaps this normal creatinine value could be dilutional from her previous bouts of CHF... * risk factors for CKD include HTN, vascular disease (CAD/CHF), and age (3) Acute respiratory failure with hypoxia and hypercarbia: Code(s): J96.01 - Acute respiratory failure with hypoxia; J96.02 - Acute respiratory failure with hypercapnia Status: Acute Assessment and Plan: * extubated * multifactorial etiology: * COPD exacerbation * pulmonary edema * pneumonia * other? * Remove more fluid tomorrow. * continue steroids and bronchodilators * viral testing negative to date * antibiotics for pneumonia * follow culture data * continue supportive therapy (4) NSTEMI (non-ST elevated myocardial infarction): Code(s): I21.4 - Non-ST elevation (NSTEMI) myocardial infarction Status: Acute Assessment and Plan: * elevated troponins noted on admission * no acute EKG changes noted * Cardiology recommendations noted * Echo Shows an EF of 40-45% and grade 2 diastolic dysfunction with no pulmonary hypertension. * s/p cardiac catheterization on 05/02: PCI of RCA stenosis with drug-eluting stent overlapping with good results * No chest pain today. (5) Congestive heart failure: Code(s): I50.9 - Heart failure, unspecified Status: Acute Assessment and Plan: * known apparent history * evidence of pulmonary edema by admission imaging * Echo with EF of 40-45% with grade 2 diastolic dysfunction * continue fluid removal with dialysis as tolerated (6) COPD (chronic obstructive pulmonary disease): Code(s): J44.9 - Chronic obstructive pulmonary disease, unspecified Status: Acute Assessment and Plan: * on steroids and bronchodilators * see #3 * continue supportive therapy Subjective Date/time seen: 05/11/23 15:26
--- NOTE | 2023-05-11 15:25 | PM.PNNEP ---
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 She has trouble with lines. She is going to get a tunneled dialysis catheter tomorrow and get dialysis after that. Volume status looks okay. She has a little bit of fluid excess but she is comfortable breathing. Potassium is a little bit on the high side. Will give locale in a and repeat this afternoon. CO2 is a little bit on the low side. Dialysis should fix this. (2) Stage 3b chronic kidney disease: Code(s): N18.32 - Chronic kidney disease, stage 3b Status: Chronic Assessment and Plan: has baseline CKD or is this just random fluctuations in baseline kidney function??? creatinine running around 1.3 - 1.7mg/dl by recent labs done at [facility] HOWEVER, labs review from other hospitalizations at other facilities demonstrate that her creatinine has been as low as 0.9mg/dl in this year.... however, perhaps this normal creatinine value could be dilutional from her previous bouts of CHF... risk factors for CKD include HTN, vascular disease (CAD/CHF), and age (3) Acute respiratory failure with hypoxia and hypercarbia: Code(s): J96.01 - Acute respiratory failure with hypoxia; J96.02 - Acute respiratory failure with hypercapnia Status: Acute Assessment and Plan: extubated multifactorial etiology: COPD exacerbation pulmonary edema pneumonia other? Remove more fluid tomorrow. continue steroids and bronchodilators viral testing negative to date antibiotics for pneumonia follow culture data continue supportive therapy (4) NSTEMI (non-ST elevated myocardial infarction): Code(s): I21.4 - Non-ST elevation (NSTEMI) myocardial infarction Status: Acute Assessment and Plan: elevated troponins noted on admission no acute EKG changes noted Cardiology recommendations noted Echo Shows an EF of 40-45% and grade 2 diastolic dysfunction with no pulmonary hypertension. s/p cardiac catheterization on 05/02: PCI of RCA stenosis with drug-eluting stent overlapping with good results No chest pain today. (5) Congestive heart failure: Code(s): I50.9 - Heart failure, unspecified Status: Acute Assessment and Plan: known apparent history evidence of pulmonary edema by admission imaging Echo with EF of 40-45% with grade 2 diastolic dysfunction continue fluid removal with dialysis as tolerated (6) COPD (chronic obstructive pulmonary disease): Code(s): J44.9 - Chronic obstructive pulmonary disease, unspecified Status: Acute Assessment and Plan: on steroids and bronchodilators see #3 continue supportive therapy Subjective Date/time seen: 05/11/23 15:26 Interval history: Patient is alert. Now in a regular room. No chest pain or shortness of breath. Exam Narrative: General: elderly female in NAD Heart: normal S1 and S2; no rub or gallop Lungs: coarse breath sounds with a few wheezes Abdomen: soft, nontender, nondistended, positive bowel sounds Extremities: trace edema Skin: No rash Objective Data Vital Signs Vital Signs: Vital Signs - 24 hr 05/10/23 18:00 05/10/23 20:00 05/10/23 20:42 Temperature 96.3 F L Pu
[2023-05-11 16:28] LABS: Glucose Point of Care 104 mg/dl (65-105)
[2023-05-11] MEDS: levoFLOXacin 500 MG/D5W 100 ML 500 MG/100 ML BAG 100 MG IVPB (17:13)
[2023-05-11 17:48] LABS: Basophils Percent Auto 0.2 % (0.2-1.2); Eosinophils Absolute Auto 0.2 K/mm3 (0-0.3); Eosinophils Percent Auto 1.5 % (0-4.4); Hematocrit 29.6 % (37.0-47.0); Hemoglobin 9.5 g/dL (12.0-15.0); Immature Granulocyte Absolute 0.31 K/mm3 (0.00-0.031); Immature Granulocyte Percent A 1.9 % (0-0.5); Lymphocytes Absolute Auto 1.05 K/mm3 (0.9-3.2); Lymphocytes Percent Auto 6.4 % (18.3-44.2); Mean Corpuscular HGB Conc 32.1 g/dl (32-36); Mean Corpuscular Hemoglobin 27.1 pg (26-34); Mean Corpuscular Volume 84.6 fl (80-100); Mean Platelet Volume 10.6 fl (7.4-10.4); Monocytes Absolute Auto 1.2 K/mm3 (0.1-0.6); Monocytes Percent Auto 7.1 % (2.6-8.5); Neutrophils Absolute Auto 13.5 K/mm3 (1.3-6.7); Neutrophils Percent Auto 82.9 % (45.5-73.1); Platelet Count Result 223 k/mm3 (150-375); Red Cell Distribution Width 14.3 % (11.5-14.5); White Blood Count 16.3 K/mm3 (4.5-10.0)
[2023-05-11 18:21] LABS: Alanine Aminotransferase 38 U/L (6-35); Albumin Level 3.8 g/dL (3.5-5.1); Alkaline Phosphatase 76 U/L (38-126); Anion Gap 22 mmol/L (8-16); Aspartate Amino Transferase 33 U/L (14-36); Bilirubin,Total 0.7 mg/dL (0.2-1.3); Carbon Dioxide 18 mmol/L (22-30); Chloride 94 mmol/L (98-107); Estimated CRCL calculation 5 ml/min; Estimated Glomerular Filt Rate 4; Glucose 110 mg/dL (65-110); Potassium 5.4 mmol/L (3.4-5.0); Sodium 134 mmol/L (137-145)
[2023-05-11 18:38] LABS: Blood Urea Nitrogen 149 mg/dL (7-17)
[2023-05-11 20:53] LABS: Glucose Point of Care 113 mg/dl (65-105)
[2023-05-12] VITALS (36 sets, daily range): BP systolic 96–151; BP diastolic 41–88; PULSE 74–98; RESP 14–24; TEMP 36.1–37.1; O2SAT 93–98
[2023-05-12] MEDS: LEVALBUTEROL NEB 1.25 MG/3 ML INHALATION ×3 (02:55→20:39)
[2023-05-12] MEDS: IPRATROPIUM BR 0.02% INH SOLN 0.5 MG/2.5 ML VIAL INHALATION ×3 (02:55→20:39)
[2023-05-12 05:25] LABS: Basophils Percent Auto 0.2 % (0.2-1.2); Eosinophils Absolute Auto 0.3 K/mm3 (0-0.3); Eosinophils Percent Auto 1.7 % (0-4.4); Hematocrit 28.6 % (37.0-47.0); Hemoglobin 9.1 g/dL (12.0-15.0); Immature Granulocyte Absolute 0.35 K/mm3 (0.00-0.031); Immature Granulocyte Percent A 2.2 % (0-0.5); Lymphocytes Absolute Auto 1.31 K/mm3 (0.9-3.2); Lymphocytes Percent Auto 8.4 % (18.3-44.2); Mean Corpuscular HGB Conc 31.8 g/dl (32-36); Mean Corpuscular Volume 84.9 fl (80-100); Mean Platelet Volume 9.7 fl (7.4-10.4); Monocytes Absolute Auto 1.3 K/mm3 (0.1-0.6); Monocytes Percent Auto 8.2 % (2.6-8.5); Neutrophils Absolute Auto 12.4 K/mm3 (1.3-6.7); Neutrophils Percent Auto 79.3 % (45.5-73.1); Platelet Count Result 217 k/mm3 (150-375); Red Blood Count 3.37 M/mm3 (4.2-5.4); Red Cell Distribution Width 14.2 % (11.5-14.5); White Blood Count 15.7 K/mm3 (4.5-10.0)
[2023-05-12 05:44] LABS: Alanine Aminotransferase 35 U/L (6-35); Albumin Level 3.7 g/dL (3.5-5.1); Alkaline Phosphatase 71 U/L (38-126); Anion Gap 25 mmol/L (8-16); Aspartate Amino Transferase 30 U/L (14-36); Bilirubin,Total 0.6 mg/dL (0.2-1.3); Calcium 7.7 mg/dL (8.4-10.2); Carbon Dioxide 14 mmol/L (22-30); Chloride 95 mmol/L (98-107); Glucose 89 mg/dL (65-110); Potassium 5.5 mmol/L (3.4-5.0); Sodium 134 mmol/L (137-145)
[2023-05-12 05:50] LABS: Estimated CRCL calculation 4 ml/min; Estimated Glomerular Filt Rate 4
[2023-05-12 05:55] LABS: Phosphorus 12.2 mg/dL (2.5-4.5)
[2023-05-12 05:56] LABS: Blood Urea Nitrogen 159 mg/dL (7-17)
[2023-05-12] MEDS: CENTRAL LINE FLUSH 10 ML IV PUSH ×2 (06:17→21:22)
[2023-05-12 07:55] LABS: Glucose Point of Care 95 mg/dl (65-105)
--- NOTE | 2023-05-12 08:33 | PM.IMPN ---
Progress Note: A&P Assessment and Plan (1) Acute kidney injury superimposed on CKD: Code(s): N17.9 - Acute kidney failure, unspecified; N18.9 - Chronic kidney disease, unspecified Status: Acute Assessment and Plan: Patient appears to have chronic kidney disease as her last recorded creatinine were elevated. She has elevated phosphate Presented with elevated creatinine of 1.6 that continued to increase. Appears to have developed ATN. Her creatinine had increased to 6.4 and she continues to have minimal urine output. Patient was given cautious amount of IV fluids after admission but has not made any impact. 04/30 Lasix IV x1 was given with no response. CT scan does not show any obstruction or stones. 05/01 Discussed with finance business partner. In light of worsening renal function, minimal urine output, volume overload, edema and mechanical ventilation, patient was started on hemodialysis. Temporary hemodialysis catheter placed. 05/02 patient will receive her 2nd session of dialysis today. Discontinue sodium bicarbonate 05/03 patient receiving another dialysis session today 05/05 scheduled for another dialysis session today 05/07 Right IJ dialysis catheter was exchanged over a guidewire by surgery since the previous dialysis catheter on the same side was nonfunctional. 05/08 He received dialysis with fluid 4000 mL in fluid removal 05/09 Dialysis with 2887 mL in fluid removal, dialysis had to be stopped because malfunction of dialysis catheter. 05/12 Tunneled dialysis catheter to be placed (2) Acute respiratory failure with hypoxia and hypercarbia: Code(s): J96.01 - Acute respiratory failure with hypoxia; J96.02 - Acute respiratory failure with hypercapnia Status: Acute Assessment and Plan: Multifactorial acute Respiratory failure secondary to AECOPD, pulmonary edema, ? CAP 04/28 Patient intubated in the ER, 05/08: Extubated COVID and flu PCR negative, nasal MRSA screen negative 04/28 Blood and urine culture negative 04/30 sputum cultures growing stenotrophomonas. Procalcitonin level elevated at 6.4 Rocephin and doxycycline and Bactrim discontinued. Switched to Levaquin 05/03 (continue for 14 days) 05/09 started on cefepime for pneumonia given elevated white blood cell count and chest x-ray findings 05/11 leuk stable, cont cefepime for now (3) NSTEMI (non-ST elevated myocardial infarction): Code(s): I21.4 - Non-ST elevation (NSTEMI) myocardial infarction Status: Acute Assessment and Plan: Patient presented with elevated troponin. EKG reviewed and shows no ST changes Cardiology following and patient is now on aspirin statin, clopidogrel, metoprolol 07/02 cardiac catheterization with right coronary dominant circulation with single-vessel coronary disease with high-grade 90-95% stenosis in the region that was previously stented in this patient's RCA, successful PCI of this RCA stenosis using the PTCA, overlapping long drug-eluting stent which was post dilated with noncompliant balloon at high pressure resulting in excellent patency of the vessel. Echo showed mild left ventricular enlargement with mild concentric hypertrophy.? Mild global hypokinesis with severe hypokinesis to akinesis of the basal inferior and septal segments.? Ejection fraction visually is 40-45%.? Grade 2 diastolic dysfunction is present. Left atrial chamber dimension is severely enlarged. No pulmonary hypertension, no significant valve disease. (4) Congestive heart failure: Code(s): I50.9 - Heart failure, unspecified Status: Acute Assessment and Plan: See above (5) Pulmonary edema: Code(s): J81.1 - Chronic pulmonary edema Status: Acute Assessment and Plan: Continue dialysis with fluid removal (6) COPD (chronic obstructive pulmonary disease): Code(s): J44.9 - Chronic obstructive pulmonary disease, unspecified Status: Acute Assessment and Plan: See above (7) Susana
--- NOTE | 2023-05-12 09:36 | PM.PNNEP ---
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 use cardiac event/NSTEMI hypoxia relative hypotension no improvement with trial of IVFs or IV lasix evaluation to date: no evidence of obstruction of kidneys by imaging urine electrolyts non-prerenal UA suggestibe of infection - culture negative urine eosinophils negative proteinuria noted (but in the context of possible infection/UTI) CPK mildly elevated - not enough to affect kidneys plan HD today following TDC placement follow trend of labs and UOP for potential renal recovery will likely need outpatient dialysis on discharge (2) Stage 3b chronic kidney disease: Code(s): N18.32 - Chronic kidney disease, stage 3b Status: Chronic Assessment and Plan: has baseline CKD or is this just random fluctuations in baseline kidney function??? creatinine running around 1.3 - 1.7mg/dl by recent labs done at [facility] HOWEVER, labs review from other hospitalizations at other facilities demonstrate that her creatinine has been as low as 0.9mg/dl in this year.... however, perhaps this normal creatinine value could be dilutional from her previous bouts of CHF... risk factors for CKD include HTN, vascular disease (CAD/CHF), and age (3) Acute respiratory failure with hypoxia and hypercarbia: Code(s): J96.01 - Acute respiratory failure with hypoxia; J96.02 - Acute respiratory failure with hypercapnia Status: Acute Assessment and Plan: improving extubated (on 05/08/23) multifactorial etiology: COPD exacerbation pulmonary edema pneumonia other? s/p steroids and on bronchodilators viral testing negative to date antibiotics for pneumonia follow culture data continue supportive therapy (4) NSTEMI (non-ST elevated myocardial infarction): Code(s): I21.4 - Non-ST elevation (NSTEMI) myocardial infarction Status: Acute Assessment and Plan: elevated troponins noted on admission no acute EKG changes noted Cardiology recommendations noted Echo Shows an EF of 40-45% and grade 2 diastolic dysfunction with no pulmonary hypertension. s/p cardiac catheterization on 05/02: PCI of RCA stenosis with drug-eluting stent overlapping with good results (5) Congestive heart failure: Code(s): I50.9 - Heart failure, unspecified Status: Acute Assessment and Plan: known apparent history evidence of pulmonary edema by admission imaging Echo with EF of 40-45% with grade 2 diastolic dysfunction continue fluid removal with dialysis as tolerated (6) COPD (chronic obstructive pulmonary disease): Code(s): J44.9 - Chronic obstructive pulmonary disease, unspecified Status: Acute Assessment and Plan: s/p steroids and remains on bronchodilators see #3 continue supportive therapy Will continue to follow. Subjective Date/time seen: 05/12/23 09:36 Interval history: Follow-up for acute kidney injury/acute renal failure (possibly on chronic kidney disease). Transferred out of ICU since I last saw her, respiratory status seems relatively stable since DUF treatment on Friday; noted plans for tunneled HD catheter placement today with dialysis to follow afterwards; still not making much urine; no apparent distress noted. Exam Narrative: General: elderly female in NAD Heart: normal S1 and S2; no rub Lungs: coarse breath sounds Abdomen: soft, nontender, nondistended, positive bowel sounds Extremities: trace edema present Skin: no nodules Objective Data Vital Signs Vital Signs: Vital Signs Temp Pulse Resp BP Pulse Ox O2 Del Method 05/12/23 08:12 98 20 05/12/23 08:06 96
--- NOTE | 2023-05-12 09:36 | P.PNNP_ITS ---
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) * ARB use * cardiac event/NSTEMI * hypoxia * relative hypotension * no improvement with trial of IVFs or IV lasix * evaluation to date: * no evidence of obstruction of kidneys by imaging * urine electrolyts non-prerenal * UA suggestibe of infection - culture negative * urine eosinophils negative * proteinuria noted (but in the context of possible infection/UTI) * CPK mildly elevated - not enough to affect kidneys * plan HD today following TDC placement * follow trend of labs and UOP for potential renal recovery * will likely need outpatient dialysis on discharge (2) Stage 3b chronic kidney disease: Code(s): N18.32 - Chronic kidney disease, stage 3b Status: Chronic Assessment and Plan: * has baseline CKD or is this just random fluctuations in baseline kidney function??? * creatinine running around 1.3 - 1.7mg/dl by recent labs done at [facility] * HOWEVER, labs review from other hospitalizations at other facilities demonstrate that her creatinine has been as low as 0.9mg/dl in this year.... * however, perhaps this normal creatinine value could be dilutional from her previous bouts of CHF... * risk factors for CKD include HTN, vascular disease (CAD/CHF), and age (3) Acute respiratory failure with hypoxia and hypercarbia: Code(s): J96.01 - Acute respiratory failure with hypoxia; J96.02 - Acute respiratory fail ure with hypercapnia Status: Acute Assessment and Plan: * improving * extubated (on 05/08/23) * multifactorial etiology: * COPD exacerbation * pulmonary edema * pneumonia * other? * s/p steroids and on bronchodilators * viral testing negative to date * antibiotics for pneumonia * follow culture data * continue supportive therapy (4) NSTEMI (non-ST elevated myocardial infarction): Code(s): I21.4 - Non-ST elevation (NSTEMI) myocardial infarction Status: Acute Assessment and Plan: * elevated troponins noted on admission * no acute EKG changes noted * Cardiology recommendations noted * Echo Shows an EF of 40-45% and grade 2 diastolic dysfunction with no p ulmonary hypertension. * s/p cardiac catheterization on 05/02: PCI of RCA stenosis with drug-eluting stent overlapping with good results (5) Congestive heart failure: Code(s): I50.9 - Heart failure, unspecified Status: Acute Assessment and Plan: * known apparent history * evidence of pulmonary edema by admission imaging * Echo with EF of 40-45% with grade 2 diastolic dysfunction * continue fluid removal with dialysis as tolerated (6) COPD (chronic obstructive pulmonary disease): Code(s): J44.9 - Chronic obstructive pulmonary disease, unspecified Status: Acute Assessment and Plan: * s/p steroids and remains on bronchodilators * see #3 * continue supportive therapy Will continue to follow. Subjective Date/time seen: 05/12/23 09:36 Interval history: Follow-up for acute kidney injury/acute renal failure (possibly on chronic kidney disease). Transferred out of ICU since I last saw her, respiratory status seems relatively stable since DUF treatment on Friday; noted plans for tunneled HD catheter chuy
[2023-05-12] MEDS: amLODIPine BESYLATE 5 MG TABLET PO (09:45)
[2023-05-12] MEDS: FLUTICASONE PROPIONATE 0.05% NA SPR 16 GM BTL (*BKC) 2 SPRAY NASAL (09:45)
[2023-05-12] MEDS: PANTOPRAZOLE SODIUM IV 40 MG VIAL IV PUSH (09:45)
[2023-05-12] MEDS: LORATADINE/PSEUDOEPHEDRINE (*CRX) 10/240 MG TABLET ER 24 HR 1 TAB PO (09:45)
[2023-05-12] MEDS: ASPIRIN 81 MG CHEWABLE TABLET PO (09:45)
[2023-05-12] MEDS: ATORVASTATIN 40 MG TABLET 80 MG PO (09:45)
--- NOTE | 2023-05-12 09:53 | PCPTNOTE ---
Patient refused treatment this session.
--- NOTE | 2023-05-12 12:01 | PCNFU ---
Nutrition Follow-Up Complete: Inadequate Oral Intake as related to diet order as evidenced by NPO. Goal: Diet ordered, PO Intake 50% or greater Pt current nutrition is NPO for a procedure. Nutrition recommendation: Resume diet of minced and moist level 5, mildly thick liquids when appropriate Last recorded weight is 71.8 kg. Bowel Motility: +BM 05/10 Labs Reviewed: Hgb:9.1, HCT:28.6, NA:134, K:5.5, BUN:159, cr: 10.4 Meds Noted: lovenox, novolog Skin: WNL Additional Notes: Pt diet order is currently NPO for a procedure, was on a minced and moist level 5, mildly thick liquids. Nepro shakes BID. Recommend to resume diet order when appropriate Will monitor weight, labs, skin, diet order and intake. Follow up in 3 days.
[2023-05-12] MEDS: METOPROLOL TARTRATE 50 MG TAB FEED TUBE ×2 (13:07→21:20)
--- NOTE | 2023-05-12 13:20 | PCPTNOTE ---
Attempted to see patient for PT, however patient was out of the room for a procedure.
--- NOTE | 2023-05-12 14:15 | WPDANESEPPF ---
Anes - Initial Pre Proc Eval Procedure: Operation Date: 05/02/23 11:30 Proposed Procedures p Left Heart Cath - Zev Hensley MD Operation Date: 05/12/23 15:30 Proposed Procedures p Insertion Permacath - Dmitriy Nbole MD Date/Time: 05/12/23 14:15 Surgeon: El Vargas MD Pre Op Diagnosis: Acute Coronary Syndrome/Transient St Elevation Patient Data Age: 72 Gender: F Height: 1.57 m Weight: 71.8 kg Last Vital Signs Temp 37.1 C 05/12/23 13:30 Pulse 74 05/12/23 13:30 Resp 14 05/12/23 13:30 BP 127/88 05/12/23 13:30 Pulse Ox 96 05/12/23 13:30 O2 Del Method Room Air 05/12/23 13:30 O2 Flow Rate 2 05/10/23 08:00 FiO2 21 05/10/23 08:08 Allergies Allergy/AdvReac Type Severity Reaction Status Date / Time oxycodone Allergy Intermediate Verified 02/24/18 14:04 alprazolam AdvReac Mild NAUSEA AND Verified 04/29/23 09:26 VOMITING. 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 Uncoded 12/28/02 11:33 Home Medications Medication Instructions Recorded Confirmed Type ipratropium 20 mcg-albuterol 100 1 puff inhalation QID PRN short of 02/21/22 04/28/23 History mcg/actuation mist for inhalation breath (Combivent Respimat) pantoprazole 40 mg tablet,delayed 40 mg PO QAM 4 weeks #28 tabs 04/03/23 04/28/23 Rx release (Protonix) albuterol sulfate 90 mcg/actuation 2 puff inhalation Q8H PRN 04/28/23 04/28/23 History aerosol inhaler Shortness Of Breath Or Wheezing amlodipine 5 mg tablet 5 mg PO DAILY 04/28/23 04/28/23 History losartan 100 mg tablet 100 mg PO DAILY 04/28/23 04/28/23 History Laboratory Tests 05/11/23 05/11/23 05/11/23 15:49 17:31 20:26 WBC 16.3 H K/mm3 (4.5-10.0) RBC 3.50 L M/mm3 (4.2-5.4) Hgb 9.5 L g/dL (12.0-15.0) Hct 29.6 L % (37.0-47.0) MCV 84.6 fl (80-100) MCH 27.1 pg (26-34) MCHC 32.1 g/dl (32-36) RDW 14.3 % (11.5-14.5) Plt Count 223 k/mm3 (150-375) MPV 10.6 H fl (7.4-10.4) Immature Gran % (Auto) 1.9 H % (0-0.5) Neut % (Auto) 82.9 H % (45.5-73.1) Lymph % (Auto) 6.4 L % (18.3-44.2) [place] % (Auto) 7.1 % (2.6-8.5) Eos % (Auto) 1.5 % (0-4.4) Baso % (Auto) 0.2 % (0.2-1.2) Lymph # (Auto) 1.05 K/mm3 (0.9-3.2) [place] # (Auto) 1.2 H K/mm3 (0.1-0.6) Eos # (Auto) 0.2 K/mm3 (0-0.3) Baso # (Auto) 0.0 K/mm3 (0.0-0.1) Abs Immat Gran (auto) 0.31 H K/mm3 (0.00-0.031) Absolute Neuts (auto) 13.5 H K/mm3 (1.3-6.7) Absolute Nucleated RBC 0.0 K/mm3 (0.0-0.012) Nucleated RBC % 0.0 % (0.0-0.2) Sodium 134 L mmol/L (137-145) Potassium 5.4 H mmol/L (3.4-5.0) Chloride 94 L mmol/L (98-107) Carbon Dioxide 18 L mmol/L (22-30) Anion Gap 22 H mmol/L (8-16) BUN 149 H D mg/dL (7-17) Creatinine 9.60 H mg/dL (0.7-1.0) Estim Creat Clear Calc 5 ml/min Estimated GFR 4 L (59 - ) Glucose 110 mg/dL (65-110) POC Capillary Glucose 104 mg/dl 113 H mg/dl (65-105) (65-105) Calcium 8.0 L mg/dL (8.4-10.2) Phosphorus Total Bilirubin 0.7 mg/dL (0.2-1.3) AST 33 U/L (14-36) ALT 38 H U/L (6-35) Alkaline Phosphatase 76 U/L (38-126) Total Protein 7.0 g/dL (6.3-8.2) Albumin 3.8 g/dL (3.5-5.1) 05/12/23 05/12/23 05:19 07:50 WBC 15.7 H K/mm3 (4.5-10.0) RBC 3.37 L M/mm3 (4.2-5.4) Hgb 9.1 L g/dL (12.0-15.0) Hct 28.6 L % (37.0-47.0) MCV 84.9 fl (80-100) MCH 27.0 pg (26-34) MCHC 31.8 L g/dl (32-36) RDW 14.2 % (11.5-14.5) Plt Count 217 k/mm3 (150-375) MPV 9.7 fl (7.4-10.4) Immature Gran % (Auto) 2.2 H %
--- NOTE | 2023-05-12 14:22 | WPDHPUPDATE1 ---
History and Physical Update Update Date/Time: 05/12/23 14:22 History and Physical has been reviewed, including an updated exam of the patient. There are NO changes in the patient's condition. Risks, benefits, and alternatives have been discussed and questions answered. Patient agrees to proceed with procedure.
[2023-05-12] MEDS: CEFEPIME 1 GM/NS 50 ML 1 GM/50 ML BAG IVPB (14:43)
[2023-05-12 15:14] LABS: Glucose Point of Care 95 mg/dl (65-105)
[2023-05-12] MEDS: HEPARIN SODIUM, PORCINE 10,000 UNITS/10 ML VIAL 4500 UNITS IV PUSH (15:28)
[2023-05-12] MEDS: HEPARIN SODIUM 5,000 UNITS/ML VIAL 5000 UNITS IRRIGATION (15:29)
[2023-05-12] MEDS: LIDO 1%/EPINEPHRINE 1:100,000 50 ML VIAL 10 ML INFILTRATE (15:30)
--- NOTE | 2023-05-12 15:32 | P.OP_ITS ---
Procedure Note - Detailed Date of Procedure 05/12/23 Pre-op Diagnosis Renal failure Post-op Diagnosis Same Procedure Performed placement of right internal jugular tunneled hemodialysis catheter under fluoroscopic guidance Surgeon Leticia Prieto MD Anesthesia MAC and Local Indications 72-year-old female with renal failure requiring emergent dialysis. Of note, patient had previously placed temporary dialysis catheter that is currently nonfunctional. Findings Wire exchange right internal jugular vein to tunneled dialysis catheter Description of Procedure The patient was taken to the operating room and placed in the supine position. After adequate induction of MAC anesthesia, the patient was prepped and draped in the normal sterile fashion. A time-out was then done to verify the patient's identity, as well as the procedure being performed. I began by using fluoroscopy to confirm the previously placed catheter was in the right internal jugular vein. It was noted to be in the vein in good position. Was able to easily draw and flush from both ports. Under fluoroscopic guidance, I placed a guidewire over the previous catheter into the right internal jugular vein. Once noted to be in good position, the previous catheter was removed. I measured and determined to use a 28 cm tunneled dialysis catheter. This catheter was tunneled from a insertion site in the right chest to right neck stick site. I then placed the dilating sheath over the guidewire into the right internal jugular vein, again via fluoroscopic guidance. Once in good position, I removed the guidewire and dilator just leaving the sheath in the vein. I then fed the previously tunneled catheter into the sheath and subsequently into the right internal jugular vein. Once properly positioned, the sheath was peeled away j ust leaving the catheter in the vein. There was noted to be a kink at the right neck site and I did dissect some tissue to allow the catheter to lie correctly. Once this was done, the catheter had a nice smooth curvature and terminated in the atrial caval junction. Was able to easily drawn flush from both port sites. I then placed 2.2 and 2.3 mL of final heparin flush as directed into each port site. The patient tolerated the procedure well and will be transferred to the recovery room in stable condition. Implants 28 cm tunneled hemodialysis catheter in right internal jugular vein Estimated Blood Loss 20 Complications No immediate complications Condition Stable Disposition PACU [facility] Billing Surgery - Charge Forward: Surgery Billing
[2023-05-12] MEDS: SODIUM CHLORIDE 0.9% IV 500 ML 30 ML IV CONT (15:38)
[2023-05-12] MEDS: EPOETIN ALFA-EPBX 10,000 UNITS/ML VIAL 10000 UNITS IV PUSH (18:45)
[2023-05-12 20:35] LABS: Glucose Point of Care 75 mg/dl (65-105)
[2023-05-13] VITALS (34 sets, daily range): BP systolic 85–124; BP diastolic 49–85; PULSE 76–99; RESP 16–20; TEMP 36.1–37; O2SAT 93–99
[2023-05-13] MEDS: ACETAMINOPHEN 500 MG TABLET 1000 MG PO (01:17)
[2023-05-13] MEDS: LEVALBUTEROL NEB 1.25 MG/3 ML INHALATION ×3 (01:24→20:35)
[2023-05-13] MEDS: IPRATROPIUM BR 0.02% INH SOLN 0.5 MG/2.5 ML VIAL INHALATION ×3 (01:24→20:35)
[2023-05-13 05:38] LABS: Basophils Percent Auto 0.2 % (0.2-1.2); Eosinophils Absolute Auto 0.2 K/mm3 (0-0.3); Eosinophils Percent Auto 1.5 % (0-4.4); Hematocrit 29.3 % (37.0-47.0); Hemoglobin 9.1 g/dL (12.0-15.0); Immature Granulocyte Absolute 0.19 K/mm3 (0.00-0.031); Immature Granulocyte Percent A 1.5 % (0-0.5); Lymphocytes Absolute Auto 1.61 K/mm3 (0.9-3.2); Lymphocytes Percent Auto 12.4 % (18.3-44.2); Mean Corpuscular HGB Conc 31.1 g/dl (32-36); Mean Corpuscular Hemoglobin 26.6 pg (26-34); Mean Corpuscular Volume 85.7 fl (80-100); Mean Platelet Volume 10.2 fl (7.4-10.4); Monocytes Absolute Auto 1.1 K/mm3 (0.1-0.6); Monocytes Percent Auto 8.7 % (2.6-8.5); Neutrophils Absolute Auto 9.8 K/mm3 (1.3-6.7); Neutrophils Percent Auto 75.7 % (45.5-73.1); Platelet Count Result 207 k/mm3 (150-375); Red Blood Count 3.42 M/mm3 (4.2-5.4); Red Cell Distribution Width 14.4 % (11.5-14.5)
[2023-05-13 05:50] LABS: Alanine Aminotransferase 37 U/L (6-35); Albumin Level 3.6 g/dL (3.5-5.1); Alkaline Phosphatase 71 U/L (38-126); Anion Gap 16 mmol/L (8-16); Aspartate Amino Transferase 44 U/L (14-36); Bilirubin,Total 0.7 mg/dL (0.2-1.3); Blood Urea Nitrogen 82 mg/dL (7-17); Calcium 8.5 mg/dL (8.4-10.2); Carbon Dioxide 21 mmol/L (22-30); Chloride 98 mmol/L (98-107); Glucose 55 mg/dL (65-110); Potassium 4.7 mmol/L (3.4-5.0); Sodium 135 mmol/L (137-145); Triglycerides 190 mg/dL (<150)
[2023-05-13 06:00] LABS: Estimated CRCL calculation 6 ml/min; Estimated Glomerular Filt Rate 6
[2023-05-13] MEDS: DEXTROSE 50% 25 GM/50 ML SYRINGE IV PUSH (06:22)
[2023-05-13 06:46] LABS: Glucose Point of Care 233 mg/dl (65-105)
--- NOTE | 2023-05-13 07:56 | P.PNAN_ITS ---
Anes - Prog Note Post-Op Date/Time: 05/13/23 07:56 Cardiovascular status: normal Respiratory status: normal Airway patency: baseline Mental status: baseline Post-Op hydration status: normal Vital Signs: Last Vital Signs Temp 36.7 C 05/13/23 02:48 Pulse 93 05/13/23 04:00 Resp 18 05/13/23 02:48 BP 124/56 L 05/13/23 02:48 Pulse Ox 96 05/13/23 02:48 O2 Del Method Room Air 05/12/23 20:00 O2 Flow Rate 2 05/12/23 16:05 FiO2 21 05/10/23 08:08 Pain Score (VAS): 0 I/O: Intake & Output 05/12/23 05/12/23 05/13/23 15:59 23:59 07:59 Intake Total 50 0 Output Total 150 1500 15 Balance -100 -1500 -15 Laboratory Tests 05/13/23 05:23 05/13/23 05:23 05/12/23 05/12/23 05/13/23 11:22 20:31 05:23 WBC 13.0 H RBC 3.42 L Hgb 9.1 L Hct 29.3 L MCV 85.7 MCH 26.6 MCHC 31.1 L RDW 14.4 Plt Count 207 MPV 10.2 Immature Gran % (Auto) 1.5 H Neut % (Auto) 75.7 H Lymph % (Auto) 12.4 L [place] % (Auto) 8.7 H Eos % (Auto) 1.5 Baso % (Auto) 0.2 Lymph # (Auto) 1.61 [place] # (Auto) 1.1 H Eos # (Auto) 0.2 Baso # (Auto) 0.0 Abs Immat Gran (auto) 0.19 H Absolute Neuts (auto) 9.8 H Absolute Nucleated RBC 0.0 Nucleated RBC % 0.0 Sodium 135 L Potassium 4.7 Chloride 98 Carbon Dioxide 21 L Anion Gap 16 BUN 82 H D Creatinine 7.00 H Estim Creat Clear Calc 6 Estimated GFR 6 L Glucose 55 L* POC Capillary Glucose 95 75 Calcium 8.5 Total Bilirubin 0.7 AST 44 H ALT 37 H Alkaline Phosphatase 71 Total Protein 7.0 Albumin 3.6 Triglycerides 190 H 05/13/23 06:42 WBC RBC Hgb Hct MCV MCH MCHC RDW Plt Count MPV Immature Gran % (Auto) Neut % (Auto) Lymph % (Auto) [place] % (Auto) Eos % (Auto) Baso % (Auto) Lymph # (Auto) [place] # (Auto) Eos # (Auto) Baso # (Auto) Abs Immat Gran (auto) Absolute Neuts (auto) Absolute Nucleated RBC Nucleated RBC % Sodium Potassium Chloride Carbon Dioxide Anion Gap BUN Creatinine Estim Creat Clear Calc Estimated GFR Glucose POC Capillary Glucose 233 H Calcium Total Bilirubin AST ALT Alkaline Phosphatase Total Protein Albumin Triglycerides Post-procedural complaints: none Patient Feedback: Patient satisfied with anesthetic care.
[2023-05-13 09:02] LABS: Glucose Point of Care 106 mg/dl (65-105)
--- NOTE | 2023-05-13 09:11 | PM.IMPN ---
Progress Note: A&P Assessment and Plan (1) Acute kidney injury superimposed on CKD: Code(s): N17.9 - Acute kidney failure, unspecified; N18.9 - Chronic kidney disease, unspecified Status: Acute Assessment and Plan: Patient appears to have chronic kidney disease as her last recorded creatinine were elevated. She has elevated phosphate Presented with elevated creatinine of 1.6 that continued to increase. Appears to have developed ATN. Her creatinine had increased to 6.4 and she continues to have minimal urine output. Patient was given cautious amount of IV fluids after admission but has not made any impact. 04/30 Lasix IV x1 was given with no response. CT scan does not show any obstruction or stones. 05/01 Discussed with machine fixer. In light of worsening renal function, minimal urine output, volume overload, edema and mechanical ventilation, patient was started on hemodialysis. Temporary hemodialysis catheter placed. 05/02 patient will receive her 2nd session of dialysis today. Discontinue sodium bicarbonate 05/03 patient receiving another dialysis session today 05/05 scheduled for another dialysis session today 05/07 Right IJ dialysis catheter was exchanged over a guidewire by surgery since the previous dialysis catheter on the same side was nonfunctional. 05/08 He received dialysis with fluid 4000 mL in fluid removal 05/09 Dialysis with 2887 mL in fluid removal, dialysis had to be stopped because malfunction of dialysis catheter. 05/12 Tunneled dialysis catheter to be placed 05/13 D/ when ok with nephrology and outpatient dialysis (2) Acute respiratory failure with hypoxia and hypercarbia: Code(s): J96.01 - Acute respiratory failure with hypoxia; J96.02 - Acute respiratory failure with hypercapnia Status: Acute Assessment and Plan: Multifactorial acute Respiratory failure secondary to AECOPD, pulmonary edema, ? CAP 04/28 Patient intubated in the ER, 05/08: Extubated COVID and flu PCR negative, nasal MRSA screen negative 04/28 Blood and urine culture negative 04/30 sputum cultures growing stenotrophomonas. Procalcitonin level elevated at 6.4 Rocephin and doxycycline and Bactrim discontinued. Switched to Levaquin 05/03 (continue for 14 days) 05/09 started on cefepime for pneumonia given elevated white blood cell count and chest x-ray findings 05/11 leuk stable, cont cefepime for now (3) NSTEMI (non-ST elevated myocardial infarction): Code(s): I21.4 - Non-ST elevation (NSTEMI) myocardial infarction Status: Acute Assessment and Plan: Patient presented with elevated troponin. EKG reviewed and shows no ST changes Cardiology following and patient is now on aspirin statin, clopidogrel, metoprolol 07/02 cardiac catheterization with right coronary dominant circulation with single-vessel coronary disease with high-grade 90-95% stenosis in the region that was previously stented in this patient's RCA, successful PCI of this RCA stenosis using the PTCA, overlapping long drug-eluting stent which was post dilated with noncompliant balloon at high pressure resulting in excellent patency of the vessel. Echo showed mild left ventricular enlargement with mild concentric hypertrophy.? Mild global hypokinesis with severe hypokinesis to akinesis of the basal inferior and septal segments.? Ejection fraction visually is 40-45%.? Grade 2 diastolic dysfunction is present. Left atrial chamber dimension is severely enlarged. No pulmonary hypertension, no significant valve disease. (4) Congestive heart failure: Code(s): I50.9 - Heart failure, unspecified Status: Acute Assessment and Plan: See above (5) Pulmonary edema: Code(s): J81.1 - Chronic pulmonary edema Status: Acute Assessment and Plan: Continue dialysis with fluid removal (6) COPD (chronic obstructive pulmonary disease): Code(s): J44.9 - Chronic obstructive pulmonary disease, unspecified Status: A
[2023-05-13] MEDS: LORATADINE/PSEUDOEPHEDRINE (*CRX) 10/240 MG TABLET ER 24 HR 1 TAB PO (09:36)
[2023-05-13] MEDS: METOPROLOL TARTRATE 50 MG TAB FEED TUBE ×2 (09:36→20:41)
[2023-05-13] MEDS: ATORVASTATIN 40 MG TABLET 80 MG PO (09:36)
[2023-05-13] MEDS: ASPIRIN 81 MG CHEWABLE TABLET PO (09:36)
[2023-05-13] MEDS: CLOPIDOGREL BISULFATE 75 MG TABLET PO (09:36)
[2023-05-13] MEDS: PANTOPRAZOLE SODIUM IV 40 MG VIAL IV PUSH (09:36)
[2023-05-13] MEDS: FLUTICASONE PROPIONATE 0.05% NA SPR 16 GM BTL (*BKC) 2 SPRAY NASAL (09:37)
[2023-05-13] MEDS: ENOXAPARIN 30 MG/0.3 ML SYRINGE SUB-Q (09:37)
--- NOTE | 2023-05-13 09:44 | PM.PNCARD ---
Progress Note: A&P Assessment and Plan (1) NSTEMI (non-ST elevated myocardial infarction): Code(s): I21.4 - Non-ST elevation (NSTEMI) myocardial infarction Status: Acute Assessment and Plan: Patient has elevated troponin levels (0.019, 0.371, and 1.960) in the setting of acute respiratory failure and acidosis. It does sound like she had been complaining of chest pain over the past couple of weeks, and she has a known history of coronary artery disease. Status post 3.0 x 30 mm drug-eluting stent overlapping previously placed stent at 90-95% stenosis proximal to mid RCA with good results. Continue dual antiplatelet therapy with aspirin 81 mg daily and clopidogrel 75 mg daily. Continue statin and beta topher. Follow H&H. Stable thus far. Echo shows mildly decreased LV systolic function, EF 40-45%, grade 2 diastolic dysfunction. Not on any medical therapy for this because of her renal function. Can initiate GDMT as outpatient. Continue metoprolol and amlodipine Close outpatient follow up Cardiology will sign off, please call with questions (2) Acute respiratory failure with hypoxia and hypercarbia: Code(s): J96.01 - Acute respiratory failure with hypoxia; J96.02 - Acute respiratory failure with hypercapnia Status: Acute Assessment and Plan: Resolved. (3) Congestive heart failure: Code(s): I50.9 - Heart failure, unspecified Status: Acute Assessment and Plan: EF 40-45%. Continue volume management with hemodialysis. Continue to monitor volume status closely. (4) Acute kidney injury superimposed on CKD: Code(s): N17.9 - Acute kidney failure, unspecified; N18.9 - Chronic kidney disease, unspecified Status: Acute Assessment and Plan: Acute fulminant kidney injury. Now on hemodialysis. Management per Nephrology. (5) Anemia: Qualifiers: Anemia type: other cause Code(s): D64.9 - Anemia, unspecified Status: Acute Assessment and Plan: H&H stable. Continue to monitor closely. Platelet count stable. Continue to follow trend. Monitor for bleeding. Subjective Date/time seen: 05/13/23 09:44 Interval history: Patient admitted with shortness of breath and respiratory failure requiring intubation, multifactorial secondary to CHF, COPD, possibly the CAP. Found to have had a non-STEMI with a peak troponin of 1.96. She had transient inferior ST-elevation which has resolved. Unfortunately she developed acute kidney failure. Echo showed EF 40-45%, diastolic dysfunction with hypokinesis of the inferior wall. Date of service 04/29/2023: Recommend aspirin, statin, heparin drip, beta-topher, echo, and anticipate ischemic evaluation with angiogram prior to discharge. Date of service 04/30/2023: Remains intubated sedated, on heparin drip and getting tube feedings. Creatinine has gone up to 4.1; has oliguric acute renal failure. Telemetry shows sinus rhythm/sinus tach with rare PVCs. EKG from 04/29/2023 at 2:06 a.m. shows sinus rhythm, nonspecific T-wave changes, resolution of the inferior ST elevation and no development of inferior Q-waves. Personally reviewed. Date of service 05/01/2023: Remains intubated and sedated. Worsening renal failure. Remains on heparin gtt for now. Possible LHC tomorrow if plan is for dialysis Date of service 05/03/2023: Patient had hemodialysis today. 4 L ultrafiltration removal. Patient remains intubated/sedated. PCI of RCA stenosis with drug-eluting stent overlapping with good results 05/02/2023. Further history obtained from nursing staff and review electronic medical record. Date of service 05/04/2023: Sedation is being weaned this morning. She is following some commands, moving her head trying to open her eyes. She remains intubated. No new issues overnight. She was febrile at 38.1? C last night. Chest x-ray with persistent bilateral lower lung infiltrate. Date of service 05/05/2023: Overal
--- NOTE | 2023-05-13 10:09 | PCPTNOTE ---
Attempted to see patient for PT, however patient refused. Patient reported she has pain in her chest where her dialysis port was placed and that she doesn't want to do anything today. Educated patient on the importance of therapy, patient continued to refuse. RN aware of pain.
--- NOTE | 2023-05-13 10:49 | PCOTNOTE ---
attempted to see Patient at this time. Patient refused this A.M., stated she is so tired, very sore from yesterdays procedure. Patient stated she is going to nap now and try back this afternoon.
[2023-05-13 12:29] LABS: Glucose Point of Care 66 mg/dl (65-105)
--- NOTE | 2023-05-13 12:53 | PCOTNOTE ---
Attempted to see Patient for OT services at this time. Patient is out of the room, taken for dialysis.
--- NOTE | 2023-05-13 13:21 | P.PNNP_ITS ---
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) * ARB use * cardiac event/NSTEMI * hypoxia * relative hypotension * no improvement with trial of IVFs or IV lasix * evaluation to date: * no evidence of obstruction of kidneys by imaging * urine electrolyts non-prerenal * UA suggestibe of infection - culture negative * urine eosinophils negative * proteinuria noted (but in the context of possible infection/UTI) * CPK mildly elevated - not enough to affect kidneys * plan HD today and continue T/T/S schedule while hospitalized * follow trend of labs and UOP for potential renal recovery * will need outpatient dialysis on discharge (2) Stage 3b chronic kidney disease: Code(s): N18.32 - Chronic kidney disease, stage 3b Status: Chronic Assessment and Plan: * has baseline CKD or is this just random fluctuations in baseline kidney functi on??? * creatinine running around 1.3 - 1.7mg/dl by recent labs done at [facility] * HOWEVER, labs review from other hospitalizations at other facilities demonstrate that her creatinine has been as low as 0.9mg/dl in this year.... * however, perhaps this normal creatinine value could be dilutional from her previous bouts of CHF... * risk factors for CKD include HTN, vascular disease (CAD/CHF), and age (3) Acute respiratory failure with hypoxia and hypercarbia: Code(s): J96.01 - Acute respiratory failure with hypoxia; J96.02 - Acute respiratory failure with hypercapnia Status: Acute Assessment and Plan: * improving * extubated (on 05/08/23) * multifactorial etiology: * COPD exacerbation * pulmonary edema * pneumonia * other? * s/p steroids and on bronchodilators * viral testing negative to date * antibiotics for pneumonia * follow culture data * continue supportive therapy (4) NSTEMI (non-ST elevated myocardial infarction): Code(s): I21.4 - Non-ST elevation (NSTEMI) myocardial infarction Status: Acute Assessment and Plan: * elevated troponins noted on admission * no acute EKG changes noted * Cardiology recommendations noted * Echo with EF of 40-45% and grade 2 diastolic dysfunction with no pulmonary hypertension. * s/p cardiac catheterization on 05/02: PCI of RCA stenosis with drug-eluting stent overlapping with good results (5) Congestive heart failure: Code(s): I50.9 - Heart failure, unspecified Status: Acute Assessment and Plan: * known apparent history * evidence of pulmonary edema by admission imaging * Echo with EF of 40-45% with grade 2 diastolic dysfunction * continue fluid removal with dialysis as tolerated (6) COPD (chronic obstructive pulmonary disease): Code(s): J44.9 - Chronic obstructive pulmonary disease, unspecified Status: Acute Assessment and Plan: * s/p steroids and remains on bronchodilators * see #3 * continue supportive therapy Will continue to follow. Subjective Date/time seen: 05/13/23 13:21 Interval history: Follow-up for acute kidney injury/acute renal failure (possibly on chronic kidney disease). Tolerating dialysis treatment at the time of my visit (seen on HD at 1:10PM); s/p tunneled HD catheter yesterday afternoon followed by dialysis treatment
--- NOTE | 2023-05-13 13:21 | PM.PNNEP ---
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 cardiac event/NSTEMI hypoxia relative hypotension no improvement with trial of IVFs or IV lasix evaluation to date: no evidence of obstruction of kidneys by imaging urine electrolyts non-prerenal UA suggestibe of infection - culture negative urine eosinophils negative proteinuria noted (but in the context of possible infection/UTI) CPK mildly elevated - not enough to affect kidneys plan HD today and continue T/T/S schedule while hospitalized follow trend of labs and UOP for potential renal recovery will need outpatient dialysis on discharge (2) Stage 3b chronic kidney disease: Code(s): N18.32 - Chronic kidney disease, stage 3b Status: Chronic Assessment and Plan: has baseline CKD or is this just random fluctuations in baseline kidney function??? creatinine running around 1.3 - 1.7mg/dl by recent labs done at [facility] HOWEVER, labs review from other hospitalizations at other facilities demonstrate that her creatinine has been as low as 0.9mg/dl in this year.... however, perhaps this normal creatinine value could be dilutional from her previous bouts of CHF... risk factors for CKD include HTN, vascular disease (CAD/CHF), and age (3) Acute respiratory failure with hypoxia and hypercarbia: Code(s): J96.01 - Acute respiratory failure with hypoxia; J96.02 - Acute respiratory failure with hypercapnia Status: Acute Assessment and Plan: improving extubated (on 05/08/23) multifactorial etiology: COPD exacerbation pulmonary edema pneumonia other? s/p steroids and on bronchodilators viral testing negative to date antibiotics for pneumonia follow culture data continue supportive therapy (4) NSTEMI (non-ST elevated myocardial infarction): Code(s): I21.4 - Non-ST elevation (NSTEMI) myocardial infarction Status: Acute Assessment and Plan: elevated troponins noted on admission no acute EKG changes noted Cardiology recommendations noted Echo with EF of 40-45% and grade 2 diastolic dysfunction with no pulmonary hypertension. s/p cardiac catheterization on 05/02: PCI of RCA stenosis with drug-eluting stent overlapping with good results (5) Congestive heart failure: Code(s): I50.9 - Heart failure, unspecified Status: Acute Assessment and Plan: known apparent history evidence of pulmonary edema by admission imaging Echo with EF of 40-45% with grade 2 diastolic dysfunction continue fluid removal with dialysis as tolerated (6) COPD (chronic obstructive pulmonary disease): Code(s): J44.9 - Chronic obstructive pulmonary disease, unspecified Status: Acute Assessment and Plan: s/p steroids and remains on bronchodilators see #3 continue supportive therapy Will continue to follow. Subjective Date/time seen: 05/13/23 13:21 Interval history: Follow-up for acute kidney injury/acute renal failure (possibly on chronic kidney disease). Tolerating dialysis treatment at the time of my visit (seen on HD at 1:10PM); s/p tunneled HD catheter yesterday afternoon followed by dialysis treatment -- she tolerated both of these interventions reasonably well; no apparent distress voiced currently; still with minimal urine output at this time. Exam Narrative: General: elderly female in NAD Heart: normal S1 and S2; no rub Lungs: coarse breath sounds Abdomen: soft, nontender, nondistended, positive bowel sounds Extremities: trace edema present Skin: warm and dry Objective Data Vital Signs Vital Signs: Vital Signs Temp Pulse Resp BP Pulse Ox O2 Del Method O2 F
[2023-05-13] MEDS: EPOETIN ALFA-EPBX 10,000 UNITS/ML VIAL 10000 UNITS IV PUSH (14:43)
[2023-05-13] MEDS: SODIUM CHLORIDE 0.9% IV 1,000 ML 999 ML IV CONT (14:45)
--- NOTE | 2023-05-13 15:07 | PCPTNOTE ---
The patient treatment was not able to be completed on 05/13/2023 due to patient out of the room for dialysis. Will plan to continue treatment per plan of care.
[2023-05-13] MEDS: levoFLOXacin 500 MG TABLET PO (15:56)
[2023-05-13] MEDS: CEFEPIME 1 GM/NS 50 ML 1 GM/50 ML BAG IVPB (15:56)
[2023-05-13 17:19] LABS: Glucose Point of Care 75 mg/dl (65-105)
[2023-05-13 20:41] LABS: Glucose Point of Care 71 mg/dl (65-105)
[2023-05-14] VITALS (22 sets, daily range): BP systolic 72–115; BP diastolic 45–63; PULSE 76–102; RESP 17–20; TEMP 36.1–36.5; O2SAT 93–98
[2023-05-14] MEDS: LEVALBUTEROL NEB 1.25 MG/3 ML INHALATION ×4 (00:50→21:37)
[2023-05-14] MEDS: IPRATROPIUM BR 0.02% INH SOLN 0.5 MG/2.5 ML VIAL INHALATION ×4 (00:50→21:37)
[2023-05-14 04:49] LABS: Basophils Percent Auto 0.3 % (0.2-1.2); Eosinophils Absolute Auto 0.2 K/mm3 (0-0.3); Eosinophils Percent Auto 1.2 % (0-4.4); Hematocrit 32.9 % (37.0-47.0); Hemoglobin 9.9 g/dL (12.0-15.0); Immature Granulocyte Absolute 0.18 K/mm3 (0.00-0.031); Immature Granulocyte Percent A 1.2 % (0-0.5); Lymphocytes Absolute Auto 1.99 K/mm3 (0.9-3.2); Lymphocytes Percent Auto 13.2 % (18.3-44.2); Mean Corpuscular HGB Conc 30.1 g/dl (32-36); Mean Corpuscular Hemoglobin 26.5 pg (26-34); Mean Platelet Volume 10.2 fl (7.4-10.4); Monocytes Absolute Auto 1.5 K/mm3 (0.1-0.6); Monocytes Percent Auto 10.1 % (2.6-8.5); Neutrophils Absolute Auto 11.2 K/mm3 (1.3-6.7); Platelet Count Result 225 k/mm3 (150-375); Red Blood Count 3.74 M/mm3 (4.2-5.4); Red Cell Distribution Width 14.5 % (11.5-14.5); White Blood Count 15.1 K/mm3 (4.5-10.0)
[2023-05-14 05:03] LABS: Alanine Aminotransferase 44 U/L (6-35); Albumin Level 3.9 g/dL (3.5-5.1); Alkaline Phosphatase 80 U/L (38-126); Anion Gap 12 mmol/L (8-16); Aspartate Amino Transferase 57 U/L (14-36); Bilirubin,Total 0.8 mg/dL (0.2-1.3); Blood Urea Nitrogen 51 mg/dL (7-17); Calcium 8.4 mg/dL (8.4-10.2); Carbon Dioxide 24 mmol/L (22-30); Chloride 98 mmol/L (98-107); Estimated CRCL calculation 8 ml/min; Estimated Glomerular Filt Rate 7; Glucose 61 mg/dL (65-110); Potassium 4.6 mmol/L (3.4-5.0); Sodium 134 mmol/L (137-145)
[2023-05-14 08:20] LABS: Glucose Point of Care 82 mg/dl (65-105)
[2023-05-14] MEDS: ATORVASTATIN 40 MG TABLET 80 MG PO (08:55)
[2023-05-14] MEDS: FLUTICASONE PROPIONATE 0.05% NA SPR 16 GM BTL (*BKC) 2 SPRAY NASAL (08:55)
[2023-05-14] MEDS: METOPROLOL TARTRATE 50 MG TAB FEED TUBE (08:55)
[2023-05-14] MEDS: PANTOPRAZOLE SODIUM IV 40 MG VIAL IV PUSH (08:55)
[2023-05-14] MEDS: LORATADINE/PSEUDOEPHEDRINE (*CRX) 10/240 MG TABLET ER 24 HR 1 TAB PO (08:55)
[2023-05-14] MEDS: ENOXAPARIN 30 MG/0.3 ML SYRINGE SUB-Q (09:42)
[2023-05-14] MEDS: CLOPIDOGREL BISULFATE 75 MG TABLET PO (09:42)
[2023-05-14] MEDS: ASPIRIN 81 MG CHEWABLE TABLET PO (09:42)
--- NOTE | 2023-05-14 10:28 | PM.PNGS ---
Progress Note: A&P Assessment and Plan (1) Hemodialysis catheter malfunction: Code(s): T82.41XA - Breakdown (mechanical) of vascular dialysis catheter, initial encounter Status: Acute Assessment and Plan: Postop day 2 from right IJ tunneled dialysis catheter placement by Dr. Prieto. There is some slow oozing from the catheter following dialysis yesterday. She is getting Plavix, ASA 81 mg, prophylactic-dosed and renally dosed Lovenox, and heparin flushes during dialysis. Discussed with Dr. Prieto after holding pressure and applying the pressure dressing. He recommends to keep the pressure dressing in place until her next treatment unless completely saturated. Also recommended to stop any anticoagulants if at all possible to minimize her anticoagulation. If she continues to have issues with bleeding, we can also attempt applying Surgicel. Will continue to follow. Plan I have discussed the patient's case and plan of care with Dr. Prieto. Subjective Subjective Date/Time Seen: 05/14/23 10:28 Post Op day: 2 (Insertion of right IJ tunneled dialysis catheter) Interval history: I was called by Dr. Prieto to evaluate the patient as nursing called regarding bleeding at the tunneled catheter. Per nursing, they are having to frequently change the right chest dressing at the catheter insertion site due to bleeding. She has already changed the dressing this morning and it was changed in dialysis yesterday. The dressing put on at 8 am has a small amount of bloody drainage on it now. The nurse reports a clot where over the dialysis catheter. They tried to put an IV fluid liter bag on the site for pressure without any relief. Exam Narrative: Right neck incision healing well with some localized ecchymosis. Right chest with tunneled catheter dressing removed with small amount of sanguineous drainage, there is a blood clot around the base of the catheter right at the level of the skin with very slow oozing of bloody drainage at this area. The oozing is so slow that it is no even dripping down the skin. I held manual pressure at this area for 5 minutes, oozing improved. I applied a pressure gauze dressing to the catheter. Const: General: comfortable and no acute distress Orientation/consciousness: patient oriented x3 Objective Data Vital Signs Vital Signs: Vital Signs - 24 hr 05/13/23 12:03 05/13/23 12:12 05/13/23 12:27 Temperature 97.8 F Pulse Rate 84 79 78 Respiratory Rate 18 Blood Pressure 121/67 121/67 Pulse Oximetry Oxygen Delivery 05/13/23 12:30 05/13/23 12:00 05/13/23 12:45 Temperature Pulse Rate 80 76 77 Respiratory Rate Blood Pressure 124/67 102/56 L Pulse Oximetry Oxygen Delivery 05/13/23 13:00 05/13/23 13:15 05/13/23 13:30 Temperature Pulse Rate 78 76 78 Respiratory Rate Blood Pressure 110/85 109/60 111/60 Pulse Oximetry Oxygen Delivery 05/13/23 13:45 05/13/23 14:00 05/13/23 14:15 Temperature Pulse Rate 79 78 82 Respiratory Rate Blood Pressure 109/60 104/59 L 101/57 L Pulse Oximetry Oxygen Delivery 05/13/23 14:30 05/13/23 14:45 05/13/23 15:00 Temperature Pulse Rate 82 83 84 Respiratory Rate Blood Pressure 102/50 L 98/55 L 98/54 L Pulse Oximetry Oxygen Delivery 05/13/23 15:32 05/13/23 15:15 05/13/23 15:20 Temperature 97.3 F L Pulse Rate 88 85 86 Respiratory Rate 16 Blood Pressure 95/55 L 85/50 L 96/49 L Pulse Oximetry Oxygen Delivery 05/13/23 16:19 05/13/23 16:00 05/13/23 20:36 Temperature 97.4 F L Pulse Rate 92 93 87 Respiratory Rate 18 18 Blood Pressure 109/58 L Pulse Oximetry 99 Oxygen Delivery 05/13/23 20:36 05/13/23 20:00 05/13/23 20:41 Temperature 97.7 F Pulse Rate 97 99 Respiratory Rate 18 Blood Pressure 114/58 L Pulse Oximetry 93 93 Oxygen Delivery Room Air 05/13/23 20:00 05/13/23 20:00 05/14/23 00:12 Temperature 97.7 F Pulse Rate 97 96 Respiratory Rate
--- NOTE | 2023-05-14 10:58 | PCPTNOTE ---
Attempted to see patient for PT, however patient refused. Encouraged and educated patient on the importance of therapy and working with therapy. Care coordination in room to educate patient on the importance of participating with PT. Patient continued to refuse and reported she didn't want to deal with it right now.
[2023-05-14 11:50] LABS: Glucose Point of Care 84 mg/dl (65-105)
--- NOTE | 2023-05-14 11:58 | PCOTNOTE ---
Patient attempted for therapy treatment at this time. Patient refused to participate. Patient's RN and intensive care medicine specialist have spoke with Patient about the importance of activity.
--- NOTE | 2023-05-14 12:30 | PM.PNNEP ---
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 cardiac event/NSTEMI hypoxia relative hypotension no improvement with trial of IVFs or IV lasix evaluation to date: no evidence of obstruction of kidneys by imaging urine electrolyts non-prerenal UA suggestibe of infection - culture negative urine eosinophils negative proteinuria noted (but in the context of possible infection/UTI) CPK mildly elevated - not enough to affect kidneys plan HD tomorrow and continue T/T/S schedule while hospitalized follow trend of labs and UOP for potential renal recovery will need outpatient dialysis on discharge (2) Stage 3b chronic kidney disease: Code(s): N18.32 - Chronic kidney disease, stage 3b Status: Chronic Assessment and Plan: has baseline CKD or is this just random fluctuations in baseline kidney function??? creatinine running around 1.3 - 1.7mg/dl by recent labs done at [facility] HOWEVER, labs review from other hospitalizations at other facilities demonstrate that her creatinine has been as low as 0.9mg/dl in this year.... however, perhaps this normal creatinine value could be dilutional from her previous bouts of CHF... risk factors for CKD include HTN, vascular disease (CAD/CHF), and age (3) Acute respiratory failure with hypoxia and hypercarbia: Code(s): J96.01 - Acute respiratory failure with hypoxia; J96.02 - Acute respiratory failure with hypercapnia Status: Acute Assessment and Plan: resolved extubated (on 05/08/23) multifactorial etiology: COPD exacerbation pulmonary edema pneumonia other? s/p steroids and on bronchodilators viral testing negative to date antibiotics for pneumonia follow culture data continue supportive therapy (4) NSTEMI (non-ST elevated myocardial infarction): Code(s): I21.4 - Non-ST elevation (NSTEMI) myocardial infarction Status: Acute Assessment and Plan: elevated troponins noted on admission no acute EKG changes noted Cardiology recommendations noted Echo with EF of 40-45% and grade 2 diastolic dysfunction with no pulmonary hypertension. s/p cardiac catheterization on 05/02: PCI of RCA stenosis with drug-eluting stent overlapping with good results (5) Congestive heart failure: Code(s): I50.9 - Heart failure, unspecified Status: Acute Assessment and Plan: known apparent history evidence of pulmonary edema by admission imaging Echo with EF of 40-45% with grade 2 diastolic dysfunction continue fluid removal with dialysis as tolerated (6) COPD (chronic obstructive pulmonary disease): Code(s): J44.9 - Chronic obstructive pulmonary disease, unspecified Status: Acute Assessment and Plan: s/p steroids and remains on bronchodilators see #3 continue supportive therapy Not opposed to discharge from renal perspective if otherwise medically stable and outpatient dialysis schedule/facility has been finalized. Will continue to follow. Subjective Date/time seen: 05/14/23 12:30 Interval history: Follow-up for acute kidney injury/acute renal failure (possibly on chronic kidney disease). Tolerated dialysis yesterday without any issues or problems; has been having on/off issues with bleeding/oozing from tunneled dialysis catheter exit site despite pressure dressings; otherwise, appears to be doing reasonably well. Exam Narrative: General: elderly female in NAD Heart: normal S1 and S2; no rub Lungs: clear anteriorly; coarse at bases Abdomen: soft, nontender, nondistended, positive bowel sounds Extremities: trace edema present Skin: warm and intact Objective Data Vital Si
--- NOTE | 2023-05-14 12:30 | P.PNNP_ITS ---
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 (on lasix CARD CUTTER) * ARB use * cardiac event/NSTEMI * hypoxia * relative hypotension * no improvement with trial of IVFs or IV lasix * evaluation to date: * no evidence of obstruction of kidneys by imaging * urine electrolyts non-prerenal * UA suggestibe of infection - culture negative * urine eosinophils negative * proteinuria noted (but in the context of possible infection/UTI) * CPK mildly elevated - not enough to affect kidneys * plan HD tomorrow and continue T/T/S schedule while hospitalized * follow trend of labs and UOP for potential renal recovery * will need outpatient dialysis on discharge (2) Stage 3b chronic kidney disease: Code(s): N18.32 - Chronic kidney disease, stage 3b Status: Chronic Assessment and Plan: * has baseline CKD or is this just random fluctuations in baseline kidney fun ction??? * creatinine running around 1.3 - 1.7mg/dl by recent labs done at [facility] * HOWEVER, labs review from other hospitalizations at other facilities demonstrate that her creatinine has been as low as 0.9mg/dl in this year.... * however, perhaps this normal creatinine value could be dilutional from her previous bouts of CHF... * risk factors for CKD include HTN, vascular disease (CAD/CHF), and age (3) Acute respiratory failure with hypoxia and hypercarbia: Code(s): J96.01 - Acute respiratory failure with hypoxia; J96.02 - Acute respiratory failure with hypercapnia Status: Acute Assessment and Plan: * resolved * extubated (on 05/08/23) * multifactorial etiology: * COPD exacerbation * pulmonary edema * pneumonia * other? * s/p steroids and on bronchodilators * viral testing negative to date * antibiotics for pneumonia * follow culture data * continue supportive therapy (4) NSTEMI (non-ST elevated myocardial infarction): Code(s): I21.4 - Non-ST elevation (NSTEMI) myocardial infarction Status: Acute Assessment and Plan: * elevated troponins noted on admission * no acute EKG changes noted * Cardiology recommendations noted * Echo with EF of 40-45% and grade 2 diastolic dysfunction with no pulmonary hypertension. * s/p cardiac catheterization on 05/02: PCI of RCA stenosis with drug-eluting stent overlapping with good results (5) Congestive heart failure: Code(s): I50.9 - Heart failure, unspecified Status: Acute Assessment and Plan: * known apparent history * evidence of pulmonary edema by admission imaging * Echo with EF of 40-45% with grade 2 diastolic dysfunction * continue fluid removal with dialysis as tolerated (6) COPD (chronic obstructive pulmonary disease): Code(s): J44.9 - Chronic obstructive pulmonary disease, unspecified Status: Acute Assessment and Plan: * s/p steroids and remains on bronchodilators * see #3 * continue supportive therapy Not opposed to discharge from renal perspective if otherwise medically stable and outpatient dialysis schedule/facility has been finalized. Will continue to follow. Subjective Date/time seen: 05/14/23 12:30 Interval history: Follow-up for acute kidney injury/acute renal failure (possibly on chronic kidney disease).
[2023-05-14] MEDS: CEFEPIME 1 GM/NS 50 ML 1 GM/50 ML BAG IVPB (12:47)
--- NOTE | 2023-05-14 14:00 | PM.IMPN ---
Progress Note: A&P Assessment and Plan (1) Acute kidney injury superimposed on CKD: Code(s): N17.9 - Acute kidney failure, unspecified; N18.9 - Chronic kidney disease, unspecified Status: Acute Assessment and Plan: Patient appears to have chronic kidney disease as her last recorded creatinine were elevated. She has elevated phosphate Presented with elevated creatinine of 1.6 that continued to increase. Appears to have developed ATN. Her creatinine had increased to 6.4 and she continues to have minimal urine output. Patient was given cautious amount of IV fluids after admission but has not made any impact. 04/30 Lasix IV x1 was given with no response. CT scan does not show any obstruction or stones. 05/01 Discussed with machine maintenance mechanic. In light of worsening renal function, minimal urine output, volume overload, edema and mechanical ventilation, patient was started on hemodialysis. Temporary hemodialysis catheter placed. 05/02 patient will receive her 2nd session of dialysis today. Discontinue sodium bicarbonate 05/03 patient receiving another dialysis session today 05/05 scheduled for another dialysis session today 05/07 Right IJ dialysis catheter was exchanged over a guidewire by surgery since the previous dialysis catheter on the same side was nonfunctional. 05/08 He received dialysis with fluid 4000 mL in fluid removal 05/09 Dialysis with 2887 mL in fluid removal, dialysis had to be stopped because malfunction of dialysis catheter. 05/12 Tunneled dialysis catheter to be placed 05/13 D/ when ok with nephrology and outpatient dialysis Recovering well. Discharge planning in process (2) Acute respiratory failure with hypoxia and hypercarbia: Code(s): J96.01 - Acute respiratory failure with hypoxia; J96.02 - Acute respiratory failure with hypercapnia Status: Acute Assessment and Plan: Multifactorial acute Respiratory failure secondary to AECOPD, pulmonary edema, ? CAP 04/28 Patient intubated in the ER, 05/08: Extubated COVID and flu PCR negative, nasal MRSA screen negative 04/28 Blood and urine culture negative 04/30 sputum cultures growing stenotrophomonas. Procalcitonin level elevated at 6.4 Rocephin and doxycycline and Bactrim discontinued. Switched to Levaquin 05/03 (continue for 14 days) 05/09 started on cefepime for pneumonia given elevated white blood cell count and chest x-ray findings 05/11 leuk stable, Cont cefepime through tomorrow. Continue Levaquin (3) NSTEMI (non-ST elevated myocardial infarction): Code(s): I21.4 - Non-ST elevation (NSTEMI) myocardial infarction Status: Acute Assessment and Plan: Patient presented with elevated troponin. EKG reviewed and shows no ST changes Cardiology following and patient is now on aspirin statin, clopidogrel, metoprolol 07/02 cardiac catheterization with right coronary dominant circulation with single-vessel coronary disease with high-grade 90-95% stenosis in the region that was previously stented in this patient's RCA, successful PCI of this RCA stenosis using the PTCA, overlapping long drug-eluting stent which was post dilated with noncompliant balloon at high pressure resulting in excellent patency of the vessel. Echo showed mild left ventricular enlargement with mild concentric hypertrophy.? Mild global hypokinesis with severe hypokinesis to akinesis of the basal inferior and septal segments.? Ejection fraction visually is 40-45%.? Grade 2 diastolic dysfunction is present. Left atrial chamber dimension is severely enlarged. No pulmonary hypertension, no significant valve disease. (4) Congestive heart failure: Code(s): I50.9 - Heart failure, unspecified Status: Acute Assessment and Plan: See above (5) Pulmonary edema: Code(s): J81.1 - Chronic pulmonary edema Status: Acute Assessment and Plan: Continue dialysis with fluid removal (6) COPD (chronic obstructive pulmonary disease): Code(
[2023-05-14 16:46] LABS: Glucose Point of Care 73 mg/dl (65-105)
[2023-05-14] MEDS: METOPROLOL TARTRATE 50 MG TAB BY MOUTH (21:00)
[2023-05-15] VITALS (31 sets, daily range): BP systolic 91–129; BP diastolic 51–80; PULSE 81–106; RESP 18–20; TEMP 36.1–37; O2SAT 97–99
[2023-05-15] MEDS: ACETAMINOPHEN 500 MG TABLET 1000 MG PO (04:02)
[2023-05-15 04:44] LABS: Basophils Absolute Auto 0.1 K/mm3 (0.0-0.1); Basophils Percent Auto 0.4 % (0.2-1.2); Eosinophils Absolute Auto 0.3 K/mm3 (0-0.3); Eosinophils Percent Auto 2.1 % (0-4.4); Hematocrit 30.4 % (37.0-47.0); Hemoglobin 9.3 g/dL (12.0-15.0); Immature Granulocyte Absolute 0.19 K/mm3 (0.00-0.031); Immature Granulocyte Percent A 1.2 % (0-0.5); Lymphocytes Absolute Auto 2.33 K/mm3 (0.9-3.2); Mean Corpuscular HGB Conc 30.6 g/dl (32-36); Mean Corpuscular Hemoglobin 27.1 pg (26-34); Mean Corpuscular Volume 88.6 fl (80-100); Mean Platelet Volume 10.3 fl (7.4-10.4); Monocytes Absolute Auto 1.5 K/mm3 (0.1-0.6); Monocytes Percent Auto 9.5 % (2.6-8.5); Neutrophils Absolute Auto 11.2 K/mm3 (1.3-6.7); Neutrophils Percent Auto 71.8 % (45.5-73.1); Platelet Count Result 222 k/mm3 (150-375); Red Blood Count 3.43 M/mm3 (4.2-5.4); Red Cell Distribution Width 14.5 % (11.5-14.5); White Blood Count 15.6 K/mm3 (4.5-10.0)
[2023-05-15 05:00] LABS: Alanine Aminotransferase 49 U/L (6-35); Albumin Level 3.9 g/dL (3.5-5.1); Alkaline Phosphatase 75 U/L (38-126); Anion Gap 17 mmol/L (8-16); Aspartate Amino Transferase 56 U/L (14-36); Bilirubin,Total 0.8 mg/dL (0.2-1.3); Blood Urea Nitrogen 67 mg/dL (7-17); Calcium 8.5 mg/dL (8.4-10.2); Carbon Dioxide 20 mmol/L (22-30); Chloride 97 mmol/L (98-107); Glucose 59 mg/dL (65-110); Magnesium 2.2 mg/dL (1.6-2.3); Potassium 4.7 mmol/L (3.4-5.0); Sodium 134 mmol/L (137-145)
[2023-05-15 05:04] LABS: Estimated CRCL calculation 6 ml/min; Estimated Glomerular Filt Rate 6
[2023-05-15 05:30] LABS: Glucose Point of Care 93 mg/dl (65-105)
[2023-05-15 07:31] LABS: Glucose Point of Care 88 mg/dl (65-105)
--- NOTE | 2023-05-15 10:20 | P.PNNP_ITS ---
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) * ARB use * cardiac event/NSTEMI * hypoxia * relative hypotension * no improvement with trial of IVFs or IV lasix * evaluation to date: * no evidence of obstruction of kidneys by imaging * urine electrolyts non-prerenal * UA suggestibe of infection - culture negative * urine eosinophils negative * proteinuria noted (but in the context of possible infection/UTI) * CPK mildly elevated - not enough to affect kidneys * HD today and continue T/T/S schedule while hospitalized * follow trend of labs and UOP for potential renal recovery * will need outpatient dialysis on discharge (2) Stage 3b chronic kidney disease: Code(s): N18.32 - Chronic kidney disease, stage 3b Status: Chronic Assessment and Plan: * has baseline CKD or is this just random fluctuations in baseline kidney function??? * creatinine running around 1.3 - 1.7mg/dl by recent labs done at [facility] * HOWEVER, labs review from other hospitalizations at other facilities demonstrate that her creatinine has been as low as 0.9mg/dl in this year.... * however, perhaps this normal creatinine value could be dilutional from her previous bouts of CHF... * risk factors for CKD include HTN, vascular disease (CAD/CHF), and age (3) Acute respiratory failure with hypoxia and hypercarbia: Code(s): J96.01 - Acute respiratory failure with hypoxia; J96.02 - Acute respiratory failure with hypercapnia Status: Acute Assessment and Plan: * resolved * extubated (on 05/08/23) * multifactorial etiology: * COPD exacerbation * pulmonary edema * pneumonia * other? * s/p steroids and on bronchodilators * viral testing negative to date * antibiotics for pneumonia * follow culture data * continue supportive therapy (4) NSTEMI (non-ST elevated myocardial infarction): Code(s): I21.4 - Non-ST elevation (NSTEMI) myocardial infarction Status: Acute Assessment and Plan: * elevated troponins noted on admission * no acute EKG changes noted * Cardiology recommendations noted * Echo with EF of 40-45% and grade 2 diastolic dysfunction with no pulmonary hypertension. * s/p cardiac catheterization on 05/02: PCI of RCA stenosis with drug-eluting stent overlapping with good results (5) Congestive heart failure: Code(s): I50.9 - Heart failure, unspecified Status: Acute Assessment and Plan: * known apparent history * evidence of pulmonary edema by admission imaging * Echo with EF of 40-45% with grade 2 diastolic dysfunction * continue fluid removal with dialysis as tolerated (6) COPD (chronic obstructive pulmonary disease): Code(s): J44.9 - Chronic obstructive pulmonary disease, unspecified Status: Acute Assessment and Plan: * s/p steroids and remains on bronchodilators * see #3 * continue supportive therapy Not opposed to discharge from renal perspective if otherwise medically stable and outpatient dialysis schedule/facility has been finalized. Will continue to follow. Subjective Date/time seen: 05/15/23 10:20 Interval history: Follow-up for acute kidney injury/acute renal failure (possibly on chronic kidney disease). Tolerati
--- NOTE | 2023-05-15 10:20 | PM.PNNEP ---
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) ARB use cardiac event/NSTEMI hypoxia relative hypotension no improvement with trial of IVFs or IV lasix evaluation to date: no evidence of obstruction of kidneys by imaging urine electrolyts non-prerenal UA suggestibe of infection - culture negative urine eosinophils negative proteinuria noted (but in the context of possible infection/UTI) CPK mildly elevated - not enough to affect kidneys HD today and continue T/T/S schedule while hospitalized follow trend of labs and UOP for potential renal recovery will need outpatient dialysis on discharge (2) Stage 3b chronic kidney disease: Code(s): N18.32 - Chronic kidney disease, stage 3b Status: Chronic Assessment and Plan: has baseline CKD or is this just random fluctuations in baseline kidney function??? creatinine running around 1.3 - 1.7mg/dl by recent labs done at [facility] HOWEVER, labs review from other hospitalizations at other facilities demonstrate that her creatinine has been as low as 0.9mg/dl in this year.... however, perhaps this normal creatinine value could be dilutional from her previous bouts of CHF... risk factors for CKD include HTN, vascular disease (CAD/CHF), and age (3) Acute respiratory failure with hypoxia and hypercarbia: Code(s): J96.01 - Acute respiratory failure with hypoxia; J96.02 - Acute respiratory failure with hypercapnia Status: Acute Assessment and Plan: resolved extubated (on 05/08/23) multifactorial etiology: COPD exacerbation pulmonary edema pneumonia other? s/p steroids and on bronchodilators viral testing negative to date antibiotics for pneumonia follow culture data continue supportive therapy (4) NSTEMI (non-ST elevated myocardial infarction): Code(s): I21.4 - Non-ST elevation (NSTEMI) myocardial infarction Status: Acute Assessment and Plan: elevated troponins noted on admission no acute EKG changes noted Cardiology recommendations noted Echo with EF of 40-45% and grade 2 diastolic dysfunction with no pulmonary hypertension. s/p cardiac catheterization on 05/02: PCI of RCA stenosis with drug-eluting stent overlapping with good results (5) Congestive heart failure: Code(s): I50.9 - Heart failure, unspecified Status: Acute Assessment and Plan: known apparent history evidence of pulmonary edema by admission imaging Echo with EF of 40-45% with grade 2 diastolic dysfunction continue fluid removal with dialysis as tolerated (6) COPD (chronic obstructive pulmonary disease): Code(s): J44.9 - Chronic obstructive pulmonary disease, unspecified Status: Acute Assessment and Plan: s/p steroids and remains on bronchodilators see #3 continue supportive therapy Not opposed to discharge from renal perspective if otherwise medically stable and outpatient dialysis schedule/facility has been finalized. Will continue to follow. Subjective Date/time seen: 05/15/23 10:20 Interval history: Follow-up for acute kidney injury/acute renal failure (possibly on chronic kidney disease). Tolerating dialysis treatment reasonably well at the time of my visit (seen on HD at 10:10AM); still with some oozing at tunnleled HD catheter exit site; unfortunately, HD catheter blood flows with dialysis treatment are suboptimal as well; no acute distress noted; pleuritic chest pain symptoms reported. Exam Narrative: General: elderly female in NAD Heart: normal S1 and S2; no rub Lungs: clear anteriorly; coarse at bases Abdomen: soft, nontender, nondistended, positive bowel sounds Extremities: tra
[2023-05-15] MEDS: EPOETIN ALFA-EPBX 10,000 UNITS/ML VIAL 10000 UNITS IV PUSH (10:44)
[2023-05-15] MEDS: CEFEPIME 1 GM/NS 50 ML 1 GM/50 ML BAG IVPB (12:46)
[2023-05-15] MEDS: ATORVASTATIN 40 MG TABLET 80 MG PO (12:46)
[2023-05-15] MEDS: ENOXAPARIN 30 MG/0.3 ML SYRINGE SUB-Q (12:47)
[2023-05-15] MEDS: PANTOPRAZOLE 40 MG TABLET PO (12:47)
[2023-05-15] MEDS: METOPROLOL TARTRATE 50 MG TAB BY MOUTH ×2 (12:47→20:21)
[2023-05-15] MEDS: CLOPIDOGREL BISULFATE 75 MG TABLET PO (12:47)
[2023-05-15] MEDS: FLUTICASONE PROPIONATE 0.05% NA SPR 16 GM BTL (*BKC) 2 SPRAY NASAL (12:47)
[2023-05-15] MEDS: ASPIRIN 81 MG CHEWABLE TABLET PO (12:47)
[2023-05-15] MEDS: levoFLOXacin 500 MG TABLET PO (12:48)
--- NOTE | 2023-05-15 12:58 | PM.IMPN ---
Progress Note: A&P Assessment and Plan (1) Acute kidney injury superimposed on CKD: Code(s): N17.9 - Acute kidney failure, unspecified; N18.9 - Chronic kidney disease, unspecified Status: Acute Assessment and Plan: Patient appears to have chronic kidney disease as her last recorded creatinine were elevated. She has elevated phosphate Presented with elevated creatinine of 1.6 that continued to increase. Appears to have developed ATN. Her creatinine had increased to 6.4 and she continues to have minimal urine output. Patient was given cautious amount of IV fluids after admission but has not made any impact. 04/30 Lasix IV x1 was given with no response. CT scan does not show any obstruction or stones. 05/01 Discussed with jigger operator. In light of worsening renal function, minimal urine output, volume overload, edema and mechanical ventilation, patient was started on hemodialysis. Temporary hemodialysis catheter placed. 05/02 patient will receive her 2nd session of dialysis today. Discontinue sodium bicarbonate 05/03 patient receiving another dialysis session today 05/05 scheduled for another dialysis session today 05/07 Right IJ dialysis catheter was exchanged over a guidewire by surgery since the previous dialysis catheter on the same side was nonfunctional. 05/08 He received dialysis with fluid 4000 mL in fluid removal 05/09 Dialysis with 2887 mL in fluid removal, dialysis had to be stopped because malfunction of dialysis catheter. 05/12 Tunneled dialysis catheter to be placed 05/13 D/ when ok with nephrology and outpatient dialysis Recovering well. Remove [place]. Bleeding noted around HD site. Surgery aware and are addresing Discharge planning in process (2) Acute respiratory failure with hypoxia and hypercarbia: Code(s): J96.01 - Acute respiratory failure with hypoxia; J96.02 - Acute respiratory failure with hypercapnia Status: Acute Assessment and Plan: Multifactorial acute Respiratory failure secondary to AECOPD, pulmonary edema, ? CAP 04/28 Patient intubated in the ER, 05/08: Extubated COVID and flu PCR negative, nasal MRSA screen negative 04/28 Blood and urine culture negative 04/30 sputum cultures growing stenotrophomonas. Procalcitonin level elevated at 6.4 Rocephin and doxycycline and Bactrim discontinued. Switched to Levaquin 05/03 (continue for 14 days) 05/09 started on cefepime for pneumonia given elevated white blood cell count and chest x-ray findings 05/11 leuk stable, Completed 7 days of cefepime. Continue Levaquin through 05/16 (3) NSTEMI (non-ST elevated myocardial infarction): Code(s): I21.4 - Non-ST elevation (NSTEMI) myocardial infarction Status: Acute Assessment and Plan: Patient presented with elevated troponin. EKG reviewed and shows no ST changes Cardiology following and patient is now on aspirin statin, clopidogrel, metoprolol 07/02 cardiac catheterization with right coronary dominant circulation with single-vessel coronary disease with high-grade 90-95% stenosis in the region that was previously stented in this patient's RCA, successful PCI of this RCA stenosis using the PTCA, overlapping long drug-eluting stent which was post dilated with noncompliant balloon at high pressure resulting in excellent patency of the vessel. Echo showed mild left ventricular enlargement with mild concentric hypertrophy.? Mild global hypokinesis with severe hypokinesis to akinesis of the basal inferior and septal segments.? Ejection fraction visually is 40-45%.? Grade 2 diastolic dysfunction is present. Left atrial chamber dimension is severely enlarged. No pulmonary hypertension, no significant valve disease. Continues to have atypical chest pain felt related to musculoskeletal. Continue medical management. Discussed with Cardiology (4) Congestive heart failure: Code(s): I50.9 - Heart failure, unspecified Status: Acute Assessment and Plan: See above (5) Pulmon
--- NOTE | 2023-05-15 13:25 | PCNFU ---
Nutrition Follow-Up Complete: Inadequate Oral Intake as related to mechaical ventilation as evidenced by NPO. Goal:Meet estimated nutritional needs. Pt current nutrition is Renal, Nepro shakes BID. Nutrition recommendation: continue to encourage po intake of meals and supplements Last recorded weight is 70 kg. Bowel Motility: +BM 05/13 Labs Reviewed: Hgb:9.3, HCT:30.4, NA:134, K:5.5, BUN:159, Cr:10.4 Meds Noted: lovenox, novolog, protonix Skin: WNL Additional Notes: Pt continues on a renal diet. Intake is poor at 0-25% of meals, nursing reports did not want Nepro shake this morning. Continue to encourage po intake of meals and supplements. Current intake is insufficient. Will monitior weight, labs, skin, follow up in 3 days.
--- NOTE | 2023-05-15 14:06 | PCPTNOTE ---
Patient refused treatment this session. Patient reported she was too tired from dialysis this morning and wanted to be left alone. Educated patient on the importance of therapy, patient continued to refuse. Bleeding from dialysis port noted while in room with patient, RN notified.
--- NOTE | 2023-05-15 15:15 | PCOTNOTE ---
Patient attempted for P.M. treatment session. Patient refused stating, she had dialysis today, is exhausted .
[2023-05-15] MEDS: CELLULOSE OXIDIZED 2 x 3 INCH 1 PKT XX (15:39)
[2023-05-15 15:57] LABS: Glucose Point of Care 94 mg/dl (65-105)
[2023-05-15] MEDS: ACETAMINOPHEN ELIXIR 325 MG/10.15 ML UDC 650 MG PO (16:38)
[2023-05-15 20:48] LABS: Glucose Point of Care 73 mg/dl (65-105)
[2023-05-15 23:39] LABS: Hematocrit 30.2 % (37.0-47.0); Hemoglobin 8.9 g/dL (12.0-15.0); Mean Corpuscular HGB Conc 29.5 g/dl (32-36); Mean Corpuscular Hemoglobin 26.3 pg (26-34); Mean Corpuscular Volume 89.1 fl (80-100); Mean Platelet Volume 10.3 fl (7.4-10.4); Platelet Count Result 220 k/mm3 (150-375); Red Blood Count 3.39 M/mm3 (4.2-5.4); Red Cell Distribution Width 14.6 % (11.5-14.5); White Blood Count 14.1 K/mm3 (4.5-10.0)
[2023-05-15 23:44] LABS: Glucose Point of Care 106 mg/dl (65-105)
[2023-05-16] VITALS (13 sets, daily range): BP systolic 101–131; BP diastolic 50–58; PULSE 73–105; RESP 16–20; TEMP 36.2–36.9; O2SAT 96–100
[2023-05-16] MEDS: CELLULOSE OXIDIZED 2 x 14 INCH 1 PKT XX
[2023-05-16] MEDS: CELLULOSE OXIDIZED 4 x 8 INCH 1 PKT XX
--- NOTE | 2023-05-16 00:55 | PC.NURSE ---
0000: RN called to bedside by patient for excessive bleeding from HD cath site. Dressing completely saturated. Patient stating she feels dizzy. Caryn Mcmanus NP contacted. Orders received. Dressing changed.
[2023-05-16 08:21] LABS: Glucose Point of Care 83 mg/dl (65-105)
[2023-05-16] MEDS: METOPROLOL TARTRATE 50 MG TAB BY MOUTH ×2 (08:35→21:24)
[2023-05-16] MEDS: CLOPIDOGREL BISULFATE 75 MG TABLET PO (08:35)
[2023-05-16] MEDS: ATORVASTATIN 40 MG TABLET 80 MG PO (08:35)
[2023-05-16] MEDS: FLUTICASONE PROPIONATE 0.05% NA SPR 16 GM BTL (*BKC) 2 SPRAY NASAL (08:36)
[2023-05-16] MEDS: PANTOPRAZOLE 40 MG TABLET PO (08:36)
[2023-05-16] MEDS: ASPIRIN 81 MG CHEWABLE TABLET PO (08:36)
--- NOTE | 2023-05-16 10:27 | P.PNNP_ITS ---
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) * ARB use * cardiac event/NSTEMI * hypoxia * relative hypotension * no improvement with trial of IVFs or IV lasix * evaluation to date: * no evidence of obstruction of kidneys by imaging * urine electrolyts non-prerenal * UA suggestibe of infection - culture negative * urine eosinophils negative * proteinuria noted (but in the context of possible infection/UTI) * CPK mildly elevated - not enough to affect kidneys * HD tomorrow and continue T/T/S schedule while hospitalized * follow trend of labs and UOP for potential renal recovery * will need outpatient dialysis on discharge (2) Stage 3b chronic kidney disease: Code(s): N18.32 - Chronic kidney disease, stage 3b Status: Chronic Assessment and Plan: * has baseline CKD or is this just random fluctuations in baseline kidney function??? * creatinine running around 1.3 - 1.7mg/dl by recent labs done at [facility] * HOWEVER, labs review from other hospitalizations at other facilities demonstrate that her creatinine has been as low as 0.9mg/dl in this year.... * however, perhaps this normal creatinine value could be dilutional from her previous bouts of CHF... * risk factors for CKD include HTN, vascular disease (CAD/CHF), and age (3) Acute respiratory failure with hypoxia and hypercarbia: Code(s): J96.01 - Acute respiratory failure with hypoxia; J96.02 - Acute respiratory failure with hypercapnia Status: Acute Assessment and Plan: * resolved * extubated (on 05/08/23) * multifactorial etiology: * COPD exacerbation * pulmonary edema * pneumonia * other? * s/p steroids and on bronchodilators * viral testing negative to date * antibiotics for pneumonia * follow culture data * continue supportive therapy (4) NSTEMI (non-ST elevated myocardial infarction): Code(s): I21.4 - Non-ST elevation (NSTEMI) myocardial infarction Status: Acute Assessment and Plan: * elevated troponins noted on admission * no acute EKG changes noted * Cardiology recommendations noted * Echo with EF of 40-45% and grade 2 diastolic dysfunction with no pulmonary hypertension. * s/p cardiac catheterization on 05/02: PCI of RCA stenosis with drug-eluting stent overlapping with good results (5) Congestive heart failure: Code(s): I50.9 - Heart failure, unspecified Status: Acute Assessment and Plan: * known apparent history * evidence of pulmonary edema by admission imaging * Echo with EF of 40-45% with grade 2 diastolic dysfunction * continue fluid removal with dialysis as tolerated (6) COPD (chronic obstructive pulmonary disease): Code(s): J44.9 - Chronic obstructive pulmonary disease, unspecified Status: Acute Assessment and Plan: * s/p steroids and remains on bronchodilators * see #3 * continue supportive therapy Not opposed to discharge from renal perspective if otherwise medically stable and outpatient dialysis schedule/facility has been finalized. Will continue to follow. Subjective Date/time seen: 05/16/23 10:27 Interval history: Follow-up for acute kidney injury/acute renal failure (possibly on chronic kidney disease). Saleem
--- NOTE | 2023-05-16 10:27 | PM.PNNEP ---
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) ARB use cardiac event/NSTEMI hypoxia relative hypotension no improvement with trial of IVFs or IV lasix evaluation to date: no evidence of obstruction of kidneys by imaging urine electrolyts non-prerenal UA suggestibe of infection - culture negative urine eosinophils negative proteinuria noted (but in the context of possible infection/UTI) CPK mildly elevated - not enough to affect kidneys HD tomorrow and continue T/T/S schedule while hospitalized follow trend of labs and UOP for potential renal recovery will need outpatient dialysis on discharge (2) Stage 3b chronic kidney disease: Code(s): N18.32 - Chronic kidney disease, stage 3b Status: Chronic Assessment and Plan: has baseline CKD or is this just random fluctuations in baseline kidney function??? creatinine running around 1.3 - 1.7mg/dl by recent labs done at [facility] HOWEVER, labs review from other hospitalizations at other facilities demonstrate that her creatinine has been as low as 0.9mg/dl in this year.... however, perhaps this normal creatinine value could be dilutional from her previous bouts of CHF... risk factors for CKD include HTN, vascular disease (CAD/CHF), and age (3) Acute respiratory failure with hypoxia and hypercarbia: Code(s): J96.01 - Acute respiratory failure with hypoxia; J96.02 - Acute respiratory failure with hypercapnia Status: Acute Assessment and Plan: resolved extubated (on 05/08/23) multifactorial etiology: COPD exacerbation pulmonary edema pneumonia other? s/p steroids and on bronchodilators viral testing negative to date antibiotics for pneumonia follow culture data continue supportive therapy (4) NSTEMI (non-ST elevated myocardial infarction): Code(s): I21.4 - Non-ST elevation (NSTEMI) myocardial infarction Status: Acute Assessment and Plan: elevated troponins noted on admission no acute EKG changes noted Cardiology recommendations noted Echo with EF of 40-45% and grade 2 diastolic dysfunction with no pulmonary hypertension. s/p cardiac catheterization on 05/02: PCI of RCA stenosis with drug-eluting stent overlapping with good results (5) Congestive heart failure: Code(s): I50.9 - Heart failure, unspecified Status: Acute Assessment and Plan: known apparent history evidence of pulmonary edema by admission imaging Echo with EF of 40-45% with grade 2 diastolic dysfunction continue fluid removal with dialysis as tolerated (6) COPD (chronic obstructive pulmonary disease): Code(s): J44.9 - Chronic obstructive pulmonary disease, unspecified Status: Acute Assessment and Plan: s/p steroids and remains on bronchodilators see #3 continue supportive therapy Not opposed to discharge from renal perspective if otherwise medically stable and outpatient dialysis schedule/facility has been finalized. Will continue to follow. Subjective Date/time seen: 05/16/23 10:27 Interval history: Follow-up for acute kidney injury/acute renal failure (possibly on chronic kidney disease). Tolerated dialysis treatment yesterday but fluid removal limited by hemodynamics and HD catheter with suboptimal blood flows along with ongoing oozing from HD catheter exit site despite multiple interventions to date; major issues/ complaint: is that of anxiety related to eventual discharge. Exam Narrative: General: elderly female in NAD Heart: normal S1 and S2; no rub Lungs: clear anteriorly; coarse at bases Abdomen: soft, nontender, nondistended, positive bowel sounds Extremities: trace edema p
--- NOTE | 2023-05-16 11:53 | PCOTNOTE ---
Patient has been returned to bed, refused to participate in activity. Patient stated, I'm eating lunch in bed and I've already been up once today and thats good enough. Will try back again this afternoon.
[2023-05-16 12:07] LABS: Glucose Point of Care 93 mg/dl (65-105)
[2023-05-16] MEDS: ACETAMINOPHEN ELIXIR 325 MG/10.15 ML UDC 650 MG PO (14:11)
--- NOTE | 2023-05-16 16:41 | PM.IMPN ---
Progress Note: A&P Assessment and Plan (1) Acute kidney injury superimposed on CKD: Code(s): N17.9 - Acute kidney failure, unspecified; N18.9 - Chronic kidney disease, unspecified Status: Acute Assessment and Plan: Patient appears to have chronic kidney disease as her last recorded creatinine were elevated. She has elevated phosphate Presented with elevated creatinine of 1.6 that continued to increase. Appears to have developed ATN. Her creatinine had increased to 6.4 and she continues to have minimal urine output. Patient was given cautious amount of IV fluids after admission but has not made any impact. 04/30 Lasix IV x1 was given with no response. CT scan does not show any obstruction or stones. 05/01 Discussed with software test engineer. In light of worsening renal function, minimal urine output, volume overload, edema and mechanical ventilation, patient was started on hemodialysis. Temporary hemodialysis catheter placed. 05/02 patient will receive her 2nd session of dialysis today. Discontinue sodium bicarbonate 05/03 patient receiving another dialysis session today 05/05 scheduled for another dialysis session today 05/07 Right IJ dialysis catheter was exchanged over a guidewire by surgery since the previous dialysis catheter on the same side was nonfunctional. 05/08 He received dialysis with fluid 4000 mL in fluid removal 05/09 Dialysis with 2887 mL in fluid removal, dialysis had to be stopped because malfunction of dialysis catheter. 05/12 Tunneled dialysis catheter to be placed 05/13 D/ when ok with nephrology and outpatient dialysis Recovering well. Remove [place]. Bleeding noted around HD site. Surgery aware and are addressing Discharge planning in process with plans for discharge tomorrow after HD if okay with others. (2) Acute respiratory failure with hypoxia and hypercarbia: Code(s): J96.01 - Acute respiratory failure with hypoxia; J96.02 - Acute respiratory failure with hypercapnia Status: Acute Assessment and Plan: Multifactorial acute Respiratory failure secondary to AECOPD, pulmonary edema, ? CAP 04/28 Patient intubated in the ER, 05/08: Extubated COVID and flu PCR negative, nasal MRSA screen negative 04/28 Blood and urine culture negative 04/30 sputum cultures growing stenotrophomonas. Procalcitonin level elevated at 6.4 Rocephin and doxycycline and Bactrim discontinued. Switched to Levaquin 05/03 (continue for 14 days) 05/09 started on cefepime for pneumonia given elevated white blood cell count and chest x-ray findings WBC wsa up to 15K but better today Completed 7 days of cefepime. Continue Levaquin for now (3) NSTEMI (non-ST elevated myocardial infarction): Code(s): I21.4 - Non-ST elevation (NSTEMI) myocardial infarction Status: Acute Assessment and Plan: Patient presented with elevated troponin. EKG reviewed and shows no ST changes Cardiology following and patient is now on aspirin statin, clopidogrel, metoprolol 07/02 cardiac catheterization with right coronary dominant circulation with single-vessel coronary disease with high-grade 90-95% stenosis in the region that was previously stented in this patient's RCA, successful PCI of this RCA stenosis using the PTCA, overlapping long drug-eluting stent which was post dilated with noncompliant balloon at high pressure resulting in excellent patency of the vessel. Echo showed mild left ventricular enlargement with mild concentric hypertrophy.? Mild global hypokinesis with severe hypokinesis to akinesis of the basal inferior and septal segments.? Ejection fraction visually is 40-45%.? Grade 2 diastolic dysfunction is present. Left atrial chamber dimension is severely enlarged. No pulmonary hypertension, no significant valve disease. Continues to have atypical chest pain felt related to musculoskeletal vs anxiety. Continue medical management. (4) Congestive heart failure: Code(s): I50.9 - Heart failure, unspecified Statu
[2023-05-16 18:48] LABS: Glucose Point of Care 110 mg/dl (65-105)
[2023-05-16 20:20] LABS: Glucose Point of Care 98 mg/dl (65-105)
--- NOTE | 2023-05-16 23:22 | PC.NURSE ---
This patient, Vero Ramos, was transferred to [facility] [place] on 05/16/23 at 2313. Personal belongings sent with patient. Report given to Hilton CAMARENA. Appropriate documentation sent with patient.
[2023-05-17] VITALS (24 sets, daily range): BP systolic 92–158; BP diastolic 55–81; PULSE 69–109; RESP 14–20; TEMP 36.3–37.5; O2SAT 94–97
--- NOTE | 2023-05-17 04:28 | PC.NURSE ---
Patient transferred from IMU this shift. A/Ox3. Voices needs and wants. Resp equal and unlabored. Denies pain. Voiced concerns about being nervous about transferring to another facility tomorrow 05/17/23. Reassured patient about reasoning for transfer to another facility. Patient required reassurance about facility transfer multiple times throughout shift.
[2023-05-17 08:10] LABS: Basophils Absolute Auto 0.1 K/mm3 (0.0-0.1); Basophils Percent Auto 0.4 % (0.2-1.2); Eosinophils Absolute Auto 0.3 K/mm3 (0-0.3); Eosinophils Percent Auto 2.5 % (0-4.4); Hematocrit 28.7 % (37.0-47.0); Hemoglobin 8.6 g/dL (12.0-15.0); Immature Granulocyte Absolute 0.15 K/mm3 (0.00-0.031); Immature Granulocyte Percent A 1.2 % (0-0.5); Lymphocytes Absolute Auto 1.93 K/mm3 (0.9-3.2); Mean Corpuscular Volume 90.3 fl (80-100); Mean Platelet Volume 10.2 fl (7.4-10.4); Monocytes Percent Auto 7.8 % (2.6-8.5); Neutrophils Absolute Auto 9.4 K/mm3 (1.3-6.7); Neutrophils Percent Auto 73.1 % (45.5-73.1); Platelet Count Result 243 k/mm3 (150-375); Red Blood Count 3.18 M/mm3 (4.2-5.4); Red Cell Distribution Width 15.3 % (11.5-14.5); White Blood Count 12.9 K/mm3 (4.5-10.0)
--- NOTE | 2023-05-17 08:23 | PC.NURSE ---
Patient to dialysis via bed.
[2023-05-17 08:35] LABS: Albumin Level 3.9 g/dL (3.5-5.1); Anion Gap 18 mmol/L (8-16); Blood Urea Nitrogen 51 mg/dL (7-17); Calcium 8.5 mg/dL (8.4-10.2); Carbon Dioxide 22 mmol/L (22-30); Chloride 98 mmol/L (98-107); Estimated CRCL calculation 6 ml/min; Estimated Glomerular Filt Rate 6; Glucose 72 mg/dL (65-110); Phosphorus 6.1 mg/dL (2.5-4.5); Potassium 4.2 mmol/L (3.4-5.0); Sodium 138 mmol/L (137-145)
[2023-05-17] MEDS: ALBUMIN HUMAN 25% 12.5 GM/50ML 50 ML IVPB ×2 (09:01→12:25)
[2023-05-17] MEDS: EPOETIN ALFA-EPBX 10,000 UNITS/ML VIAL 10000 UNITS IV PUSH (10:06)
--- NOTE | 2023-05-17 11:55 | PM.PNNEP ---
Progress Note: A&P Assessment and Plan (1) FRANCIS (acute kidney injury): Code(s): N17.9 - Acute kidney failure, unspecified Status: Acute Assessment and Plan: suspected etiology is multifactorial ATN: prerenal factors infection (pneumonia) over-diuresis (on lasix [id number] ARMOR CREWMAN) ARB use cardiac event/NSTEMI hypoxia relative hypotension no improvement with trial of IVFs or IV lasix evaluation to date: no evidence of obstruction of kidneys by imaging urine electrolyts non-prerenal UA suggestibe of infection - culture negative urine eosinophils negative proteinuria noted (but in the context of possible infection/UTI) CPK mildly elevated - not enough to affect kidneys HD todayand continue T/T/S schedule while hospitalized follow trend of labs and UOP for potential renal recovery will need outpatient dialysis on discharge (2) Stage 3b chronic kidney disease: Code(s): N18.32 - Chronic kidney disease, stage 3b Status: Chronic Assessment and Plan: has baseline CKD or is this just random fluctuations in baseline kidney function??? creatinine running around 1.3 - 1.7mg/dl by recent labs done at [facility] HOWEVER, labs review from other hospitalizations at other facilities demonstrate that her creatinine has been as low as 0.9mg/dl in this year.... however, perhaps this normal creatinine value could be dilutional from her previous bouts of CHF... risk factors for CKD include HTN, vascular disease (CAD/CHF), and age (3) Acute respiratory failure with hypoxia and hypercarbia: Code(s): J96.01 - Acute respiratory failure with hypoxia; J96.02 - Acute respiratory failure with hypercapnia Status: Acute Assessment and Plan: resolved extubated (on 05/08/23) multifactorial etiology: COPD exacerbation pulmonary edema pneumonia other? s/p steroids and on bronchodilators viral testing negative to date antibiotics for pneumonia follow culture data continue supportive therapy (4) NSTEMI (non-ST elevated myocardial infarction): Code(s): I21.4 - Non-ST elevation (NSTEMI) myocardial infarction Status: Acute Assessment and Plan: elevated troponins noted on admission no acute EKG changes noted Cardiology recommendations noted Echo with EF of 40-45% and grade 2 diastolic dysfunction with no pulmonary hypertension. s/p cardiac catheterization on 05/02: PCI of RCA stenosis with drug-eluting stent overlapping with good results (5) Congestive heart failure: Code(s): I50.9 - Heart failure, unspecified Status: Acute Assessment and Plan: known apparent history evidence of pulmonary edema by admission imaging Echo with EF of 40-45% with grade 2 diastolic dysfunction continue fluid removal with dialysis as tolerated (6) COPD (chronic obstructive pulmonary disease): Code(s): J44.9 - Chronic obstructive pulmonary disease, unspecified Status: Acute Assessment and Plan: s/p steroids and remains on bronchodilators see #3 continue supportive therapy Not opposed to discharge from renal perspective if otherwise medically stable and outpatient dialysis schedule/facility has been finalized. Will continue to follow. Subjective Date/time seen: 05/17/23 11:55 Interval history: Follow-up for acute kidney injury/acute renal failure (possibly on chronic kidney disease). Receiving dialysis treatment at the time of my visit (seen on HD at 11:35AM) -- not tolerating treatment well due to complaints of dizziness and lightheadedness with relative stability in blood pressures (systolic 140s - 150s noted) despite interventions to date (turned off fluid removal/ultrafiltration, decreased blood flow rate, IV albumin as well as IV normal saline infusions); nursing reports ongoing issues with anxiety as well. Exam Narrative: General: elderly female in NAD Heart: normal S1 and S2; n
--- NOTE | 2023-05-17 11:55 | P.PNNP_ITS ---
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) * ARB use * cardiac event/NSTEMI * hypoxia * relative hypotension * no improvement with trial of IVFs or IV lasix * evaluation to date: * no evidence of obstruction of kidneys by imaging * urine electrolyts non-prerenal * UA suggestibe of infection - culture negative * urine eosinophils negative * proteinuria noted (but in the context of possible infection/UTI) * CPK mildly elevated - not enough to affect kidneys * HD todayand continue T/T/S schedule while hospitalized * follow trend of labs and UOP for potential renal recovery * will need outpatient dialysis on discharge (2) Stage 3b chronic kidney disease: Code(s): N18.32 - Chronic kidney disease, stage 3b Status: Chronic Assessment and Plan: * has baseline CKD or is this just random fluctuations in baseline kidney function??? * creatinine running around 1.3 - 1.7mg/dl by recent labs done at [facility] * HOWEVER, labs review from other hospitalizations at other facilities demonstrate that her creatinine has been as low as 0.9mg/dl in this year.... * however, perhaps this normal creatinine value could be dilutional from her previous bouts of CHF... * risk factors for CKD include HTN, vascular disease (CAD/CHF), and age (3) Acute respiratory failure with hypoxia and hypercarbia: Code(s): J96.01 - Acute respiratory failure with hypoxia; J96.02 - Acute respiratory failure with hypercapnia Status: Acute Assessment and Plan: * resolved * extubated (on 05/08/23) * multifactorial etiology: * COPD exacerbation * pulmonary edema * pneumonia * other? * s/p steroids and on bronchodilators * viral testing negative to date * antibiotics for pneumonia * follow culture data * continue supportive therapy (4) NSTEMI (non-ST elevated myocardial infarction): Code(s): I21.4 - Non-ST elevation (NSTEMI) myocardial infarction Status: Acute Assessment and Plan: * elevated troponins noted on admission * no acute EKG changes noted * Cardiology recommendations noted * Echo with EF of 40-45% and grade 2 diastolic dysfunction with no pulmonary hypertension. * s/p cardiac catheterization on 05/02: PCI of RCA stenosis with drug-eluting stent overlapping with good results (5) Congestive heart failure: Code(s): I50.9 - Heart failure, unspecified Status: Acute Assessment and Plan: * known apparent history * evidence of pulmonary edema by admission imaging * Echo with EF of 40-45% with grade 2 diastolic dysfunction * continue fluid removal with dialysis as tolerated (6) COPD (chronic obstructive pulmonary disease): Code(s): J44.9 - Chronic obstructive pulmonary disease, unspecified Status: Acute Assessment and Plan: * s/p steroids and remains on bronchodilators * see #3 * continue supportive therapy Not opposed to discharge from renal perspective if otherwise medically stable and outpatient dialysis schedule/facility has been finalized. Will continue to follow. Subjective Date/time seen: 05/17/23 11:55 Interval history: Follow-up for acute kidney injury/acute renal failure (possibly on chronic kidney disease). Receiving
[2023-05-17] MEDS: CLOPIDOGREL BISULFATE 75 MG TABLET PO (12:22)
[2023-05-17] MEDS: METOPROLOL TARTRATE 50 MG TAB BY MOUTH (12:22)
[2023-05-17] MEDS: ATORVASTATIN 40 MG TABLET 80 MG PO (12:22)
[2023-05-17] MEDS: PANTOPRAZOLE 40 MG TABLET PO (12:22)
[2023-05-17] MEDS: ASPIRIN 81 MG CHEWABLE TABLET PO (12:22)
[2023-05-17] MEDS: FLUTICASONE PROPIONATE 0.05% NA SPR 16 GM BTL (*BKC) 2 SPRAY NASAL (12:23)
[2023-05-17] MEDS: levoFLOXacin 500 MG TABLET PO (13:18)
--- NOTE | 2023-05-17 15:32 | PM.DS ---
DS: Admitting Diagnosis Discharge Date 05/17/23 Admitting Diagnosis Shortness of breath DS: Discharge Diagnosis Discharge Diagnosis (1) Acute kidney injury superimposed on CKD: Code(s): N17.9 - Acute kidney failure, unspecified; N18.9 - Chronic kidney disease, unspecified Status: Acute (2) Acute respiratory failure with hypoxia and hypercarbia: Code(s): J96.01 - Acute respiratory failure with hypoxia; J96.02 - Acute respiratory failure with hypercapnia Status: Acute (3) NSTEMI (non-ST elevated myocardial infarction): Code(s): I21.4 - Non-ST elevation (NSTEMI) myocardial infarction Status: Acute (4) Congestive heart failure: Code(s): I50.9 - Heart failure, unspecified Status: Acute (5) Pulmonary edema: Code(s): J81.1 - Chronic pulmonary edema Status: Acute (6) COPD (chronic obstructive pulmonary disease): Code(s): J44.9 - Chronic obstructive pulmonary disease, unspecified Status: Acute (7) Lung nodule: Code(s): R91.1 - Solitary pulmonary nodule Status: Acute DS: Summary Hospital Course Reason for hospitalization: 72-year-old female with shortness of breath and respiratory failure requiring intubation, multifactorial secondary to CHF, COPD, possibly the CAP.? Found to have had a non-STEMI. Please see H&P for details. Hospital Course: Patient brought in by EMS for SOB. Attempted to intubate in the field but unable; patient intubated in ED on admission. CXR showing CMG, diffuse pulmonary edema. ABG 7.03/74/384 on MV. [place] respiratory failure is multifactorial from CHF/pulm edema, COPD, AMI and/or possibly CAP. COVID and flu PCR negative. Nasal MRSA screen negative. Sputum cultures growing stenotrophomonas and treated with Bactrim and Levaquin. She completed a 1 week course of Cefepime and 2 week course of Levaquin. She improved and was able to be extubated on 05/08/23 Patient presented in acute respiratory failure with CXR consistent with pulm edema related to AMI more likely STEMI. Troponin elevated and climbed to 16.6. Heparin drip started.?EKG showing marked ST elevation c/w inferior injury with improvement on repeat EKG. Echo: EF 40-45% with mild global HK with severe HK-AK of the basal inferior and septal segments. Grade II diastolic dysfxn Cardiology?consulted. She underwent a LHC 05/02 showing right coronary dominant circulation with single-vessel coronary disease with high-grade 90-95% stenosis in the region that was previously stented in the RCA o/w mild atherosclerotic irregularities s/p PCI and LILLIAN placement of the RCA stenosis. She was treated with aggressive medical management with ASA, Lipitor, Plavix and Lopressor. She had acute systolic and diastolic CHF related to above. We used dialysis to control her fluid status. Patient with CKD with prior values between 1.3-1.6. Has hx of FRANCIS requiring HD. Cr was 1.6 on admission and climbed to 4.1. Serum bicarb 18 with nml gap. Potassium 5.0. She had no UOP. Consider ATN from CHF, COPD, PNA, AMI. Consider also AIN or RAAD. UA: 2+ protein, 2+ blood with >100 RBC. 2+ LE, Nit+ and 11-20 WBC.? UCx negative. Patient was given cautious amount of IV fluids after admission but remained anuric. Lasix IV given without benefit. CT scan does not show any urinary obstruction or stones. Temporary HD catheter placed 05/01 and started on HD. The right IJ dialysis catheter was exchanged over a guidewire by surgery on 05/07/23 and the nonfunctioning right IF removed. There was bleeding noted around HD site but this has resolved. Patient has a known right middle lobe lung nodule which was evident again on the CT scan.? It seems the patient had a PET-CT done which showed low uptake as an outpatient and plan was to follow up with repeat study.? She does see a hot strip finisher as an outpatient for evaluation of the lung mass. She had clinical improvement. She was weaned to room air. Arrangements were made and she was able to be di
[2023-05-17] MEDS: ACETAMINOPHEN ELIXIR 325 MG/10.15 ML UDC 650 MG PO (16:02)
[2023-05-17 16:29] LABS: Glucose Point of Care 86 mg/dl (65-105)
[2023-05-17 16:48] LABS: SARS-CoV-2 RNA PCR Negative (Negative)
[2023-05-17 17:06] LABS: Glucose Point of Care 97 mg/dl (65-105)
== END 2023-05-17 18:50 | DRG 321 ==
LOC: ANHED 17:20 → ANHICU 22:27 → ANHIMU 05-10 17:57 → ANH3MEDSUR 05-17 15:54 → ANHIMU 05-19 13:26
PROVIDERS: Internal Medicine; Internal Medicine Cardiovascular Disease; Internal Medicine Nephrology; Nurse Practitioner; Specialist; Student in an Organized Health Care Education/Training Program; Surgery; Admitting Provider Internal Medicine; Emergency Provider Emergency Medicine; PCP Hospitalist; Visit Provider Internal Medicine
PROC: (CPT 93454; principal; 2023-05-02 11:30)
PROC: 02PY33Z Removal of Infusion Device from Great Vessel, Percutaneous Approach (ICD-10-PCS; CPT 36908; principal; 2023-05-12 15:30)
DX: I21.4 Non-ST elevation (NSTEMI) myocardial infarction (principal); I50.41 Acute combined systolic (congestive) and diastolic (congestive) heart failure; J96.01 Acute respiratory failure with hypoxia; N17.0 Acute kidney failure with tubular necrosis; J18.9 Pneumonia, unspecified organism; J96.02 Acute respiratory failure with hypercapnia; I13.0 Hypertensive heart and chronic kidney disease with heart failure and stage 1 through stage 4 chronic kidney disease, or unspecified chronic kidney disease; E87.21 Acute metabolic acidosis; J44.1 Chronic obstructive pulmonary disease with (acute) exacerbation; T82.41XA Breakdown (mechanical) of vascular dialysis catheter, initial encounter; J44.0 Chronic obstructive pulmonary disease with (acute) lower respiratory infection; E11.22 Type 2 diabetes mellitus with diabetic chronic kidney disease; N18.32 Chronic kidney disease, stage 3b; D64.9 Anemia, unspecified; Z20.822 Contact with and (suspected) exposure to COVID-19; F17.210 Nicotine dependence, cigarettes, uncomplicated; R91.1 Solitary pulmonary nodule; I25.10 Atherosclerotic heart disease of native coronary artery without angina pectoris; I25.2 Old myocardial infarction; Z95.5 Presence of coronary angioplasty implant and graft; Z90.49 Acquired absence of other specified parts of digestive tract; Z86.718 Personal history of other venous thrombosis and embolism
CPT/HCPCS: 31500; 36415; 36600; 71045; 71046; 71250; 74176; 77001; 80048; 80053; 80069; 80307; 81001; 81050; 82375; 82550; 82565; 82570; 82805; 82948; 83036; 83050; 83605; 83735; 83880; 84100; 84145; 84156; 84300; 84478; 84484; 84540; 85025; 85027; 85610; 85730; 85999; 86704; 86706; 87040; 87070; 87077; 87086; 87186; 87205; 87340; 87635; 87637; 87641; 92610; 93005; 93454; 94002; 94003; 94640; 96361; 96365; 96366; 96367; 96375; 97110; 97163; 97165; 97530; 97535; 99285; A9270; C1725; C1750; C1751; C1752; C1769; C1874; C1887; C1894; C8929; C9113; C9600; G0257; G0378; J0330; J0360; J0692; J0696; J1642; J1644; J1650; J1815; J1940; J1956; J2250; J2305; J2704; J2930; J3010; J3370; J7030; J7040; J7060; J7120; P9047; Q5105; Q9957

== ENCOUNTER 2023-05-26 11:55 | Observation (INO) | payer OTHER, SELFPAY ==
[2023-05-26] VITALS (35 sets, daily range): BP systolic 122–165; BP diastolic 62–92; PULSE 77–90; RESP 14–27; TEMP 36.4–36.6; O2SAT 94–100
--- NOTE | 2023-05-26 12:20 | ECG_ITS ---
Measurements Intervals [place] Rate: 81 P: 58 MD: 190 QRS: 31 QRSD: 93 T: 16 QT: 387 QTc: 450 Interpretive Statements SINUS RHYTHM POSSIBLE LEFT ATRIAL ENLARGEMENT BORDERLINE ST-T WAVE ABNORMALITY- INF/LAT LEADS BASELINE WANDER- I, III, AVR, AVL, AVF BORDERLINE ECG COMPARED TO ECG 05/03/2023 07:32:32 NO SIGNIFICANT CHANGES Electronically Signed On 05-26-2023 13:09:29 PHARMACY TECH CUSTOMER SERVICE by Mike Sung D.O.
[2023-05-26 12:30] LABS: Basophils Percent Auto 0.6 % (0.2-1.2); Eosinophils Absolute Auto 0.3 K/mm3 (0-0.3); Eosinophils Percent Auto 4.6 % (0-4.4); Hematocrit 26.1 % (37.0-47.0); Hemoglobin 8.1 g/dL (12.0-15.0); Immature Granulocyte Absolute 0.04 K/mm3 (0.00-0.031); Immature Granulocyte Percent A 0.6 % (0-0.5); Lymphocytes Absolute Auto 0.81 K/mm3 (0.9-3.2); Lymphocytes Percent Auto 11.3 % (18.3-44.2); Mean Corpuscular Hemoglobin 27.1 pg (26-34); Mean Corpuscular Volume 87.3 fl (80-100); Mean Platelet Volume 10.8 fl (7.4-10.4); Monocytes Absolute Auto 0.6 K/mm3 (0.1-0.6); Monocytes Percent Auto 8.2 % (2.6-8.5); Neutrophils Absolute Auto 5.4 K/mm3 (1.3-6.7); Neutrophils Percent Auto 74.7 % (45.5-73.1); Platelet Count Result 171 k/mm3 (150-375); Red Blood Count 2.99 M/mm3 (4.2-5.4); Red Cell Distribution Width 14.9 % (11.5-14.5); White Blood Count 7.2 K/mm3 (4.5-10.0)
[2023-05-26 12:50] LABS: Appearance Urine Cloudy (Clear); Bacteria Urine 2+ /hpf; Bilirubin Urine Negative (Negative); Blood Urine 2+ (Negative); Budding Yeast Urine Present /hpf; Color Urine Yellow (Yellow); Glucose Urine UA Negative (Negative); Ketones Urine Negative (Negative); Leukocyte Esterase Ur Trace LEU/UL (Negative); Need Manual Microscopic Reviewed; Nitrate Urine Negative (Negative); Non Pathogenic Casts 0-2; Protein Urine 2+ mg/dL (Negative); Specific Grav Ur 1.009 (1.001-1.035); Squamous Epithelial Cell Urine Many /hpf (Few); Urobilinogen Urine 0.2 mg/dL (<2.0); pH Urine 7.5 (5.0-9.0)
[2023-05-26 13:19] LABS: Add Urine Microscopic? YES
[2023-05-26 13:43] LABS: Alanine Aminotransferase 21 U/L (6-35); Albumin Level 4.2 g/dL (3.5-5.1); Alkaline Phosphatase 67 U/L (38-126); Anion Gap 22 mmol/L (8-16); Aspartate Amino Transferase 32 U/L (14-36); Bilirubin,Total 0.6 mg/dL (0.2-1.3); Blood Urea Nitrogen 91 mg/dL (7-17); Calcium 8.9 mg/dL (8.4-10.2); Carbon Dioxide 16 mmol/L (22-30); Chloride 96 mmol/L (98-107); Estimated CRCL calculation 3 ml/min; Estimated Glomerular Filt Rate 3; Glucose 95 mg/dL (65-110); Potassium 5.2 mmol/L (3.4-5.0); Sodium 134 mmol/L (137-145)
--- NOTE | 2023-05-26 14:25 | ED.GENADULT ---
HPI - General Adult General Chief complaint: Recheck/Abnormal Lab/Rx Stated complaint: ABN Labs Time Seen by Provider: 05/26/23 12:23 History of Present Illness HPI narrative: Patient is a 72-year-old female who presents ER for dialysis and abnormal outpatient labs. Patient recently hospitalized after having myocardial infarction, pneumonia, and sepsis that resulted in multifactorial renal failure. She has a dialysis catheter in the right chest wall. She has been getting outpatient dialysis last 2 weeks however she did not go the last 2 opportunities that she had. She reports she does not want to have chemicals put her body however she now realizes that should she wish to continue to live and hopefully recuperate her renal function she must go to dialysis. She is unsure who her reaming machine tender is. She has no reports of dyspnea at this time. No chest pain or chest pressure. She reports that she does make urine and and has no additional complaints. Related Data Home Medications Medication Instructions Recorded Confirmed albuterol sulfate 90 mcg/actuation 2 puff inhalation Q8H PRN 04/28/23 04/28/23 aerosol inhaler Shortness Of Breath Or Wheezing Allergies Allergy/AdvReac Type Severity Reaction Status Date / Time oxycodone Allergy Intermediate Unknown Verified 05/26/23 12:12 alprazolam AdvReac Mild NAUSEA AND Verified 05/26/23 12:12 VOMITING. 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 Unknown Uncoded 05/26/23 12:12 Review of Systems Review of Systems: All systems reviewed & are unremarkable except as noted in HPI and below Constitutional: Constitutional: Denies chills, Reports fatigue and Denies fever(s) ENT: Denies nasal congestion and Denies sore throat Cardiovascular: Cardiovascular: Denies chest pain, Denies rapid heart rate and Denies radiating jaw, neck or arm pain Respiratory: Respiratory: Denies cough, Denies dyspnea and Denies wheezing Gastrointestinal: Gastrointestinal: Denies abdominal pain, Denies nausea and Denies vomiting Musculoskeletal: Musculoskeletal: Reports no additional musculoskeletal complaints PMFSH Past Medical History Medical History Anxiety DVT (deep venous thrombosis) After knee surgery years ago. Hypertension Myocardial infarction Pneumonia Surgical History Surgical History H/O right knee surgery History of cholecystectomy History of coronary artery stent placement Social History Social History Smoking packs per day: 1 Smoking cigarettes per day: 20.0 Smoking status: Current every day smoker Tobacco type: cigarettes Alcohol use details: rarely Substance use type: does not use Living arrangements: alone Spiritual care concerns: No Exam Narrative: GENERAL: Well-appearing, well-nourished, and in no acute distress. HEAD: Normocephalic, atraumatic. EYES: PERRL and EOMI. ENT: Mucous membranes moist. CHEST: Clear to auscultation. No respiratory distress. Right chest wall dialysis catheter. HEART: Regular rate and rhythm. Normal peripheral pulses. ABDOMEN: Soft, nontender, nondistended. EXTREMITIES: Normal range of motion. No edema. SKIN: Warm, dry, no rash. NEURO: Alert and oriented x3. PSYCH: Normal mood and affect. Course Course Emergency Course: Nephrology consulted and will schedule dialysis. Patient accepted by hospitalist service. Vital Signs Vital signs: Vital Signs Pulse Rate 90 05/26/23 12:06 Respiratory Rate 23 H 05/26/23 12:06 Pulse Oximetry 98 05/26/23 12:06 Temperature 97.6 F 05/26/23 12:08 Pulse Rate 83 05/26/23 14:50 Respiratory Rate 20 05/26/23 14:50 Blood Pressure 160/92 H 05/26/23 13:31 Pulse Oximetry 98 05/26/23 13:45 Oxygen Delivery Room Air 05/26/23 12:08 Medical Decision Making Vital Signs Vital Signs:
--- NOTE | 2023-05-26 17:59 | ADMGEN ---
This patient, Vero Ramos, was admitted to Medical Room 342-01. Patient/family oriented to hospital policies and general routines including ID bracelet, bed and alarms, visiting hours, pain management, procedures, bathroom and other care routines, personal items, smoking policy, room service/diet, and visiting hours. Information on how to activate the Rapid Response Team has been discussed. Patient/Family are encouraged to report perceived risks to care and to ask questions if they do not understand what they are told or what they should do.
--- NOTE | 2023-05-26 20:49 | PM.IMHP ---
H&P: HPI History of Present Illness Date/Time: 05/26/23 20:49 Chief Complaint: Fatigue, Missed Dialysis Narrative: 72 y/o F presents here with fatigue and missed dialysis treatments x3 with PMH of ID, DVT, HTN, FRANCIS likely superimposed on CKD. Patient was admitted on 04/28/23-05/17/23 for shortness of breath and subsequent respiratory failure requiring intubation. Initial workup showed respiratory failure likely multifactorial due to CHF, pulmonary edema, COPD, AMI, and/or cap. Sputum cultures grew stenotrophomonas, treated with Bactrim, 2 week course of Levaquin, and 1 week course of cefepime. EKG initially showed marked ST elevation c/f inferior injury with associated elevation in trop, peaked at 16.6. She underwent a?LHC 05/02 showing right coronary dominant circulation with single-vessel coronary disease. Treated for this with aggressive medical management (ASA, statin, plavix, and lopressor). Echo showed EF of 40-45% with acute systolic and diastolic CHF. Dialysis on T/Thr/Sat used to treat fluid status. FRANCIS likely in setting of CKD given baseline Night Filler was 1.3-1.7, normal senior system operator levels observed at outside facilities but concern these were falsely low due to dilution. During admission senior system operator reached peak of 4.1 without urine output despite gentle fluids and no obstruction on imaging. Temporary HD cath placed on 05/01 and exchanged on 05/07 for a R IJ. Eventually extubated on 05/08 and able to wean to room air before d/c. Then discharged to rehab on 05/17. Since discharge she reports that she has had a total of 4 sessions. However refused the last 2 treatments and missed today's tx (05/26). Stating she refused because she does not like the chemicals that it puts into her body and that it makes her feel unwell. States she does not understand why she needs to receive dialysis or that she was that sick. Reports Fatigue and nausea constantly for the past few weeks. Reports that she was able to make urine, but did notice that her urine output was significantly less in the last week. Also reporting chest pain and tachycardia intermittently for a while, believes this is been ongoing for the past few months. No other complaints. A/Ox4. Review of Systems Review of Systems: All systems reviewed & are unremarkable except as noted in HPI and below PMFSH Past Medical History Medical History (Updated 05/26/23 @ 23:19 by Caryn Mcmanus APRN) Acute kidney injury superimposed on CKD Acute respiratory failure with hypoxia and hypercarbia Intubated during admission on 04/28/23-05/17/23 Anemia Anxiety Congestive heart failure COPD (chronic obstructive pulmonary disease) DVT (deep venous thrombosis) After knee surgery years ago. Hypertension Insomnia Lung nodule NSTEMI (non-ST elevated myocardial infarction) Pneumonia Stage 3b chronic kidney disease Tobacco dependence Surgical History Surgical History H/O right knee surgery History of cholecystectomy History of coronary artery stent placement Social History Social History (Updated 05/26/23 @ 22:44 by Caryn Mcmanus APRN) Social History: Currently resident at [facility]. Surrogate Decision Maker: Nathaly Vann, sister. Code Status: Full Code. Smoking packs per day: 1 Smoking cigarettes per day: 20.0 Years smoked: 40 Smoking pack-years: 40.00 Smoking status: Former smoker Tobacco type: cigarettes Alcohol intake: never Alcohol use details: rarely Substance use: never Substance use type: does not use Lack of Transportation: No Lack of Food: Never True Current Housing: I Have Housing Concerned About Future Housing: No Difficulty Paying Gas/Electric Bills: No Difficulty Paying for Meds: No Currently Unemployed: No Education: High School Diploma/GED Difficulty w/ Childcare or Family Care: No Living arrangements: alone Spiritual care concerns: No Meds Home M
[2023-05-27] VITALS (31 sets, daily range): BP systolic 125–180; BP diastolic 51–90; PULSE 83–104; RESP 14–18; TEMP 36.3–37; O2SAT 93–98; BMI 26.9
[2023-05-27] MEDS: SODIUM POLYSTYRENE SULFONONATE 15 GM/60 ML BTL 30 GM PO (00:01)
[2023-05-27] MEDS: CALCIUM GLUC 1,000 MG/NS 50 ML 1,000 MG/50 ML BAG 100 MG IVPB (00:02)
[2023-05-27] MEDS: ALPRAZolam (*CRX) 0.25 MG TABLET PO (00:20)
[2023-05-27 05:49] LABS: Hematocrit 26.1 % (37.0-47.0); Hemoglobin 7.8 g/dL (12.0-15.0); Mean Corpuscular HGB Conc 29.9 g/dl (32-36); Mean Corpuscular Hemoglobin 26.9 pg (26-34); Mean Platelet Volume 11.1 fl (7.4-10.4); Platelet Count Result 156 k/mm3 (150-375); Red Cell Distribution Width 14.6 % (11.5-14.5); White Blood Count 7.2 K/mm3 (4.5-10.0)
[2023-05-27 06:00] LABS: Iron 28 ug/dL (37-170)
[2023-05-27 06:09] LABS: Percent Iron Saturation 12 % (20-50)
[2023-05-27 06:12] LABS: Alanine Aminotransferase 17 U/L (6-35); Albumin Level 3.9 g/dL (3.5-5.1); Alkaline Phosphatase 71 U/L (38-126); Anion Gap 22 mmol/L (8-16); Aspartate Amino Transferase 26 U/L (14-36); Bilirubin,Total 0.5 mg/dL (0.2-1.3); Blood Urea Nitrogen 97 mg/dL (7-17); Calcium 8.5 mg/dL (8.4-10.2); Carbon Dioxide 16 mmol/L (22-30); Chloride 100 mmol/L (98-107); Glucose 84 mg/dL (65-110); Potassium 4.2 mmol/L (3.4-5.0); Sodium 138 mmol/L (137-145)
[2023-05-27 06:16] LABS: Estimated CRCL calculation 3 ml/min; Estimated Glomerular Filt Rate 3
[2023-05-27 06:32] LABS: Hepatitis B Surface Antigen Negative (Negative)
[2023-05-27 06:49] LABS: Hepatitis B Surface Anti Res Negative
--- NOTE | 2023-05-27 09:23 | PM.IMPN ---
Progress Note: A&P Assessment and Plan (1) Acute kidney injury superimposed on CKD: Code(s): N17.9 - Acute kidney failure, unspecified; N18.9 - Chronic kidney disease, unspecified Status: Acute Assessment and Plan: FRANCIS superimposed on CKD Polymer Chemist 13.5, 7.2 on 05/17 BUN 91, ECC 3, and GFR 3 consult - nephrology, awaiting recs restart dialysis - unclear if receiving tx on M/W/F but patient reports she missed a tx today, was receiving tx on T/Thr/Sat during last admission. subsequent electrolyte disturbance: Na 134, K 5.2, and Cl 96. will ultimately tx with dialysis. monitor tele and tx hyperK with calcium and Kayexalate in interim, floor unable to give IVP insulin. ED w/u - UA: cloudy, 2+ protein, 2+ blood, trace leuks, 6-10 RBC, 11-20 WBC, many squamous cells, 2+ bacteria, yeast present. UC pending. CXR unremarkable. BCs pending. EKG showed possible left atrial enlargement, borderline ST-T wave abnormality in inf/lat leads, and no significant changes since prior on 05/03. monitor I&Os re-educated patient on current condition/need for dialysis - will likely need ongoing education 05/27: Received HD today. 500 ml removed. (2) Anemia: Qualifiers: Anemia type: due to chronic kidney disease Code(s): D64.9 - Anemia, unspecified Status: Acute Assessment and Plan: 2. anemia suspect anemia of chronic disease r/t CKD, will r/o ERASTO Hgb 8.1, previously 8.6 on 8.1 add iron, TIBC, ferritin. no previous on file. 05/27: Iron deficient on labs. Started on ferrous sulfate 325 mg BID. (3) History of [place] (myocardial infarction): Code(s): I25.2 - Old myocardial infarction Status: Acute Assessment and Plan: 3. hx of [place] continue home Plavix, metoprolol, atorvastatin, daily aspirin. no EKG changes, no current CP but does report intermittent CP for months monitor 05/27: stable. Plan Diet: renal diet GI Prophylaxis: continue home pantoprazole DVT Prophylaxis: SCDs, Heparin 5000 U SQ Q12H Lines: pIV. HD cath to R chest. Code Status: Full Code. Subjective Date/time seen: 05/27/23 09:23 Interval history: 72 y/o F presents here with fatigue and missed dialysis treatments x3 with PMH of [place], DVT, HTN, FRANCIS likely superimposed on CKD. She says she does not like how dialysis makes her feel so she has been skipping it. This is a recent development for her as she states she has only had maybe 5 HD treatments and has a tunneled R subclavian. Please see HPI for further details. 05/27: Mrs Ramos is seen today after her HD session. She had told the nurse she was having some chest pain but it is chronic chest pain that she feels after each dialysis session. She is tired but otherwise has no complaints. She denies h/a, dizziness, shortness of breath, nausea, vomiting, or constipation. She says that she had three bowel movements last night after getting some kind of medicine. I spoke with her about the importance of not skipping dialysis and the rationale for why see needs dialysis and how dialysis works. I also reviewed the risk involved with skipping treatments. She verbalized understanding but she definitely needs more education surrounding this. Review of Systems Review of Systems: All systems reviewed & are unremarkable except as noted in HPI and below Exam Narrative: General: well appearing, well developed, well nourished, appears stated age. HEENT: normocephalic, atraumatic. Mucous membranes moist. EOMI, PERRLA, bilateral sclera anicteric, no conjunctival injection. Neck supple without JVD, lymphadenopathy, or bruit. Respiratory: clear to ascultation bilaterally. No rales/rhonic/wheezes. Cardiovascular: Regular rate and rhythm, normal S1-S2 upon ascultation. No murmurs, rubs, or clicks. PMI is nondisplaced, capillary re-fill less than 3 second. Abdomen: Soft, round, no pulsatile masses, non-distended and non-tender. No rebound, no guarding. No CVA tenderness, n
--- NOTE | 2023-05-27 10:00 | P.CONNP_ITS ---
Assessment and Plan Assessment and plan (1) FRANCIS (acute kidney injury): Code(s): N17.9 - Acute kidney failure, unspecified Status: Inactive Assessment and Plan: * as noted by events on last hospitalization here at [facility] * admission creatinine at that time was 1.6mg/dl and progressively deteriorated * multifactorial etiology: ATN, prerenal factors, infection, NSTEMI, hyoxia, relative hypotension * initiated on TACKING MACHINE OPERATOR/dialysis on last hospital admission for clearance, optimization of fluid removal, and electrolytes control * no evidence of recent recovery since discharge (as noted by this admission's labs) * concerning that some of her confusion on presentation could be uremia * plan HD today and likely again tomorrow * follow repeat labs and UOP for potential renal recovery * will likely need to continue with outpatient dialysis for now (2) Stage 3b chronic kidney disease: Code(s): N18.32 - Chronic kidney disease, stage 3b Status: Inactive Assessment and Plan: * has baseline CKD or is this just random fluctuations in baseline kidney function??? * creatinine running around 1.3 - 1.7mg/dl by previous labs done at [facility] * HOWEVER, labs review from other hospitalizations at other facilities demonstrate that her creatinine has been as low as 0.9mg/dl in this year.... * however, perhaps this normal creatinine value was dilutional from her previous bouts of CHF... * risk factors for CKD include HTN, vascular disease, and age (3) Anemia: Qualifiers: Anemia type: due to chronic kidney disease Code(s): D64.9 - Anemia, unspecified Status: Acute Assessment and Plan: * related to FRANCIS and need for dialysis * Epogen with HD * anemia studies demonstrate iorn deficiency also * IV venofer with dialysis * follow H/H (4) Hypertension: Code(s): I10 - Essential (primary) hypertension Status: Chronic Assessment and Plan: * better control at this time * resumed on home medications * follow trend of hemodynamics (5) Congestive heart failure: Code(s): I50.9 - Heart failure, unspecified Status: Inactive Assessment and Plan: * known apparent history * fluid removal with HD to maintain euvolemia * follow volume status (6) COPD (chronic obstructive pulmonary disease): Code(s): J44.9 - Chronic obstructive pulmonary disease, unspecified Status: Chronic Assessment and Plan: * seems compensated * continue inhalers I will continue follow patient with you while she remains hospitalized and make further recommendations as needed. Thank you for allowing me to participate in care this patient. History of Present Illness Reason for Consult Consult date: 05/27/23 Reason for consult: acute renal failure (on possible CKD requiring hemodialysis) Chief Complaint Chief complaint: Hyperkalemia/Fluid Overload History of Present Illness Narrative: The patient is a 72-year-old female with a past medical history as outlined below who was transferred to [facility] Emergency Room due the fact that she missed 3 sessions of outpatient dialysis. The patient has recently hospitalized here at [facility] several weeks ago and had an extremely complicated hospital course. She had acute respiratory failure secondary to congestive heart failure/ pulmonary edema complicated by her COPD on top of what appeared to be a non ST elevation [place]. she also was found to have pneumonia and associated sepsis and was silvestre
--- NOTE | 2023-05-27 10:00 | PM.CNNEP ---
Assessment and Plan Assessment and plan (1) FRANCIS (acute kidney injury): Code(s): N17.9 - Acute kidney failure, unspecified Status: Inactive Assessment and Plan: as noted by events on last hospitalization here at [facility] admission creatinine at that time was 1.6mg/dl and progressively deteriorated multifactorial etiology: ATN, prerenal factors, infection, NSTEMI, hyoxia, relative hypotension initiated on STAGE ELECTRICIAN HELPER/dialysis on last hospital admission for clearance, optimization of fluid removal, and electrolytes control no evidence of recent recovery since discharge (as noted by this admission's labs) concerning that some of her confusion on presentation could be uremia plan HD today and likely again tomorrow follow repeat labs and UOP for potential renal recovery will likely need to continue with outpatient dialysis for now (2) Stage 3b chronic kidney disease: Code(s): N18.32 - Chronic kidney disease, stage 3b Status: Inactive Assessment and Plan: has baseline CKD or is this just random fluctuations in baseline kidney function??? creatinine running around 1.3 - 1.7mg/dl by previous labs done at [facility] HOWEVER, labs review from other hospitalizations at other facilities demonstrate that her creatinine has been as low as 0.9mg/dl in this year.... however, perhaps this normal creatinine value was dilutional from her previous bouts of CHF... risk factors for CKD include HTN, vascular disease, and age (3) Anemia: Qualifiers: Anemia type: due to chronic kidney disease Code(s): D64.9 - Anemia, unspecified Status: Acute Assessment and Plan: related to FRANCIS and need for dialysis Epogen with HD anemia studies demonstrate iorn deficiency also IV venofer with dialysis follow H/H (4) Hypertension: Code(s): I10 - Essential (primary) hypertension Status: Chronic Assessment and Plan: better control at this time resumed on home medications follow trend of hemodynamics (5) Congestive heart failure: Code(s): I50.9 - Heart failure, unspecified Status: Inactive Assessment and Plan: known apparent history fluid removal with HD to maintain euvolemia follow volume status (6) COPD (chronic obstructive pulmonary disease): Code(s): J44.9 - Chronic obstructive pulmonary disease, unspecified Status: Chronic Assessment and Plan: seems compensated continue inhalers I will continue follow patient with you while she remains hospitalized and make further recommendations as needed. Thank you for allowing me to participate in care this patient. History of Present Illness Reason for Consult Consult date: 05/27/23 Reason for consult: acute renal failure (on possible CKD requiring hemodialysis) Chief Complaint Chief complaint: Hyperkalemia/Fluid Overload History of Present Illness Narrative: The patient is a 72-year-old female with a past medical history as outlined below who was transferred to [facility] Emergency Room due the fact that she missed 3 sessions of outpatient dialysis. The patient has recently hospitalized here at [facility] several weeks ago and had an extremely complicated hospital course. She had acute respiratory failure secondary to congestive heart failure/ pulmonary edema complicated by her COPD on top of what appeared to be a non ST elevation [place]. she also was found to have pneumonia and associated sepsis and was treated with aggressive antibiotic therapy. Unfortunately, during this hospitalization, her renal function declined to the point where she required initiation on renal replacement therapy/dialysis. She remained dialysis dependent during that hospital stay and was discharged on outpatient dialysis with the hope that eventually her kidney function may recover and she would no longer need renal replacement therapy/dialysis. Apparently
[2023-05-27] MEDS: EPOETIN ALFA 20,000 UNITS/ML VIAL 20000 UNITS IV PUSH (12:02)
[2023-05-27] MEDS: HEPARIN SODIUM 5,000 UNITS/ML VIAL 5000 UNITS SUB-Q ×2 (13:25→20:31)
[2023-05-27] MEDS: ATORVASTATIN 40 MG TABLET 80 MG PO (13:26)
[2023-05-27] MEDS: CLOPIDOGREL BISULFATE 75 MG TABLET PO (13:26)
[2023-05-27] MEDS: PANTOPRAZOLE 40 MG TABLET PO (13:26)
[2023-05-27] MEDS: METOPROLOL TARTRATE 50 MG TAB BY MOUTH ×2 (13:26→20:30)
[2023-05-27] MEDS: ASPIRIN 81 MG CHEWABLE TABLET PO (13:26)
[2023-05-27] MEDS: FERROUS SULFATE 325 MG TABLET DR PO (15:04)
[2023-05-28] VITALS (20 sets, daily range): BP systolic 117–152; BP diastolic 45–79; PULSE 78–110; RESP 14–16; TEMP 35.6–37; O2SAT 95–98
[2023-05-28 05:40] LABS: Hematocrit 26.4 % (37.0-47.0); Hemoglobin 7.9 g/dL (12.0-15.0); Mean Corpuscular HGB Conc 29.9 g/dl (32-36); Mean Corpuscular Hemoglobin 26.7 pg (26-34); Mean Corpuscular Volume 89.2 fl (80-100); Platelet Count Result 178 k/mm3 (150-375); Red Blood Count 2.96 M/mm3 (4.2-5.4); Red Cell Distribution Width 15.2 % (11.5-14.5); White Blood Count 5.6 K/mm3 (4.5-10.0)
[2023-05-28 05:52] LABS: Alanine Aminotransferase 18 U/L (6-35); Albumin Level 3.6 g/dL (3.5-5.1); Alkaline Phosphatase 70 U/L (38-126); Anion Gap 11 mmol/L (8-16); Aspartate Amino Transferase 28 U/L (14-36); Bilirubin,Total 0.6 mg/dL (0.2-1.3); Blood Urea Nitrogen 20 mg/dL (7-17); Calcium 8.3 mg/dL (8.4-10.2); Carbon Dioxide 31 mmol/L (22-30); Chloride 98 mmol/L (98-107); Estimated CRCL calculation 8 ml/min; Estimated Glomerular Filt Rate 8; Glucose 83 mg/dL (65-110); Phosphorus 3.5 mg/dL (2.5-4.5); Potassium 3.1 mmol/L (3.4-5.0); Sodium 140 mmol/L (137-145)
--- NOTE | 2023-05-28 09:03 | PCPTNOTE ---
attempted PT eval, pt at dialysis, will follow
[2023-05-28] MEDS: EPOETIN ALFA-EPBX 10,000 UNITS/ML VIAL 10000 UNITS IV PUSH (10:14)
--- NOTE | 2023-05-28 10:52 | P.PNNP_ITS ---
Progress Note: A&P Assessment and Plan (1) FRANCIS (acute kidney injury): Code(s): N17.9 - Acute kidney failure, unspecified Status: Acute Assessment and Plan: * as noted by events on last hospitalization here at [facility] * admission creatinine at that time was 1.6mg/dl and progressively deteriorated * multifactorial etiology: ATN, prerenal factors, infection, NSTEMI, hyoxia, relative hypotension * initiated on LEAD BI DEVELOPER/dialysis on last hospital admission for clearance, optimization of fluid removal, and electrolytes control * no evidence of recent recovery since discharge (as noted by this admission's labs) * concerning that some of her confusion on presentation could be uremia * HD today again * follow repeat labs and UOP for potential renal recovery * will likely need to continue with outpatient dialysis for now (2) Stage 3b chronic kidney disease: Code(s): N18.32 - Chronic kidney disease, stage 3b Status: Inactive Assessment and Plan: * has baseline CKD or is this just random fluctuations in baseline kidney function??? * creatinine running around 1.3 - 1.7mg/dl by previous labs done at [facility] * HOWEVER, labs review from other hospitalizations at other facilities demonstrate that her creatinine has been as low as 0.9mg/dl in this year.... * however, perhaps this normal creatinine value was dilutional from her previous bouts of CHF... * risk factors for CKD include HTN, vascular disease, and age (3) Anemia: Qualifiers: Anemia type: due to chronic kidney disease Code(s): D64.9 - Anemia, unspecified Status: Acute Assessment and Plan: * related to FRANCIS and need for dialysis * Epogen with HD * anemia studies demonstrate iorn deficiency also * IV venofer with dialysis * follow H/H (4) Hypertension: Code(s): I10 - Essential (primary) hypertension Status: Chronic Assessment and Plan: * better control at this time * resumed on home medications * follow trend of hemodynamics (5) Congestive heart failure: Code(s): I50.9 - Heart failure, unspecified Status: Inactive Assessment and Plan: * known apparent history * fluid removal with HD to maintain euvolemia * follow volume status (6) COPD (chronic obstructive pulmonary disease): Code(s): J44.9 - Chronic obstructive pulmonary disease, unspecified Status: Chronic Assessment and Plan: * seems compensated * continue inhalers Not opposed to discharge from renal perspective if otherwise medically stable -- she is due for dialysis again on Friday (05/31/23). Will continue to follow. Subjective Date/time seen: 05/28/23 10:52 Interval history: Follow-up for acute kidney injury/acute renal failure (possibly on chronic kidney disease). Tolerating dialysis treatment at the time of my visit (seen on HD at 10:45AM); no apparent distress voiced; no issues/events overnight or earlier this morning; overall, feels reasonably well. Exam Narrative: General: elderly female in NAD Heart: normal S1 and S2; no rub Lungs: clear to auscultation Abdomen: soft, nontender, nondistended, positive bowel sounds Extremities: trace edema present Skin: warm and dry Objective Data Vital Signs Vital Signs: Vital Signs Temp Pulse Resp BP Pulse Ox O2 Del Method
--- NOTE | 2023-05-28 10:52 | PM.PNNEP ---
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/dialysis on last hospital admission for clearance, optimization of fluid removal, and electrolytes control no evidence of recent recovery since discharge (as noted by this admission's labs) concerning that some of her confusion on presentation could be uremia HD today again follow repeat labs and UOP for potential renal recovery will likely need to continue with outpatient dialysis for now (2) Stage 3b chronic kidney disease: Code(s): N18.32 - Chronic kidney disease, stage 3b Status: Inactive Assessment and Plan: has baseline CKD or is this just random fluctuations in baseline kidney function??? creatinine running around 1.3 - 1.7mg/dl by previous labs done at [facility] HOWEVER, labs review from other hospitalizations at other facilities demonstrate that her creatinine has been as low as 0.9mg/dl in this year.... however, perhaps this normal creatinine value was dilutional from her previous bouts of CHF... risk factors for CKD include HTN, vascular disease, and age (3) Anemia: Qualifiers: Anemia type: due to chronic kidney disease Code(s): D64.9 - Anemia, unspecified Status: Acute Assessment and Plan: related to FRANCIS and need for dialysis Epogen with HD anemia studies demonstrate iorn deficiency also IV venofer with dialysis follow H/H (4) Hypertension: Code(s): I10 - Essential (primary) hypertension Status: Chronic Assessment and Plan: better control at this time resumed on home medications follow trend of hemodynamics (5) Congestive heart failure: Code(s): I50.9 - Heart failure, unspecified Status: Inactive Assessment and Plan: known apparent history fluid removal with HD to maintain euvolemia follow volume status (6) COPD (chronic obstructive pulmonary disease): Code(s): J44.9 - Chronic obstructive pulmonary disease, unspecified Status: Chronic Assessment and Plan: seems compensated continue inhalers Not opposed to discharge from renal perspective if otherwise medically stable -- she is due for dialysis again on Friday (05/31/23). Will continue to follow. Subjective Date/time seen: 05/28/23 10:52 Interval history: Follow-up for acute kidney injury/acute renal failure (possibly on chronic kidney disease). Tolerating dialysis treatment at the time of my visit (seen on HD at 10:45AM); no apparent distress voiced; no issues/events overnight or earlier this morning; overall, feels reasonably well. Exam Narrative: General: elderly female in NAD Heart: normal S1 and S2; no rub Lungs: clear to auscultation Abdomen: soft, nontender, nondistended, positive bowel sounds Extremities: trace edema present Skin: warm and dry Objective Data Vital Signs Vital Signs: Vital Signs Temp Pulse Resp BP Pulse Ox O2 Del Method 05/28/23 10:40 92 139/66 05/28/23 10:20 93 121/69 05/28/23 10:00 81 134/71 05/28/23 09:40 84 138/61 05/28/23 09:20 88 140/72 05/28/23 09:00 83 143/78 H 05/28/23 08:45 78 152/72 H 05/28/23 08:25 84 117/63 05/28/23 07:55 98.1 F 93 16 150/79 H 05/28/23 08:07 82 148/78 H 05/28/23 05:55 98.4 F 89 14 137/45 L 98 05/28/23 04:00 83 05/28/23 00:00 89 05/27/23 20:00 83 05/27/23 21:09 97.5 F L 91 14 139/54 L 96 05/27/23 20:30 83 05/27/23 16:00 99 05/27/23 16:05 Room Air 05/27
[2023-05-28] MEDS: ATORVASTATIN 40 MG TABLET 80 MG PO (11:28)
[2023-05-28] MEDS: ASPIRIN 81 MG CHEWABLE TABLET PO (11:28)
[2023-05-28] MEDS: PANTOPRAZOLE 40 MG TABLET PO (11:28)
[2023-05-28] MEDS: CLOPIDOGREL BISULFATE 75 MG TABLET PO (11:28)
[2023-05-28] MEDS: METOPROLOL TARTRATE 50 MG TAB BY MOUTH (11:28)
[2023-05-28] MEDS: FERROUS SULFATE 325 MG TABLET DR PO (11:28)
[2023-05-28] MEDS: HEPARIN SODIUM 5,000 UNITS/ML VIAL 5000 UNITS SUB-Q (11:29)
--- NOTE | 2023-05-28 12:53 | PCOTNOTE ---
The patient treatment was not able to be completed 05/28 @12:53 patient reported she is going to have lunch with her family at 1pm. Will plan to continue treatment per plan of care.
[2023-05-28 13:17] LABS: Anion Gap 9 mmol/L (8-16); Blood Urea Nitrogen 6 mg/dL (7-17); Calcium 8.6 mg/dL (8.4-10.2); Carbon Dioxide 32 mmol/L (22-30); Chloride 98 mmol/L (98-107); Estimated CRCL calculation 17 ml/min; Estimated Glomerular Filt Rate 19; Glucose 90 mg/dL (65-110); Potassium 3.5 mmol/L (3.4-5.0); Sodium 139 mmol/L (137-145)
--- NOTE | 2023-05-28 13:48 | PM.DS ---
DS: Admitting Diagnosis Discharge Date 05/28/2023 Admitting Diagnosis Acute kidney injury superimposed on CKD, anemia, history of RI DS: Discharge Diagnosis Discharge Diagnosis (1) Acute kidney injury superimposed on CKD: Code(s): N17.9 - Acute kidney failure, unspecified; N18.9 - Chronic kidney disease, unspecified Status: Acute (2) Anemia: Qualifiers: Anemia type: due to chronic kidney disease Code(s): D64.9 - Anemia, unspecified Status: Acute (3) History of RI (myocardial infarction): Code(s): I25.2 - Old myocardial infarction Status: Acute (4) ESRD on dialysis: Code(s): N18.6 - End stage renal disease; Z99.2 - Dependence on renal dialysis Status: Acute (5) Volume overload: Code(s): E87.70 - Fluid overload, unspecified Status: Acute DS: Summary Hospital Course Reason for hospitalization: Patient missed dialysis x3 Hospital Course: 72 y/o F presents here with fatigue and missed dialysis treatments x3 with PMH of RI, DVT, HTN, FRANCIS likely superimposed on CKD. She says she does not like how dialysis makes her feel so she has been skipping it. This is a recent development for her as she states she has only had maybe 5 HD treatments and has a tunneled R subclavian. Please see HPI for further details. 05/27: Mrs Ramos is seen today after her HD session. She had told the nurse she was having some chest pain but it is chronic chest pain that she feels after each dialysis session. She is tired but otherwise has no complaints. She denies h/a, dizziness, shortness of breath, nausea, vomiting, or constipation. She says that she had three bowel movements last night after getting some kind of medicine. I spoke with her about the importance of not skipping dialysis and the rationale for why see needs dialysis and how dialysis works. I also reviewed the risk involved with skipping treatments. She verbalized understanding but she definitely needs more education surrounding this.? 05/28: Patient underwent hemodialysis with ultrafiltration today and 750 mL removed. Patient reports feeling better. Spoke to Dr. Antonio who states patient can be discharged today and get HD on Friday as an outpatient from facility. Patient ok to return to prior facility for SNF with eventual plan for discharge home. Status at Discharge Cognitive/behavioral status at discharge: awake, alert, pleasant Functional status at discharge: uses cane/walker Overall status at discharge: patient is progressing back to baseline Time Spent with Patient Time attestation: Total time spent providing and/or coordinating discharge services: 35 minutes Time spent: Greater than 30 minutes Exam Narrative: General: well appearing, well developed, well nourished, appears stated age. HEENT: normocephalic, atraumatic. Mucous membranes moist. EOMI, PERRLA, bilateral sclera anicteric, no conjunctival injection. Neck supple without JVD, lymphadenopathy, or bruit. Respiratory: clear to auscultation bilaterally. No rales/rhonchi/wheezes. Cardiovascular: Regular rate and rhythm, normal S1-S2 upon auscultation. No murmurs, rubs, or clicks. PMI is nondisplaced, capillary re-fill less than 3 second. Abdomen: Soft, round, no pulsatile masses, non-distended and non-tender. No rebound, no guarding. No CVA tenderness, no hepatosplenomegaly. Bowel sounds present to all four quadrants. Extremities: No cyanosis, clubbing, or edema present. Pulses are palpable 2/2. Active ROM to all four extremities. Neuro: Alert and orientated x 4. PERRLA. Cranial nerves 2-12 intact without focal deficit. Skin: Warm, dry, and intact, without rash, erythema, or lesion. Lines: Tunneled PermCath to right subclavian, dressing clean dry and intact Psych:normal speech, normal affect, no hallucinations, no dysarthria DS: Data Data Completed and Pending Labs on day of discharge: Labs from last 24 hours 05/28/23 05/28/23 12:56 0
[2023-05-28 15:02] LABS: SARS-CoV-2 RNA PCR Negative (Negative)
[2023-05-28] MEDS: ONDANSETRON INJ 4 MG/2 ML VIAL IV PUSH (15:35)
--- NOTE | 2023-06-03 08:55 | PC.NURSE ---
Blood cultures are negative.
== END 2023-05-28 17:03 ==
LOC: ANHED 14:54 → ANH3MED 17:59 → ANH3MEDSUR 05-30 09:19
PROVIDERS: Internal Medicine Nephrology; Nurse Practitioner; Nurse Practitioner Acute Care; Student in an Organized Health Care Education/Training Program; Admitting Provider Internal Medicine; Emergency Provider Emergency Medicine; PCP Hospitalist; Visit Provider Hospitalist
DX: N17.9 Acute kidney failure, unspecified (principal); I50.41 Acute combined systolic (congestive) and diastolic (congestive) heart failure; I13.0 Hypertensive heart and chronic kidney disease with heart failure and stage 1 through stage 4 chronic kidney disease, or unspecified chronic kidney disease; N18.32 Chronic kidney disease, stage 3b; D63.1 Anemia in chronic kidney disease; Z91.158 Patient's noncompliance with renal dialysis for other reason; Z20.822 Contact with and (suspected) exposure to COVID-19; J44.9 Chronic obstructive pulmonary disease, unspecified; I25.2 Old myocardial infarction; G47.00 Insomnia, unspecified; I25.10 Atherosclerotic heart disease of native coronary artery without angina pectoris; Z95.5 Presence of coronary angioplasty implant and graft; E87.70 Fluid overload, unspecified; E87.5 Hyperkalemia; F41.9 Anxiety disorder, unspecified; Z87.891 Personal history of nicotine dependence; Z86.718 Personal history of other venous thrombosis and embolism; Z79.51 Long term (current) use of inhaled steroids; Z79.82 Long term (current) use of aspirin; Z79.02 Long term (current) use of antithrombotics/antiplatelets; Z79.899 Other long term (current) drug therapy
CPT/HCPCS: 36415; 80048; 80053; 81001; 82728; 83540; 83550; 84100; 85025; 85027; 86706; 87040; 87086; 87088; 87340; 87635; 93005; 96365; 96372; 96375; 96376; 97165; 97530; 97535; 99285; A9270; G0257; G0378; J0612; J1644; J2405; J7030; Q4081; Q5105

== ENCOUNTER 2023-06-03 04:13 | Observation (INO) | payer OTHER, SELFPAY ==
[2023-06-03] VITALS (45 sets, daily range): BP systolic 70–185; BP diastolic 43–134; PULSE 41–119; RESP 18–40; TEMP 36.3–37.2; O2SAT 92–100; BMI 28.3
--- NOTE | ~2023-06-03 | XR_ITS ---
Portable chest x-ray Comparison: 06/03/2023 Clinical History: Shortness of breath Findings: Stable right-sided central venous line. There is mild bibasilar pulmonary edema and minima l pleural effusions. Cardiomediastinal silhouette is stable. Bones and soft tissues are unremarkable . Impression: Bibasilar pulmonary edema with minimal pleural effusions. Stable support line. Reviewed, dictated and finalized at location . STOCK EXHIBITOR Impression: Bibasilar pulmonary edema with minimal pleural effusions. Stable support line.
--- NOTE | ~2023-06-03 | XR_ITS ---
Clinical Indication: Shortness of breath PA and lateral views of the chest: Comparison: 05/16/2023 Findings: Right-sided central venous line is unchanged. There is mild to moderate bibasilar pulmonary edema, new from prior exam. No definite pleural effusion. Cardiomediastinal silhouette is within nor mal limits. Bones and soft tissues are unremarkable. Impression: Bibasilar mild to moderate pulmonary edema, new from prior exam. Stable support line. Reviewed, dictated and finalized at location M. S PROJECT ENGINEER Impression: Bibasilar mild to moderate pulmonary edema, new from prior exam. Stable support line.
--- NOTE | 2023-06-03 04:16 | ECG_ITS ---
Measurements Intervals Edwards Rate: 107 P: 67 WV: 158 QRS: 39 QRSD: 93 T: 6 QT: 354 QTc: 474 Interpretive Statements SINUS TACHYCARDIA POSSIBLE LEFT ATRIAL ENLARGEMENT BORDERLINE ST-T WAVE ABNORMALITY- INFERIOR LEADS BASELINE ARTIFACT- I, III, AVR, AVL, V5-V6 ABNORMAL ECG COMPARED TO ECG 05/26/2023 12:34:49 SINUS TACHYCARDIA NOW PRESENT Electronically Signed On 06-03-2023 6:49:33 SEATER ASSEMBLER by Mike Sung D.O.
[2023-06-03 05:28] LABS: Alveolar/Arterial O2 Gradient 130.4 mmHg; Base Excess ABG -0.5 mEq/l (+/-2.0); Fractional Inspired Oxygen 36 %; HCO3 ABG 23.3 mEq/l (22.0-26.0); Oxygen Content ABG 12.9 %vol (16.0-22.0); Oxygen Saturation ABG 96.9 % (95.0-100.0); Oxyhemoglobin 94.7 % THb (90.0-100.0); PCO2 ABG 34.9 mmHg (35.0-45.0); PO2 ABG 85.8 mmHg (80.0-100.0); PO2 FiO2 Ratio Arterial Blood 2.38 %; Total Hemoglobin 9.6 g/dL (12.0-18.0); pH ABG 7.443 (7.350-7.450)
[2023-06-03 05:29] LABS: Device NASAL CANNULA; Modified Allen's Test Pass; Site Drawn RIGHT RADIAL
[2023-06-03 05:39] LABS: Basophils Percent Auto 0.4 % (0.2-1.2); Eosinophils Absolute Auto 0.3 K/mm3 (0-0.3); Eosinophils Percent Auto 2.3 % (0-4.4); Hematocrit 27.9 % (37.0-47.0); Hemoglobin 8.4 g/dL (12.0-15.0); Immature Granulocyte Absolute 0.04 K/mm3 (0.00-0.031); Immature Granulocyte Percent A 0.4 % (0-0.5); Mean Corpuscular HGB Conc 30.1 g/dl (32-36); Mean Corpuscular Hemoglobin 26.9 pg (26-34); Mean Corpuscular Volume 89.4 fl (80-100); Mean Platelet Volume 10.5 fl (7.4-10.4); Monocytes Percent Auto 8.5 % (2.6-8.5); Neutrophils Percent Auto 80.4 % (45.5-73.1); Platelet Count Result 206 k/mm3 (150-375); Red Blood Count 3.12 M/mm3 (4.2-5.4); Red Cell Distribution Width 15.4 % (11.5-14.5); White Blood Count 11.2 K/mm3 (4.5-10.0)
[2023-06-03 05:48] LABS: Alanine Aminotransferase 14 U/L (6-35); Alkaline Phosphatase 76 U/L (38-126); Anion Gap 15 mmol/L (8-16); Aspartate Amino Transferase 23 U/L (14-36); Bilirubin,Total 0.6 mg/dL (0.2-1.3); Blood Urea Nitrogen 46 mg/dL (7-17); Carbon Dioxide 23 mmol/L (22-30); Chloride 98 mmol/L (98-107); Estimated CRCL calculation 5 ml/min; Estimated Glomerular Filt Rate 4; Glucose 138 mg/dL (65-110); Lipase 188 U/L (23-300); Potassium 4.3 mmol/L (3.4-5.0); Sodium 136 mmol/L (137-145)
[2023-06-03 06:02] LABS: Troponin I 0.052 ng/mL (0.000-0.034)
[2023-06-03 06:09] LABS: Prothrombin Time 13.2 Seconds (11.1-14.7)
[2023-06-03 06:10] LABS: Partial Thromboplastin Time 29.9 SECONDS (22.3-36.8)
[2023-06-03 06:14] LABS: Influenza A QL RT-PCR Negative (Negative); Influenza B QL RT-PCR Negative (Negative); RSV RNA, RT-PCR Negative (Negative); SARS-CoV-2 RNA PCR Negative (Negative)
--- NOTE | 2023-06-03 06:33 | ED.GENADULT ---
HPI - General Adult General Chief complaint: Chest Pain Stated complaint: CP, SOB, DIZZINESS, MISSED DIALYSIS, HIGH B/P Time Seen by Provider: 06/03/23 04:31 History of Present Illness HPI narrative: patient is 72-year-old female who presents emergency department chief complaint of chest pain and shortness of breath. Patient is on dialysis and missed a run of dialysis recently the patient is starting to have shortness of breath and was having chest pain. The patient was found to be hypoxic by EMS and was placed on oxygen currently on 4 L. Related Data Home Medications Medication Instructions Recorded Confirmed albuterol sulfate 90 mcg/actuation 2 puff inhalation Q8H PRN 04/28/23 05/26/23 aerosol inhaler Shortness Of Breath Or Wheezing alprazolam 0.25 mg tablet (Xanax) 0.25 mg PO TID PRN Anxiety 05/26/23 05/26/23 melatonin 5 mg tablet 5 mg PO HS PRN prn 05/26/23 05/26/23 Allergies Allergy/AdvReac Type Severity Reaction Status Date / Time oxycodone Allergy Intermediate Unknown Verified 05/26/23 18:10 alprazolam AdvReac Mild NAUSEA AND Verified 05/26/23 18:10 VOMITING. 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 Unknown Uncoded 05/26/23 18:10 Review of Systems Review of Systems: A 10 system review of systems was completed on the patient and is negative except for what is stated in the HPI. Nursing and ancillary documentation was reviewed. [facility] Past Medical History Medical History Acute kidney injury superimposed on CKD Acute respiratory failure with hypoxia and hypercarbia Intubated during admission on 04/28/23-05/17/23 Anemia Anxiety Congestive heart failure COPD (chronic obstructive pulmonary disease) DVT (deep venous thrombosis) After knee surgery years ago. ESRD on dialysis Hypertension Insomnia Lung nodule NSTEMI (non-ST elevated myocardial infarction) Pneumonia Stage 3b chronic kidney disease Tobacco dependence Surgical History Surgical History H/O right knee surgery History of cholecystectomy History of coronary artery stent placement Social History Social History Social History: Currently resident at [facility]. Surrogate Decision Maker: Nathaly Vann, sister. Code Status: Full Code. Smoking packs per day: 1 Smoking cigarettes per day: 20.0 Years smoked: 40 Smoking pack-years: 40.00 Smoking status: Former smoker Tobacco type: cigarettes Alcohol intake: never Alcohol use details: rarely Substance use: never Substance use type: does not use Lack of Transportation: No Lack of Food: Never True Current Housing: I Have Housing Concerned About Future Housing: No Difficulty Paying Gas/Electric Bills: No Difficulty Paying for Meds: No Currently Unemployed: No Education: High School Diploma/GED Difficulty w/ Childcare or Family Care: No Living arrangements: alone Spiritual care concerns: No Exam Narrative: GENERAL: Well-appearing, well-nourished, and in no acute distress. HEAD: Normocephalic, atraumatic. EYES: PERRLA and EOMI. ENT: Nares clear, no rhinorrhea or epistaxis. Mucous membranes moist. NECK: Supple. CHEST: Clear to auscultation. No respiratory distress. tunneled dialysis catheter present in the right anterior chest wall HEART: Regular rate and rhythm. No murmur heard. Normal peripheral pulses. ABDOMEN: Soft, nontender, nondistended, normal active bowel sounds. EXTREMITIES: Normal range of motion. No edema. SKIN: Warm, dry, no rash. NEURO: No focal deficits. Alert and oriented x3. PSYCH: Normal mood and affect. Course Vital Signs Vital signs: Vital Signs Temperature 36.6 C 06/03/23 04:10 Pulse Rate 113 H 06/03/23 04:10 Respiratory Rate 28 H 06/03/23 04:10 Pulse Oximetry 95 06/03/23 04:10 Oxygen Del
[2023-06-03] MEDS: SODIUM CHLORIDE 0.9% IV 1,000 ML 999 ML IV CONT (07:37)
[2023-06-03] MEDS: ASPIRIN 81 MG CHEWABLE TABLET 324 MG PO (07:38)
--- NOTE | 2023-06-03 07:53 | PC.NURSE ---
0700 Assumed care of pt. Pt c/o being nervous. Repositioned lights dimmed. Pt voices she doesn't understand why she keeps filling up with fluids Reinforced reason why she needs to be to be compliant with dialysis
[2023-06-03 08:19] LABS: Troponin I 0.066 ng/mL (0.000-0.034)
--- NOTE | 2023-06-03 10:06 | PC.NURSE ---
This patient, Vero Ramos, was admitted to IMU status, and placed in Intensive Care Unit-8. Patient/family oriented to hospital policies and general routines including ID bracelet, bed and alarms, visiting hours, pain management, procedures, bathroom and other care routines, personal items, smoking policy, room service/diet, and visiting hours. Valuables list has been completed. Information on how to activate the Rapid Response Team has been discussed. Patient/Family are encouraged to report perceived risks to care and to ask questions if they do not understand what they are told or what they should do.
--- NOTE | 2023-06-03 10:06 | PC.NURSE ---
RN returned called pt daughter Anushka @ [phone] pt update given including room number
[2023-06-03 11:21] LABS: Troponin I 0.061 ng/mL (0.000-0.034)
[2023-06-03] MEDS: FUROSEMIDE INJ 40 MG/4 ML VIAL 20 MG IV PUSH (11:43)
--- NOTE | 2023-06-03 14:15 | PM.CNNEP ---
Assessment and Plan Assessment and plan (1) FRANCIS (acute kidney injury): Code(s): N17.9 - Acute kidney failure, unspecified Status: Acute Assessment and Plan: as noted by events on last hospitalization (April 2023) here at [facility] admission creatinine at that time was 1.6mg/dl and progressively deteriorated multifactorial etiology: ATN, prerenal factors, infection, NSTEMI, hyoxia, relative hypotension initiated on STUDENT ACCOUNTS COORDINATOR/dialysis on [id number] admission for clearance, optimization of fluid removal, and electrolytes control no evidence of recent recovery since discharge plan HD today follow repeat labs and UOP for potential renal recovery (2) Stage 3b chronic kidney disease: Code(s): N18.32 - Chronic kidney disease, stage 3b Status: Inactive Assessment and Plan: has baseline CKD or is this just random fluctuations in baseline kidney function??? creatinine running around 1.3 - 1.7mg/dl by previous labs done at [facility] HOWEVER, labs review from other hospitalizations at other facilities demonstrate that her creatinine has been as low as 0.9mg/dl in this year.... however, perhaps this normal creatinine value was dilutional from her previous bouts of CHF... risk factors for CKD include HTN, vascular disease, and age (3) Acute hypoxemic respiratory failure: Code(s): J96.01 - Acute respiratory failure with hypoxia Status: Acute Assessment and Plan: thought to be secondary to fluid overload HD today with aggressive fluid removal BiPAP support PRN follow respiratory status (4) Chest pain: Code(s): R07.9 - Chest pain, unspecified Status: Acute Assessment and Plan: troponins noted no further episodes since admission (5) Anemia: Qualifiers: Anemia type: due to chronic kidney disease Code(s): D64.9 - Anemia, unspecified Status: Acute Assessment and Plan: related to FRANCIS and need for dialysis Epogen with HD previous anemia studies demonstrate iron deficiency also IV venofer with dialysis follow H/H (6) Hypertension: Code(s): I10 - Essential (primary) hypertension Status: Chronic Assessment and Plan: elevated at this time resumed on home medications fluid removal with HD should help follow trend of hemodynamics (7) Congestive heart failure: Code(s): I50.9 - Heart failure, unspecified Status: Inactive Assessment and Plan: known apparent history fluid removal with HD to maintain euvolemia follow volume status I will continue follow patient with you while she remains hospitalized and make further recommendations as needed. Thank you for allowing me to participate in care this patient. History of Present Illness Reason for Consult Consult date: 06/03/23 Reason for consult: acute renal failure (on possible CKD requiring dialysis) Chief Complaint Chief complaint: chest pain,esrd on hd,fluid overload elevated trop History of Present Illness Narrative: The patient is a 72-year-old female with a past medical history as outlined below who was transferred to [facility] Emergency Room for further evaluation of chest pain. The patient started complaining of chest pain this started around 5:00 p.m. the evening before presentation to the emergency room. The chest pain was accompanied with shortness of breath and dizziness. She described the chest pain as sharp and in the center of her chest rated 8/10 in severity. She felt the pain in her chest was similar to her previous MIs. EMS was summoned to her nursing facility and she was given aspirin as well as nitroglycerin tablets without any relief in route to the emergency room. On arrival to the emergency room, the patient was quite nervous and anxious which seem to worsen or chest discomfort as well as her shortness of breath. She was placed on 3 L of supplemental oxygen g
--- NOTE | 2023-06-03 14:15 | P.CONNP_ITS ---
Assessment and Plan Assessment and plan (1) FRANCIS (acute kidney injury): Code(s): N17.9 - Acute kidney failure, unspecified Status: Acute Assessment and Plan: * as noted by events on last hospitalization (April 2023) here at [facility] * admission creatinine at that time was 1.6mg/dl and progressively d eteriorated * multifactorial etiology: ATN, prerenal factors, infection, NSTEMI, hyoxia, relative hypotension * initiated on MANAGER UTILIZATION REVIEW/dialysis on lOc2022 admission for clearance, optimization of fluid removal, and electrolytes control * no evidence of recent recovery since discharge * plan HD today * follow repeat labs and UOP for potential renal recovery (2) Stage 3b chronic kidney disease: Code(s): N18.32 - Chronic kidney disease, stage 3b Status: Inactive Assessment and Plan: * has baseline CKD or is this just random fluctuations in baseline kidney function??? * creatinine running around 1.3 - 1.7mg/dl by previous labs done at [facility] * HOWEVER, labs review from other hospitalizations at other facilities demonstrate that her creatinine has been as low as 0.9mg/dl in this year.... * however, perhaps this normal creatinine value was dilutional from her previous bouts of CHF... * risk factors for CKD include HTN, vascular disease, and age (3) Acute hypoxemic respiratory failure: Code(s): J96.01 - Acute respiratory failure with hypoxia Status: Acute Assessment and Plan: * thought to be secondary to fluid overload * HD today with aggressive fluid removal * BiPAP support PRN * follow respiratory status (4) Chest pain: Code(s): R07.9 - Chest pain, unspecified Status: Acute Assessment and Plan: * troponins noted * no further episodes since admission (5) Anemia: Qualifiers: Anemia type: due to chronic kidney disease Code(s): D64.9 - Anemia, unspecified Status: Acute Assessment and Plan: * related to FRANCIS and need for dialysis * Epogen with HD * previous anemia studies demonstrate iron deficiency also * IV venofer with dialysis * follow H/H (6) Hypertension: Code(s): I10 - Essential (primary) hypertension Status: Chronic Assessment and Plan: * elevated at this time * resumed on home medications * fluid removal with HD should help * follow trend of hemodynamics (7) Congestive heart failure: Code(s): I50.9 - Heart failure, unspecified Status: Inactive Assessment and Plan: * known apparent history * fluid removal with HD to maintain euvolemia * follow volume status I will continue follow patient with you while she remains hospitalized and make further recommendations as needed. Thank you for allowing me to participate in care this patient. History of Present Illness Reason for Consult Consult date: 06/03/23 Reason for consult: acute renal failure (on possible CKD requiring dialysis) Chief Complaint Chief complaint: chest pain,esrd on hd,fluid overload elevated trop History of Present Illness Narrative: The patient is a 72-year-old female with a past medical history as outlined below who was transferred to [facility] Emergency Room for further evaluation of chest pain. The patient started complaining of chest pain this started around 5:00 p.m. the evening before presentation to the emergency room. The chest pain was accompanied with shortness of breath and dizziness. She described the chest pain as sharp and
--- NOTE | 2023-06-03 15:32 | PM.IMHP ---
H&P: HPI History of Present Illness Date/Time: 06/03/23 15:32 Chief Complaint: SOB Narrative: Pt presents here with SOB, pt missed dialysis treatments again with PMH of CA, DVT, HTN, FRANCIS likely superimposed on CKD. Pt had a recent admission with similar complaints. Pt states it is too difficult to go to dialysis due to tiredness. Pt is feeling very sob today, also drowsy needs to start BIPAP to stabilize. Pt was on 3 liters in ED. ABG reviewed CXR reviwed IV lasix ordered nephrology informed pt will have dialysis [facility] today. COVID flu and RSV were negative Pt states SOB came on sudden along with leg swelling. Pt mentioned some chest pain on admission troponins ordered Review of Systems Review of Systems: SOB and leg swelling NO chest pain now PMFSH Past Medical History Medical History Acute kidney injury superimposed on CKD Acute respiratory failure with hypoxia and hypercarbia Intubated during admission on 04/28/23-05/17/23 Anemia Anxiety Congestive heart failure COPD (chronic obstructive pulmonary disease) DVT (deep venous thrombosis) After knee surgery years ago. ESRD on dialysis Hypertension Insomnia Lung nodule NSTEMI (non-ST elevated myocardial infarction) Pneumonia Stage 3b chronic kidney disease Tobacco dependence Surgical History Surgical History H/O right knee surgery History of cholecystectomy History of coronary artery stent placement Social History Social History Social History: Currently resident at [facility]. Surrogate Decision Maker: Nathaly Vann, sister. Code Status: Full Code. Smoking packs per day: 1 Smoking cigarettes per day: 20.0 Years smoked: 40 Smoking pack-years: 40.00 Smoking status: Former smoker Alcohol intake: never Alcohol use details: rarely Substance use: never Substance use type: does not use Lack of Transportation: No Lack of Food: Never True Current Housing: I Have Housing Concerned About Future Housing: No Difficulty Paying Gas/Electric Bills: No Difficulty Paying for Meds: No Currently Unemployed: No Education: Decline to Answer Difficulty w/ Childcare or Family Care: No Living arrangements: alone Spiritual care concerns: No Meds Home Medications and Allergies Home Medications Medication Instructions Recorded Confirmed Type pantoprazole 40 mg tablet,delayed 40 mg PO QAM 4 weeks #28 tabs 04/03/23 06/03/23 Rx release (Protonix) albuterol sulfate 90 mcg/actuation 2 puff inhalation Q8H PRN 04/28/23 06/03/23 History aerosol inhaler Shortness Of Breath Or Wheezing aspirin 81 mg chewable tablet 81 mg PO DAILY@0800 #30 tabs 05/17/23 06/03/23 Rx (Children's Aspirin) atorvastatin 40 mg tablet 80 mg PO DAILY #30 tabs 05/17/23 06/03/23 Rx clopidogrel 75 mg tablet 75 mg PO DAILY #30 tabs 05/17/23 06/03/23 Rx metoprolol tartrate 50 mg tablet 50 mg BYMOUTH Q12HR #60 tabs 05/17/23 06/03/23 Rx nitroglycerin 0.4 mg sublingual 0.4 mg sublingual Q5MIN PRN Chest 05/17/23 06/03/23 Rx tablet (Nitrostat) Pain #30 tabs alprazolam 0.25 mg tablet (Xanax) 0.25 mg PO TID PRN Anxiety 05/26/23 06/03/23 History melatonin 5 mg tablet 5 mg PO HS PRN prn 05/26/23 06/03/23 History ferrous sulfate 325 mg (65 mg 325 mg PO BID #0 tabs 05/28/23 06/03/23 Rx iron) tablet,delayed release Allergies Allergy/AdvReac Type Severity Reaction Status Date / Time oxycodone Allergy Intermediate Hives Verified 06/03/23 10:48 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 Unknown Uncoded 06/03/23 09:04 Vital Signs Vital Signs - 24 hr 06/03/23 04:10 06/03/23 04:20 06/03/23 04:22 Temperature 36.6 C Pulse Rate 113 H Respiratory Rate 28 H Blood Pressure Pulse Oximetry 95 98 98 Oxygen Delivery Nasal Cannula Nasal Cannula Nasal Cannula Oxygen
[2023-06-03] MEDS: EPOETIN ALFA 20,000 UNITS/ML VIAL 20000 UNITS IV PUSH (16:09)
[2023-06-03] MEDS: FERROUS SULFATE 325 MG TABLET DR PO (17:59)
[2023-06-03] MEDS: METOPROLOL TARTRATE 50 MG TAB BY MOUTH (17:59)
[2023-06-03] MEDS: ACETAMINOPHEN 325 MG TABLET 650 MG PO (17:59)
[2023-06-03] MEDS: HEPARIN SODIUM 5,000 UNITS/ML VIAL 5000 UNITS SUB-Q (21:04)
[2023-06-04] VITALS (14 sets, daily range): BP systolic 139–178; BP diastolic 66–92; PULSE 79–107; RESP 18–26; TEMP 36.6–36.8; O2SAT 92–100
[2023-06-04 04:32] LABS: Basophils Percent Auto 0.3 % (0.2-1.2); Eosinophils Absolute Auto 0.2 K/mm3 (0-0.3); Eosinophils Percent Auto 1.9 % (0-4.4); Hematocrit 29.6 % (37.0-47.0); Hemoglobin 8.7 g/dL (12.0-15.0); Immature Granulocyte Absolute 0.04 K/mm3 (0.00-0.031); Immature Granulocyte Percent A 0.4 % (0-0.5); Lymphocytes Absolute Auto 1.66 K/mm3 (0.9-3.2); Lymphocytes Percent Auto 16.9 % (18.3-44.2); Mean Corpuscular HGB Conc 29.4 g/dl (32-36); Mean Corpuscular Hemoglobin 26.6 pg (26-34); Mean Corpuscular Volume 90.5 fl (80-100); Mean Platelet Volume 10.7 fl (7.4-10.4); Neutrophils Absolute Auto 6.9 K/mm3 (1.3-6.7); Neutrophils Percent Auto 70.5 % (45.5-73.1); Platelet Count Result 226 k/mm3 (150-375); Red Blood Count 3.27 M/mm3 (4.2-5.4); Red Cell Distribution Width 15.7 % (11.5-14.5); White Blood Count 9.8 K/mm3 (4.5-10.0)
[2023-06-04 05:00] LABS: Alanine Aminotransferase 16 U/L (6-35); Albumin Level 2.5 g/dL (3.5-5.1); Alkaline Phosphatase 84 U/L (38-126); Anion Gap 16 mmol/L (8-16); Aspartate Amino Transferase 25 U/L (14-36); Bilirubin,Total 0.9 mg/dL (0.2-1.3); Blood Urea Nitrogen 27 mg/dL (7-17); Calcium 9.2 mg/dL (8.4-10.2); Carbon Dioxide 23 mmol/L (22-30); Chloride 100 mmol/L (98-107); Estimated CRCL calculation 8 ml/min; Estimated Glomerular Filt Rate 8; Glucose 104 mg/dL (65-110); Magnesium 1.9 mg/dL (1.6-2.3); Phosphorus 3.9 mg/dL (2.5-4.5); Potassium 3.9 mmol/L (3.4-5.0); Sodium 139 mmol/L (137-145)
[2023-06-04] MEDS: hydrALAZINE HCL 25 MG TABLET PO (05:13)
[2023-06-04] MEDS: METOPROLOL TARTRATE 50 MG TAB BY MOUTH ×2 (09:30→20:43)
[2023-06-04] MEDS: ASPIRIN 81 MG CHEWABLE TABLET PO (09:31)
[2023-06-04] MEDS: CLOPIDOGREL BISULFATE 75 MG TABLET PO (09:31)
[2023-06-04] MEDS: ACETAMINOPHEN 325 MG TABLET 650 MG PO (09:31)
[2023-06-04] MEDS: PANTOPRAZOLE 40 MG TABLET PO (09:31)
[2023-06-04] MEDS: FUROSEMIDE INJ 40 MG/4 ML VIAL IV PUSH (09:31)
[2023-06-04] MEDS: ALPRAZolam (*CRX) 0.25 MG TABLET PO (09:31)
[2023-06-04] MEDS: FERROUS SULFATE 325 MG TABLET DR PO ×2 (09:31→18:15)
[2023-06-04] MEDS: HEPARIN SODIUM 5,000 UNITS/ML VIAL 5000 UNITS SUB-Q ×2 (09:31→20:43)
[2023-06-04] MEDS: ATORVASTATIN 40 MG TABLET 80 MG PO (09:31)
--- NOTE | 2023-06-04 12:28 | PM.PNNEP ---
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 creatinine running around 1.3 - 1.7mg/dl by previous labs done at [facility] HOWEVER, labs review from other hospitalizations at other facilities demonstrate that her creatinine has been as low as 0.9mg/dl in this year.... however, perhaps this normal creatinine value was dilutional from her previous bouts of CHF... risk factors for CKD include HTN, vascular disease, and age (3) Acute hypoxemic respiratory failure: Code(s): J96.01 - Acute respiratory failure with hypoxia Status: Acute Assessment and Plan: thought to be secondary to fluid overload HD tomorrow with fluid removal as tolerated BiPAP support PRN; supplemental oxygen PRN follow respiratory status (4) Chest pain: Code(s): R07.9 - Chest pain, unspecified Status: Acute Assessment and Plan: troponins noted no further episodes since admission (5) Anemia: Qualifiers: Anemia type: due to chronic kidney disease Code(s): D64.9 - Anemia, unspecified Status: Acute Assessment and Plan: related to FRANCIS and need for dialysis Epogen with HD previous anemia studies demonstrate iron deficiency also IV venofer with dialysis follow H/H (6) Hypertension: Code(s): I10 - Essential (primary) hypertension Status: Chronic Assessment and Plan: better control at this time resumed on home medications fluid removal with HD seems to have helped follow trend of hemodynamics (7) Congestive heart failure: Code(s): I50.9 - Heart failure, unspecified Status: Inactive Assessment and Plan: known apparent history fluid removal with HD to maintain euvolemia follow volume status Will continue to follow. Subjective Date/time seen: 06/04/23 12:28 Interval history: Follow-up for acute kidney injury/acute renal failure (possibly on chronic kidney disease). Tolerating dialysis treatment yesterday with 3.8L fluid removal; respiratory status is doing better in general; reports that she wants to go home and not back to a nursing facility; no apparent distress voiced at the time of my visit. Exam Narrative: General: elderly female in NAD Heart: normal S1 and S2; no rub Lungs: decreased at bases Abdomen: soft, nontender, nondistended, positive bowel sounds Extremities: trace edema noted Objective Data Vital Signs Vital Signs: Vital Signs Temp Pulse Resp BP Pulse Ox O2 Del Method O2 Flow Rate 06/04/23 12:00 97.8 F 83 21 H 139/70 94 06/04/23 12:00 92 Room Air 06/04/23 10:00 80 06/04/23 08:00 94 06/04/23 08:00 98.3 F 93 24 H 154/88 H 95 06/04/23 08:00 94 Room Air 06/04/23 09:30 107 H 06/04/23 09:12 96 Nasal Cannula 2 06/04/23 06:00 93 06/04/23 04:00 97.8 F 102 H 26 H 178/92 H 96 06/04/23 04:00 102 H 06/04/23 04:00 93 Nasal Cannula 2 06/03/23 21:30 94 Nasal Cannula 2 06/04/23 00:00 97.8
--- NOTE | 2023-06-04 12:28 | P.PNNP_ITS ---
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 * creatinine running around 1.3 - 1.7mg/dl by previous labs done at [facility] * HOWEVER, labs review from other hospitalizations at other facilities demonstrate that her creatinine has been as low as 0.9mg/dl in this year.... * however, perhaps this normal creatinine value was dilutional from her previous bouts of CHF... * risk factors for CKD include HTN, vascular disease, and age (3) Acute hypoxemic respiratory failure: Code(s): J96.01 - Acute respiratory failure with hypoxia Status: Acute Assessment and Plan: * thought to be secondary to fluid overload * HD tomorrow with fluid removal as tolerated * BiPAP support PRN; supplemental oxygen PRN * follow respiratory status (4) Chest pain: Code(s): R07.9 - Chest pain, unspecified Status: Acute Assessment and Plan: * troponins noted * no further episodes since admission (5) Anemia: Qualifiers: Anemia type: due to chronic kidney disease Code(s): D64.9 - Anemia, unspecified Status: Acute Assessment and Plan: * related to FRANCIS and need for dialysis * Epogen with HD * previous anemia studies demonstrate iron deficiency also * IV venofer with dialysis * follow H/H (6) Hypertension: Code(s): I10 - Essential (primary) hypertension Status: Chronic Assessment and Plan: * better control at this time * resumed on home medications * fluid removal with HD seems to have helped * follow trend of hemodynamics (7) Congestive heart failure: Code(s): I50.9 - Heart failure, unspecified Status: Inactive Assessment and Plan: * known apparent history * fluid removal with HD to maintain euvolemia * follow volume status Will continue to follow. Subjective Date/time seen: 06/04/23 12:28 Interval history: Follow-up for acute kidney injury/acute renal failure (possibly on chronic kidney disease). Tolerating dialysis treatment yesterday with 3.8L fluid removal; respiratory status is doing better in general; reports that she wants to go home and not back to a nursing facility; no apparent distress voiced at the time of my visit. Exam Narrative: General: elderly female in NAD Heart: normal S1 and S2; no rub Lungs: decreased at bases Abdomen: soft, nontender, nondistended, positive bowel sounds Extremities: trace edema noted Objective Data Vital Signs Vital Signs:
--- NOTE | 2023-06-04 16:20 | PM.IMPN ---
Progress Note: A&P Assessment and Plan (1) ESRD on dialysis: Code(s): N18.6 - End stage renal disease; Z99.2 - Dependence on renal dialysis Status: Acute Assessment and Plan: HIstory of ESRD (2) History of W[place] (myocardial infarction): Code(s): I25.2 - Old myocardial infarction Status: Acute Assessment and Plan: HIstory of [place] no acute EKG changes (3) Acute kidney injury superimposed on CKD: Code(s): N17.9 - Acute kidney failure, unspecified; N18.9 - Chronic kidney disease, unspecified Status: Acute Assessment and Plan: Creat is 5.20 (4) Anemia: Qualifiers: Anemia type: due to chronic kidney disease Code(s): D64.9 - Anemia, unspecified Status: Acute Assessment and Plan: Hb is 8 Continue to watch pt will benefit from epogen (5) Volume overload: Code(s): E87.70 - Fluid overload, unspecified Status: Acute Assessment and Plan: continue daily lasix cxr shows pulmonary edema pt had dialysis yesterday (6) Chest pain: Code(s): R07.9 - Chest pain, unspecified Status: Acute Assessment and Plan: TRoponin x3 ordered mild elevation likely due to CHF or CKD Pt mentions no chest pain now Plan Acute respiratory failure resolved after diuresis and dialysis Subjective Date/time seen: 06/04/23 16:20 Interval history: Pt presents here with SOB, pt missed dialysis treatments again with PMH of [place], DVT, HTN, FRANCIS likely superimposed on CKD. Pt had a recent admission with similar complaints. Pt states it is too difficult to go to dialysis due to tiredness and transportation issues. Pt wants to go home not back to [facility]. Needs transportation bus three times a week to dialysis. Review of Systems Review of Systems: No acute issues Exam Const: General: in distress, overweight and other Nutritional Appearance: overweight and edematous (SOB on BIPAP ) Orientation/consciousness: oriented to person HENMT: Head: normal to inspection Resp: Effort & Inspection: respiratory distress Auscultation: rhonchi and wheezes Cardio: Rate: regular rate Rhythm: regular rhythm GI: Inspection: normal to inspection Auscultation: normal bowel sounds Neuro: General: oriented to person Objective Data Vital Signs Vital Signs: Vital Signs - 24 hr 06/03/23 16:30 06/03/23 16:45 06/03/23 17:00 Temperature Pulse Rate 95 95 93 Respiratory Rate Blood Pressure 165/87 H 173/99 H 162/95 H Pulse Oximetry Oxygen Delivery Oxygen Flow Rate 06/03/23 17:09 06/03/23 17:17 06/03/23 16:58 Temperature 36.3 C L Pulse Rate 98 99 Respiratory Rate 19 Blood Pressure 149/93 H 172/84 H Pulse Oximetry 94 96 Oxygen Delivery Nasal Cannula Oxygen Flow Rate 2 06/03/23 17:00 06/03/23 17:59 06/03/23 18:00 Temperature Pulse Rate 96 119 H 115 H Respiratory Rate 18 Blood Pressure 162/95 H Pulse Oximetry 95 Oxygen Delivery Oxygen Flow Rate 06/03/23 20:00 06/03/23 20:00 06/03/23 20:00 Temperature 36.6 C Pulse Rate 83 83 Respiratory Rate 21 H Blood Pressure 161/89 H Pulse Oximetry 94 95 Oxygen Delivery Nasal Cannula Oxygen Flow Rate 2 06/03/23 23:28 06/04/23 00:00 06/04/23 00:00 Temperature 36.6 C Pulse Rate 94 96 Respiratory Rate 22 H Blood Pressure 144/66 H Pulse Oximetry 93 93 Oxygen Delivery Nasal Cannula Oxygen Flow Rate 2 06/03/23 21:30 06/04/23 04:00 06/04/23 04:00 Temperature Pulse Rate 102 H Respiratory Rate Blood Pressure Pulse Oximetry 94 93 Oxygen Delivery Nasal Cannula Nasal Cannula Oxygen Flow Rate 2 2 06/04/23 04:00 06/04/23 06:00 06/04/23 09:12 Temperature 36.6 C Pulse Rate 102 H 93 Respiratory Rate 26 H Blood Pressure 178/92 H Pulse Oximetry 96 96 Oxygen Delivery Nasal Cannula Oxygen Flow Rate 2 06/04/23 09:30 06/04/23 08:00 06/04/23 08:
--- NOTE | 2023-06-04 18:36 | PC.NURSE ---
This patient, Vero Ramos, was transferred to [[facility] ] on 06/04/23 at 1837. Personal belongings sent with patient. Report given to [Courtney ]. Appropriate documentation sent with patient.
[2023-06-05] VITALS (25 sets, daily range): BP systolic 84–197; BP diastolic 40–107; PULSE 65–114; RESP 16–20; TEMP 36.1–37.1; O2SAT 93–100
[2023-06-05] MEDS: ALPRAZolam (*CRX) 0.25 MG TABLET PO ×4 (01:49→21:07)
[2023-06-05 06:19] LABS: Basophils Percent Auto 0.4 % (0.2-1.2); Eosinophils Absolute Auto 0.5 K/mm3 (0-0.3); Eosinophils Percent Auto 4.7 % (0-4.4); Hematocrit 29.9 % (37.0-47.0); Hemoglobin 8.9 g/dL (12.0-15.0); Immature Granulocyte Absolute 0.03 K/mm3 (0.00-0.031); Immature Granulocyte Percent A 0.3 % (0-0.5); Lymphocytes Absolute Auto 1.56 K/mm3 (0.9-3.2); Lymphocytes Percent Auto 16.3 % (18.3-44.2); Mean Corpuscular HGB Conc 29.8 g/dl (32-36); Mean Corpuscular Hemoglobin 26.6 pg (26-34); Mean Corpuscular Volume 89.3 fl (80-100); Mean Platelet Volume 10.5 fl (7.4-10.4); Monocytes Percent Auto 10.2 % (2.6-8.5); Neutrophils Absolute Auto 6.5 K/mm3 (1.3-6.7); Neutrophils Percent Auto 68.1 % (45.5-73.1); Platelet Count Result 228 k/mm3 (150-375); Red Blood Count 3.35 M/mm3 (4.2-5.4); Red Cell Distribution Width 15.4 % (11.5-14.5); White Blood Count 9.6 K/mm3 (4.5-10.0)
[2023-06-05 06:33] LABS: Alanine Aminotransferase 14 U/L (6-35); Albumin Level 3.9 g/dL (3.5-5.1); Alkaline Phosphatase 85 U/L (38-126); Anion Gap 15 mmol/L (8-16); Aspartate Amino Transferase 23 U/L (14-36); Bilirubin,Total 0.6 mg/dL (0.2-1.3); Blood Urea Nitrogen 44 mg/dL (7-17); Calcium 9.2 mg/dL (8.4-10.2); Carbon Dioxide 23 mmol/L (22-30); Chloride 100 mmol/L (98-107); Estimated CRCL calculation 6 ml/min; Estimated Glomerular Filt Rate 6; Glucose 130 mg/dL (65-110); Magnesium 1.8 mg/dL (1.6-2.3); Phosphorus 4.2 mg/dL (2.5-4.5); Potassium 3.9 mmol/L (3.4-5.0); Sodium 138 mmol/L (137-145)
[2023-06-05 07:21] LABS: Anisocytosis 1+ (NORMAL); Hypochromasia 1+ (NORMAL); Platelet Estimate Adequate (Adequate); Poikilocytosis 1+ (NORMAL)
[2023-06-05 07:22] LABS: Schistocytes None Seen (NORMAL)
--- NOTE | 2023-06-05 08:42 | PC.NURSE ---
Report called to Loli [employer] customer service technician. Patient taken to dialysis via bed.
[2023-06-05 10:58] LABS: Glucose Point of Care 149 mg/dl (65-105)
[2023-06-05] MEDS: EPOETIN ALFA-EPBX 10,000 UNITS/ML VIAL 10000 UNITS IV PUSH (11:40)
[2023-06-05] MEDS: SODIUM CHLORIDE 0.9% IV 1,000 ML 999 ML IV CONT (11:41)
--- NOTE | 2023-06-05 12:15 | PM.PNNEP ---
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 creatinine running around 1.3 - 1.7mg/dl by previous labs done at [facility] HOWEVER, labs review from other hospitalizations at other facilities demonstrate that her creatinine has been as low as 0.9mg/dl in this year.... however, perhaps this normal creatinine value was dilutional from her previous bouts of CHF... risk factors for CKD include HTN, vascular disease, and age (3) Acute hypoxemic respiratory failure: Code(s): J96.01 - Acute respiratory failure with hypoxia Status: Acute Assessment and Plan: resolving/improved thought to be secondary to fluid overload HD with fluid removal as tolerated BiPAP support PRN; supplemental oxygen PRN follow respiratory status (4) Chest pain: Code(s): R07.9 - Chest pain, unspecified Status: Acute Assessment and Plan: troponins noted no further episodes since admission (5) Anemia: Qualifiers: Anemia type: due to chronic kidney disease Code(s): D64.9 - Anemia, unspecified Status: Acute Assessment and Plan: related to FRANCIS and need for dialysis Epogen with HD previous anemia studies demonstrate iron deficiency also IV venofer with dialysis follow H/H (6) Hypertension: Code(s): I10 - Essential (primary) hypertension Status: Chronic Assessment and Plan: better control at this time resumed on home medications fluid removal with HD seems to have helped follow trend of hemodynamics (7) Congestive heart failure: Code(s): I50.9 - Heart failure, unspecified Status: Inactive Assessment and Plan: known apparent history fluid removal with HD to maintain euvolemia follow volume status May need to discuss with family journeyman pipe welder goals of care given patient apparent inability to tolerated hemodialysis treatments -- discussed with case management. Will continue to follow. Subjective Date/time seen: 06/05/23 12:15 Interval history: Follow-up for acute kidney injury/acute renal failure (possibly on chronic kidney disease). Tolerating dialysis treatment at the time of my visit (seen on HD at 12:05PM); breathing/respiratory status seems relatively stable; complaining to me that she feels sick whenever she does dialysis treatments and wants to sop doing them -- I informed her of the consequences of no dialysis treatments including the likelihood of (she did seem to say much after I told her this). Exam Narrative: General: elderly female in NAD Heart: normal S1 and S2; no rub Lungs: decreased at bases Abdomen: soft, nontender, nondistended, positive bowel sounds Extremities: warm and dry; trace edema Objective Data Vital Signs Vital Signs: Vital Signs Temp Pulse Resp BP Pulse Ox O2 Del Method O2 Flow Rate 06/05/23 12:15 98 145/73 H 06/05/23 12:00 94 135/76 06/05/23 11:46 65 146/59 H 06/05/23 11:00 105 H 118/69 06/05/23 10:00 111 H 157/89 H 06/05
--- NOTE | 2023-06-05 12:15 | P.PNNP_ITS ---
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 * creatinine running around 1.3 - 1.7mg/dl by previous labs done at [facility] * HOWEVER, [facility] has been as low as 0.9mg/dl in this year.... * however, perhaps this normal creatinine value was dilutional from her previous bouts of CHF... * risk factors for CKD include HTN, vascular disease, and age (3) Acute hypoxemic respiratory failure: Code(s): J96.01 - Acute respiratory failure with hypoxia Status: Acute Assessment and Plan: * resolving/improved * thought to be secondary to fluid overload * HD with fluid removal as tolerated * BiPAP support PRN; supplemental oxygen PRN * follow respiratory status (4) Chest pain: Code(s): R07.9 - Chest pain, unspecified Status: Acute Assessment and Plan: * troponins noted * no further episodes since admission (5) Anemia: Qualifiers: Anemia type: due to chronic kidney disease Code(s): D64.9 - Anemia, unspecified Status: Acute Assessment and Plan: * related to FRANCIS and need for dialysis * Epogen with HD * previous anemia studies demonstrate iron deficiency also * IV venofer with dialysis * follow H/H (6) Hypertension: Code(s): I10 - Essential (primary) hypertension Status: Chronic Assessment and Plan: * better control at this time * resumed on home medications * fluid removal with HD seems to have helped * follow trend of hemodynamics (7) Congestive heart failure: Code(s): I50.9 - Heart failure, unspecified Status: Inactive Assessment and Plan: * known apparent history * fluid removal with HD to maintain euvolemia * follow volume status May need to discuss with family long term acute care registered nurse goals of care given patient apparent inability to tolerated hemodialysis treatments -- discussed with case management. Will continue to follow. Subjective Date/time seen: 06/05/23 12:15 Interval history: Follow-up for acute kidney injury/acute renal failure (possibly on chronic kidney disease). Tolerating dialysis treatment at the time of my visit (seen on HD at 12:05PM); breathing/respiratory status seems relatively stable; complaining to me that she feels sick whenever she does dialysis treatments and wants to sop doing them -- I informed her of the consequences of no dialysis treatments including the likelihood of (she did seem to say much after I told her this). Exam Narrative: General: elderl
--- NOTE | 2023-06-05 13:06 | PM.DS ---
DS: Admitting Diagnosis Discharge Date 06/05/2023 Admitting Diagnosis SOB DS: Discharge Diagnosis Discharge Diagnosis (1) ESRD on dialysis: Code(s): N18.6 - End stage renal disease; Z99.2 - Dependence on renal dialysis Status: Acute Assessment and Plan: HIstory of ESRD (2) History of [place] (myocardial infarction): Code(s): I25.2 - Old myocardial infarction Status: Acute Assessment and Plan: HIstory of [place] no acute EKG changes (3) Acute kidney injury superimposed on CKD: Code(s): N17.9 - Acute kidney failure, unspecified; N18.9 - Chronic kidney disease, unspecified Status: Acute Assessment and Plan: Creat is 5.20 (4) Anemia: Qualifiers: Anemia type: due to chronic kidney disease Code(s): D64.9 - Anemia, unspecified Status: Acute Assessment and Plan: Hb is 8 Continue to watch pt will benefit from epogen (5) Volume overload: Code(s): E87.70 - Fluid overload, unspecified Status: Acute Assessment and Plan: continue daily lasix cxr shows pulmonary edema pt had dialysis yesterday (6) Chest pain: Code(s): R07.9 - Chest pain, unspecified Status: Acute Assessment and Plan: TRoponin x3 ordered mild elevation likely due to CHF or CKD Pt mentions no chest pain now Plan Acute respiratory failure resolved after diuresis and dialysis DS: Summary Time Spent with Patient Time attestation: Total time spent providing and/or coordinating discharge services: Exam Const: General: in distress, overweight, edematous (SOB on BIPAP ) and other Nutritional Appearance: overweight and edematous (SOB on BIPAP ) Orientation/consciousness: oriented to person HENMT: Head: normal to inspection Resp: Effort & Inspection: respiratory distress Auscultation: rhonchi and wheezes Cardio: Rate: regular rate Rhythm: regular rhythm GI: Inspection: normal to inspection Auscultation: normal bowel sounds Neuro: General: oriented to person DS: Data Data Completed and Pending Labs on day of discharge: Labs from last 24 hours 06/05/23 06/05/23 10:40 06:10 WBC 9.6 RBC 3.35 L Hgb 8.9 L Hct 29.9 L MCV 89.3 MCH 26.6 MCHC 29.8 L RDW 15.4 H Plt Count 228 MPV 10.5 H Immature Gran % (Auto) 0.3 Neut % (Auto) 68.1 Lymph % (Auto) 16.3 L [place] % (Auto) 10.2 H Eos % (Auto) 4.7 H Baso % (Auto) 0.4 Lymph # (Auto) 1.56 [place] # (Auto) 1.0 H Eos # (Auto) 0.5 H Baso # (Auto) 0.0 Abs Immat Gran (auto) 0.03 Absolute Neuts (auto) 6.5 Absolute Nucleated RBC 0.0 Nucleated RBC % 0.0 Platelet Estimate Adequate Hypochromasia 1+ Poikilocytosis 1+ Anisocytosis 1+ Schistocytes None seen Sodium 138 Potassium 3.9 Chloride 100 Carbon Dioxide 23 Anion Gap 15 BUN 44 H D Creatinine 7.10 H Estim Creat Clear Calc 6 Estimated GFR 6 L Glucose 130 H POC Capillary Glucose 149 H Calcium 9.2 Phosphorus 4.2 Magnesium 1.8 Total Bilirubin 0.6 AST 23 ALT 14 Alkaline Phosphatase 85 Total Protein 7.0 Albumin 3.9 Discharge Plan Discharge Attending physician on discharge: Kristin Zavala Consulting providers: Sugar Antonio Discharging Clinician: Kristin Zavala Anticipated Discharge Date/Time: 06/05/23 13:04 Patient Disposition: Home Health Service Activity: as tolerated Diet: as tolerated and renal Discharge Instructions: [facility] arranged for RN, PT/OT evaluations and treatment. [facility] will contact you regarding for first visit arrangements. [facility] can be reached at [phone]. RN, please fax discharge instructions to [phone]. Thank you. Pt to continue with dialysis 3 times a week compliance emphasised prior to DC Patient Instructions: Antibiotic Form, Heart Failure (GEN) Stand Alone Forms: General Discharge Information Follow
[2023-06-05] MEDS: ASPIRIN 81 MG CHEWABLE TABLET PO (13:16)
[2023-06-05] MEDS: CLOPIDOGREL BISULFATE 75 MG TABLET PO (13:19)
[2023-06-05] MEDS: ATORVASTATIN 40 MG TABLET 80 MG PO (13:19)
[2023-06-05] MEDS: METOPROLOL TARTRATE 50 MG TAB BY MOUTH ×2 (13:20→21:09)
[2023-06-05] MEDS: FUROSEMIDE INJ 40 MG/4 ML VIAL IV PUSH (13:20)
[2023-06-05] MEDS: PANTOPRAZOLE 40 MG TABLET PO (13:21)
--- NOTE | 2023-06-05 13:43 | PM.IMPN ---
Progress Note: A&P Assessment and Plan (1) ESRD on dialysis: Code(s): N18.6 - End stage renal disease; Z99.2 - Dependence on renal dialysis Status: Acute Assessment and Plan: HIstory of ESRD explained that she would be needing dialysis 3 times a day for life pt seen by Belt Machine Operator wants to talk to hospice team tired of dialysis treatments (2) History of MD (myocardial infarction): Code(s): I25.2 - Old myocardial infarction Status: Acute Assessment and Plan: HIstory of MD no acute EKG changes (3) Acute kidney injury superimposed on CKD: Code(s): N17.9 - Acute kidney failure, unspecified; N18.9 - Chronic kidney disease, unspecified Status: Acute Assessment and Plan: Creat is 7.1 today just had dilaysis today (4) Anemia: Qualifiers: Anemia type: due to chronic kidney disease Code(s): D64.9 - Anemia, unspecified Status: Acute Assessment and Plan: Hb is 8 Continue to watch pt will benefit from epogen (5) Volume overload: Code(s): E87.70 - Fluid overload, unspecified Status: Acute Assessment and Plan: continue daily lasix pt had dilaysis today (6) Chest pain: Code(s): R07.9 - Chest pain, unspecified Status: Acute Assessment and Plan: TRoponin x3 ordered mild elevation likely due to CHF or CKD Pt mentions no chest pain now maybe anxiety related Plan Subjective Date/time seen: 06/05/23 13:43 Interval history: Pt presents here with SOB, pt missed dialysis treatments again with PMH of MD, DVT, HTN, FRANCIS likely superimposed on CKD. Pt had a recent admission with similar complaints. Pt states it is too difficult to go to dialysis due to tiredness and transportation issues. Pt had dialysis today after talking to Belt Machine Operator has decided she would like to change to hospice care tired of dialysis Review of Systems Review of Systems: Mild sob Exam Const: General: in distress, overweight and other Nutritional Appearance: overweight and edematous (SOB on BIPAP ) Orientation/consciousness: oriented to person HENMT: Head: normal to inspection Resp: Effort & Inspection: respiratory distress Auscultation: rhonchi and wheezes Cardio: Rate: regular rate Rhythm: regular rhythm GI: Inspection: normal to inspection Auscultation: normal bowel sounds Neuro: General: oriented to person Objective Data Vital Signs Vital Signs: Vital Signs - 24 hr 06/04/23 14:00 06/04/23 16:00 06/04/23 20:40 Temperature 36.6 C 36.8 C Pulse Rate 79 99 103 H Respiratory Rate 22 H 18 Blood Pressure 148/92 H 160/74 H Pulse Oximetry 94 96 Oxygen Delivery Oxygen Flow Rate 06/04/23 20:43 06/04/23 20:00 06/04/23 23:32 Temperature 36.8 C Pulse Rate 103 H 91 Respiratory Rate 18 Blood Pressure 156/81 H Pulse Oximetry 96 100 Oxygen Delivery Nasal Cannula Oxygen Flow Rate 2 06/05/23 03:47 06/05/23 08:33 06/05/23 08:51 Temperature 37.1 C 36.3 C L Pulse Rate 96 108 H Respiratory Rate 18 18 20 Blood Pressure 155/86 H 186/107 H Pulse Oximetry 93 93 Oxygen Delivery Nasal Cannula Oxygen Flow Rate 2 06/05/23 09:06 06/05/23 10:15 06/05/23 10:31 Temperature Pulse Rate 107 H 112 H 114 H Respiratory Rate Blood Pressure 197/100 H 125/75 149/80 H Pulse Oximetry Oxygen Delivery Oxygen Flow Rate 06/05/23 10:45 06/05/23 11:15 06/05/23 11:30 Temperature Pulse Rate 108 H 110 H 102 H Respiratory Rate Blood Pressure 114/40 L 115/72 84/47 L Pulse Oximetry Oxygen Delivery Oxygen Flow Rate 06/05/23 09:15 06/05/23 09:30 06/05/23 09:45 Temperature Pulse Rate 106 H 101 H 111 H Respiratory Rate Blood Pressure 186/104 H 164/104 H 195/93 H Pulse Oximetry Oxygen Delivery Oxygen Flow Rate 06/05/23 10:00 06/05/23 11:00 06/05/23 11:46 Temperature Pulse Rate 111 H 105 H 65 Respiratory Rate Blood Pressure
--- NOTE | 2023-06-05 17:02 | PCOTNOTE ---
Attempted to see pt. for occupational therapy evaluation. Pt. may pursue hospice, and is awaiting meeting tomorrow. Per nursing pt. is stand by assist in room at this time. Will follow-up.
[2023-06-05] MEDS: FERROUS SULFATE 325 MG TABLET DR PO (17:43)
[2023-06-05] MEDS: MELATONIN 5 MG TABLET PO (21:07)
[2023-06-06 05:11] VITALS: BP 138/80; PULSE 88; RESP 17; TEMP 36.8; O2SAT 98
--- NOTE | 2023-06-06 09:18 | PM.DS ---
DS: Admitting Diagnosis Discharge Date 06/06/2023 Admitting Diagnosis SOB DS: Discharge Diagnosis Discharge Diagnosis (1) ESRD on dialysis: Code(s): N18.6 - End stage renal disease; Z99.2 - Dependence on renal dialysis Status: Acute Assessment and Plan: HIstory of ESRD explained that she would be needing dialysis 3 times a day for life (2) History of HI (myocardial infarction): Code(s): I25.2 - Old myocardial infarction Status: Acute Assessment and Plan: HIstory of HI no acute EKG changes (3) Acute kidney injury superimposed on CKD: Code(s): N17.9 - Acute kidney failure, unspecified; N18.9 - Chronic kidney disease, unspecified Status: Acute Assessment and Plan: pt had dialysis in the hospital (4) Anemia: Qualifiers: Anemia type: due to chronic kidney disease Code(s): D64.9 - Anemia, unspecified Status: Acute Assessment and Plan: Hb is 8 Continue to watch pt will benefit from epogen (5) Volume overload: Code(s): E87.70 - Fluid overload, unspecified Status: Acute Assessment and Plan: continue daily lasix pt had dilaysis today (6) Chest pain: Code(s): R07.9 - Chest pain, unspecified Status: Acute Assessment and Plan: TRoponin x3 ordered mild elevation likely due to CHF or CKD Pt mentions no chest pain now maybe anxiety related DS: Summary Hospital Course Hospital Course: Pt presents here with SOB, pt missed dialysis treatments again with PMH of HI, DVT, HTN, FRANCIS likely superimposed on CKD. Pt had a recent admission with similar complaints. Pt states it is too difficult to go to dialysis due to tiredness. Pt is feeling very sob today, also drowsy needs to start BIPAP to stabilize. Pt was on 3 liters in ED. ABG reviewed CXR reviwed IV lasix ordered nephrology informed pt will have dialysis CAROLYN today.? COVID flu and RSV were negative Pt states SOB came on sudden along with leg swelling. Pt mentioned some chest pain on admission troponins ordered believed to be more anxiety related. Pt states she is tired of dialysis sessions. Pt states she wants to go home and go to dialysis 3 times a week from home with her daughter transporting her to dialysis. Pt also met with [facility] hospice team while in the hospital, she is still deciding on whether she wants to change to hospice services or not. Time Spent with Patient Time attestation: Total time spent providing and/or coordinating discharge services:50 minutes on day of dc Exam Const: General: No edematous Nutritional Appearance: overweight and edematous Orientation/consciousness: oriented to person HENMT: Head: normal to inspection Resp: Effort & Inspection: respiratory distress Auscultation: rhonchi and wheezes Cardio: Rate: regular rate Rhythm: regular rhythm GI: Inspection: normal to inspection Auscultation: normal bowel sounds Neuro: General: oriented to person DS: Data Data Completed and Pending Labs on day of discharge: Labs from last 24 hours 06/05/23 10:40 POC Capillary Glucose 149 H Discharge Plan Discharge Attending physician on discharge: Kristin Zavala Consulting providers: Sugar Antonio Discharging Clinician: Kristin Zavala Anticipated Discharge Date/Time: 06/05/23 13:04 Patient Disposition: Home Health Service Activity: as tolerated Diet: as tolerated and renal Discharge Instructions: [facility] arranged for RN, PT/OT evaluations and treatment. [facility] will contact you regarding for first visit arrangements. [facility] can be reached at [phone]. RN, please fax discharge instructions to [phone]. Thank you. Pt to continue with dialysis 3 times a week compliance emphasized prior to DC Daughter will transport pt to dialysis sessions three times a week Patient Instructions: Antibiotic Form, Heart Failure (GEN) Santiago
== END 2023-06-06 09:53 | disposition home health service (06) ==
LOC: ANHED 06:36 → ANHICU 11:22 → ANH2MED 06-05 10:48 → ANHICU 06-09 14:11 → ANHIMU 06-09 14:11
PROVIDERS: Internal Medicine Nephrology; Admitting Provider Internal Medicine; Emergency Provider Emergency Medicine; PCP Hospitalist; Visit Provider Family Medicine
DX: I13.2 Hypertensive heart and chronic kidney disease with heart failure and with stage 5 chronic kidney disease, or end stage renal disease (principal); N18.32 Chronic kidney disease, stage 3b; Z99.2 Dependence on renal dialysis; I50.9 Heart failure, unspecified; D63.1 Anemia in chronic kidney disease; I25.2 Old myocardial infarction; N17.9 Acute kidney failure, unspecified; E87.70 Fluid overload, unspecified; R07.9 Chest pain, unspecified; J96.01 Acute respiratory failure with hypoxia; J81.1 Chronic pulmonary edema; Z20.822 Contact with and (suspected) exposure to COVID-19; F41.9 Anxiety disorder, unspecified; R94.31 Abnormal electrocardiogram [ECG] [EKG]; I25.10 Atherosclerotic heart disease of native coronary artery without angina pectoris; Z95.5 Presence of coronary angioplasty implant and graft; J44.9 Chronic obstructive pulmonary disease, unspecified; G47.00 Insomnia, unspecified; Z87.891 Personal history of nicotine dependence; Z86.718 Personal history of other venous thrombosis and embolism; Z79.51 Long term (current) use of inhaled steroids; Z79.82 Long term (current) use of aspirin; Z79.02 Long term (current) use of antithrombotics/antiplatelets; Z79.899 Other long term (current) drug therapy
CPT/HCPCS: 36415; 36600; 71045; 71046; 80053; 82805; 82948; 83690; 83735; 84100; 84484; 85025; 85610; 85730; 87637; 93005; 94002; 96361; 96372; 96374; 96375; 96376; 99285; A9270; G0257; G0378; J1644; J1940; J7030; P9047; Q4081; Q5105

== ENCOUNTER 2023-06-16 22:42 | Inpatient (IN) | payer OTHER, SELFPAY ==
--- NOTE | ~2023-06-16 | XR_ITS ---
Clinical Indication: Leukocytosis PA and lateral views of the chest: Comparison: 06/22/2023 Findings: Stable right-sided central venous line. There is probable mild bibasilar pulmonary edema. C ardiomediastinal silhouette is within normal limits. Bones and soft tissues are unremarkable. Impression: Stable support line. Probable minimal bibasilar pulmonary edema. Reviewed, dictated and finalized at location . AR PUMPER Impression: Stable support line. Probable minimal bibasilar pulmonary edema.
--- NOTE | ~2023-06-16 | XR_ITS ---
XR chest 1V portable 06/21/2023 06:29 Indication: Respiratory failure Procedure: AP portable chest Comparison: Comparison to multiple prior studies sequentially, with oldest reviewed study dated 06/06. Findings: Cardiomegaly. Mild interstitial edema. No pleural effusion or pneumothorax. No acute osseou s abnormality. Right IJ dual-lumen central venous catheter tip in the SVC. Impression: 1: Cardiomegaly with mild interstitial edema. Reviewed, dictated and finalized at location A. CLEANER Impression: 1: Cardiomegaly with mild interstitial edema.
--- NOTE | ~2023-06-16 | XR_ITS ---
XR chest 1V portable 06/22/2023 06:29 Indication: Respiratory failure Procedure: AP portable chest Comparison: Comparison to multiple prior studies sequentially, with oldest reviewed study dated 06/06. Findings: Cardiomegaly. Improving mild interstitial edema. No pleural effusion. No pneumothorax. Dual -lumen central venous catheter tips in the SVC. Impression: 1: Cardiomegaly with improving interstitial edema. Reviewed, dictated and finalized at location A. SHED GARMENT INSPECTOR Impression: 1: Cardiomegaly with improving interstitial edema.
--- NOTE | ~2023-06-16 | XR_ITS ---
EXAMINATION: XR chest 1V portable DATE: 06/19/2023 12:35 INDICATION: Increased shortness of breath. Chest pain. TECHNIQUE: A single frontal view of the chest was obtained on 2 radiographs. COMPARISON: Chest single view at 6:34 AM, chest CT 06/17/2023 FINDINGS: There is a diffuse interstitial pattern, consistent with mild pulmonary edema. No pleural e ffusion or pneumothorax. Cardiomegaly is noted. A right internal jugular central venous catheter is s een with tip in the superior vena cava. IMPRESSION: 1. Mild pulmonary edema. 2. Cardiomegaly. Reviewed, dictated and finalized at location A. OR SOLUTIONS CONSULTANT
--- NOTE | ~2023-06-16 | CT_ITS ---
Clinical Indication: Chest pain CT Scan of the Chest with Contrast: Technique: Contiguous sections were acquired throughout the chest after intravenous administration of 100 cc of Omnipaque 350. Dose reduction technique was used on this scan by utilizing automated expos ure control and iterative reconstruction technique. The dose-length product (DLP) was 353.74 mGy-cm. COMPARISON: 04/28/2023 and 10/19/2021 Findings: Stable mildly prominent mediastinal lymph nodes are present. There is no filling defect in the pulmon adela arterial tree to suggest pulmonary embolus. There is no evidence of aortic dissection or aneurysm . No pericardial effusion. There is atherosclerotic change of the aorta. There are small bilateral pleural effusions with minimal bibasilar atelectatic change. There is exten sive interlobular septal thickening, with minimal peripheral groundglass opacities. There is a nodula r opacity in the right middle lobe measuring up to approximately 1.7 cm in diameter (axial image 63), relatively stable from prior exams. Images through the upper abdomen reveal atherosclerotic change of the visualized abdominal aorta. Impression: No evidence of pulmonary embolus, aortic dissection, or aortic aneurysm. Diffuse interstitial pulmonary edema with minimal groundglass alveolar pulmonary edema. Correlate cli nically for infection. Small bilateral pleural effusions. 1.7 cm nodular opacity right middle lobe, relatively stable since 10/19/2021. Reviewed, dictated and finalized at [facility]. ERY CLERK MARKING Impression: No evidence of pulmonary embolus, aortic dissection, or aortic aneurysm. Diffuse interstitial pulmonary edema with minimal groundglass alveolar pulmonar y edema. Correlate clinically for infection. Small bilateral pleural effusions. 1.7 cm nodular opacity right middle lobe, relatively stable since 10/19/2021.
--- NOTE | ~2023-06-16 | XR_ITS ---
EXAMINATION: XR chest 2V DATE: 06/16/2023 23:14 INDICATION: Chest pain and shortness of breath TECHNIQUE: PA and lateral views of the chest were obtained. COMPARISON: Chest radiograph dated 06/04/2023 FINDINGS: Large-bore dual-lumen right internal jugular central venous catheter with distal tip at the cephalad superior vena cava. Increased interstitial pattern with a few peripheral Thierry B-lines in the bilate ral mid and lower lung zones consistent with mild pulmonary edema. Tiny bilateral pleural effusions. No pneumothorax. Mild cardiomegaly. Cholecystectomy clips in right upper quadrant. IMPRESSION: 1. Congestive heart failure with cardiomegaly, mild pulmonary edema in the bilateral mid and lower yonatan ng zones and tiny bilateral pleural effusions. Reviewed, dictated and finalized at location A. DEVELOPMENT INSTRUCTOR IMPRESSION: 1. Congestive heart failure with cardiomegaly, mild pulmonary edema in the bila teral mid and lower lung zones and tiny bilateral pleural effusions.
--- NOTE | ~2023-06-16 | XR_ITS ---
Portable chest x-ray Comparison: 06/23/2023 Clinical History: Not feeling well Findings: Right-sided central venous line is unchanged. Questionable minimal bibasilar pulmonary collin ma. Cardiomediastinal silhouette is stable. Bones and soft tissues are unremarkable. Impression: Probable minimal bibasilar pulmonary edema, unchanged. Stable support line. Reviewed, dictated and finalized at location . E OPERATOR Impression: Probable minimal bibasilar pulmonary edema, unchanged. Stable support line.
--- NOTE | ~2023-06-16 | XR_ITS ---
Portable chest x-ray Comparison: 06/18/2023 Clinical History: Respiratory failure Findings: Right-sided central venous line is unchanged. Possible minimal pulmonary edema pattern. C ardiomediastinal silhouette is stable. Bones and soft tissues are unremarkable. Impression: Possible minimal pulmonary edema pattern. Stable support line. Reviewed, dictated and finalized at [facility]. TROPLATER APPRENTICE Impression: Possible minimal pulmonary edema pattern. Stable support line.
--- NOTE | ~2023-06-16 | XR_ITS ---
Portable chest x-ray Comparison: 06/26/2023 at 6:29 AM Clinical History: Covid Findings: Right-sided central venous line is unchanged. There is probable COPD with mild bibasilar c hronic interstitial change. Cardiomediastinal silhouette is stable. Bones and soft tissues are unrem arkable. Impression: Probable COPD with mild bibasilar chronic interstitial change. Correlate for minimal bibasilar inters titial edema. Stable support line. Reviewed, dictated and finalized at location M. E HANGER Impression: Probable COPD with mild bibasilar chronic interstitial change. Correlate for mi nimal bibasilar interstitial edema. Stable support line.
--- NOTE | ~2023-06-16 | XR_ITS ---
Portable chest x-ray Comparison: 06/19/2023 Clinical History: Respiratory failure Findings: Right-sided central venous line is in satisfactory position. Probable minimal interstitial edema pattern. No pleural effusion or pneumothorax. Cardiomediastinal silhouette is stable. Bones a nd soft tissues are unremarkable. Impression: Support line, as above. Probable minimal interstitial edema. Reviewed, dictated and finalized at location . PINNER Impression: Support line, as above. Probable minimal interstitial edema.
--- NOTE | ~2023-06-16 | CT_ITS ---
EXAMINATION: CT abdomen pelvis wo con DATE: 06/25/2023 09:20 INDICATION: Abdominal pain and nausea TECHNIQUE: Computed tomography (CT) of the abdomen and pelvis was performed without intravenous contr ast. The dose-length product (DLP) was 426.23 mGy-cm. Automated exposure control and iterative recons truction technique were employed. COMPARISON: 04/28/2023 FINDINGS: Cardiomegaly is noted. There is a small right pleural effusion. There is moderate atelectas is of the visualized lung bases. Changes of cholecystectomy are noted. The liver, spleen, pancreas, a nd adrenal glands are normal. The kidneys are unremarkable. No pathologically enlarged abdominal or p elvic lymph nodes are identified. There is calcified atherosclerosis of the aorta and many of the [facility] er arteries. There is sigmoid predominant diverticulosis of the colon. There is edematous stranding o f the perisigmoid fat. A small volume of pelvic ascites is noted. No perforation is identified. There are no dilated loops of bowel. There is mild lumbar spondylosis. IMPRESSION: 1. Uncomplicated sigmoid diverticulitis. 2. Cardiomegaly. 3. Small right pleural effusion. Reviewed, dictated and finalized at location B. EN PRINTING MACHINE OPERATOR HELPER
--- NOTE | ~2023-06-16 | XR_ITS ---
Portable chest x-ray Comparison: 06/16/2023 Clinical History: Respiratory failure Findings: Stable right-sided central venous line present. There is probable mild haziness at the rig ht lung base with minimal central congestive change. Cardiomediastinal silhouette is stable. Bones a nd soft tissues are unremarkable. Impression: Probable minimal pulmonary edema asymmetric to the right side. Stable support line. Reviewed, dictated and finalized at location . NE OIL TERMINAL SUPERINTENDENT Impression: Probable minimal pulmonary edema asymmetric to the right side. Stable support line.
[2023-06-16 22:39] VITALS: BP 179/85; PULSE 108; RESP 18; TEMP 36.6; O2SAT 97
--- NOTE | 2023-06-16 22:42 | ECG_ITS ---
Measurements Intervals [place] Rate: 110 P: 62 AK: 164 QRS: 6 QRSD: 104 T: 13 QT: 327 QTc: 443 Interpretive Statements SINUS TACHYCARDIA LEFT ATRIAL ENLARGEMENT [-0.15mV P WAVE IN V1/V2] NONSPECIFIC ST AND T-WAVE ABNORMALITY ABNORMAL ECG COMPARED TO ECG 06/03/2023 04:21:48 ST (T WAVE) DEVIATION NOW PRESENT Electronically Signed On 06-17-2023 16:56:00 DOG LICENSER by Sherwin Garcia M.D.
[2023-06-16 22:48] VITALS: O2SAT 97
[2023-06-16] MEDS: LORazepam INJ (*CRX) 2 MG/ML VIAL 1 MG IV PUSH (22:57)
[2023-06-16 23:01] VITALS: BP 182/92; PULSE 106; RESP 23
[2023-06-16 23:03] LABS: Basophils Absolute Auto 0.1 K/mm3 (0.0-0.1); Basophils Percent Auto 0.5 % (0.2-1.2); Eosinophils Absolute Auto 0.3 K/mm3 (0-0.3); Eosinophils Percent Auto 2.6 % (0-4.4); Hematocrit 30.2 % (37.0-47.0); Immature Granulocyte Absolute 0.04 K/mm3 (0.00-0.031); Immature Granulocyte Percent A 0.4 % (0-0.5); Lymphocytes Absolute Auto 0.58 K/mm3 (0.9-3.2); Lymphocytes Percent Auto 5.5 % (18.3-44.2); Mean Corpuscular HGB Conc 29.8 g/dl (32-36); Mean Corpuscular Hemoglobin 26.4 pg (26-34); Mean Corpuscular Volume 88.6 fl (80-100); Mean Platelet Volume 10.7 fl (7.4-10.4); Monocytes Absolute Auto 0.7 K/mm3 (0.1-0.6); Monocytes Percent Auto 6.7 % (2.6-8.5); Neutrophils Absolute Auto 8.9 K/mm3 (1.3-6.7); Neutrophils Percent Auto 84.3 % (45.5-73.1); Platelet Count Result 238 k/mm3 (150-375); Red Blood Count 3.41 M/mm3 (4.2-5.4); Red Cell Distribution Width 15.4 % (11.5-14.5); White Blood Count 10.5 K/mm3 (4.5-10.0)
[2023-06-16 23:14] LABS: Prothrombin Time 13.6 Seconds (11.1-14.7)
[2023-06-16 23:15] LABS: Partial Thromboplastin Time 29.4 SECONDS (22.3-36.8)
[2023-06-16 23:16] LABS: Alanine Aminotransferase 24 U/L (6-35); Albumin Level 4.2 g/dL (3.5-5.1); Alkaline Phosphatase 80 U/L (38-126); Anion Gap 13 mmol/L (8-16); Aspartate Amino Transferase 38 U/L (14-36); Bilirubin,Total 0.4 mg/dL (0.2-1.3); Blood Urea Nitrogen 42 mg/dL (7-17); Carbon Dioxide 20 mmol/L (22-30); Chloride 103 mmol/L (98-107); Estimated CRCL calculation 7 ml/min; Estimated Glomerular Filt Rate 6; Glucose 108 mg/dL (65-110); Lipase 217 U/L (23-300); Potassium 5.1 mmol/L (3.4-5.0); Sodium 136 mmol/L (137-145)
[2023-06-16 23:36] LABS: Troponin I 0.102 ng/mL (0.000-0.034)
[2023-06-16 23:44] VITALS: BP 178/102; PULSE 119; RESP 32
[2023-06-16 23:47] VITALS: PULSE 119; RESP 29
[2023-06-17] VITALS (48 sets, daily range): BP systolic 105–180; BP diastolic 50–109; PULSE 81–142; RESP 15–35; TEMP 36.3–38.1; O2SAT 90–100; BMI 28.7
--- NOTE | 2023-06-17 00:11 | ECG_ITS ---
Measurements Intervals [place] Rate: 131 P: 68 VT: 159 QRS: 25 QRSD: 93 T: 36 QT: 293 QTc: 433 Interpretive Statements SINUS TACHYCARDIA MINIMAL ST DEPRESSION [0.025+ mV ST DEPRESSION] INFEROLATERAL ST SEGMENT DEPRESSION, CONSIDER ISCHEMIA ABNORMAL ECG COMPARED TO ECG 06/16/2023 22:44:06 ST (T WAVE) DEVIATION NOW PRESENT Electronically Signed On 06-17-2023 16:57:32 PIZZAMAKER by Sherwin Garcia M.D.
--- NOTE | 2023-06-17 00:12 | PC.NURSE ---
Pt placed on 3L o2 at time time. Pt sating in upper 80s on room air. Pt now has audible wheezing and RR of 32/min.
[2023-06-17 00:21] LABS: D Dimer 2.04 ug/mL (<0.48)
--- NOTE | 2023-06-17 00:43 | ED.GENADULT ---
HPI - General Adult General Chief complaint: Shortness of Breath/Dyspnea Stated complaint: SOB Time Seen by Provider: 06/16/23 22:42 History of Present Illness HPI narrative: patient presents the emergency department from home by EMS. She had a heart attack a few months ago and since then she states she gets very anxious when she is home alone. she has had episodes similar to this in the past. She is very diaphoretic and anxious appearing. Tachycardic on exam. Also slightly tachypneic. Patient has mild shortness of breath and chest pain but nothing severe. Related Data Home Medications Medication Instructions Recorded Confirmed albuterol sulfate 90 mcg/actuation 2 puff inhalation Q8H PRN 04/28/23 06/03/23 aerosol inhaler Shortness Of Breath Or Wheezing alprazolam 0.25 mg tablet (Xanax) 0.25 mg PO TID PRN Anxiety 05/26/23 06/03/23 melatonin 5 mg tablet 5 mg PO HS PRN prn 05/26/23 06/03/23 Allergies Allergy/AdvReac Type Severity Reaction Status Date / Time oxycodone Allergy Intermediate Hives Verified 06/03/23 10:48 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 Unknown Uncoded 06/03/23 09:04 Review of Systems Review of Systems: Review of systems negative except what is documented in the HPI [facility] Past Medical History Medical History (Updated 06/17/23 @ 04:35 by Christina Roberto MD) Acute kidney injury superimposed on CKD Acute respiratory failure with hypoxia and hypercarbia Intubated during admission on 04/28/23-05/17/23 Anemia Anxiety Congestive heart failure COPD (chronic obstructive pulmonary disease) DVT (deep venous thrombosis) After knee surgery years ago. ESRD on dialysis Hypertension Insomnia Lung nodule NSTEMI (non-ST elevated myocardial infarction) Pneumonia Stage 3b chronic kidney disease Tobacco dependence Surgical History Surgical History H/O right knee surgery History of cholecystectomy History of coronary artery stent placement Social History Social History Social History: Currently resident at [facility]. Surrogate Decision Maker: Nathaly Vann, sister. Code Status: Full Code. Smoking packs per day: 1 Smoking cigarettes per day: 20.0 Years smoked: 40 Smoking pack-years: 40.00 Smoking status: Former smoker Alcohol intake: never Alcohol use details: rarely Substance use: never Substance use type: does not use Lack of Transportation: No Lack of Food: Never True Current Housing: I Have Housing Concerned About Future Housing: No Difficulty Paying Gas/Electric Bills: No Difficulty Paying for Meds: No Currently Unemployed: No Education: Decline to Answer Difficulty w/ Childcare or Family Care: No Living arrangements: alone Spiritual care concerns: No Exam Narrative: GENERAL: Well-appearing, well-nourished, and in mild distress. HEAD: Normocephalic, atraumatic. EYES: PERRLA and EOMI. ENT: Nares clear, no rhinorrhea or epistaxis. Mucous membranes moist. NECK: Supple. CHEST: Clear to auscultation. No respiratory distress. HEART: tachycardic ABDOMEN: Soft, nontender, nondistended. EXTREMITIES: Normal range of motion. No edema. SKIN: Warm, dry, no rash. diaphoretic NEURO: No focal deficits. Alert and oriented x3. very anxious PSYCH: Normal mood and affect. Course Course Emergency Course: unclear etiology of patient's increasing anxiety and tachycardia. Troponin slightly elevated 0.102. CTA chest ordered. D-dimer also slightly elevated. patient is on dialysis and her creatinine is 6. Will be able to dialyze off contrast 0200 pt takes plavix daily - heparin held. She is persistently tachycardic and is getting more drowsy. wakes up with verbal stimulation and answers questions. she is requesting more anxiety meds. 0310 large bilateral effusions on ct chest. patchy infiltrates consist
[2023-06-17] MEDS: LORazepam INJ (*CRX) 2 MG/ML VIAL 0.5 MG IV PUSH (00:56)
[2023-06-17] MEDS: MORPHINE SULFATE (*CRX) 2 MG/ML INJ IV PUSH (00:57)
--- NOTE | 2023-06-17 02:38 | ECG_ITS ---
Measurements Intervals [place] Rate: 139 P: 59 MD: 149 QRS: 17 QRSD: 102 T: 22 QT: 296 QTc: 450 Interpretive Statements SINUS TACHYCARDIA NONSPECIFIC ST & T-WAVE ABNORMALITY ABNORMAL ECG COMPARED TO ECG 06/17/2023 00:16:17 T-WAVE ABNORMALITY NOW PRESENT Electronically Signed On 06-17-2023 16:58:06 CHANGE OVER by Sherwin Garcia M.D.
--- NOTE | 2023-06-17 02:51 | PC.NURSE ---
Pt has large increase in work of breathing. Pt has audible wheezes and respiratory rates in the mid 30s-40s. EDP made aware.
[2023-06-17 02:55] LABS: Alveolar/Arterial O2 Gradient 102.1 mmHg; Base Excess ABG -8.5 mEq/l (+/-2.0); Fractional Inspired Oxygen 32 %; HCO3 ABG 17.9 mEq/l (22.0-26.0); Oxygen Content ABG 13.1 %vol (16.0-22.0); Oxygen Saturation ABG 93.9 % (95.0-100.0); Oxyhemoglobin 90.9 % THb (90.0-100.0); PCO2 ABG 40.6 mmHg (35.0-45.0); PO2 ABG 78.6 mmHg (80.0-100.0); PO2 FiO2 Ratio Arterial Blood 2.46 %; Total Hemoglobin 10.2 g/dL (12.0-18.0)
[2023-06-17 02:56] LABS: Modified Allen's Test Pass; Site Drawn RIGHT RADIAL; pH ABG 7.263 (7.350-7.450)
[2023-06-17 02:56] LABS: Troponin I 0.099 ng/mL (0.000-0.034)
[2023-06-17 02:57] LABS: Device NASAL CANNULA
[2023-06-17 03:28] LABS: Influenza A QL RT-PCR Negative (Negative); Influenza B QL RT-PCR Negative (Negative); RSV RNA, RT-PCR Negative (Negative); SARS-CoV-2 RNA PCR Positive (Negative)
[2023-06-17] MEDS: FUROSEMIDE INJ 100 MG/10 ML VIAL 80 MG IV PUSH (03:58)
[2023-06-17] MEDS: NITROGLYCERIN SL 0.4 MG TABLET SUBLINGUAL (03:58)
[2023-06-17] MEDS: CEFEPIME 2 GM/NS 50 ML 2 GM/50 ML BAG IVPB (03:59)
[2023-06-17 04:02] LABS: Lactic Acid Reflex 1.5 mmol/L (0.7-2.0)
--- NOTE | 2023-06-17 06:19 | ADMGEN ---
This patient, Vero Ramos, was admitted to Intensive Care Unit-9. Patient/family oriented to hospital policies and general routines including ID bracelet, bed and alarms, visiting hours, pain management, procedures, bathroom and other care routines, personal items, smoking policy, room service/diet, and visiting hours. Information on how to activate the Rapid Response Team has been discussed. Patient/Family are encouraged to report perceived risks to care and to ask questions if they do not understand what they are told or what they should do.
[2023-06-17] MEDS: VANCOMYCIN 1,500 MG/NS 500 ML 1,500 MG/500 ML BAG 250 MG IVPB (07:52)
[2023-06-17 08:30] LABS: Troponin I 0.176 ng/mL (0.000-0.034)
[2023-06-17] MEDS: CEFEPIME 0.5 GM in DEXTROSE 5% IN WATER 50 ML IVPB (10:00)
[2023-06-17] MEDS: ENOXAPARIN 30 MG/0.3 ML SYRINGE SUB-Q (10:21)
[2023-06-17] MEDS: CLOPIDOGREL BISULFATE 75 MG TABLET PO (10:22)
[2023-06-17] MEDS: ASPIRIN 81 MG ENTERIC TABLET PO (10:22)
[2023-06-17] MEDS: PANTOPRAZOLE SODIUM IV 40 MG VIAL IV PUSH (10:22)
[2023-06-17] MEDS: REMDESIVIR 200 MG/NS 250 ML 200 MG/250 ML BAG 250 MG IVPB (10:22)
[2023-06-17] MEDS: ATORVASTATIN 40 MG TABLET 80 MG PO (10:23)
--- NOTE | 2023-06-17 10:25 | WPDCNINT ---
Assessment and Plan Assessment and plan (1) Acute hypoxemic respiratory failure: Code(s): J96.01 - Acute respiratory failure with hypoxia Status: Acute Assessment and Plan: Acute multifactorial Respiratory failure secondary to pulmonary edema from congestive heart failure and end-stage renal disease, she also tested positive for COVID-[address] scan findings it appears more likely volume overload rather than a COVID-19 pneumonia, she also could have bacterial pneumonia as she has been in and out of the hospitals. Patient also has a history of COPD She was placed on BiPAP and she is clinically feeling better with less respiratory distress and she is only on 30% FiO2 I will transition to nasal cannula into a trial and see if she tolerates I have discussed with nephrology and plan to dialyze patient Regarding COVID-19 she tested positive but does not appear to be COVID-19 pneumonia but she is hypoxic hence I will start patient on dexamethasone and remdesivir Cultures have been sent and patient has been started on empiric broad-spectrum antibiotics in the form of vancomycin cefepime which will be continued for now with plan to quick deescalation depending on culture results Bronchodilators (2) COVID: Code(s): U07.1 - COVID-19 Status: Acute Assessment and Plan: See above (3) Pneumonia: Code(s): J18.9 - Pneumonia, unspecified organism Status: Acute Assessment and Plan: See above (4) Pulmonary edema: Code(s): J81.1 - Chronic pulmonary edema Status: Inactive Assessment and Plan: See above (5) End-stage renal disease (ESRD): Code(s): N18.6 - End stage renal disease Status: Acute Assessment and Plan: Nephrology consulted for hemodialysis. Discussed with dialysis nurse Plan to dialyze this patient next (6) COPD (chronic obstructive pulmonary disease): Code(s): J44.9 - Chronic obstructive pulmonary disease, unspecified Status: Chronic (7) Elevated troponin: Code(s): R79.89 - Other specified abnormal findings of blood chemistry Status: Acute Assessment and Plan: She has history of coronary artery disease and had cardiac catheterization done on 05/02/23 with stent placement to RCA she has mild elevation of troponin on all are admissions and her troponins are mildly elevated with no acute ST elevation on EKG. Chest pain by history appears noncardiac and pleuritic in nature Continue aspirin Plavix statin (8) Congestive heart failure: Code(s): I50.9 - Heart failure, unspecified Status: Acute Assessment and Plan: Patient had a EF of 40-45% on echo done in April at [facility]. Apparently her EF was 35% on echo done at [facility] last week. Plan to dialyze and remove fluid Plan DVT prophylaxis -Lovenox Stress ulcer prophylaxis -PPI Nutrition -npo Code Status - Full Code Total Critical Care Time - 35 minutes Due to a high probability of clinically significant, life threatening deterioration, the patient required my highest level of preparedness to intervene emergently and I personally spent this critical care time directly and personally managing the patient. This critical care time included obtaining a history; examining the patient; pulse oximetry; ordering and review of studies; arranging urgent treatment with development of a management plan; evaluation of patient's response to treatment; frequent reassessment; and discussions with other providers. It was exclusive of separately billable procedures and treating other patients and teaching time. Please see Assessment and Plan section and the rest of the note for further information on patient assessment and treatment Client Engagement Specialist Consult Note Consult date: 06/17/23 Reason for consult: Acute respiratory failure HPI: Vero Ramos is a 72 year old female with past medical history of multiple medical problems including end-stage renal disea
[2023-06-17 10:38] LABS: Procalcitonin 0.6 ng/mL
[2023-06-17 10:47] LABS: CRP 1.9 mg/dL (<1.0)
[2023-06-17 11:52] LABS: MRSA (PCR) NOT DETECTED (NOT DETECTE)
[2023-06-17 12:47] LABS: Hepatitis B Surface Antigen Negative (Negative)
--- NOTE | 2023-06-17 12:52 | PM.CNNEP ---
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 creatinine running around 1.3 - 1.7mg/dl by previous labs done at [facility] HOWEVER, labs review from other hospitalizations at other facilities demonstrate that her creatinine has been as low as 0.9mg/dl in this year.... however, perhaps this normal creatinine value was dilutional from her previous bouts of CHF... risk factors for CKD include HTN, vascular disease, and age (3) Acute hypoxemic respiratory failure: Code(s): J96.01 - Acute respiratory failure with hypoxia Status: Acute Assessment and Plan: secondary to pulmonary edema from congestive heart failure and FRANCIS on CKD tested positive for COVID-19 however, CT scan findings it appears more likely volume overload rather than a COVID-19 pneumonia, she also could have bacterial pneumonia as she has been in and out of the hospitals complicated by know history of COPD responding to BiPAP therpy follow culture data empiric antibiotics started on dexamethasone and remdesivir continue bronchodilator therapy (4) COVID: Code(s): U07.1 - COVID-19 Status: Acute Assessment and Plan: see #3 (5) Pneumonia: Code(s): J18.9 - Pneumonia, unspecified organism Status: Acute Assessment and Plan: see #3 (6) Pulmonary edema: Code(s): J81.1 - Chronic pulmonary edema Status: Inactive Assessment and Plan: see #3 (7) Congestive heart failure: Code(s): I50.9 - Heart failure, unspecified Status: Acute Assessment and Plan: EF of 40-45% on echo done in April 2023 at [facility] her EF was 35% on echo done at [facility] last week fluid removal as tolerated with HD (8) Hypertension: Code(s): I10 - Essential (primary) hypertension Status: Chronic Assessment and Plan: elevated at this time resumed on home medications fluid removal with HD should help follow trend of hemodynamics (9) Anemia: Qualifiers: Anemia type: due to chronic kidney disease Code(s): D64.9 - Anemia, unspecified Status: Acute Assessment and Plan: related to FRANCIS on CKD and need for dialysis Epogen with HD follow H/H History of Present Illness Reason for Consult Consult date: 06/17/23 Reason for consult: acute renal failure (on chronic kidney disease - on dialysis) Chief Complaint Chief complaint: resp distress History of Present Illness Narrative: The patient is a 2-year-old female with a past medical history as outlined below who presented to [facility] Emergency room with a chief complaint shortness of breath. The patient was just recently discharged from [facility] for volume overload. She apparently responded to aggressive ultrafiltration /dialysis prior to her discharge. She was due for her normal outpatient dialysis treatment today but presented to [facility] Emergency room yesterday evening with the complaints of shortness of breath. She states that even when she was discharged from
--- NOTE | 2023-06-17 12:52 | P.CONNP_ITS ---
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 * creatinine running around 1.3 - 1.7mg/dl by previous labs done at [facility] * HOWEVER, labs review from other hospitalizations at other facilities demonstrate that her creatinine has been as low as 0.9mg/dl in this year.... * however, perhaps this normal creatinine value was dilutional from her previous bouts of CHF... * risk factors for CKD include HTN, vascular disease, and age (3) Acute hypoxemic respiratory failure: Code(s): J96.01 - Acute respiratory failure with hypoxia Status: Acute Assessment and Plan: * secondary to pulmonary edema from congestive heart failure and FRANCIS on CKD * tested positive for COVID-19 * however, CT scan findings it appears more likely volume overload rather than a COVID-19 pneumonia, she also could have bacterial pneumonia as she has been in and out of the hospitals * complicated by know history of COPD * responding to BiPAP therpy * follow culture data * empiric antibiotics * started on dexamethasone and remdesivir * continue bronchodilator therapy (4) COVID: Code(s): U07.1 - COVID-19 Status: Acute Assessment and Plan: * see #3 (5) Pneumonia: Code(s): J18.9 - Pneumonia, unspecified organism Status: Acute Assessment and Plan: * see #3 (6) Pulmonary edema: Code(s): J81.1 - Chronic pulmonary edema Status: Inactive Assessment and Plan: * see #3 (7) Congestive heart failure: Code(s): I50.9 - Heart failure, unspecified Status: Acute Assessment and Plan: * EF of 40-45% on echo done in April 2023 at [facility] * apparently her EF was 35% on echo done at [facility] last week * fluid removal as tolerated with HD (8) Hypertension: Code(s): I10 - Essential (primary) hypertension Status: Chronic Assessment and Plan: * elevated at this time * resumed on home medications * fluid removal with HD should help * follow trend of hemodynamics (9) Anemia: Qualifiers: Anemia type: due to chronic kidney disease Code(s): D64.9 - Anemia, unspecified Status: Acute Assessment and Plan: * related to FRANCIS on CKD and need for dialysis * Epogen with HD * follow H/H History of Present Illness Reason for Consult Consult date: 06/17/23 Reason for consult: acute renal failure (on chronic kidney disease - on dialysis) Chief Complaint Chief complaint: resp distress History of Present Illness Narrative: The patient is a 2-year-old female with a past medical history as outlined below who pres
[2023-06-17 13:04] LABS: Hepatitis B Surface Anti Res Negative
[2023-06-17] MEDS: ALBUMIN HUMAN 25% 12.5 GM/50ML 50 ML IVPB ×2 (13:20→14:25)
[2023-06-17] MEDS: EPOETIN ALFA-EPBX 10,000 UNITS/ML VIAL 10000 UNITS IV PUSH (14:25)
[2023-06-17] MEDS: CEFEPIME 1 GM/NS 50 ML 1 GM/50 ML BAG IVPB (17:00)
--- NOTE | 2023-06-17 17:04 | PM.IMHP ---
H&P: HPI History of Present Illness Date/Time: 06/17/23 17:04 Chief Complaint: Patient brought to the ER for evaluation due to shortness of breath Narrative: She is an anxious looking 72 years old white female with CHF, COPD and chronic medical issues on hemodialysis who was brought to the ER for evaluation by EMS with shortness of breath. She was in the hospital last month, was intubated due to hypoxic respiratory failure and was started on hemodialysis. She also had a heart attack a few months ago and since then she gets very anxious when she is home alone. She had a similar episode last night, brought to the ER for evaluation workup was done which showed acute respiratory failure with hypoxia. She was also diagnosed with COVID-19 as well. She was started on BiPAP and admitted to ICU for critical care management and close monitoring. Review of Systems Review of Systems: Patient complains of anxiety, shortness of breath and intermittent palpitations. She denies any chest pain, nausea vomiting, abdominal pain or any falls All systems reviewed & are unremarkable except as noted in HPI and below PMFSH Past Medical History Medical History Acute kidney injury superimposed on CKD Acute respiratory failure with hypoxia and hypercarbia Intubated during admission on 04/28/23-05/17/23 Anemia Anxiety Congestive heart failure COPD (chronic obstructive pulmonary disease) DVT (deep venous thrombosis) After knee surgery years ago. ESRD on dialysis Hypertension Insomnia Lung nodule NSTEMI (non-ST elevated myocardial infarction) Pneumonia Stage 3b chronic kidney disease Tobacco dependence Surgical History Surgical History H/O right knee surgery History of cholecystectomy History of coronary artery stent placement Social History Social History Social History: Currently resident at [facility]. Surrogate Decision Maker: Nathaly Vann, sister. Code Status: Full Code. Smoking packs per day: 1 Smoking cigarettes per day: 20.0 Years smoked: 40 Smoking pack-years: 40.00 Smoking status: Former smoker Alcohol intake: never Alcohol use details: rarely Substance use: never Substance use type: does not use Lack of Transportation: No Lack of Food: Never True Current Housing: I Have Housing Concerned About Future Housing: No Difficulty Paying Gas/Electric Bills: No Difficulty Paying for Meds: No Currently Unemployed: No Education: Decline to Answer Difficulty w/ Childcare or Family Care: No Living arrangements: alone Spiritual care concerns: No Meds Home Medications and Allergies Home Medications Medication Instructions Recorded Confirmed Type pantoprazole 40 mg tablet,delayed 40 mg PO QAM 4 weeks #28 tabs 04/03/23 06/17/23 Rx release (Protonix) albuterol sulfate 90 mcg/actuation 2 puff inhalation Q8H PRN 04/28/23 06/17/23 History aerosol inhaler Shortness Of Breath Or Wheezing atorvastatin 40 mg tablet 80 mg PO DAILY #30 tabs 05/17/23 06/17/23 Rx clopidogrel 75 mg tablet 75 mg PO DAILY #30 tabs 05/17/23 06/17/23 Rx metoprolol tartrate 50 mg tablet 50 mg BYMOUTH Q12HR #60 tabs 05/17/23 06/17/23 Rx nitroglycerin 0.4 mg sublingual 0.4 mg sublingual Q5MIN PRN Chest 05/17/23 06/17/23 Rx tablet (Nitrostat) Pain #30 tabs alprazolam 0.25 mg tablet (Xanax) 0.25 mg PO TID PRN Anxiety 05/26/23 06/17/23 History melatonin 5 mg tablet 5 mg PO HS PRN prn 05/26/23 06/17/23 History ferrous sulfate 325 mg (65 mg 325 mg PO BID #0 tabs 05/28/23 06/17/23 Rx iron) tablet,delayed release aspirin 81 mg chewable tablet 81 mg PO DAILY@0800 #30 tabs 06/05/23 06/17/23 Rx (Children's Aspirin) hydralazine 10 mg tablet 10 mg PO BID #60 tabs 06/05/23 06/17/23 Rx Allergies Allergy/AdvReac Type Severity Reaction Status Date / Ti
[2023-06-17 17:09] LABS: Glucose Point of Care 127 mg/dl (65-105)
[2023-06-17] MEDS: ACETAMINOPHEN 325 MG TABLET 650 MG PO (22:01)
[2023-06-18] VITALS (13 sets, daily range): BP systolic 98–153; BP diastolic 58–74; PULSE 90–107; RESP 15–23; TEMP 36.6–36.9; O2SAT 92–99
[2023-06-18 04:47] LABS: Hematocrit 26.2 % (37.0-47.0); Hemoglobin 7.8 g/dL (12.0-15.0); Mean Corpuscular HGB Conc 29.8 g/dl (32-36); Mean Corpuscular Hemoglobin 26.6 pg (26-34); Mean Corpuscular Volume 89.4 fl (80-100); Mean Platelet Volume 10.6 fl (7.4-10.4); Platelet Count Result 202 k/mm3 (150-375); Red Blood Count 2.93 M/mm3 (4.2-5.4); Red Cell Distribution Width 15.8 % (11.5-14.5); White Blood Count 7.4 K/mm3 (4.5-10.0)
[2023-06-18 05:05] LABS: Alanine Aminotransferase 22 U/L (6-35); Albumin Level 4.1 g/dL (3.5-5.1); Alkaline Phosphatase 78 U/L (38-126); Anion Gap 14 mmol/L (8-16); Aspartate Amino Transferase 33 U/L (14-36); Bilirubin,Total 0.7 mg/dL (0.2-1.3); Blood Urea Nitrogen 34 mg/dL (7-17); CRP 3.1 mg/dL (<1.0); Calcium 9.6 mg/dL (8.4-10.2); Carbon Dioxide 21 mmol/L (22-30); Chloride 101 mmol/L (98-107); Estimated CRCL calculation 9 ml/min; Estimated Glomerular Filt Rate 9; Glucose 77 mg/dL (65-110); Magnesium 1.8 mg/dL (1.6-2.3); Potassium 4.3 mmol/L (3.4-5.0); Sodium 136 mmol/L (137-145)
[2023-06-18 05:22] LABS: D Dimer 1.63 ug/mL (<0.48)
[2023-06-18] MEDS: ASPIRIN 81 MG ENTERIC TABLET PO (08:27)
[2023-06-18] MEDS: PANTOPRAZOLE SODIUM IV 40 MG VIAL IV PUSH (08:28)
[2023-06-18] MEDS: ENOXAPARIN 30 MG/0.3 ML SYRINGE SUB-Q (08:28)
[2023-06-18] MEDS: ASCORBIC ACID 500 MG TABLET PO (08:28)
[2023-06-18] MEDS: CHOLECALCIFEROL 1,000 UNITS TABLET 1000 UNITS PO (08:28)
[2023-06-18] MEDS: THERAPEUTIC MULTIVITAMINS/MINERALS TAB (*BKC) 1 TABLET PO (08:28)
[2023-06-18] MEDS: ATORVASTATIN 40 MG TABLET 80 MG PO (08:28)
[2023-06-18] MEDS: CLOPIDOGREL BISULFATE 75 MG TABLET PO (08:29)
--- NOTE | 2023-06-18 08:41 | WPDINTPN ---
Progress Note: A&P Assessment and Plan (1) Acute hypoxemic respiratory failure: Code(s): J96.01 - Acute respiratory failure with hypoxia Status: Acute Assessment and Plan: Acute multifactorial Respiratory failure secondary to pulmonary edema from congestive heart failure and end-stage renal disease, she also tested positive for COVID-[address] scan findings it appears more likely volume overload rather than a COVID-19 pneumonia, she also could have bacterial pneumonia as she has been in and out of the hospitals. Patient also has a history of COPD on admission She was placed on BiPAP and she is clinically feeling better with less respiratory distress and she is only on 30% FiO2 patient was dialyzed yesterday and is now on room air Regarding COVID-19 she tested positive but does not appear to be COVID-19 pneumonia but she was hypoxic on presentation And was started on dexamethasone and remdesivir. He is now on room air Cultures have been sent and patient has been started on empiric broad-spectrum antibiotics in the form of vancomycin cefepime her MRSA screen is negative hence I will discontinue vancomycin. will consider switching cefepime to p.o. antibiotics after for 48 hours Bronchodilators (2) COVID: Code(s): U07.1 - COVID-19 Status: Acute Assessment and Plan: See above (3) Pneumonia: Code(s): J18.9 - Pneumonia, unspecified organism Status: Acute Assessment and Plan: See above (4) Pulmonary edema: Code(s): J81.1 - Chronic pulmonary edema Status: Inactive Assessment and Plan: See above (5) End-stage renal disease (ESRD): Code(s): N18.6 - End stage renal disease Status: Acute Assessment and Plan: Nephrology consulted for hemodialysis. Discussed with dialysis nurse Plan to dialyze this patient next (6) COPD (chronic obstructive pulmonary disease): Code(s): J44.9 - Chronic obstructive pulmonary disease, unspecified Status: Chronic (7) Elevated troponin: Code(s): R79.89 - Other specified abnormal findings of blood chemistry Status: Acute Assessment and Plan: She has history of coronary artery disease and had cardiac catheterization done on 05/02/23 with stent placement to RCA she has mild elevation of troponin on all are admissions and her troponins are mildly elevated with no acute ST elevation on EKG. Chest pain by history appears noncardiac and pleuritic in nature Continue aspirin Plavix statin (8) Congestive heart failure: Code(s): I50.9 - Heart failure, unspecified Status: Acute Assessment and Plan: Patient had a EF of 40-45% on echo done in April at [place]. Apparently her EF was 35% on echo done at [facility] last week. dialysis to remove fluid (9) Anxiety: Code(s): F41.9 - Anxiety disorder, unspecified Status: Acute Assessment and Plan: patient has history of anxiety which is likely playing a role in her shortness of breath and panic attacks. Will resume her low-dose Xanax Plan DVT prophylaxis -Lovenox Stress ulcer prophylaxis -PPI Nutrition - resume diet Code Status - Full Code incentive spirometry up in chair transfer out of ICU Subjective Date/time seen: 06/18/23 Overnight events reviewed. overall afebrile with few episodes of low-grade fever patient was dialyzed yesterday and is now on room air she states she feels that she has intermittent episodes where she feels short of breath and panics. She states that she was at [facility] because someone recommended that she should go to [facility] for her shortness of breath last week. Denies any other complaints and all other systems were reviewed and were negative at this time. She would like to eat food is hungry. OtherVitals acceptable Review of Systems Review of Systems: All systems reviewed & are unremarkable except as noted in HPI and below (HPI
[2023-06-18] MEDS: ACETAMINOPHEN 325 MG TABLET 650 MG PO ×2 (09:13→20:38)
[2023-06-18] MEDS: ZINC SULFATE 220 MG CAPSULE PO (09:13)
[2023-06-18] MEDS: REMDESIVIR 100 MG/NS 250 ML 100 MG/250 ML BAG 250 MG IVPB (09:13)
[2023-06-18] MEDS: ALPRAZolam (*CRX) 0.125 MG TABLET PO ×2 (09:48→20:38)
--- NOTE | 2023-06-18 12:25 | PC.NURSE ---
This patient, Vero Ramos, was transferred to [303] on 06/18/23 at 1225. Personal belongings sent with patient. Report given to [Claribel CAMARENA]. Appropriate documentation sent with patient.
--- NOTE | 2023-06-18 12:42 | PC.NURSE ---
patient transferred to room 303 at 1220
--- NOTE | 2023-06-18 13:46 | PM.PNNEP ---
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 creatinine running around 1.3 - 1.7mg/dl by previous labs done at [facility] HOWEVER, labs review from other hospitalizations at other facilities demonstrate that her creatinine has been as low as 0.9mg/dl in this year.... however, perhaps this normal creatinine value was dilutional from her previous bouts of CHF... risk factors for CKD include HTN, vascular disease, and age (3) Acute hypoxemic respiratory failure: Code(s): J96.01 - Acute respiratory failure with hypoxia Status: Acute Assessment and Plan: secondary to pulmonary edema from congestive heart failure and FRANCIS on CKD tested positive for COVID-19 however, CT scan findings it appears more likely volume overload rather than a COVID-19 pneumonia, she also could have bacterial pneumonia as she has been in and out of the hospitals complicated by know history of COPD responding to BiPAP therpy follow culture data empiric antibiotics started on dexamethasone and remdesivir continue bronchodilator therapy (4) COVID: Code(s): U07.1 - COVID-19 Status: Acute Assessment and Plan: see #3 (5) Pneumonia: Code(s): J18.9 - Pneumonia, unspecified organism Status: Acute Assessment and Plan: see #3 (6) Pulmonary edema: Code(s): J81.1 - Chronic pulmonary edema Status: Inactive Assessment and Plan: see #3 (7) Congestive heart failure: Code(s): I50.9 - Heart failure, unspecified Status: Acute Assessment and Plan: EF of 40-45% on echo done in April 2023 at [place] apparently her EF was 35% on echo done at [facility] last week fluid removal as tolerated with HD (8) Hypertension: Code(s): I10 - Essential (primary) hypertension Status: Chronic Assessment and Plan: elevated at this time resumed on home medications fluid removal with HD should help follow trend of hemodynamics (9) Anemia: Qualifiers: Anemia type: due to chronic kidney disease Code(s): D64.9 - Anemia, unspecified Status: Acute Assessment and Plan: related to FRANCIS on CKD and need for dialysis Epogen with HD follow H/H Will continue to follow. Subjective Date/time seen: 06/18/23 13:46 Interval history: Follow-up for acute kidney injury/acute renal failure (possibly on chronic kidney disease) on hemodialysis. Tolerated dialysis treatment yesterday without any issue or problems; breathing/respiratory status seems stable if not better at this time -- currently on room air; still with issues related to anxiety but seem relatively better at this time; no apparent distress. Exam Narrative: General: elderly female in NAD Heart: normal S1 and S2; no rub Lungs: decreased at bases Abdomen: soft, nontender, nondistended, positive bowel sounds Extremities: trace edema noted Objective Data Vital Signs Vital Signs: Vital Signs Temp Pulse Resp BP Pulse O
--- NOTE | 2023-06-18 13:46 | P.PNNP_ITS ---
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 * creatinine running around 1.3 - 1.7mg/dl by previous labs done at [facility] * HOWEVER, labs review from other hospitalizations at other facilities demonstrate that her creatinine has been as low as 0.9mg/dl in this year.... * however, perhaps this normal creatinine value was dilutional from her previous bouts of CHF... * risk factors for CKD include HTN, vascular disease, and age (3) Acute hypoxemic respiratory failure: Code(s): J96.01 - Acute respiratory failure with hypoxia Status: Acute Assessment and Plan: * secondary to pulmonary edema from congestive heart failure and FRANCIS on CKD * tested positive for COVID-19 * however, CT scan findings it appears more likely volume overload rather than a COVID-19 pneumonia, she also could have bacterial pneumonia as she has been in and out of the hospitals * complicated by know history of COPD * responding to BiPAP therpy * follow culture data * empiric antibiotics * started on dexamethasone and remdesivir * continue bronchodilator therapy (4) COVID: Code(s): U07.1 - COVID-19 Status: Acute Assessment and Plan: * see #3 (5) Pneumonia: Code(s): J18.9 - Pneumonia, unspecified organism Status: Acute Assessment and Plan: * see #3 (6) Pulmonary edema: Code(s): J81.1 - Chronic pulmonary edema Status: Inactive Assessment and Plan: * see #3 (7) Congestive heart failure: Code(s): I50.9 - Heart failure, unspecified Status: Acute Assessment and Plan: * EF of 40-45% on echo done in April 2023 at [place] * apparently her EF was 35% on echo done at [facility] last week * fluid removal as tolerated with HD (8) Hypertension: Code(s): I10 - Essential (primary) hypertension Status: Chronic Assessment and Plan: * elevated at this time * resumed on home medications * fluid removal with HD should help * follow trend of hemodynamics (9) Anemia: Qualifiers: Anemia type: due to chronic kidney disease Code(s): D64.9 - Anemia, unspecified Status: Acute Assessment and Plan: * related to FRANCIS on CKD and need for dialysis * Epogen with HD * follow H/H Will continue to follow. Subjective Date/time seen: 06/18/23 13:46 Interval history: Follow-up for acute kidney injury/acute renal failure (possibly on chronic k idney disease) on hemodialysis. Tolerated dialysis treatment yesterday without any issue or problems; harry
[2023-06-18] MEDS: CEFEPIME 1 GM/NS 50 ML 1 GM/50 ML BAG IVPB (17:26)
[2023-06-19] VITALS (28 sets, daily range): BP systolic 99–185; BP diastolic 50–100; PULSE 87–105; RESP 18–24; TEMP 36.2–37.4; O2SAT 94–97
[2023-06-19] MEDS: ALBUTEROL SULFATE NEB 2.5 MG/3 ML INH INHALATION (02:15)
[2023-06-19] MEDS: ACETAMINOPHEN 325 MG TABLET 650 MG PO ×2 (02:59→20:25)
[2023-06-19] MEDS: ALPRAZolam (*CRX) 0.125 MG TABLET PO ×2 (04:38→20:26)
[2023-06-19] MEDS: LABETALOL HCL INJ 100 MG/20 ML VIAL 10 MG IV PUSH (06:13)
[2023-06-19 06:55] LABS: Hematocrit 27.3 % (37.0-47.0); Hemoglobin 8.2 g/dL (12.0-15.0); Mean Corpuscular Hemoglobin 26.9 pg (26-34); Mean Corpuscular Volume 89.5 fl (80-100); Mean Platelet Volume 11.1 fl (7.4-10.4); Platelet Count Result 207 k/mm3 (150-375); Red Blood Count 3.05 M/mm3 (4.2-5.4); Red Cell Distribution Width 15.8 % (11.5-14.5)
[2023-06-19 07:13] LABS: Alanine Aminotransferase 18 U/L (6-35); Alkaline Phosphatase 73 U/L (38-126); Anion Gap 17 mmol/L (8-16); Aspartate Amino Transferase 31 U/L (14-36); Bilirubin,Total 0.5 mg/dL (0.2-1.3); Blood Urea Nitrogen 50 mg/dL (7-17); CRP 3.2 mg/dL (<1.0); Calcium 9.1 mg/dL (8.4-10.2); Carbon Dioxide 17 mmol/L (22-30); Chloride 100 mmol/L (98-107); Estimated CRCL calculation 6 ml/min; Estimated Glomerular Filt Rate 6; Glucose 109 mg/dL (65-110); Magnesium 1.9 mg/dL (1.6-2.3); Potassium 3.9 mmol/L (3.4-5.0); Sodium 134 mmol/L (137-145)
[2023-06-19 07:29] LABS: D Dimer 1.42 ug/mL (<0.48)
--- NOTE | 2023-06-19 08:22 | PM.IMPN ---
Progress Note: A&P Assessment and Plan (1) Acute respiratory failure: Code(s): J96.00 - Acute respiratory failure, unspecified whether with hypoxia or hypercapnia Status: Acute (2) Congestive heart failure: Code(s): I50.9 - Heart failure, unspecified Status: Acute (3) COVID: Code(s): U07.1 - COVID-19 Status: Acute (4) End-stage renal disease (ESRD): Code(s): N18.6 - End stage renal disease Status: Acute (5) COPD (chronic obstructive pulmonary disease): Code(s): J44.9 - Chronic obstructive pulmonary disease, unspecified Status: Chronic (6) Acute hypoxemic respiratory failure: Code(s): J96.01 - Acute respiratory failure with hypoxia Status: Acute Plan (1) Acute hypoxemic respiratory failure: ?Code(s): J96.01 - Acute respiratory failure with hypoxia ?Status:?Acute ?Assessment and Plan: Due to multiple factors, including pulmonary edema from congestive heart failure and end-stage renal disease, superimposed COVID-19 pneumonia and bacterial pneumonia as she has been in and out of the hospitals,? COPD exacerbation cOPD ?on admission She was placed on BiPAP initially now on room air started on dexamethasone and remdesivir.? started on empiric broad-spectrum antibiotics in the form of vancomycin cefepime? MRSA screen is negative hence discontinued vancomycin.? consider switching cefepime to p.o. antibiotics in two days c/w Bronchodilators cxr 06/19: Possible minimal pulmonary edema pattern. (2) COVID: ?Code(s): U07.1 - COVID-19 ?Status:?Acute ?Assessment and Plan: See above (3) Pneumonia: ?Code(s): J18.9 - Pneumonia, unspecified organism ?Status:?Acute ?Assessment and Plan: See above (4) Pulmonary edema: ?Code(s): J81.1 - Chronic pulmonary edema ?Status:?Inactive ?Assessment and Plan: See above (5) End-stage renal disease (ESRD): ?Code(s): N18.6 - End stage renal disease ?Status:?Acute ?Assessment and Plan: Nephrology consulted for hemodialysis.? Discussed with dialysis nurse Plan to dialyze this patient next (6) COPD (chronic obstructive pulmonary disease): ?Code(s): J44.9 - Chronic obstructive pulmonary disease, unspecified ?Status:?Chronic (7) Elevated troponin: ?Code(s): R79.89 - Other specified abnormal findings of blood chemistry ?Status:?Acute ?Assessment and Plan: She has history of coronary artery disease and had cardiac catheterization done on 05/02/23 with stent placement to RCA she has mild elevation of troponin on all are admissions and her troponins are mildly elevated with no acute ST elevation on EKG. Chest pain by history appears noncardiac and pleuritic in nature Continue aspirin Plavix statin Repeated troponin below the baseline, EKG shows sinus rhythm no specific ST T-wave changes. Repeat the chest x-ray suggested mild pulmonary edema, cardiomegaly (8) Congestive heart failure: ?Code(s): I50.9 - Heart failure, unspecified ?Status:?Acute ?Assessment and Plan: Patient had a EF of 40-45% on echo done in April at [place].? Apparently her EF was 35% on echo done at [facility] last week. ?dialysis to remove fluid (9) Anxiety: ?Code(s): F41.9 - Anxiety disorder, unspecified ?Status:?Acute ?Assessment and Plan: ?patient has history of? anxiety which is likely playing a role in her shortness of breath and panic attacks. ? Will resume her low-dose Xanax Subjective Date/time seen: 06/19/23 08:22 Interval history: Patient feels chest pain with deep breath and cough, and patient has epigastric pain, feeling nauseous. Denies vomiting. Patient feels dyspnea is improving. Exam Narrative: General: Pt is alert awake and in NAD. she is on room air Lungs/Chest: Trachea central Clear BS B/L, breath sounds are decreased on bases, no crackle, no respiratory distress or use of accessory m
[2023-06-19] MEDS: PANTOPRAZOLE SODIUM IV 40 MG VIAL IV PUSH (10:43)
[2023-06-19] MEDS: ASCORBIC ACID 500 MG TABLET PO (10:44)
[2023-06-19] MEDS: ENOXAPARIN 30 MG/0.3 ML SYRINGE SUB-Q (10:44)
[2023-06-19] MEDS: ZINC SULFATE 220 MG CAPSULE PO (10:44)
[2023-06-19] MEDS: ATORVASTATIN 40 MG TABLET 80 MG PO (10:44)
[2023-06-19] MEDS: THERAPEUTIC MULTIVITAMINS/MINERALS TAB (*BKC) 1 TABLET PO (10:44)
[2023-06-19] MEDS: CLOPIDOGREL BISULFATE 75 MG TABLET PO (10:45)
[2023-06-19] MEDS: ASPIRIN 81 MG ENTERIC TABLET PO (10:45)
[2023-06-19] MEDS: CHOLECALCIFEROL 1,000 UNITS TABLET 1000 UNITS PO (10:45)
[2023-06-19] MEDS: REMDESIVIR 100 MG/NS 250 ML 100 MG/250 ML BAG 250 MG IVPB (11:58)
--- NOTE | 2023-06-19 12:04 | ECG_ITS ---
Measurements Intervals Freedom Rate: 110 P: 66 SD: 157 QRS: 41 QRSD: 97 T: 36 QT: 326 QTc: 442 Interpretive Statements SINUS TACHYCARDIA POSSIBLE LEFT ATRIAL ENLARGEMENT [-0.1mV P WAVE IN V1/V2] NONSPECIFIC ST & T-WAVE ABNORMALITY ABNORMAL ECG COMPARED TO ECG 06/17/2023 02:38:33 NO SIGNIFICANT CHANGES Electronically Signed On 06-19-2023 14:08:19 EXTRUSION LINE OPERATOR by Sherwin Garcia M.D.
--- NOTE | 2023-06-19 13:21 | PCPTNOTE ---
Attempted PT evaluation, pt leaving for dialysis soon per RN. Will follow.
[2023-06-19 13:45] LABS: Troponin I 0.115 ng/mL (0.000-0.034)
[2023-06-19] MEDS: ONDANSETRON INJ 4 MG/2 ML VIAL IV PUSH (13:56)
[2023-06-19] MEDS: MAG HYDROX/AL HYDROX/SIMETH 30 ML UDC PO (13:56)
--- NOTE | 2023-06-19 14:48 | P.PNNP_ITS ---
Progress Note: A&P Assessment and Plan (1) FRANCIS (acute kidney injury): Code(s): N17.9 - Acute kidney failure, unspecified Status: Acute Assessment and Plan: * as noted by events during hospitalization in April 2023 here at [facility] * admission creatinine at that time was 1.6mg/dl and progressively deteriorated * multifactorial etiology: ATN, prerenal factors, infection, NSTEMI, hyoxia, relative hypotension * initiated on RISK CONTROL OFFICER/dialysis on April 2023 admission for clearance, optimization of fluid removal, and electrolytes control * no evidence of recent recovery as of yet * her recurrent hospitalizations maybe hampering her renal recovery * HD today and continue T/T/S outpatient dialysis schedule * follow repeat labs and UOP for potential renal recovery (2) Stage 3b chronic kidney disease: Code(s): N18.32 - Chronic kidney disease, stage 3b Status: Chronic Assessment and Plan: * has baseline CKD or is this just random fluctuations in baseline kidney function??? * creatinine running around 1.3 - 1.7mg/dl by previous labs done at [facility] * HOWEVER, labs review from other hospitalizations at other facilities demonstrate that her creatinine has been as low as 0.9mg/dl in this year.... * however, perhaps this normal creatinine value was dilutional from her previous bouts of CHF... * risk factors for CKD include HTN, vascular disease, and age (3) Acute hypoxemic respiratory failure: Code(s): J96.01 - Acute respiratory failure with hypoxia Status: Acute Assessment and Plan: * resolving/improved * required BiPAP therapy on admission * thought to be secondary to fluid overload + COVID + pneumonia * HD with fluid removal as tolerated to maintain euvolemia * follow respiratory status (4) COVID: Code(s): U07.1 - COVID-19 Status: Acute Assessment and Plan: * possible component of COVID pneumonia on admission * on remdesivir and decadron * continue supportive therapy (5) Pneumonia: Code(s): J18.9 - Pneumonia, unspecified organism Status: Acute Assessment and Plan: * follow culture data * on antibiotics (6) Hypertension: Code(s): I10 - Essential (primary) hypertension Status: Chronic Assessment and Plan: * better control at this time * resumed on home medications * follow trend of hemodynamics (7) Anemia: Qualifiers: Anemia type: due to chronic kidney disease Code(s): D64.9 - Anemia, unspecified Status: Acute Assessment and Plan: * related to FRANCIS and need for dialysis * Epogen with HD * follow H/H Will continue to follow. Subjective Date/time seen: 06/19/23 14:48 Interval history: Follow-up for acute kidney injury/acute renal failure (possibly on chronic kidney disease) on hemodialysis. Tolerating dialysis treatment at the time of my visit (seen on HD at 2:35PM); overall, she states he breathing/respiratory status has significantly improved; her anxiety is still a bit of an issue but also somewhat better; no acute iss ues/events overnight or earlier today. Exam Narrative: General: elderly WD/WN female in NAD Heart: normal S1 and S2; no rub Lungs: decreased at bases Abdomen: soft, nontender, nondistended, positive bowel sounds Extremities: no cyanosis or clubbing; trace edema noted Objective Data Vital Signs Vital Signs:
--- NOTE | 2023-06-19 14:48 | PM.PNNEP ---
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 creatinine running around 1.3 - 1.7mg/dl by previous labs done at [facility] HOWEVER, labs review from other hospitalizations at other facilities demonstrate that her creatinine has been as low as 0.9mg/dl in this year.... however, perhaps this normal creatinine value was dilutional from her previous bouts of CHF... risk factors for CKD include HTN, vascular disease, and age (3) Acute hypoxemic respiratory failure: Code(s): J96.01 - Acute respiratory failure with hypoxia Status: Acute Assessment and Plan: resolving/improved required BiPAP therapy on admission thought to be secondary to fluid overload + COVID + pneumonia HD with fluid removal as tolerated to maintain euvolemia follow respiratory status (4) COVID: Code(s): U07.1 - COVID-19 Status: Acute Assessment and Plan: possible component of COVID pneumonia on admission on remdesivir and decadron continue supportive therapy (5) Pneumonia: Code(s): J18.9 - Pneumonia, unspecified organism Status: Acute Assessment and Plan: follow culture data on antibiotics (6) Hypertension: Code(s): I10 - Essential (primary) hypertension Status: Chronic Assessment and Plan: better control at this time resumed on home medications follow trend of hemodynamics (7) Anemia: Qualifiers: Anemia type: due to chronic kidney disease Code(s): D64.9 - Anemia, unspecified Status: Acute Assessment and Plan: related to FRANCIS and need for dialysis Epogen with HD follow H/H Will continue to follow. Subjective Date/time seen: 06/19/23 14:48 Interval history: Follow-up for acute kidney injury/acute renal failure (possibly on chronic kidney disease) on hemodialysis. Tolerating dialysis treatment at the time of my visit (seen on HD at 2:35PM); overall, she states he breathing/respiratory status has significantly improved; her anxiety is still a bit of an issue but also somewhat better; no acute issues/events overnight or earlier today. Exam Narrative: General: elderly WD/WN female in NAD Heart: normal S1 and S2; no rub Lungs: decreased at bases Abdomen: soft, nontender, nondistended, positive bowel sounds Extremities: no cyanosis or clubbing; trace edema noted Objective Data Vital Signs Vital Signs: Vital Signs Temp Pulse Resp BP Pulse Ox O2 Del Method O2 Flow Rate 06/19/23 14:30 99 185/100 H 06/19/23 14:45 94 173/98 H 06/19/23 14:16 103 H 177/98 H 06/19/23 14:16 1 06/19/23 14:07 97.9 F 104 H 24 H 176/97 H 06/19/23 07:58 97.8 F 93 18 154/85 H 94 06/19/23 04:00 98 06/19/23 00:00 96 06/19/23 02:30 92 20 06/19/23 02:20 87 22 H 06/18/23 23:27 98.1 F 95 17 150/74 H 96 06/18/23 20:00 93 06/18/23 20:00 90 20 94 Room Air
[2023-06-19] MEDS: EPOETIN ALFA-EPBX 10,000 UNITS/ML VIAL 10000 UNITS IV PUSH (16:12)
[2023-06-19] MEDS: CEFEPIME 1 GM/NS 50 ML 1 GM/50 ML BAG IVPB (18:08)
[2023-06-19 20:19] LABS: Troponin I 0.113 ng/mL (0.000-0.034)
[2023-06-19 23:14] LABS: Troponin I 0.121 ng/mL (0.000-0.034)
[2023-06-20] VITALS (14 sets, daily range): BP systolic 147–158; BP diastolic 68–86; PULSE 90–107; RESP 14–20; TEMP 36.4–36.7; O2SAT 94–100
[2023-06-20 06:19] LABS: Hematocrit 29.6 % (37.0-47.0); Hemoglobin 8.9 g/dL (12.0-15.0); Mean Corpuscular HGB Conc 30.1 g/dl (32-36); Mean Corpuscular Hemoglobin 26.5 pg (26-34); Mean Corpuscular Volume 88.1 fl (80-100); Mean Platelet Volume 10.7 fl (7.4-10.4); Platelet Count Result 231 k/mm3 (150-375); Red Blood Count 3.36 M/mm3 (4.2-5.4); Red Cell Distribution Width 15.5 % (11.5-14.5); White Blood Count 9.4 K/mm3 (4.5-10.0)
[2023-06-20 06:33] LABS: Alanine Aminotransferase 18 U/L (6-35); Albumin Level 4.3 g/dL (3.5-5.1); Alkaline Phosphatase 85 U/L (38-126); Anion Gap 15 mmol/L (8-16); Aspartate Amino Transferase 32 U/L (14-36); Bilirubin,Total 0.7 mg/dL (0.2-1.3); Blood Urea Nitrogen 31 mg/dL (7-17); CRP 6.1 mg/dL (<1.0); Calcium 9.3 mg/dL (8.4-10.2); Carbon Dioxide 23 mmol/L (22-30); Chloride 98 mmol/L (98-107); Estimated CRCL calculation 9 ml/min; Estimated Glomerular Filt Rate 9; Glucose 102 mg/dL (65-110); Magnesium 2.1 mg/dL (1.6-2.3); Potassium 4.6 mmol/L (3.4-5.0); Sodium 136 mmol/L (137-145)
[2023-06-20 06:45] LABS: D Dimer 1.14 ug/mL (<0.48)
--- NOTE | 2023-06-20 07:48 | PM.IMPN ---
Progress Note: A&P Assessment and Plan (1) Acute respiratory failure: Code(s): J96.00 - Acute respiratory failure, unspecified whether with hypoxia or hypercapnia Status: Acute (2) Congestive heart failure: Code(s): I50.9 - Heart failure, unspecified Status: Acute (3) COVID: Code(s): U07.1 - COVID-19 Status: Acute (4) End-stage renal disease (ESRD): Code(s): N18.6 - End stage renal disease Status: Acute (5) COPD (chronic obstructive pulmonary disease): Code(s): J44.9 - Chronic obstructive pulmonary disease, unspecified Status: Chronic (6) Acute hypoxemic respiratory failure: Code(s): J96.01 - Acute respiratory failure with hypoxia Status: Acute Plan (1) Acute hypoxemic respiratory failure: ?Code(s): J96.01 - Acute respiratory failure with hypoxia ?Status:?Acute ?Assessment and Plan: Due to multiple factors, including pulmonary edema from congestive heart failure and end-stage renal disease, superimposed COVID-19 pneumonia and bacterial pneumonia as she has been in and out of the hospitals,? COPD exacerbation cOPD ?on admission She was placed on BiPAP initially now on room air started on dexamethasone and remdesivir.?06/17, may dc on 06/21 started on empiric broad-spectrum antibiotics in the form of vancomycin cefepime? MRSA screen is negative hence discontinued vancomycin.? consider switching cefepime to p.o. antibiotics in two days c/w Bronchodilators cxr 06/19: Possible minimal pulmonary edema pattern. (2) COVID: ?Code(s): U07.1 - COVID-19 ?Status:?Acute ?Assessment and Plan: See above (3) Pneumonia: ?Code(s): J18.9 - Pneumonia, unspecified organism ?Status:?Acute ?Assessment and Plan: See above (4) Pulmonary edema: ?Code(s): J81.1 - Chronic pulmonary edema ?Status:?Inactive ?Assessment and Plan: See above (5) End-stage renal disease (ESRD): ?Code(s): N18.6 - End stage renal disease ?Status:?Acute ?Assessment and Plan: Nephrology consulted for hemodialysis.? Discussed with dialysis nurse Plan to dialyze this patient next (6) COPD (chronic obstructive pulmonary disease): ?Code(s): J44.9 - Chronic obstructive pulmonary disease, unspecified ?Status:?Chronic (7) Elevated troponin: ?Code(s): R79.89 - Other specified abnormal findings of blood chemistry ?Status:?Acute ?Assessment and Plan: She has history of coronary artery disease and had cardiac catheterization done on 05/02/23 with stent placement to RCA she has mild elevation of troponin on all are admissions and her troponins are mildly elevated with no acute ST elevation on EKG. Chest pain by history appears noncardiac and pleuritic in nature Continue aspirin Plavix statin Repeated troponin below the baseline, EKG shows sinus rhythm no specific ST T-wave changes. Repeat the chest x-ray suggested mild pulmonary edema, cardiomegaly (8) Congestive heart failure: ?Code(s): I50.9 - Heart failure, unspecified ?Status:?Acute ?Assessment and Plan: Patient had a EF of 40-45% on echo done in April at [place].? EF was 35% on echo done at [facility] ?dialysis to remove fluid (9) Anxiety: ?Code(s): F41.9 - Anxiety disorder, unspecified ?Status:?Acute ?Assessment and Plan: ?patient has history of? anxiety which is likely playing a role in her shortness of breath and panic attacks. ? Will resume her low-dose Xanax Indigestion, epigastric pain Possible GERD superimposed viral infection Start Protonix p.o. Consult PT OT child caregiver private home for evaluation and assisting placement Subjective Date/time seen: 06/20/23 07:48 Interval history: Patient denies chest pain but has epigastric pain, poor appetite, not feeling nauseous denies vomiting. Patient feels dyspnea is improving. Exam Narrative: General: Pt is alert awake and in NAD. she is
[2023-06-20] MEDS: ASPIRIN 81 MG ENTERIC TABLET PO (09:26)
[2023-06-20] MEDS: ZINC SULFATE 220 MG CAPSULE PO (09:27)
[2023-06-20] MEDS: ENOXAPARIN 30 MG/0.3 ML SYRINGE SUB-Q (09:27)
[2023-06-20] MEDS: THERAPEUTIC MULTIVITAMINS/MINERALS TAB (*BKC) 1 TABLET PO (09:27)
[2023-06-20] MEDS: ATORVASTATIN 40 MG TABLET 80 MG PO (09:27)
[2023-06-20] MEDS: ASCORBIC ACID 500 MG TABLET PO (09:27)
[2023-06-20] MEDS: CHOLECALCIFEROL 1,000 UNITS TABLET 1000 UNITS PO (09:27)
[2023-06-20] MEDS: CLOPIDOGREL BISULFATE 75 MG TABLET PO (09:27)
[2023-06-20] MEDS: REMDESIVIR 100 MG/NS 250 ML 100 MG/250 ML BAG 250 MG IVPB (09:40)
[2023-06-20] MEDS: PANTOPRAZOLE SODIUM IV 40 MG VIAL IV PUSH (09:44)
[2023-06-20] MEDS: IPRATROPIUM BR 0.02% INH SOLN 0.5 MG/2.5 ML VIAL INHALATION (09:52)
[2023-06-20] MEDS: ALBUTEROL SULFATE NEB 2.5 MG/3 ML INH INHALATION (09:52)
--- NOTE | 2023-06-20 10:09 | P.CDI_ITS ---
CDI Query Clarification Request Documented history of CHF. CHF noted in the assessment and plan. Pulmonary edema noted on the chest xray. Acute hypoxemic respiratory failure: ?Code(s): J96.01 - Acute respiratory failure with hypoxia ?Status:?Acute ?Assessment and Plan: Due to multiple factors,? including pulmonary edema from congestive heart failure and end-stage renal disease, superimposed COVID-19 pneumonia and bacterial pneumonia as she has been in and out of the hospitals,? COPD exacerbation cOPD Please specify type and acuity of heart failure if known. 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
--- NOTE | 2023-06-20 10:46 | PM.PNNEP ---
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 creatinine running around 1.3 - 1.7mg/dl by previous labs done at [facility] HOWEVER, labs review from other hospitalizations at other facilities demonstrate that her creatinine has been as low as 0.9mg/dl in this year.... however, perhaps this normal creatinine value was dilutional from her previous bouts of CHF... risk factors for CKD include HTN, vascular disease, and age (3) Acute hypoxemic respiratory failure: Code(s): J96.01 - Acute respiratory failure with hypoxia Status: Acute Assessment and Plan: resolving/improved required BiPAP therapy on admission thought to be secondary to fluid overload + COVID + pneumonia HD with fluid removal as tolerated to maintain euvolemia follow respiratory status (4) COVID: Code(s): U07.1 - COVID-19 Status: Acute Assessment and Plan: possible component of COVID pneumonia on admission on remdesivir and decadron continue supportive therapy (5) Pneumonia: Code(s): J18.9 - Pneumonia, unspecified organism Status: Acute Assessment and Plan: follow culture data on antibiotics (6) Hypertension: Code(s): I10 - Essential (primary) hypertension Status: Chronic Assessment and Plan: better control at this time resumed on home medications follow trend of hemodynamics (7) Anemia: Qualifiers: Anemia type: due to chronic kidney disease Code(s): D64.9 - Anemia, unspecified Status: Acute Assessment and Plan: related to FRANCIS and need for dialysis Epogen with HD follow H/H Will continue to follow. Subjective Date/time seen: 06/20/23 10:46 Interval history: Follow-up for acute kidney injury/acute renal failure (possibly on chronic kidney disease) on hemodialysis. Tolerated dialysis treatment yesterday without any issue or problems; breathing/respiratory status is stable if not better; anxiety appears a bit better as well; no other concerns voiced at this time; no acute events overnight or earlier today. Exam Narrative: General: elderly WD/WN female in NAD Heart: normal S1 and S2; no rub Lungs: clear anteriorly; decreased at bases Abdomen: soft, nontender, nondistended, positive bowel sounds Extremities: no cyanosis or clubbing; trace edema noted Objective Data Vital Signs Vital Signs: Vital Signs Temp Pulse Resp BP Pulse Ox O2 Del Method O2 Flow Rate 06/20/23 10:12 100 20 06/20/23 09:58 100 Nasal Cannula 2 06/20/23 09:53 102 H 20 06/20/23 08:36 Nasal Cannula 1 06/20/23 04:44 97.5 F L 90 16 148/77 H 97 06/20/23 04:00 100 06/20/23 00:00 95 06/19/23 20:00 95 06/19/23 20:27 97.1 F L 93 18 147/77 H 97 Intake/Output Intake/Output: Intake & Output 06/17/23 06/18/23 06/19/23 06/20/23 23:59 23:59 23:59 23:59 Intake Total 600 1972 1606 1370 Out
--- NOTE | 2023-06-20 10:46 | P.PNNP_ITS ---
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 * creatinine running around 1.3 - 1.7mg/dl by previous labs done at [facility] * HOWEVER, labs review from other hospitalizations at other facilities demonstrate that her creatinine has been as low as 0.9mg/dl in this year.... * however, perhaps this normal creatinine value was dilutional from her previous bouts of CHF... * risk factors for CKD include HTN, vascular disease, and age (3) Acute hypoxemic respiratory failure: Code(s): J96.01 - Acute respiratory failure with hypoxia Status: Acute Assessment and Plan: * resolving/improved * required BiPAP therapy on admission * thought to be secondary to fluid overload + COVID + pneumonia * HD with fluid removal as tolerated to maintain euvolemia * follow respiratory status (4) COVID: Code(s): U07.1 - COVID-19 Status: Acute Assessment and Plan: * possible component of COVID pneumonia on admission * on remdesivir and decadron * continue supportive therapy (5) Pneumonia: Code(s): J18.9 - Pneumonia, unspecified organism Status: Acute Assessment and Plan: * follow culture data * on antibiotics (6) Hypertension: Code(s): I10 - Essential (primary) hypertension Status: Chronic Assessment and Plan: * better control at this time * resumed on home medications * follow trend of hemodynamics (7) Anemia: Qualifiers: Anemia type: due to chronic kidney disease Code(s): D64.9 - Anemia, unspecified Status: Acute Assessment and Plan: * related to FRANCIS and need for dialysis * Epogen with HD * follow H/H Will continue to follow. Subjective Date/time seen: 06/20/23 10:46 Interval history: Follow-up for acute kidney injury/acute renal failure (possibly on chronic kidney disease) on hemodialysis. Tolerated dialysis treatment yesterday without any issue or problems; breathing/respiratory status is stable if not better; anxiety appears a bit better as well; no other concerns voiced at this time; no acute events overnight or earlier today. Exam Narrative: General: elderly WD/WN female in NAD Heart: normal S1 and S2; no rub Lungs: clear anteriorly; decreased at bases Abdomen: soft, nontender, nondistended, positive bowel sounds Extremities: no cyanosis or clubbing; trace edema noted Objective Data Vital Signs Vital Signs:
[2023-06-20] MEDS: AMOXICILLIN/CLAVULANATE K 500-125 MG TAB 1 TABLET PO (17:26)
--- NOTE | 2023-06-20 20:12 | PC.NURSE ---
Samantha Castro LPN provided care for this patient on 06/20/23. I agree with her assessments and charting.
[2023-06-20] MEDS: PANTOPRAZOLE 40 MG TABLET PO (21:17)
[2023-06-20] MEDS: ALPRAZolam (*CRX) 0.125 MG TABLET PO (21:17)
[2023-06-21] VITALS (24 sets, daily range): BP systolic 101–180; BP diastolic 68–103; PULSE 90–108; RESP 13–30; TEMP 36.3–37.1; O2SAT 90–92
[2023-06-21] MEDS: MAG HYDROX/AL HYDROX/SIMETH 30 ML UDC PO ×2 (00:18→21:26)
[2023-06-21 06:43] LABS: Hematocrit 28.9 % (37.0-47.0); Hemoglobin 8.8 g/dL (12.0-15.0); Mean Corpuscular HGB Conc 30.4 g/dl (32-36); Mean Corpuscular Hemoglobin 26.7 pg (26-34); Mean Corpuscular Volume 87.8 fl (80-100); Mean Platelet Volume 11.2 fl (7.4-10.4); Platelet Count Result 270 k/mm3 (150-375); Red Blood Count 3.29 M/mm3 (4.2-5.4); Red Cell Distribution Width 15.6 % (11.5-14.5); White Blood Count 15.7 K/mm3 (4.5-10.0)
[2023-06-21 06:59] LABS: Alanine Aminotransferase 18 U/L (6-35); Albumin Level 4.3 g/dL (3.5-5.1); Alkaline Phosphatase 85 U/L (38-126); Anion Gap 16 mmol/L (8-16); Aspartate Amino Transferase 31 U/L (14-36); Bilirubin,Total 0.6 mg/dL (0.2-1.3); Blood Urea Nitrogen 48 mg/dL (7-17); CRP 5.8 mg/dL (<1.0); Calcium 9.3 mg/dL (8.4-10.2); Carbon Dioxide 21 mmol/L (22-30); Chloride 95 mmol/L (98-107); Estimated CRCL calculation 7 ml/min; Estimated Glomerular Filt Rate 6; Glucose 107 mg/dL (65-110); Magnesium 2.3 mg/dL (1.6-2.3); Potassium 4.8 mmol/L (3.4-5.0); Sodium 132 mmol/L (137-145)
--- NOTE | 2023-06-21 08:18 | PM.IMPN ---
Progress Note: A&P Assessment and Plan (1) Acute respiratory failure: Code(s): J96.00 - Acute respiratory failure, unspecified whether with hypoxia or hypercapnia Status: Acute (2) Congestive heart failure: Code(s): I50.9 - Heart failure, unspecified Status: Acute (3) COVID: Code(s): U07.1 - COVID-19 Status: Acute (4) End-stage renal disease (ESRD): Code(s): N18.6 - End stage renal disease Status: Acute (5) COPD (chronic obstructive pulmonary disease): Code(s): J44.9 - Chronic obstructive pulmonary disease, unspecified Status: Chronic (6) Acute hypoxemic respiratory failure: Code(s): J96.01 - Acute respiratory failure with hypoxia Status: Acute Plan (1) Acute hypoxemic respiratory failure: ?Code(s): J96.01 - Acute respiratory failure with hypoxia ?Status:?Acute ?Assessment and Plan: Due to multiple factors, including pulmonary edema from congestive heart failure and end-stage renal disease, superimposed COVID-19 pneumonia and bacterial pneumonia as she has been in and out of the hospitals,? COPD exacerbation cOPD ?on admission She was placed on BiPAP initially now on room air started on dexamethasone and remdesivir.?06/17, finish on 06/21 started on empiric broad-spectrum antibiotics in the form of vancomycin cefepime? MRSA screen is negative hence discontinued vancomycin.? switching cefepime to Augementin on 06/21, dosing per pharmacist c/w Bronchodilators Leukocytosis, afebrile, likely secondary to reaction due to dexamethasone cxr 06/19: Possible minimal pulmonary edema pattern. (2) COVID: ?Code(s): U07.1 - COVID-19 ?Status:?Acute ?Assessment and Plan: See above (3) Pneumonia: ?Code(s): J18.9 - Pneumonia, unspecified organism ?Status:?Acute ?Assessment and Plan: See above (4) Pulmonary edema: ?Code(s): J81.1 - Chronic pulmonary edema ?Status:?Inactive ?Assessment and Plan: See above (5) End-stage renal disease (ESRD): ?Code(s): N18.6 - End stage renal disease ?Status:?Acute ?Assessment and Plan: Nephrology consulted for hemodialysis.? Discussed with dialysis nurse Plan to dialyze this patient next (6) COPD (chronic obstructive pulmonary disease): ?Code(s): J44.9 - Chronic obstructive pulmonary disease, unspecified ?Status:?Chronic (7) Elevated troponin: ?Code(s): R79.89 - Other specified abnormal findings of blood chemistry ?Status:?Acute ?Assessment and Plan: History of CAD cardiac catheterization done on 05/02/23 with stent placement to RCA she has mild elevation of troponin on all are admissions and her troponins are mildly elevated with no acute ST elevation on EKG. Chest pain by history appears noncardiac and pleuritic in nature Continue aspirin Plavix statin Repeated troponin below the baseline, EKG shows sinus rhythm no specific ST T-wave changes. Repeat the chest x-ray suggested mild pulmonary edema, cardiomegaly (8) Congestive heart failure: ?Code(s): I50.9 - Heart failure, unspecified ?Status:?Acute ?Assessment and Plan: Patient had a EF of 40-45% on echo done in April at [place].? EF was 35% on echo done at [facility] ?dialysis to remove fluid (9) Anxiety: ?Code(s): F41.9 - Anxiety disorder, unspecified ?Status:?Acute ?Assessment and Plan: ?patient has history of? anxiety which is likely playing a role in her shortness of breath and panic attacks. ? Will resume her low-dose Xanax Indigestion, epigastric pain Possible GERD superimposed viral infection Start Protonix p.o. Consult PT OT cardiac care nurse for evaluation and assisting placement Subjective Date/time seen: 06/21/23 08:18 Interval history: Patient denies chest pain shortness breath, still has epigastric pain, poor appetite, not feeling nauseous denies vomiting. Patient feels dyspnea is improving. wbc 1
[2023-06-21 08:51] LABS: D Dimer 1.06 ug/mL (<0.48)
[2023-06-21] MEDS: ATORVASTATIN 40 MG TABLET 80 MG PO (09:42)
[2023-06-21] MEDS: CLOPIDOGREL BISULFATE 75 MG TABLET PO (09:42)
[2023-06-21] MEDS: ZINC SULFATE 220 MG CAPSULE PO (09:42)
[2023-06-21] MEDS: AMOXICILLIN/CLAVULANATE K 500-125 MG TAB 1 TABLET PO ×2 (09:42→21:26)
[2023-06-21] MEDS: ASPIRIN 81 MG ENTERIC TABLET PO (09:42)
[2023-06-21] MEDS: CHOLECALCIFEROL 1,000 UNITS TABLET 1000 UNITS PO (09:43)
[2023-06-21] MEDS: THERAPEUTIC MULTIVITAMINS/MINERALS TAB (*BKC) 1 TABLET PO (09:43)
[2023-06-21] MEDS: ASCORBIC ACID 500 MG TABLET PO (09:43)
--- NOTE | 2023-06-21 09:45 | PC.NURSE ---
Encouraged patient to wear oxygen because O2 sat drops to 87% while walking to bathroom. Her nose is very dry . Meds ordered for dry nose. Dr Alberto notified.
[2023-06-21] MEDS: ENOXAPARIN 30 MG/0.3 ML SYRINGE SUB-Q (09:47)
[2023-06-21] MEDS: REMDESIVIR 100 MG/NS 250 ML 100 MG/250 ML BAG 250 MG IVPB (10:06)
[2023-06-21] MEDS: ONDANSETRON INJ 4 MG/2 ML VIAL IV PUSH ×2 (10:08→21:44)
--- NOTE | 2023-06-21 10:47 | P.PNNP_ITS ---
Progress Note: A&P Assessment and Plan (1) FRANCIS (acute kidney injury): Code(s): N17.9 - Acute kidney failure, unspecified Status: Acute Assessment and Plan: * as noted by events during hospitalization in April 2023 here at 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 * creatinine running around 1.3 - 1.7mg/dl by previous labs done at [facility] * HOWEVER, labs review from other hospitalizations at other facilities demonstrate that her creatinine has been as low as 0.9mg/dl in this year.... * however, perhaps this normal creatinine value was dilutional from her previous bouts of CHF... * risk factors for CKD include HTN, vascular disease, and age (3) Acute hypoxemic respiratory failure: Code(s): J96.01 - Acute respiratory failure with hypoxia Status: Acute Assessment and Plan: * resolving/improved * required BiPAP therapy on admission * thought to be secondary to fluid overload + COVID + pneumonia * HD with fluid removal as tolerated to maintain euvolemia * follow respiratory status (4) COVID: Code(s): U07.1 - COVID-19 Status: Acute Assessment and Plan: * possible component of COVID pneumonia on admission * on remdesivir and decadron per protocol * continue supportive therapy (5) Pneumonia: Code(s): J18.9 - Pneumonia, unspecified organism Status: Acute Assessment and Plan: * follow culture data * on antibiotics (6) Hypertension: Code(s): I10 - Essential (primary) hypertension Status: Chronic Assessment and Plan: * better control at this time * resumed on home medications * follow trend of hemodynamics (7) Anemia: Qualifiers: Anemia type: due to chronic kidney disease Code(s): D64.9 - Anemia, unspecified Status: Acute Assessment and Plan: * related to FRANCIS and need for dialysis * Epogen with HD * follow H/H Will continue to follow. Subjective Date/time seen: 06/21/23 10:47 Interval history: Follow-up for acute kidney injury/acute renal failure (possibly on chronic kidney disease) on hemodialysis. Breathing/respiratory status continues to slowly improve if not stabilize; noted plans for dialysis treatment later today; no new issues/events overnight or earlier this morning; xanax seems to help to some degree with her anxiety. Exam Narrative: General: elderly WD/WN female in NAD Heart: normal S1 and S2; no rub Lungs: clear anteriorly; decreased at bases Abdomen: soft, nontender, nondistended, positive bowel sounds Extremities: no cyanosis or clubbing; trace edema noted Objective Data Vital Signs Vital Signs:
--- NOTE | 2023-06-21 10:47 | PM.PNNEP ---
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 creatinine running around 1.3 - 1.7mg/dl by previous labs done at [facility] HOWEVER, labs review from other hospitalizations at other facilities demonstrate that her creatinine has been as low as 0.9mg/dl in this year.... however, perhaps this normal creatinine value was dilutional from her previous bouts of CHF... risk factors for CKD include HTN, vascular disease, and age (3) Acute hypoxemic respiratory failure: Code(s): J96.01 - Acute respiratory failure with hypoxia Status: Acute Assessment and Plan: resolving/improved required BiPAP therapy on admission thought to be secondary to fluid overload + COVID + pneumonia HD with fluid removal as tolerated to maintain euvolemia follow respiratory status (4) COVID: Code(s): U07.1 - COVID-19 Status: Acute Assessment and Plan: possible component of COVID pneumonia on admission on remdesivir and decadron per protocol continue supportive therapy (5) Pneumonia: Code(s): J18.9 - Pneumonia, unspecified organism Status: Acute Assessment and Plan: follow culture data on antibiotics (6) Hypertension: Code(s): I10 - Essential (primary) hypertension Status: Chronic Assessment and Plan: better control at this time resumed on home medications follow trend of hemodynamics (7) Anemia: Qualifiers: Anemia type: due to chronic kidney disease Code(s): D64.9 - Anemia, unspecified Status: Acute Assessment and Plan: related to FRANCIS and need for dialysis Epogen with HD follow H/H Will continue to follow. Subjective Date/time seen: 06/21/23 10:47 Interval history: Follow-up for acute kidney injury/acute renal failure (possibly on chronic kidney disease) on hemodialysis. Breathing/respiratory status continues to slowly improve if not stabilize; noted plans for dialysis treatment later today; no new issues/events overnight or earlier this morning; xanax seems to help to some degree with her anxiety. Exam Narrative: General: elderly WD/WN female in NAD Heart: normal S1 and S2; no rub Lungs: clear anteriorly; decreased at bases Abdomen: soft, nontender, nondistended, positive bowel sounds Extremities: no cyanosis or clubbing; trace edema noted Objective Data Vital Signs Vital Signs: Vital Signs Temp Pulse Resp BP Pulse Ox O2 Del Method 06/21/23 09:45 92 Room Air 06/21/23 05:57 98.1 F 108 H 13 155/76 H 91 06/21/23 04:00 107 H 06/21/23 00:00 102 H 06/20/23 20:00 107 H 06/20/23 21:04 97.5 F L 104 H 14 158/86 H 100 06/20/23 16:45 94 Room Air Intake/Output Intake/Output: Intake & Output 06/18/23 06/19/23 06/20/23 06/21/23 23:59 23:59 23:59 23:59 Intake Total 1971 1606 1370 500 Output Total 0 3200 Balance 1971 -1594 1370 500 Meds/Results Medications: A
[2023-06-21] MEDS: SODIUM CHLORIDE NASAL GEL 14.1 GM 1 APPLIC NASAL (13:18)
[2023-06-21] MEDS: SALINE 0.65% NAS SOLN 44 ML BTL 1 SPRAY NASAL (13:18)
[2023-06-21] MEDS: ALBUTEROL SULFATE NEB 2.5 MG/3 ML INH INHALATION (15:25)
[2023-06-21] MEDS: IPRATROPIUM BR 0.02% INH SOLN 0.5 MG/2.5 ML VIAL INHALATION (15:26)
--- NOTE | 2023-06-21 17:55 | PC.NURSE ---
To dialysis via bed.
[2023-06-21] MEDS: ALBUMIN HUMAN 25% 12.5 GM/50ML 50 ML IVPB (20:20)
[2023-06-21] MEDS: EPOETIN ALFA-EPBX 10,000 UNITS/ML VIAL 10000 UNITS IV PUSH (20:22)
[2023-06-21] MEDS: SODIUM CHLORIDE 0.9% IV 1,000 ML 999 ML IV CONT (20:24)
[2023-06-21] MEDS: HEPARIN SODIUM 1,000 UNITS/ML VIAL 6000 UNITS (21:05)
[2023-06-21] MEDS: ACETAMINOPHEN 325 MG TABLET 650 MG PO (21:27)
[2023-06-21] MEDS: PANTOPRAZOLE 40 MG TABLET PO (21:45)
[2023-06-21] MEDS: ZOLPIDEM TARTRATE (*CRX) 5 MG TABLET PO (22:49)
[2023-06-22] VITALS (7 sets, daily range): BP systolic 157–166; BP diastolic 83–87; PULSE 98–109; RESP 16–22; TEMP 36.4–36.8; O2SAT 93–94
[2023-06-22 06:39] LABS: Hematocrit 28.7 % (37.0-47.0); Hemoglobin 8.6 g/dL (12.0-15.0); Mean Corpuscular Hemoglobin 26.5 pg (26-34); Mean Corpuscular Volume 88.3 fl (80-100); Mean Platelet Volume 11.1 fl (7.4-10.4); Platelet Count Result 239 k/mm3 (150-375); Red Blood Count 3.25 M/mm3 (4.2-5.4); Red Cell Distribution Width 15.7 % (11.5-14.5); White Blood Count 11.9 K/mm3 (4.5-10.0)
[2023-06-22 06:46] LABS: Alanine Aminotransferase 16 U/L (6-35); Albumin Level 4.3 g/dL (3.5-5.1); Alkaline Phosphatase 88 U/L (38-126); Anion Gap 17 mmol/L (8-16); Aspartate Amino Transferase 30 U/L (14-36); Bilirubin,Total 0.8 mg/dL (0.2-1.3); Blood Urea Nitrogen 25 mg/dL (7-17); Calcium 9.1 mg/dL (8.4-10.2); Carbon Dioxide 22 mmol/L (22-30); Chloride 97 mmol/L (98-107); Estimated CRCL calculation 11 ml/min; Estimated Glomerular Filt Rate 11; Glucose 95 mg/dL (65-110); Magnesium 2.2 mg/dL (1.6-2.3); Sodium 136 mmol/L (137-145)
--- NOTE | 2023-06-22 07:54 | PM.IMPN ---
Progress Note: A&P Assessment and Plan (1) Acute respiratory failure: Code(s): J96.00 - Acute respiratory failure, unspecified whether with hypoxia or hypercapnia Status: Acute (2) Congestive heart failure: Code(s): I50.9 - Heart failure, unspecified Status: Acute (3) COVID: Code(s): U07.1 - COVID-19 Status: Acute (4) End-stage renal disease (ESRD): Code(s): N18.6 - End stage renal disease Status: Acute (5) COPD (chronic obstructive pulmonary disease): Code(s): J44.9 - Chronic obstructive pulmonary disease, unspecified Status: Chronic (6) Acute hypoxemic respiratory failure: Code(s): J96.01 - Acute respiratory failure with hypoxia Status: Acute Plan (1) Acute hypoxemic respiratory failure: ?Code(s): J96.01 - Acute respiratory failure with hypoxia ?Status:?Acute ?Assessment and Plan: Due to multiple factors, including pulmonary edema from congestive heart failure and end-stage renal disease, superimposed COVID-19 pneumonia and bacterial pneumonia as she has been in and out of the hospitals,? COPD exacerbation cOPD ?on admission She was placed on BiPAP initially now on room air started on dexamethasone and remdesivir.?06/17, finish on 06/21 started on empiric broad-spectrum antibiotics in the form of vancomycin cefepime? MRSA screen is negative hence discontinued vancomycin.? switching cefepime to Augementin on 06/21, dosing per pharmacist c/w Bronchodilators Leukocytosis, afebrile, likely secondary to reaction due to dexamethasone cxr 06/19: Possible minimal pulmonary edema pattern. (2) COVID: ?Code(s): U07.1 - COVID-19 ?Status:?Acute ?Assessment and Plan: See above (3) Pneumonia: ?Code(s): J18.9 - Pneumonia, unspecified organism ?Status:?Acute ?Assessment and Plan: See above (4) Pulmonary edema: ?Code(s): J81.1 - Chronic pulmonary edema ?Status:?Inactive ?Assessment and Plan: See above (5) End-stage renal disease (ESRD): ?Code(s): N18.6 - End stage renal disease and anemia ?Status:?Acute ?Assessment and Plan: Nephrology consulted for hemodialysis.? Discussed with dialysis nurse Dialysis per loan secretary arrangement, received epoetin once 06/21 ordered by loan secretary (6) COPD (chronic obstructive pulmonary disease): ?Code(s): J44.9 - Chronic obstructive pulmonary disease, unspecified ?Status:?Chronic (7) Elevated troponin: ?Code(s): R79.89 - Other specified abnormal findings of blood chemistry ?Status:?Acute ?Assessment and Plan: History of CAD cardiac catheterization done on 05/02/23 with stent placement to RCA she has mild elevation of troponin on all are admissions and her troponins are mildly elevated with no acute ST elevation on EKG. Chest pain by history appears noncardiac and pleuritic in nature Continue aspirin Plavix statin Repeated troponin below the baseline, EKG shows sinus rhythm no specific ST T-wave changes. Repeat the chest x-ray suggested mild pulmonary edema, cardiomegaly (8) Congestive heart failure: ?Code(s): I50.9 - Heart failure, unspecified ?Status:?Acute ?Assessment and Plan: Patient had a EF of 40-45% on echo done in April at [place].? EF was 35% on echo done at [facility] ?dialysis to remove fluid (9) Anxiety: ?Code(s): F41.9 - Anxiety disorder, unspecified ?Status:?Acute ?Assessment and Plan: ?patient has history of? anxiety which is likely playing a role in her shortness of breath and panic attacks. ? Will resume her low-dose Xanax Indigestion, epigastric pain Possible GERD superimposed viral infection Started Protonix p.o. and increased to 40mg bid po 06/22 add carafate 1 tid hs Consult PT OT home care associate for evaluation and assisting placement Subjective Date/time seen: 06/22/23 07:54 Interval history: Patient denies chest pain shortne
[2023-06-22] MEDS: CLOPIDOGREL BISULFATE 75 MG TABLET PO (09:16)
[2023-06-22] MEDS: CHOLECALCIFEROL 1,000 UNITS TABLET 1000 UNITS PO (09:17)
[2023-06-22] MEDS: BUMETANIDE 1 MG TABLET 2 MG PO (09:17)
[2023-06-22] MEDS: ASCORBIC ACID 500 MG TABLET PO (09:17)
[2023-06-22] MEDS: PANTOPRAZOLE 40 MG TABLET PO ×2 (09:17→17:24)
[2023-06-22] MEDS: ATORVASTATIN 40 MG TABLET 80 MG PO (09:17)
[2023-06-22] MEDS: ASPIRIN 81 MG ENTERIC TABLET PO (09:17)
[2023-06-22] MEDS: THERAPEUTIC MULTIVITAMINS/MINERALS TAB (*BKC) 1 TABLET PO (09:17)
[2023-06-22] MEDS: ENOXAPARIN 30 MG/0.3 ML SYRINGE SUB-Q (09:17)
[2023-06-22] MEDS: ZINC SULFATE 220 MG CAPSULE PO (09:17)
[2023-06-22] MEDS: SUCRALFATE 1 GM TABLET PO ×3 (11:34→21:12)
--- NOTE | 2023-06-22 11:45 | P.PNNP_ITS ---
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 * creatinine running around 1.3 - 1.7mg/dl by previous labs done at [facility] * HOWEVER, labs review from other hospitalizations at other facilities demonstrate that her creatinine has been as low as 0.9mg/dl in this year.... * however, perhaps this normal creatinine value was dilutional from her previous bouts of CHF... * risk factors for CKD include HTN, vascular disease, and age (3) Acute hypoxemic respiratory failure: Code(s): J96.01 - Acute respiratory failure with hypoxia Status: Acute Assessment and Plan: * resolving/improved * required BiPAP therapy on admission * thought to be secondary to fluid overload + COVID + pneumonia * HD with fluid removal as tolerated to maintain euvolemia * follow respiratory status (4) COVID: Code(s): U07.1 - COVID-19 Status: Acute Assessment and Plan: * possible component of COVID pneumonia on admission * on remdesivir and decadron per protocol * continue supportive therapy (5) Pneumonia: Code(s): J18.9 - Pneumonia, unspecified organism Status: Acute Assessment and Plan: * follow culture data * on antibiotics (6) Hypertension: Code(s): I10 - Essential (primary) hypertension Status: Chronic Assessment and Plan: * better control at this time * resumed on home medications * follow trend of hemodynamics (7) Anemia: Qualifiers: Anemia type: due to chronic kidney disease Code(s): D64.9 - Anemia, unspecified Status: Acute Assessment and Plan: * related to FRANCIS and need for dialysis * Epogen with HD * follow H/H Will continue to follow. Subjective Date/time seen: 06/22/23 11:45 Interval history: Follow-up for acute kidney injury/acute renal failure (possibly on chronic kidney disease) on hemodialysis. Tolerated dialysis treatment yesterday evening without any issues or problems; no apparent distress noted at the time of my visit; overall, steady improvement since admission. Exam Narrative: General: elderly WD/WN female in NAD Heart: normal S1 and S2; no rub Lungs: clear anteriorly; decreased at bases Abdomen: soft, nontender, nondistended, positive bowel sounds Extremities: no cyanosis or clubbing; trace edema noted Objective Data Vital Signs Vital Signs: Vital S
--- NOTE | 2023-06-22 11:45 | PM.PNNEP ---
Progress Note: A&P Assessment and Plan (1) FRANCIS (acute kidney injury): Code(s): N17.9 - Acute kidney failure, unspecified Status: Acute Assessment and Plan: as noted by events during hospitalization in April 2023 here at [facility] admission creatinine at that time was 1.6mg/dl and progressively deteriorated multifactorial etiology: ATN, prerenal factors, infection, NSTEMI, hyoxia, relative hypotension initiated on INSPECTOR MULTIFOCAL LENS/dialysis on April 2023 admission for clearance, optimization of fluid removal, and electrolytes control no evidence of recent recovery as of yet her recurrent hospitalizations maybe hampering her renal recovery HD yesterday and continue T/T/S outpatient dialysis schedule follow repeat labs and UOP for potential renal recovery (2) Stage 3b chronic kidney disease: Code(s): N18.32 - Chronic kidney disease, stage 3b Status: Chronic Assessment and Plan: has baseline CKD or is this just random fluctuations in baseline kidney function??? creatinine running around 1.3 - 1.7mg/dl by previous labs done at [facility] HOWEVER, labs review from other hospitalizations at other facilities demonstrate that her creatinine has been as low as 0.9mg/dl in this year.... however, perhaps this normal creatinine value was dilutional from her previous bouts of CHF... risk factors for CKD include HTN, vascular disease, and age (3) Acute hypoxemic respiratory failure: Code(s): J96.01 - Acute respiratory failure with hypoxia Status: Acute Assessment and Plan: resolving/improved required BiPAP therapy on admission thought to be secondary to fluid overload + COVID + pneumonia HD with fluid removal as tolerated to maintain euvolemia follow respiratory status (4) COVID: Code(s): U07.1 - COVID-19 Status: Acute Assessment and Plan: possible component of COVID pneumonia on admission on remdesivir and decadron per protocol continue supportive therapy (5) Pneumonia: Code(s): J18.9 - Pneumonia, unspecified organism Status: Acute Assessment and Plan: follow culture data on antibiotics (6) Hypertension: Code(s): I10 - Essential (primary) hypertension Status: Chronic Assessment and Plan: better control at this time resumed on home medications follow trend of hemodynamics (7) Anemia: Qualifiers: Anemia type: due to chronic kidney disease Code(s): D64.9 - Anemia, unspecified Status: Acute Assessment and Plan: related to FRANCIS and need for dialysis Epogen with HD follow H/H Will continue to follow. Subjective Date/time seen: 06/22/23 11:45 Interval history: Follow-up for acute kidney injury/acute renal failure (possibly on chronic kidney disease) on hemodialysis. Tolerated dialysis treatment yesterday evening without any issues or problems; no apparent distress noted at the time of my visit; overall, steady improvement since admission. Exam Narrative: General: elderly WD/WN female in NAD Heart: normal S1 and S2; no rub Lungs: clear anteriorly; decreased at bases Abdomen: soft, nontender, nondistended, positive bowel sounds Extremities: no cyanosis or clubbing; trace edema noted Objective Data Vital Signs Vital Signs: Vital Signs Temp Pulse Resp BP Pulse Ox O2 Del Method 06/22/23 11:35 109 H 20 157/86 H 93 06/22/23 09:20 94 Room Air 06/22/23 04:48 97.9 F 106 H 16 159/83 H 93 06/21/23 21:02 94 167/97 H 06/21/23 21:07 97.4 F L 97 20 163/100 H 06/21/23 20:45 93 180/102 H 06/21/23 20:30 90 162/96 H 06/21/23 20:15 99 101/68 06/21/23 20:12 100 111/70 06/21/23 20:00 91 143/86 H 06/21/23 19:45 99 123/79 06/21/23 19:15 98 154/82 H 06/21/23 19:00 97 141/88 H 06/21/23 18:45 98 128/78 06/21/23 19:30 94 136/79
[2023-06-22] MEDS: IPRATROPIUM BR 0.02% INH SOLN 0.5 MG/2.5 ML VIAL INHALATION (19:58)
[2023-06-22] MEDS: ALBUTEROL SULFATE NEB 2.5 MG/3 ML INH INHALATION (19:58)
[2023-06-22] MEDS: ZOLPIDEM TARTRATE (*CRX) 5 MG TABLET PO (21:15)
[2023-06-23 05:08] VITALS: BP 143/126; PULSE 114; RESP 18; TEMP 36.2; O2SAT 94
[2023-06-23] MEDS: SUCRALFATE 1 GM TABLET PO ×4 (06:15→20:19)
--- NOTE | 2023-06-23 08:25 | PM.IMPN ---
Progress Note: A&P Assessment and Plan (1) Acute respiratory failure: Code(s): J96.00 - Acute respiratory failure, unspecified whether with hypoxia or hypercapnia Status: Acute (2) Congestive heart failure: Code(s): I50.9 - Heart failure, unspecified Status: Acute (3) COVID: Code(s): U07.1 - COVID-19 Status: Acute (4) End-stage renal disease (ESRD): Code(s): N18.6 - End stage renal disease Status: Acute (5) COPD (chronic obstructive pulmonary disease): Code(s): J44.9 - Chronic obstructive pulmonary disease, unspecified Status: Chronic (6) Acute hypoxemic respiratory failure: Code(s): J96.01 - Acute respiratory failure with hypoxia Status: Acute Plan (1) Acute hypoxemic respiratory failure: ?Code(s): J96.01 - Acute respiratory failure with hypoxia ?Status:?Acute ?Assessment and Plan: Due to multiple factors, including pulmonary edema from congestive heart failure and end-stage renal disease, superimposed COVID-19 pneumonia and bacterial pneumonia as she has been in and out of the hospitals,? COPD exacerbation cOPD ?on admission She was placed on BiPAP initially now on room air started on dexamethasone and remdesivir.?06/17, finish on 06/21 started on empiric broad-spectrum antibiotics in the form of vancomycin cefepime? MRSA screen is negative hence discontinued vancomycin.? switching cefepime to Augementin on 06/21, dosing per pharmacist c/w Bronchodilators Leukocytosis, afebrile, likely secondary to reaction due to dexamethasone cxr 06/19: Possible minimal pulmonary edema pattern. CXR 06/22: Cardiomegaly. Improving mild interstitial edema. No pleural effusion. No pneumothorax. Dual-lumen central venous catheter tips in the SVC. (2) COVID: ?Code(s): U07.1 - COVID-19 ?Status:?Acute ?Assessment and Plan: See above (3) Pneumonia: ?Code(s): J18.9 - Pneumonia, unspecified organism ?Status:?Acute ?Assessment and Plan: See above Has blood-stained phlegm, dry nose Likely secondary to minor bleeding from mucous membrane CXR 06/23 ?Stable right-sided central venous line. There is probable mild bibasilar pulmonary edema. Cardiomediastinal silhouette is within normal limits. Bones and soft tissues are unremarkable. (4) Pulmonary edema: ?Code(s): J81.1 - Chronic pulmonary edema ?Status:?Inactive ?Assessment and Plan: See above (5) End-stage renal disease (ESRD): ?Code(s): N18.6 - End stage renal disease and anemia ?Status:?Acute ?Assessment and Plan: Nephrology consulted for hemodialysis.? Discussed with dialysis nurse Dialysis per choke setter arrangement, received epoetin once 06/21 ordered by choke setter (6) COPD (chronic obstructive pulmonary disease): ?Code(s): J44.9 - Chronic obstructive pulmonary disease, unspecified ?Status:?Chronic (7) Elevated troponin: ?Code(s): R79.89 - Other specified abnormal findings of blood chemistry ?Status:?Acute ?Assessment and Plan: History of CAD cardiac catheterization done on 05/02/23 with stent placement to RCA she has mild elevation of troponin on all are admissions and her troponins are mildly elevated with no acute ST elevation on EKG. Chest pain by history appears noncardiac and pleuritic in nature Continue aspirin Plavix statin Repeated troponin below the baseline, EKG shows sinus rhythm no specific ST T-wave changes. Repeat the chest x-ray suggested mild pulmonary edema, cardiomegaly 06/19 ON 06/22 Cardiomegaly. Improving mild interstitial edema. No pleural effusion. No pneumothorax. Dual-lumen central venous catheter tips in the SVC. (8) Congestive heart failure: ?Code(s): I50.9 - Heart failure, unspecified ?Status:?Acute ?Assessment and Plan: Patient had a EF of 40-45% on echo done in April at [facility].? EF was 35% on echo done at [facility] ?dialysis to remove fluid
[2023-06-23 08:40] VITALS: O2SAT 93
[2023-06-23] MEDS: BUMETANIDE 1 MG TABLET 2 MG PO (08:40)
[2023-06-23] MEDS: CHOLECALCIFEROL 1,000 UNITS TABLET 1000 UNITS PO (08:40)
[2023-06-23] MEDS: CLOPIDOGREL BISULFATE 75 MG TABLET PO (08:40)
[2023-06-23] MEDS: ASPIRIN 81 MG ENTERIC TABLET PO (08:40)
[2023-06-23] MEDS: PANTOPRAZOLE 40 MG TABLET PO ×2 (08:40→17:06)
[2023-06-23] MEDS: THERAPEUTIC MULTIVITAMINS/MINERALS TAB (*BKC) 1 TABLET PO (08:41)
[2023-06-23] MEDS: ZINC SULFATE 220 MG CAPSULE PO (08:41)
[2023-06-23] MEDS: ENOXAPARIN 30 MG/0.3 ML SYRINGE SUB-Q (08:41)
[2023-06-23] MEDS: ASCORBIC ACID 500 MG TABLET PO (08:41)
[2023-06-23] MEDS: ATORVASTATIN 40 MG TABLET 80 MG PO (08:41)
[2023-06-23 09:05] LABS: Basophils Percent Auto 0.2 % (0.2-1.2); Eosinophils Absolute Auto 0.1 K/mm3 (0-0.3); Eosinophils Percent Auto 0.3 % (0-4.4); Hematocrit 28.9 % (37.0-47.0); Hemoglobin 9.1 g/dL (12.0-15.0); Immature Granulocyte Absolute 0.18 K/mm3 (0.00-0.031); Immature Granulocyte Percent A 0.9 % (0-0.5); Lymphocytes Absolute Auto 2.19 K/mm3 (0.9-3.2); Lymphocytes Percent Auto 11.2 % (18.3-44.2); Mean Corpuscular HGB Conc 31.5 g/dl (32-36); Mean Corpuscular Hemoglobin 26.9 pg (26-34); Mean Corpuscular Volume 85.5 fl (80-100); Mean Platelet Volume 10.6 fl (7.4-10.4); Monocytes Absolute Auto 1.2 K/mm3 (0.1-0.6); Monocytes Percent Auto 6.1 % (2.6-8.5); Neutrophils Absolute Auto 15.9 K/mm3 (1.3-6.7); Neutrophils Percent Auto 81.3 % (45.5-73.1); Nucleated Red Blood Cells Perc 0.1 % (0.0-0.2); Platelet Count Result 368 k/mm3 (150-375); Red Blood Count 3.38 M/mm3 (4.2-5.4); Red Cell Distribution Width 15.9 % (11.5-14.5); White Blood Count 19.5 K/mm3 (4.5-10.0)
[2023-06-23 09:27] LABS: Anion Gap 16 mmol/L (8-16); Blood Urea Nitrogen 44 mg/dL (7-17); Calcium 8.8 mg/dL (8.4-10.2); Carbon Dioxide 19 mmol/L (22-30); Chloride 93 mmol/L (98-107); Estimated CRCL calculation 7 ml/min; Estimated Glomerular Filt Rate 7; Glucose 117 mg/dL (65-110); Potassium 4.9 mmol/L (3.4-5.0); Sodium 128 mmol/L (137-145)
--- NOTE | 2023-06-23 11:31 | P.PNNP_ITS ---
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 * creatinine running around 1.3 - 1.7mg/dl by previous labs done at [facility] * HOWEVER, labs review from other hospitalizations at other facilities demonstrate that her creatinine has been as low as 0.9mg/dl in this year.... * however, perhaps this normal creatinine value was dilutional from her previous bouts of CHF... * risk factors for CKD include HTN, vascular disease, and age (3) Acute hypoxemic respiratory failure: Code(s): J96.01 - Acute respiratory failure with hypoxia Status: Acute Assessment and Plan: * resolving/improved * required BiPAP therapy on admission * thought to be secondary to fluid overload + COVID + pneumonia * HD with fluid removal as tolerated to maintain euvolemia * follow respiratory status (4) COVID: Code(s): U07.1 - COVID-19 Status: Acute Assessment and Plan: * possible component of COVID pneumonia on admission * on remdesivir and decadron per protocol * continue supportive therapy (5) Pneumonia: Code(s): J18.9 - Pneumonia, unspecified organism Status: Acute Assessment and Plan: * follow culture data * on antibiotics (6) Hypertension: Code(s): I10 - Essential (primary) hypertension Status: Chronic Assessment and Plan: * better control at this time * resumed on home medications * follow trend of hemodynamics (7) Anemia: Qualifiers: Anemia type: due to chronic kidney disease Code(s): D64.9 - Anemia, unspecified Status: Acute Assessment and Plan: * related to FRANCIS and need for dialysis * Epogen with HD * follow H/H Will continue to follow. Subjective Date/time seen: 06/23/23 11:31 Interval history: Follow-up for acute kidney injury/acute renal failure (possibly on chronic kidney disease) on hemodialysis. Respiratory status/breathing continues to improve -- weaned to room air with adequate oxygen saturations; overall, feels reasonably well; no new i ssues/events overnight or earlier this morning; no apparent distress voiced. Exam Narrative: General: elderly WD/WN female in NAD Heart: normal S1 and S2; no rub Lungs: clear anteriorly; decreased at bases Abdomen: soft, nontender, nondistended, positive bowel sounds Extremities: no cyanosis or clubbing; trace edema noted Objective Data Vital Signs Vital Signs:
--- NOTE | 2023-06-23 11:31 | PM.PNNEP ---
Progress Note: A&P Assessment and Plan (1) FRANCIS (acute kidney injury): Code(s): N17.9 - Acute kidney failure, unspecified Status: Acute Assessment and Plan: as noted by events during hospitalization in April 2023 here at [facility] admission creatinine at that time was 1.6mg/dl and progressively deteriorated multifactorial etiology: ATN, prerenal factors, infection, NSTEMI, hyoxia, relative hypotension initiated on .NET PROGRAMMER/dialysis on April 2023 admission for clearance, optimization of fluid removal, and electrolytes control no evidence of recent recovery as of yet her recurrent hospitalizations maybe hampering her renal recovery HD tomorrow and continue T/T/S outpatient dialysis schedule follow repeat labs and UOP for potential renal recovery (2) Stage 3b chronic kidney disease: Code(s): N18.32 - Chronic kidney disease, stage 3b Status: Chronic Assessment and Plan: has baseline CKD or is this just random fluctuations in baseline kidney function??? creatinine running around 1.3 - 1.7mg/dl by previous labs done at [facility] HOWEVER, labs review from other hospitalizations at other facilities demonstrate that her creatinine has been as low as 0.9mg/dl in this year.... however, perhaps this normal creatinine value was dilutional from her previous bouts of CHF... risk factors for CKD include HTN, vascular disease, and age (3) Acute hypoxemic respiratory failure: Code(s): J96.01 - Acute respiratory failure with hypoxia Status: Acute Assessment and Plan: resolving/improved required BiPAP therapy on admission thought to be secondary to fluid overload + COVID + pneumonia HD with fluid removal as tolerated to maintain euvolemia follow respiratory status (4) COVID: Code(s): U07.1 - COVID-19 Status: Acute Assessment and Plan: possible component of COVID pneumonia on admission on remdesivir and decadron per protocol continue supportive therapy (5) Pneumonia: Code(s): J18.9 - Pneumonia, unspecified organism Status: Acute Assessment and Plan: follow culture data on antibiotics (6) Hypertension: Code(s): I10 - Essential (primary) hypertension Status: Chronic Assessment and Plan: better control at this time resumed on home medications follow trend of hemodynamics (7) Anemia: Qualifiers: Anemia type: due to chronic kidney disease Code(s): D64.9 - Anemia, unspecified Status: Acute Assessment and Plan: related to FRANCIS and need for dialysis Epogen with HD follow H/H Will continue to follow. Subjective Date/time seen: 06/23/23 11:31 Interval history: Follow-up for acute kidney injury/acute renal failure (possibly on chronic kidney disease) on hemodialysis. Respiratory status/breathing continues to improve -- weaned to room air with adequate oxygen saturations; overall, feels reasonably well; no new issues/events overnight or earlier this morning; no apparent distress voiced. Exam Narrative: General: elderly WD/WN female in NAD Heart: normal S1 and S2; no rub Lungs: clear anteriorly; decreased at bases Abdomen: soft, nontender, nondistended, positive bowel sounds Extremities: no cyanosis or clubbing; trace edema noted Objective Data Vital Signs Vital Signs: Vital Signs Temp Pulse Resp BP Pulse Ox O2 Del Method 06/23/23 08:40 93 Room Air 06/23/23 05:08 97.1 F L 114 H 18 143/126 H 94 06/22/23 20:37 98.3 F 98 16 159/85 H 93 06/22/23 20:20 101 H 20 06/22/23 19:58 99 20 06/22/23 14:00 97.5 F L 104 H 22 H 166/87 H 94 Intake/Output Intake/Output: Intake & Output 06/20/23 06/21/23 06/22/23 06/23/23 23:59 23:59 23:59 23:59 Intake Total 1370 1130 1110 840 Output Total 2600 Balance 1370 -1470 1110 840 Meds/Results Medications: Active Medication
[2023-06-23 14:00] VITALS: BP 158/82; PULSE 100; RESP 18; TEMP 36.3; O2SAT 93
[2023-06-23] MEDS: ZOLPIDEM TARTRATE (*CRX) 5 MG TABLET PO (20:19)
[2023-06-23 21:11] VITALS: BP 161/89; PULSE 101; RESP 16; TEMP 36.6; O2SAT 94
[2023-06-24] VITALS (21 sets, daily range): BP systolic 134–180; BP diastolic 67–107; PULSE 62–108; RESP 16; TEMP 36.2–37; O2SAT 91–97; BMI 25.9
[2023-06-24 06:38] LABS: Basophils Percent Auto 0.1 % (0.2-1.2); Eosinophils Percent Auto 0.1 % (0-4.4); Hematocrit 26.9 % (37.0-47.0); Hemoglobin 8.3 g/dL (12.0-15.0); Immature Granulocyte Percent A 1.2 % (0-0.5); Lymphocytes Absolute Auto 1.47 K/mm3 (0.9-3.2); Lymphocytes Percent Auto 8.6 % (18.3-44.2); Mean Corpuscular HGB Conc 30.9 g/dl (32-36); Mean Corpuscular Hemoglobin 26.1 pg (26-34); Mean Corpuscular Volume 84.6 fl (80-100); Mean Platelet Volume 10.9 fl (7.4-10.4); Monocytes Absolute Auto 0.9 K/mm3 (0.1-0.6); Monocytes Percent Auto 5.5 % (2.6-8.5); Neutrophils Absolute Auto 14.4 K/mm3 (1.3-6.7); Neutrophils Percent Auto 84.5 % (45.5-73.1); Platelet Count Result 334 k/mm3 (150-375); Red Blood Count 3.18 M/mm3 (4.2-5.4); Red Cell Distribution Width 15.8 % (11.5-14.5); White Blood Count 17.1 K/mm3 (4.5-10.0)
[2023-06-24] MEDS: SUCRALFATE 1 GM TABLET PO ×3 (06:47→20:37)
[2023-06-24 06:52] LABS: Anion Gap 16 mmol/L (8-16); Blood Urea Nitrogen 55 mg/dL (7-17); Calcium 8.5 mg/dL (8.4-10.2); Carbon Dioxide 18 mmol/L (22-30); Chloride 93 mmol/L (98-107); Estimated CRCL calculation 5 ml/min; Estimated Glomerular Filt Rate 5; Glucose 123 mg/dL (65-110); Potassium 4.6 mmol/L (3.4-5.0); Sodium 127 mmol/L (137-145)
[2023-06-24] MEDS: ENOXAPARIN 30 MG/0.3 ML SYRINGE SUB-Q (09:45)
[2023-06-24] MEDS: HEPARIN SODIUM 1,000 UNITS/ML VIAL 2000 UNITS (14:12)
--- NOTE | 2023-06-24 14:15 | P.PNNP_ITS ---
Progress Note: A&P Assessment and Plan (1) FRANCIS (acute kidney injury): Code(s): N17.9 - Acute kidney failure, unspecified Status: Acute Assessment and Plan: * as noted by events during hospitalization in April 2023 here at [facility] * admission creatinine at that time was 1.6mg/dl and progressively de teriorated * multifactorial etiology: ATN, prerenal factors, infection, NSTEMI, hyoxia, relative hypotension * initiated on LIFE ENRICHMENT ASSISTANT/dialysis on April 2023 admission for clearance, optimization of fluid removal, and electrolytes control * no evidence of recent recovery as of yet * her recurrent hospitalizations maybe hampering her renal recovery * HD today and continue T/T/S outpatient dialysis schedule * follow repeat labs and UOP for potential renal recovery (2) Stage 3b chronic kidney disease: Code(s): N18.32 - Chronic kidney disease, stage 3b Status: Chronic Assessment and Plan: * has baseline CKD or is this just random fluctuations in baseline kidney function??? * creatinine running around 1.3 - 1.7mg/dl by previous labs done at [facility] * HOWEVER, labs review from other hospitalizations at other facilities demonstrate that her creatinine has been as low as 0.9mg/dl in this year.... * however, perhaps this normal creatinine value was dilutional from her previous bouts of CHF... * risk factors for CKD include HTN, vascular disease, and age (3) Acute hypoxemic respiratory failure: Code(s): J96.01 - Acute respiratory failure with hypoxia Status: Acute Assessment and Plan: * resolving/improved * required BiPAP therapy on admission * thought to be secondary to fluid overload + COVID + pneumonia * HD with fluid removal as tolerated to maintain euvolemia * follow respiratory status (4) COVID: Code(s): U07.1 - COVID-19 Status: Acute Assessment and Plan: * possible component of COVID pneumonia on admission * on remdesivir and decadron per protocol * continue supportive therapy (5) Pneumonia: Code(s): J18.9 - Pneumonia, unspecified organism Status: Acute Assessment and Plan: * follow culture data * on antibiotics (6) Hypertension: Code(s): I10 - Essential (primary) hypertension Status: Chronic Assessment and Plan: * better control at this time * resumed on home medications * follow trend of hemodynamics (7) Anemia: Qualifiers: Anemia type: due to chronic kidney disease Code(s): D64.9 - Anemia, unspecified Status: Acute Assessment and Plan: * related to FRANCIS and need for dialysis * Epogen with HD * follow H/H Will continue to follow. Subjective Date/time seen: 06/24/23 14:15 Interval history: Follow-up for acute kidney injury/acute renal failure (possibly on chronic kidney disease) on hemodialysis. Tolerating dialysis treatment at the time of my visit (seen on HD at 2:05PM); breathing/respiratory status continues to do well; no apparent distress noted; no issues/events overnight or earlier this morning; eating and drinking okay. Exam Narrative: General: elderly WD/WN female in NAD Heart: normal S1 and S2; no rub Lungs: clear anteriorly; decreased at bases Abdomen: soft, nontender, nondistended, positive bowel sounds Extremities: no cyanosis or clubbing; trace edema noted Objective Data Vital Signs Vital Signs:
--- NOTE | 2023-06-24 14:15 | PM.PNNEP ---
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 creatinine running around 1.3 - 1.7mg/dl by previous labs done at [facility] HOWEVER, labs review from other hospitalizations at other facilities demonstrate that her creatinine has been as low as 0.9mg/dl in this year.... however, perhaps this normal creatinine value was dilutional from her previous bouts of CHF... risk factors for CKD include HTN, vascular disease, and age (3) Acute hypoxemic respiratory failure: Code(s): J96.01 - Acute respiratory failure with hypoxia Status: Acute Assessment and Plan: resolving/improved required BiPAP therapy on admission thought to be secondary to fluid overload + COVID + pneumonia HD with fluid removal as tolerated to maintain euvolemia follow respiratory status (4) COVID: Code(s): U07.1 - COVID-19 Status: Acute Assessment and Plan: possible component of COVID pneumonia on admission on remdesivir and decadron per protocol continue supportive therapy (5) Pneumonia: Code(s): J18.9 - Pneumonia, unspecified organism Status: Acute Assessment and Plan: follow culture data on antibiotics (6) Hypertension: Code(s): I10 - Essential (primary) hypertension Status: Chronic Assessment and Plan: better control at this time resumed on home medications follow trend of hemodynamics (7) Anemia: Qualifiers: Anemia type: due to chronic kidney disease Code(s): D64.9 - Anemia, unspecified Status: Acute Assessment and Plan: related to FRANCIS and need for dialysis Epogen with HD follow H/H Will continue to follow. Subjective Date/time seen: 06/24/23 14:15 Interval history: Follow-up for acute kidney injury/acute renal failure (possibly on chronic kidney disease) on hemodialysis. Tolerating dialysis treatment at the time of my visit (seen on HD at 2:05PM); breathing/respiratory status continues to do well; no apparent distress noted; no issues/events overnight or earlier this morning; eating and drinking okay. Exam Narrative: General: elderly WD/WN female in NAD Heart: normal S1 and S2; no rub Lungs: clear anteriorly; decreased at bases Abdomen: soft, nontender, nondistended, positive bowel sounds Extremities: no cyanosis or clubbing; trace edema noted Objective Data Vital Signs Vital Signs: Vital Signs Temp Pulse Resp BP Pulse Ox O2 Del Method 06/24/23 14:15 96 173/97 H 06/24/23 14:00 98 172/105 H 06/24/23 13:50 99 180/107 H 06/24/23 13:41 97.6 F 99 16 175/99 H 06/24/23 13:57 97.3 F L 99 16 177/90 H 97 06/24/23 04:54 97.2 F L 108 H 16 154/88 H 91 06/23/23 21:11 97.8 F 101 H 16 161/89 H 94 Intake/Output Intake/Output: Intake & Output 06/21/23 06/22/23 06/23/23 06/24/23 23:59 23:59 23:59 23:59 Intake Total 1130 1110 1080 630 Output Total 2600 Balance -1470 111
[2023-06-24] MEDS: LORazepam INJ (*CRX) 2 MG/ML VIAL 0.5 MG IV PUSH (15:25)
[2023-06-24] MEDS: ONDANSETRON INJ 4 MG/2 ML VIAL IV PUSH (15:27)
--- NOTE | 2023-06-24 15:50 | PM.IMPN ---
Progress Note: A&P Assessment and Plan (1) Acute respiratory failure: Code(s): J96.00 - Acute respiratory failure, unspecified whether with hypoxia or hypercapnia Status: Acute (2) Congestive heart failure: Code(s): I50.9 - Heart failure, unspecified Status: Acute (3) COVID: Code(s): U07.1 - COVID-19 Status: Acute (4) End-stage renal disease (ESRD): Code(s): N18.6 - End stage renal disease Status: Acute (5) COPD (chronic obstructive pulmonary disease): Code(s): J44.9 - Chronic obstructive pulmonary disease, unspecified Status: Chronic (6) Acute hypoxemic respiratory failure: Code(s): J96.01 - Acute respiratory failure with hypoxia Status: Acute Plan (1) Acute hypoxemic respiratory failure: ?Code(s): J96.01 - Acute respiratory failure with hypoxia ?Status:?Acute ?Assessment and Plan: Due to multiple factors, including pulmonary edema from congestive heart failure and end-stage renal disease, superimposed COVID-19 pneumonia and bacterial pneumonia as she has been in and out of the hospitals,? COPD exacerbation cOPD ?on admission She was placed on BiPAP initially now on room air started on dexamethasone and remdesivir.?06/17, finish on 06/21 started on empiric broad-spectrum antibiotics in the form of vancomycin cefepime? MRSA screen is negative hence discontinued vancomycin.? switching cefepime to Augementin on 06/21, dosing per pharmacist c/w Bronchodilators Leukocytosis, afebrile, likely secondary to reaction due to dexamethasone cxr 06/19: Possible minimal pulmonary edema pattern. CXR 06/22: Cardiomegaly. Improving mild interstitial edema. No pleural effusion. No pneumothorax. Dual-lumen central venous catheter tips in the SVC. (2) COVID: ?Code(s): U07.1 - COVID-19 ?Status:?Acute ?Assessment and Plan: See above (3) Pneumonia: ?Code(s): J18.9 - Pneumonia, unspecified organism ?Status:?Acute ?Assessment and Plan: See above Has blood-stained phlegm, dry nose Likely secondary to minor bleeding from mucous membrane CXR 06/23 ?Stable right-sided central venous line. There is probable mild bibasilar pulmonary edema. Cardiomediastinal silhouette is within normal limits. Bones and soft tissues are unremarkable. (4) Pulmonary edema: ?Code(s): J81.1 - Chronic pulmonary edema ?Status:?Inactive ?Assessment and Plan: See above resolves (5) End-stage renal disease (ESRD): ?Code(s): N18.6 - End stage renal disease and anemia ?Status:?Acute ?Assessment and Plan: Nephrology consulted for hemodialysis.? Discussed with dialysis nurse Dialysis per decorative cutting machine tender arrangement, received epoetin once 06/21 ordered by decorative cutting machine tender Patient states she cannot tolerate dialysis because of nausea, diaphoresis, and chest tightness Patient does look anxious, provide Ativan 0.5 mg IV push during dialysis, and also give Zofran 4 mg IV once and q.6 as needed (6) COPD (chronic obstructive pulmonary disease): ?Code(s): J44.9 - Chronic obstructive pulmonary disease, unspecified ?Status:?Chronic (7) Elevated troponin: ?Code(s): R79.89 - Other specified abnormal findings of blood chemistry ?Status:?Acute ?Assessment and Plan: History of CAD cardiac catheterization done on 05/02/23 with stent placement to RCA she has mild elevation of troponin on all are admissions and her troponins are mildly elevated with no acute ST elevation on EKG. Chest pain by history appears noncardiac and pleuritic in nature Continue aspirin Plavix statin Repeated troponin below the baseline, EKG shows sinus rhythm no specific ST T-wave changes. Repeat the chest x-ray suggested mild pulmonary edema, cardiomegaly 06/19 ON 06/22 Cardiomegaly. Improving mild interstitial edema. No pleural effusion. No pneumothorax. Dual-lumen central venous catheter tips in the SVC. (8) Congestive heart failure:
[2023-06-24] MEDS: EPOETIN ALFA-EPBX 10,000 UNITS/ML VIAL 10000 UNITS IV PUSH (16:20)
[2023-06-25] MEDS: ZOLPIDEM TARTRATE (*CRX) 5 MG TABLET PO ×2 (00:33→21:26)
[2023-06-25 04:50] VITALS: BP 147/84; PULSE 71; RESP 16; TEMP 36.3; O2SAT 90
[2023-06-25] MEDS: SUCRALFATE 1 GM TABLET PO ×3 (06:19→21:26)
[2023-06-25 08:12] LABS: Basophils Percent Auto 0.2 % (0.2-1.2); Eosinophils Percent Auto 0.1 % (0-4.4); Hemoglobin 8.7 g/dL (12.0-15.0); Immature Granulocyte Absolute 0.29 K/mm3 (0.00-0.031); Immature Granulocyte Percent A 1.7 % (0-0.5); Lymphocytes Absolute Auto 1.64 K/mm3 (0.9-3.2); Lymphocytes Percent Auto 9.6 % (18.3-44.2); Mean Corpuscular HGB Conc 31.1 g/dl (32-36); Mean Corpuscular Hemoglobin 26.9 pg (26-34); Mean Corpuscular Volume 86.7 fl (80-100); Mean Platelet Volume 10.6 fl (7.4-10.4); Monocytes Absolute Auto 1.2 K/mm3 (0.1-0.6); Monocytes Percent Auto 6.9 % (2.6-8.5); Neutrophils Percent Auto 81.5 % (45.5-73.1); Nucleated Red Blood Cells Absolute Auto 0.1 K/mm3 (0.0-0.012); Nucleated Red Blood Cells Perc 0.3 % (0.0-0.2); Platelet Count Result 274 k/mm3 (150-375); Red Blood Count 3.23 M/mm3 (4.2-5.4); Red Cell Distribution Width 16.2 % (11.5-14.5); White Blood Count 17.1 K/mm3 (4.5-10.0)
[2023-06-25 08:22] LABS: Anion Gap 12 mmol/L (8-16); Blood Urea Nitrogen 25 mg/dL (7-17); Calcium 8.4 mg/dL (8.4-10.2); Carbon Dioxide 29 mmol/L (22-30); Chloride 94 mmol/L (98-107); Estimated CRCL calculation 9 ml/min; Estimated Glomerular Filt Rate 10; Glucose 130 mg/dL (65-110); Potassium 3.2 mmol/L (3.4-5.0); Sodium 135 mmol/L (137-145)
--- NOTE | 2023-06-25 09:57 | PM.IMPN ---
Progress Note: A&P Assessment and Plan (1) Acute respiratory failure: Code(s): J96.00 - Acute respiratory failure, unspecified whether with hypoxia or hypercapnia Status: Acute (2) Congestive heart failure: Code(s): I50.9 - Heart failure, unspecified Status: Acute (3) COVID: Code(s): U07.1 - COVID-19 Status: Acute (4) End-stage renal disease (ESRD): Code(s): N18.6 - End stage renal disease Status: Acute (5) COPD (chronic obstructive pulmonary disease): Code(s): J44.9 - Chronic obstructive pulmonary disease, unspecified Status: Chronic (6) Acute hypoxemic respiratory failure: Code(s): J96.01 - Acute respiratory failure with hypoxia Status: Acute (7) Acute diverticulitis of intestine: Code(s): K57.92 - Diverticulitis of intestine, part unspecified, without perforation or abscess without bleeding Status: Acute Plan (1) Acute hypoxemic respiratory failure: ?Code(s): J96.01 - Acute respiratory failure with hypoxia ?Status:?Acute ?Assessment and Plan: Due to multiple factors, including pulmonary edema from congestive heart failure and end-stage renal disease, superimposed COVID-19 pneumonia and bacterial pneumonia as she has been in and out of the hospitals,? COPD exacerbation cOPD ?on admission She was placed on BiPAP initially now on room air started on dexamethasone and remdesivir.?06/17, finish on 06/21 started on empiric broad-spectrum antibiotics in the form of vancomycin cefepime? MRSA screen is negative hence discontinued vancomycin.? switching cefepime to Augementin on 06/21, dosing per pharmacist c/w Bronchodilators Leukocytosis, afebrile, likely secondary to reaction due to dexamethasone cxr 06/19: Possible minimal pulmonary edema pattern. CXR 06/22: Cardiomegaly. Improving mild interstitial edema. No pleural effusion. No pneumothorax. Dual-lumen central venous catheter tips in the SVC. (2) COVID: ?Code(s): U07.1 - COVID-19 ?Status:?Acute ?Assessment and Plan: See above (3) Pneumonia: ?Code(s): J18.9 - Pneumonia, unspecified organism ?Status:?Acute ?Assessment and Plan: See above Has blood-stained phlegm, dry nose Likely secondary to minor bleeding from mucous membrane CXR 06/23 ?Stable right-sided central venous line. There is probable mild bibasilar pulmonary edema. Cardiomediastinal silhouette is within normal limits. Bones and soft tissues are unremarkable. (4) Pulmonary edema: ?Code(s): J81.1 - Chronic pulmonary edema ?Status:?Inactive ?Assessment and Plan: See above resolves (5) End-stage renal disease (ESRD): ?Code(s): N18.6 - End stage renal disease and anemia ?Status:?Acute ?Assessment and Plan: Nephrology consulted for hemodialysis.? Discussed with dialysis nurse Dialysis per automotive professional arrangement, received epoetin once 06/21 ordered by automotive professional Patient states she cannot tolerate dialysis because of nausea, diaphoresis, and chest tightness Patient does look anxious, provide Ativan 0.5 mg IV push during dialysis, and also give Zofran 4 mg IV once and q.6 as needed (6) COPD (chronic obstructive pulmonary disease): ?Code(s): J44.9 - Chronic obstructive pulmonary disease, unspecified ?Status:?Chronic (7) Elevated troponin: ?Code(s): R79.89 - Other specified abnormal findings of blood chemistry ?Status:?Acute ?Assessment and Plan: History of CAD cardiac catheterization done on 05/02/23 with stent placement to RCA she has mild elevation of troponin on all are admissions and her troponins are mildly elevated with no acute ST elevation on EKG. Chest pain by history appears noncardiac and pleuritic in nature Continue aspirin Plavix statin Repeated troponin below the baseline, EKG shows sinus rhythm no specific ST T-wave changes. Repeat the chest x-ray suggested mild pulmonary edema, cardiomegaly 06/19
[2023-06-25] MEDS: ENOXAPARIN 30 MG/0.3 ML SYRINGE SUB-Q (10:12)
[2023-06-25] MEDS: ONDANSETRON INJ 4 MG/2 ML VIAL IV PUSH ×2 (10:12→16:55)
--- NOTE | 2023-06-25 11:35 | PCOTNOTE ---
Patient refused treatment this session due to pain in lower left abdomen. RN is aware.
[2023-06-25 13:54] VITALS: BP 160/90; PULSE 102; RESP 20; TEMP 36.3; O2SAT 92
--- NOTE | 2023-06-25 14:15 | P.PNNP_ITS ---
Progress Note: A&P Assessment and Plan (1) FRANCIS (acute kidney injury): Code(s): N17.9 - Acute kidney failure, unspecified Status: Acute Assessment and Plan: * as noted by events during hospitalization in April 2023 here at [facility] * admission creatinine at that time was 1.6mg/dl and progressively de teriorated * multifactorial etiology: ATN, prerenal factors, infection, NSTEMI, hyoxia, relative hypotension * initiated on RAND TACKER/dialysis on April 2023 admission for clearance, optimization of fluid removal, and electrolytes control * no evidence of recent recovery as of yet * her recurrent hospitalizations maybe hampering her renal recovery * HD tomorrow and continue T/T/S outpatient dialysis schedule * follow repeat labs and UOP for potential renal recovery (2) Stage 3b chronic kidney disease: Code(s): N18.32 - Chronic kidney disease, stage 3b Status: Chronic Assessment and Plan: * has baseline CKD or is this just random fluctuations in baseline kidney function??? * creatinine running around 1.3 - 1.7mg/dl by previous labs done at [facility] * HOWEVER, labs review from other hospitalizations at other facilities demonstrate that her creatinine has been as low as 0.9mg/dl in this year.... * however, perhaps this normal creatinine value was dilutional from her previous bouts of CHF... * risk factors for CKD include HTN, vascular disease, and age (3) Acute hypoxemic respiratory failure: Code(s): J96.01 - Acute respiratory failure with hypoxia Status: Acute Assessment and Plan: * resolving/improved * required BiPAP therapy on admission * thought to be secondary to fluid overload + COVID + pneumonia * HD with fluid removal as tolerated to maintain euvolemia * follow respiratory status (4) COVID: Code(s): U07.1 - COVID-19 Status: Acute Assessment and Plan: * possible component of COVID pneumonia on admission * finished course of remdesivir; decadron to finish tomorrow * continue supportive therapy (5) Pneumonia: Code(s): J18.9 - Pneumonia, unspecified organism Status: Acute Assessment and Plan: * culture negative to date * completed course of antibiotics (6) Hypertension: Code(s): I10 - Essential (primary) hypertension Status: Chronic Assessment and Plan: * better control at this time * resumed on home medications * follow trend of hemodynamics (7) Anemia: Qualifiers: Anemia type: due to chronic kidney disease Code(s): D64.9 - Anemia, unspecified Status: Acute Assessment and Plan: * related to FRANCIS and need for dialysis * Epogen with HD * follow H/H Subjective Date/time seen: 06/25/23 14:15 Interval history: Follow-up for acute kidney injury/acute renal failure (possibly on chronic kidney disease) on hemodialysis. Tolerated dialysis treatment yesterday without any issue or problems; breathing/respiratory status seems stable if not better at this time; still with issues related to anxiety but seem relatively better at this time; no apparent d istress. Exam Narrative: General: elderly female in NAD Heart: normal S1 and S2; no rub Lungs: decreased at bases Abdomen: soft, nontender, nondistended, positive bowel sounds Extremities: trace edema noted Objective Data Vital Signs Vital Signs:
--- NOTE | 2023-06-25 14:15 | PM.PNNEP ---
Progress Note: A&P Assessment and Plan (1) FRANCIS (acute kidney injury): Code(s): N17.9 - Acute kidney failure, unspecified Status: Acute Assessment and Plan: as noted by events during hospitalization in April [address] [facility] admission creatinine at that time was 1.6mg/dl and progressively deteriorated multifactorial etiology: ATN, prerenal factors, infection, NSTEMI, hyoxia, relative hypotension initiated on FABRIC CUTTER/dialysis on April 2023 admission for clearance, optimization of fluid removal, and electrolytes control no evidence of recent recovery as of yet her recurrent hospitalizations maybe hampering her renal recovery HD tomorrow and continue T/T/S outpatient dialysis schedule follow repeat labs and UOP for potential renal recovery (2) Stage 3b chronic kidney disease: Code(s): N18.32 - Chronic kidney disease, stage 3b Status: Chronic Assessment and Plan: has baseline CKD or is this just random fluctuations in baseline kidney function??? creatinine running around 1.3 - 1.7mg/dl by previous labs done at [facility] HOWEVER, labs review from other hospitalizations at other facilities demonstrate that her creatinine has been as low as 0.9mg/dl in this year.... however, perhaps this normal creatinine value was dilutional from her previous bouts of CHF... risk factors for CKD include HTN, vascular disease, and age (3) Acute hypoxemic respiratory failure: Code(s): J96.01 - Acute respiratory failure with hypoxia Status: Acute Assessment and Plan: resolving/improved required BiPAP therapy on admission thought to be secondary to fluid overload + COVID + pneumonia HD with fluid removal as tolerated to maintain euvolemia follow respiratory status (4) COVID: Code(s): U07.1 - COVID-19 Status: Acute Assessment and Plan: possible component of COVID pneumonia on admission finished course of remdesivir; decadron to finish tomorrow continue supportive therapy (5) Pneumonia: Code(s): J18.9 - Pneumonia, unspecified organism Status: Acute Assessment and Plan: culture negative to date completed course of antibiotics (6) Hypertension: Code(s): I10 - Essential (primary) hypertension Status: Chronic Assessment and Plan: better control at this time resumed on home medications follow trend of hemodynamics (7) Anemia: Qualifiers: Anemia type: due to chronic kidney disease Code(s): D64.9 - Anemia, unspecified Status: Acute Assessment and Plan: related to FRANCIS and need for dialysis Epogen with HD follow H/H Subjective Date/time seen: 06/25/23 14:15 Interval history: Follow-up for acute kidney injury/acute renal failure (possibly on chronic kidney disease) on hemodialysis. Tolerated dialysis treatment yesterday without any issue or problems; breathing/respiratory status seems stable if not better at this time; still with issues related to anxiety but seem relatively better at this time; no apparent distress. Exam Narrative: General: elderly female in NAD Heart: normal S1 and S2; no rub Lungs: decreased at bases Abdomen: soft, nontender, nondistended, positive bowel sounds Extremities: trace edema noted Objective Data Vital Signs Vital Signs: Vital Signs Temp Pulse Resp BP Pulse Ox O2 Del Method 06/25/23 13:54 97.3 F L 102 H 20 160/90 H 92 06/25/23 10:10 Room Air 06/25/23 04:50 97.3 F L 71 16 147/84 H 90 06/24/23 21:11 97.7 F 62 16 153/67 H 91 06/24/23 18:12 97.8 F 101 H 16 164/89 H Intake/Output Intake/Output: Intake & Output 06/22/23 06/23/23 06/24/23 06/25/23 23:59 23:59 23:59 23:59 Intake Total 1110 2923 869 478 Output Total 2500 Balance 1110 4426 -6765 017 Meds/Results Medications: Active Medications Generic Name Dose Route Start Last Admi
[2023-06-25] MEDS: BUMETANIDE 1 MG TABLET 2 MG PO (16:49)
[2023-06-25] MEDS: CLOPIDOGREL BISULFATE 75 MG TABLET PO (16:49)
[2023-06-25] MEDS: PANTOPRAZOLE 40 MG TABLET PO ×2 (16:49→16:53)
[2023-06-25] MEDS: ASPIRIN 81 MG ENTERIC TABLET PO (16:49)
[2023-06-25] MEDS: ACETAMINOPHEN 325 MG TABLET 650 MG PO (16:50)
[2023-06-25 20:00] VITALS: O2SAT 100
[2023-06-25 21:12] VITALS: BP 148/81; PULSE 100; RESP 16; TEMP 36.6; O2SAT 100
[2023-06-26] MEDS: ALBUTEROL SULFATE NEB 2.5 MG/3 ML INH INHALATION (01:59)
[2023-06-26] MEDS: IPRATROPIUM BR 0.02% INH SOLN 0.5 MG/2.5 ML VIAL INHALATION (02:00)
[2023-06-26 02:10] VITALS: PULSE 100; RESP 20
[2023-06-26 02:20] VITALS: PULSE 99; RESP 20
[2023-06-26 05:30] VITALS: BP 161/96; PULSE 112; RESP 16; TEMP 36.3; O2SAT 100
[2023-06-26 05:45] LABS: Glucose Point of Care 154 mg/dl (65-105)
--- NOTE | 2023-06-26 05:54 | PC.NURSE ---
Patient c/o feeling shakey and just not feeling good. VS 161/96 HR 112 Spo2 100% on RA. Blood sugar 154. Notified Dr. Vargas. New orders received for Lactic acid, CBC, BMP, Mag/phos, CXR, and amlodipine 5 mg PO once.
[2023-06-26 06:23] LABS: Basophils Percent Auto 0.1 % (0.2-1.2); Eosinophils Percent Auto 0.2 % (0-4.4); Hematocrit 29.6 % (37.0-47.0); Hemoglobin 8.7 g/dL (12.0-15.0); Immature Granulocyte Percent A 1.1 % (0-0.5); Lymphocytes Absolute Auto 1.49 K/mm3 (0.9-3.2); Mean Corpuscular HGB Conc 29.4 g/dl (32-36); Mean Corpuscular Hemoglobin 26.4 pg (26-34); Mean Platelet Volume 11.1 fl (7.4-10.4); Monocytes Absolute Auto 1.1 K/mm3 (0.1-0.6); Monocytes Percent Auto 5.9 % (2.6-8.5); Neutrophils Absolute Auto 15.7 K/mm3 (1.3-6.7); Neutrophils Percent Auto 84.7 % (45.5-73.1); Nucleated Red Blood Cells Perc 0.1 % (0.0-0.2); Platelet Count Result 327 k/mm3 (150-375); Red Blood Count 3.29 M/mm3 (4.2-5.4); Red Cell Distribution Width 16.2 % (11.5-14.5); White Blood Count 18.6 K/mm3 (4.5-10.0)
[2023-06-26] MEDS: SUCRALFATE 1 GM TABLET PO ×4 (06:26→21:49)
[2023-06-26] MEDS: amLODIPine BESYLATE 5 MG TABLET PO (06:26)
[2023-06-26 06:34] LABS: Lactic Acid Reflex 3.3 mmol/L (0.7-2.0); Magnesium 2.3 mg/dL (1.6-2.3); Phosphorus 2.5 mg/dL (2.5-4.5)
[2023-06-26 06:35] LABS: Anion Gap 15 mmol/L (8-16); Blood Urea Nitrogen 37 mg/dL (7-17); Calcium 8.3 mg/dL (8.4-10.2); Carbon Dioxide 26 mmol/L (22-30); Chloride 91 mmol/L (98-107); Estimated CRCL calculation 7 ml/min; Estimated Glomerular Filt Rate 8; Glucose 169 mg/dL (65-110); Potassium 4.1 mmol/L (3.4-5.0); Sodium 132 mmol/L (137-145)
--- NOTE | 2023-06-26 06:46 | PC.NURSE ---
Reported lactic level of 3.[address] Vargas. New order received for zosyn IVPB, to be dosed per pharmacy. Pharmacy notified and she says she will put the order in.
[2023-06-26] MEDS: PIPERACILLIN/TAZ 2.25G/NS 50ML 2.25 GM/50 ML BAG IVPB ×3 (06:55→21:49)
[2023-06-26 06:58] LABS: Hypochromasia 2+ (NORMAL); Platelet Estimate Adequate (Adequate); Schistocytes None Seen (NORMAL)
--- NOTE | 2023-06-26 09:05 | PM.IMPN ---
Progress Note: A&P Assessment and Plan (1) Acute respiratory failure: Code(s): J96.00 - Acute respiratory failure, unspecified whether with hypoxia or hypercapnia Status: Acute (2) Congestive heart failure: Code(s): I50.9 - Heart failure, unspecified Status: Acute (3) COVID: Code(s): U07.1 - COVID-19 Status: Acute (4) End-stage renal disease (ESRD): Code(s): N18.6 - End stage renal disease Status: Acute (5) COPD (chronic obstructive pulmonary disease): Code(s): J44.9 - Chronic obstructive pulmonary disease, unspecified Status: Chronic (6) Acute hypoxemic respiratory failure: Code(s): J96.01 - Acute respiratory failure with hypoxia Status: Acute (7) Acute diverticulitis of intestine: Code(s): K57.92 - Diverticulitis of intestine, part unspecified, without perforation or abscess without bleeding Status: Acute Plan (1) Acute hypoxemic respiratory failure: ?Code(s): J96.01 - Acute respiratory failure with hypoxia ?Status:?Acute ?Assessment and Plan: Due to multiple factors, including pulmonary edema from congestive heart failure and end-stage renal disease, superimposed COVID-19 pneumonia and bacterial pneumonia as she has been in and out of the hospitals,? COPD exacerbation cOPD ?on admission She was placed on BiPAP initially now on room air started on dexamethasone and remdesivir.?06/17, finish on 06/21 started on empiric broad-spectrum antibiotics in the form of vancomycin cefepime? MRSA screen is negative hence discontinued vancomycin.? switching cefepime to Augementin on 06/21, dosing per pharmacist c/w Bronchodilators cxr 06/19: Possible minimal pulmonary edema pattern. CXR 06/22: Cardiomegaly. Improving mild interstitial edema. No pleural effusion. No pneumothorax. Dual-lumen central venous catheter tips in the SVC. (2) COVID: ?Code(s): U07.1 - COVID-19 ?Status:?Acute ?Assessment and Plan: See above (3) Pneumonia: ?Code(s): J18.9 - Pneumonia, unspecified organism ?Status:?Acute ?Assessment and Plan: See above Has blood-stained phlegm, dry nose Likely secondary to minor bleeding from mucous membrane CXR 06/23 ?Stable right-sided central venous line. There is probable mild bibasilar pulmonary edema. Cardiomediastinal silhouette is within normal limits. Bones and soft tissues are unremarkable. repeat CXR 06/26 (4) Pulmonary edema: ?Code(s): J81.1 - Chronic pulmonary edema ?Status:?Inactive ?Assessment and Plan: See above resolves (5) End-stage renal disease (ESRD): ?Code(s): N18.6 - End stage renal disease and anemia ?Status:?Acute ?Assessment and Plan: Nephrology consulted for hemodialysis.? Discussed with dialysis nurse Dialysis per circular tank cooper arrangement, received epoetin once 06/21 ordered by circular tank cooper Patient states she cannot tolerate dialysis because of nausea, diaphoresis, and chest tightness,patient does look anxious, provide Ativan 0.5 mg IV push during dialysis, and also give Zofran 4 mg IV once and q.6 as needed 06/24 (6) COPD (chronic obstructive pulmonary disease): ?Code(s): J44.9 - Chronic obstructive pulmonary disease, unspecified ?Status:?Chronic (7) Elevated troponin: ?Code(s): R79.89 - Other specified abnormal findings of blood chemistry ?Status:?Acute ?Assessment and Plan: History of CAD cardiac catheterization done on 05/02/23 with stent placement to RCA she has mild elevation of troponin on all are admissions and her troponins are mildly elevated with no acute ST elevation on EKG. Chest pain by history appears noncardiac and pleuritic in nature Continue aspirin Plavix statin Repeated troponin below the baseline, EKG shows sinus rhythm no specific ST T-wave changes. Repeat the chest x-ray suggested mild pulmonary edema, cardiomegaly 06/19 ON 06/22 Cardiomegaly. Improving mild interstitial e
[2023-06-26] MEDS: ASPIRIN 81 MG ENTERIC TABLET PO (09:07)
[2023-06-26] MEDS: ASCORBIC ACID 500 MG TABLET PO (09:07)
[2023-06-26] MEDS: CHOLECALCIFEROL 1,000 UNITS TABLET 1000 UNITS PO (09:07)
[2023-06-26] MEDS: PANTOPRAZOLE 40 MG TABLET PO ×2 (09:07→16:33)
[2023-06-26] MEDS: CLOPIDOGREL BISULFATE 75 MG TABLET PO (09:07)
[2023-06-26] MEDS: BUMETANIDE 1 MG TABLET 2 MG PO (09:07)
[2023-06-26] MEDS: ZINC SULFATE 220 MG CAPSULE PO (09:07)
[2023-06-26] MEDS: ATORVASTATIN 40 MG TABLET 80 MG PO (09:07)
[2023-06-26] MEDS: THERAPEUTIC MULTIVITAMINS/MINERALS TAB (*BKC) 1 TABLET PO (09:07)
[2023-06-26] MEDS: ENOXAPARIN 30 MG/0.3 ML SYRINGE SUB-Q (09:08)
[2023-06-26 09:21] LABS: Reflex Lactic Acid Yes or No Add Lactic
[2023-06-26 10:24] LABS: Lactic Acid 2.9 mmol/L (0.7-2.0)
[2023-06-26 14:00] VITALS: BP 152/86; PULSE 100; RESP 18; TEMP 36.4; O2SAT 96
--- NOTE | 2023-06-26 15:14 | P.PNNP_ITS ---
Progress Note: A&P Assessment and Plan (1) FRANCIS (acute kidney injury): Code(s): N17.9 - Acute kidney failure, unspecified Status: Acute Assessment and Plan: * as noted by events on last hospitalization (April 2023) here at [facility] * admission creatinine at that time was 1.6mg/dl and progressively deteriorated * multifactorial etiology: ATN, prerenal factors, infection, NSTEMI, hyoxia, relative hypotension * due for hemodialysis today. However, there is an emergency and so will do her dialysis tomorrow morning. * The patient wonders if she has recovery of kidney function. She urinated 6 times yesterday. Her creatinine soni from 4.3-5.2. I doubt that she is recovering but will check another creatinine in the morning and see what happens. * fluid status looks okay. * Electrolytes are okay. * plan HD Tomorrow (2) Stage 3b chronic kidney disease: Code(s): N18.32 - Chronic kidney disease, stage 3b Status: Chronic Assessment and Plan: * has baseline CKD or is this just random fluctuations in baseline kidney function??? * creatinine running around 1.3 - 1.7mg/dl by previous labs done at [facility] * HOWEVER, labs review from other hospitalizations at other facilities demonstrate that her creatinine has been as low as 0.9mg/dl in this year.... * however, perhaps this normal creatinine value was dilutional from her previous bouts of CHF... * risk factors for CKD include HTN, vascular disease, and age (3) Acute hypoxemic respiratory failure: Code(s): J96.01 - Acute respiratory failure with hypoxia Status: Acute Assessment and Plan: The patient is off oxygen right now. Breathing comfortably. (4) COVID: Code(s): U07.1 - COVID-19 Status: Acute Assessment and Plan: * Still on respiratory isolation. (5) Pneumonia: Code(s): J18.9 - Pneumonia, unspecified organism Status: Acute Assessment and Plan: * No pneumonia on recent chest x-ray. * Chest x-ray does show COPD and chronic interstitial Scarring (6) Pulmonary edema: Code(s): J81.1 - Chronic pulmonary edema Status: Inactive Assessment and Plan: * no evidence of pulmonary edema on current chest x-ray. (7) Congestive heart failure: Code(s): I50.9 - Heart failure, unspecified Status: Acute Assessment and Plan: * EF of 40-45% on echo done in April 2023 at [facility] * apparently her EF was 35% on echo done at [facility] last week * This looks compensated right now. (8) Hypertension: Code(s): I10 - Essential (primary) hypertension Status: Chronic Assessment and Plan: * Blood pressure in the 150s and 160s. * On no blood pressure medications right now. * Will try low-dose metoprolol (9) Anemia: Qualifiers: Anemia type: due to chronic kidney disease Code(s): D64.9 - Anemia, unspecified Status: Acute Assessment and Plan: * related to FRANCIS and need for dialysis * hemoglobin 8.7 * getting Epogen with dialysis Subjective Date/time seen: 06/26/23 15:14 Interval history: Vero is feeling about the same. She still has abdominal discomfort. This is been going on for months. She blames it on diverticulitis no shortness of breath or chest pain. Review of Systems Cardiovascular: Cardiovascular: Reports no additional cardiovascular complaints R
--- NOTE | 2023-06-26 15:14 | PM.PNNEP ---
Progress Note: A&P Assessment and Plan (1) FRANCIS (acute kidney injury): Code(s): N17.9 - Acute kidney failure, unspecified Status: Acute Assessment and Plan: as noted by events on last hospitalization (April 2023) here at [facility] admission creatinine at that time was 1.6mg/dl and progressively deteriorated multifactorial etiology: ATN, prerenal factors, infection, NSTEMI, hyoxia, relative hypotension due for hemodialysis today. However, there is an emergency and so will do her dialysis tomorrow morning. The patient wonders if she has recovery of kidney function. She urinated 6 times yesterday. Her creatinine soni from 4.3-5.2. I doubt that she is recovering but will check another creatinine in the morning and see what happens. fluid status looks okay. Electrolytes are okay. plan HD Tomorrow (2) Stage 3b chronic kidney disease: Code(s): N18.32 - Chronic kidney disease, stage 3b Status: Chronic Assessment and Plan: has baseline CKD or is this just random fluctuations in baseline kidney function??? creatinine running around 1.3 - 1.7mg/dl by previous labs done at [facility] HOWEVER, labs review from other hospitalizations at other facilities demonstrate that her creatinine has been as low as 0.9mg/dl in this year.... however, perhaps this normal creatinine value was dilutional from her previous bouts of CHF... risk factors for CKD include HTN, vascular disease, and age (3) Acute hypoxemic respiratory failure: Code(s): J96.01 - Acute respiratory failure with hypoxia Status: Acute Assessment and Plan: The patient is off oxygen right now. Breathing comfortably. (4) COVID: Code(s): U07.1 - COVID-19 Status: Acute Assessment and Plan: Still on respiratory isolation. (5) Pneumonia: Code(s): J18.9 - Pneumonia, unspecified organism Status: Acute Assessment and Plan: No pneumonia on recent chest x-ray. Chest x-ray does show COPD and chronic interstitial Scarring (6) Pulmonary edema: Code(s): J81.1 - Chronic pulmonary edema Status: Inactive Assessment and Plan: no evidence of pulmonary edema on current chest x-ray. (7) Congestive heart failure: Code(s): I50.9 - Heart failure, unspecified Status: Acute Assessment and Plan: EF of 40-45% on echo done in April 2023 at [place] apparently her EF was 35% on echo done at [facility] last week This looks compensated right now. (8) Hypertension: Code(s): I10 - Essential (primary) hypertension Status: Chronic Assessment and Plan: Blood pressure in the 150s and 160s. On no blood pressure medications right now. Will try low-dose metoprolol (9) Anemia: Qualifiers: Anemia type: due to chronic kidney disease Code(s): D64.9 - Anemia, unspecified Status: Acute Assessment and Plan: related to FRANCIS and need for dialysis hemoglobin 8.7 getting Epogen with dialysis Subjective Date/time seen: 06/26/23 15:14 Interval history: Vero is feeling about the same. She still has abdominal discomfort. This is been going on for months. She blames it on diverticulitis no shortness of breath or chest pain. Review of Systems Cardiovascular: Cardiovascular: Reports no additional cardiovascular complaints Respiratory: Respiratory: Reports no additional respiratory complaints Gastrointestinal: Gastrointestinal: Reports no additional gastrointestinal complaints Genitourinary: Genitourinary: Reports no additional female genitourinary complaints Exam Narrative: WDWN in NAD skin no rash head ncat lungs clear cor reg no rub abd BS+ Mildly tender and soft ext no edema. Objective Data Vital Signs Vital Signs: Vital Signs - 24 hr 06/25/23 21:12 06/25/23 20:00 06/26/23 02:10 Temperature 97.8 F
[2023-06-26] MEDS: ONDANSETRON INJ 4 MG/2 ML VIAL IV PUSH (16:32)
[2023-06-26] MEDS: ALPRAZolam (*CRX) 0.125 MG TABLET PO ×2 (16:32→21:50)
[2023-06-26] MEDS: ACETAMINOPHEN 325 MG TABLET 650 MG PO (16:32)
[2023-06-26 20:00] VITALS: O2SAT 98
[2023-06-26 21:34] LABS: Glucose Point of Care 182 mg/dl (65-105)
[2023-06-26] MEDS: ZOLPIDEM TARTRATE (*CRX) 5 MG TABLET PO (21:50)
[2023-06-26 22:00] VITALS: BP 136/75; PULSE 91; RESP 20; TEMP 36.2; O2SAT 98
[2023-06-27] VITALS (23 sets, daily range): BP systolic 131–182; BP diastolic 67–111; PULSE 80–106; RESP 14–22; TEMP 35.9–37.1; O2SAT 93–98
[2023-06-27] MEDS: ALBUTEROL SULFATE NEB 2.5 MG/3 ML INH INHALATION (01:49)
[2023-06-27] MEDS: PIPERACILLIN/TAZ 2.25G/NS 50ML 2.25 GM/50 ML BAG IVPB ×2 (05:55→17:24)
[2023-06-27 07:42] LABS: Albumin Level 3.9 g/dL (3.5-5.1); Anion Gap 16 mmol/L (8-16); Blood Urea Nitrogen 48 mg/dL (7-17); Calcium 8.1 mg/dL (8.4-10.2); Carbon Dioxide 25 mmol/L (22-30); Chloride 88 mmol/L (98-107); Estimated CRCL calculation 6 ml/min; Estimated Glomerular Filt Rate 6; Glucose 163 mg/dL (65-110); Potassium 4.2 mmol/L (3.4-5.0); Sodium 129 mmol/L (137-145)
[2023-06-27] MEDS: CHOLECALCIFEROL 1,000 UNITS TABLET 1000 UNITS PO (08:38)
[2023-06-27] MEDS: ASPIRIN 81 MG ENTERIC TABLET PO (08:38)
[2023-06-27] MEDS: PANTOPRAZOLE 40 MG TABLET PO ×2 (08:38→17:25)
[2023-06-27] MEDS: ASCORBIC ACID 500 MG TABLET PO (08:38)
[2023-06-27] MEDS: ATORVASTATIN 40 MG TABLET 80 MG PO (08:39)
[2023-06-27] MEDS: ENOXAPARIN 30 MG/0.3 ML SYRINGE SUB-Q (08:39)
[2023-06-27] MEDS: CLOPIDOGREL BISULFATE 75 MG TABLET PO (08:39)
[2023-06-27] MEDS: BUMETANIDE 1 MG TABLET 2 MG PO (08:43)
--- NOTE | 2023-06-27 09:00 | P.PNIM_ITS ---
Progress Note: A&P Assessment and Plan (1) Acute respiratory failure: Code(s): J96.00 - Acute respiratory failure, unspecified whether with hypoxia or hypercapnia Status: Acute (2) Congestive heart failure: Code(s): I50.9 - Heart failure, unspecified Status: Acute (3) COVID: Code(s): U07.1 - COVID-19 Status: Acute (4) End-stage renal disease (ESRD): Code(s): N18.6 - End stage renal disease Status: Acute (5) COPD (chronic obstructive pulmonary disease): Code(s): J44.9 - Chronic obstructive pulmonary disease, unspecified Status: Chronic (6) Acute hypoxemic respiratory failure: Code(s): J96.01 - Acute respiratory failure with hypoxia Status: Acute (7) Acute diverticulitis of intestine: Code(s): K57.92 - Diverticulitis of intestine, part unspecified, without perforation or abscess without bleeding Status: Acute Plan (1) Acute hypoxemic respiratory failure: ?Code(s): J96.01 - Acute respiratory failure with hypoxia ?Status:?Acute ?Assessment and Plan: Due to multiple factors, including pulmonary edema from congestive heart failure and end-stage renal disease, superimposed COVID-19 pneumonia and bacterial pneumonia as she has been in and out of the hospitals,? COPD exacerbation cOPD ?on admission She was placed on BiPAP initially now on room air started on dexamethasone and remdesivir.?06/17, finish on 06/21 started on empiric broad-spectrum antibiotics in the form of vancomycin cefepime? MRSA screen is negative hence discontinued vancomycin.? switching cefepime to Augementin on 06/21, dosing per pharmacist c/w Bronchodilators cxr 06/19: Possible minimal pulmonary edema pattern. CXR 06/22: Cardiomegaly. Improving mild interstitial edema. No pleural effusion. No pneumothorax. Dual-lumen central venous catheter tips in the SVC. (2) COVID: ?Code(s): U07.1 - COVID-19 ?Status:?Acute ?Assessment and Plan: See above (3) Pneumonia: ?Code(s): J18.9 - Pneumonia, unspecified organism ?Status:?Acute ?Assessment and Plan: See above Has blood-stained phlegm, dry nose Likely secondary to minor bleeding from mucous membrane CXR 06/23 ?Stable right-sided central venous line. There is probable mild bibasilar pulmonary edema. Cardiomediastinal silhouette is within normal limits. Bones and soft tissues are unremarkable. repeat CXR 06/26 (4) Pulmonary edema: ?Code(s): J81.1 - Chronic pulmonary edema ?Status:?Inactive ?Assessment and Plan: See above resolves (5) End-stage renal disease (ESRD): ?Code(s): N18.6 - End stage renal disease and anemia ?Status:?Acute ?Assessment and Plan: Nephrology consulted for hemodialysis.? Discussed with dialysis nurse Dialysis per [employer] supplies sales representative arrangement, received epoetin once 06/21 ordered by dairy supplies sales representative Patient states she cannot tolerate dialysis because of nausea, diaphoresis, and chest tightness,patient does look anxious, provide Ativan 0.5 mg IV push during dialysis, and also give Zofran 4 mg IV once and q.6 as needed 06/24 (6) COPD (chronic obstructive pulmonary disease): ?Code(s): J44.9 - Chronic obstructive pulmonary disease, unspecified ?Status:?Chronic (7) Elevated troponin: ?Code(s): R79.89 - Other specified abnormal findings of blood chemistry ?Status:?Acute ?Assessment and Plan: History of CAD cardiac catheterization done on 05/02/23 with stent placement to RCA she has mild
[2023-06-27] MEDS: SODIUM CHLORIDE 0.9% IV 1,000 ML 999 ML IV CONT (12:00)
--- NOTE | 2023-06-27 12:36 | PM.CNGS ---
Assessment and Plan Assessment and plan (1) Acute diverticulitis of intestine: Code(s): K57.92 - Diverticulitis of intestine, part unspecified, without perforation or abscess without bleeding Status: Acute Assessment and Plan: CT scan abdomen and pelvis does show diverticulosis with some inflammatory changes around the sigmoid colon. This would be consistent with diverticulitis but I am not sure how recent this is. Patient does not have, or can relay, a clinical history consistent with diverticulitis. Her exam does not show peritoneal signs although there is tenderness throughout the abdomen but more tender in the bilateral lower quadrants than the upper abdomen. She is currently on Zosyn which is an appropriate antibiotic for diverticulitis. However, uncomplicated diverticulitis such as this could be well treated with oral antibiotics, such as Augmentin, to complete a 7 day course. Patient has not had a colonoscopy in 20 years and should probably have 1 in 4-6 weeks. I would recommend discharging the patient as soon as she is able as far as her admitting illness and complaints. She can be treated with another 5 days of Augmentin. It would be extremely unlikely this would result in any surgery. Will sign off. Please call if we can be of further assistance. (2) COVID: Code(s): U07.1 - COVID-19 Status: Acute Assessment and Plan: Positive on admission testing in the emergency room. (3) End-stage renal disease (ESRD): Code(s): N18.6 - End stage renal disease Status: Chronic Assessment and Plan: Followed by Nephrology (4) Antiplatelet or antithrombotic long-term use: Code(s): Z79.02 - half-way (current) use of antithrombotics/antiplatelets Status: Chronic Assessment and Plan: Takes Plavix. (5) Anxiety: Code(s): F41.9 - Anxiety disorder, unspecified Status: Chronic (6) History of VA (myocardial infarction): Code(s): I25.2 - Old myocardial infarction Status: Chronic Assessment and Plan: Non STEMI VA noted to have occurred about 8 weeks ago. History of Present Illness Consult details Consult date: 06/27/23 (Patient seen 2:30pm on 06/26) Reason for consult: other (diverticulitis on CT) Requesting physician: Alma Rosa Alberto MD Narrative: Patient is a 72 yo woman who was admitted through the ER on 06/17/23 with respiratory distress, COVID 19, fluid overload, possibly pneumonia. Her extreme anxiety became much worse and led to her coming to ER. She had a NSTEMI about 8 weeks ago. She is taking Plavix. She also has ESRD and is on hemodialysis. She was treated for all of the above and was improving. On 06/25/23, she experienced severe abdominal pain and an episode of emesis. No record of any complaints of abdominal pain are mentioned prior to 06/25. She had a CT of abdomen and pelvis which showed uncomplicated acute diverticulitis. She was started on Zosyn early in the morning on 06/26/2023. She had no more emesis than the one time on 06/25. She cannot recall ever having diverticulitis before. When I went to see her, she had a much different history than I expected. She had many complaints, most were of pain or soreness over many areas of the body. In respect to her abdominal pain, she didn't recall the episode of pain and vomiting on 06/[address] CT scan. Instead, she reported terrible abdominal pain in both lower quadrants for a very long time-- years. Her tangential thinking and inability to recall or describe the history of any of her complaints, usually just saying forever or something similar. This made me question her reliability as an historian including her abdominal pain complaints. There was no record of her ever complaining of abdominal pain in the 8 days prior to 06/25/2023. Review of Systems Review of Systems: All systems reviewed & are unremarkable except as noted in HPI and below (HPI) ROS unobtainable: Yes other
[2023-06-27] MEDS: ONDANSETRON INJ 4 MG/2 ML VIAL IV PUSH ×2 (13:14→18:45)
[2023-06-27] MEDS: ALPRAZolam (*CRX) 0.125 MG TABLET PO (13:14)
--- NOTE | 2023-06-27 13:25 | PC.NURSE ---
To dialysis via bed.
--- NOTE | 2023-06-27 13:30 | P.PNNP_ITS ---
Progress Note: A&P Assessment and Plan (1) FRANCIS (acute kidney injury): Code(s): N17.9 - Acute kidney failure, unspecified Status: Acute Assessment and Plan: * as noted by events on last hospitalization (April 2023) here at [facility] * admission creatinine at that time was 1.6mg/dl and progressively deteriorated * multifactorial etiology: ATN, prerenal factors, infection, NSTEMI, hyoxia, relative hypotension * She is on dialysis currently. * Creatinine soni significantly from yesterday. * No sign of renal recovery yet. (2) Stage 3b chronic kidney disease: Code(s): N18.32 - Chronic kidney disease, stage 3b Status: Chronic Assessment and Plan: * has baseline CKD or is this just random fluctuations in baseline kidney function??? * creatinine running around 1.3 - 1.7mg/dl by previous labs done at [facility] * HOWEVER, labs review from other hospitalizations at other facilities demonstrate that her creatinine has been as low as 0.9mg/dl in this year.... * however, perhaps this normal creatinine value was dilutional from her pre vious bouts of CHF... * risk factors for CKD include HTN, vascular disease, and age (3) Acute hypoxemic respiratory failure: Code(s): J96.01 - Acute respiratory failure with hypoxia Status: Acute Assessment and Plan: The patient is off oxygen right now. Breathing comfortably. (4) COVID: Code(s): U07.1 - COVID-19 Status: Acute Assessment and Plan: * Still on respiratory isolation. (5) Pneumonia: Code(s): J18.9 - Pneumonia, unspecified organism Status: Acute Assessment and Plan: * No pneumonia on recent chest x-ray. * Chest x-ray does show COPD and chronic interstitial Scarring (6) Pulmonary edema: Code(s): J81.1 - Chronic pulmonary edema Status: Inactive Assessment and Plan: * no evidence of pulmonary edema on current chest x-ray. (7) Congestive heart failure: Code(s): I50.9 - Heart failure, unspecified Status: Acute Assessment and Plan: * EF of 40-45% on echo done in April 2023 at [place] * apparently her EF was 35% on echo done at [facility] last week * This looks compensated right now. (8) Hypertension: Code(s): I10 - Essential (primary) hypertension Status: Chronic Assessment and Plan: * Blood pressure in the 150s and 160s. * On no blood pressure medications right now. * Will try low-dose metoprolol (9) Anemia: Qualifiers: Anemia type: due to chronic kidney disease Code(s): D64.9 - Anemia, unspecified Status: Acute Assessment and Plan: * related to FRANCIS and need for dialysis * hemoglobin 8.7 * getting Epogen with dialysis Subjective Date/time seen: 06/27/23 13:30 Interval history: patient is on dialysis and tolerating it well. she was seen at 2:45 pm. bp is a bit generous. removing fluid. pt wants to go home for [place] for a break we discussed that she needs dialysis for now as her kidney function isn't opening up Exam Narrative: WDWN in NAD skin no rash head ncat lungs clear cor reg no rub abd BS+ Mildly tender and soft ext no edema. Objective Data Vital Signs Vital Signs: Vital Signs - 24 hr 06/26/23 14:00 06/26/23 22:00 06/26/23 20:00
--- NOTE | 2023-06-27 13:30 | PM.PNNEP ---
Progress Note: A&P Assessment and Plan (1) FRANCIS (acute kidney injury): Code(s): N17.9 - Acute kidney failure, unspecified Status: Acute Assessment and Plan: as noted by events on last hospitalization (April 2023) here at [facility] admission creatinine at that time was 1.6mg/dl and progressively deteriorated multifactorial etiology: ATN, prerenal factors, infection, NSTEMI, hyoxia, relative hypotension She is on dialysis currently. Creatinine soni significantly from yesterday. No sign of renal recovery yet. (2) Stage 3b chronic kidney disease: Code(s): N18.32 - Chronic kidney disease, stage 3b Status: Chronic Assessment and Plan: has baseline CKD or is this just random fluctuations in baseline kidney function??? creatinine running around 1.3 - 1.7mg/dl by previous labs done at [facility] HOWEVER, labs review from other hospitalizations at other facilities demonstrate that her creatinine has been as low as 0.9mg/dl in this year.... however, perhaps this normal creatinine value was dilutional from her previous bouts of CHF... risk factors for CKD include HTN, vascular disease, and age (3) Acute hypoxemic respiratory failure: Code(s): J96.01 - Acute respiratory failure with hypoxia Status: Acute Assessment and Plan: The patient is off oxygen right now. Breathing comfortably. (4) COVID: Code(s): U07.1 - COVID-19 Status: Acute Assessment and Plan: Still on respiratory isolation. (5) Pneumonia: Code(s): J18.9 - Pneumonia, unspecified organism Status: Acute Assessment and Plan: No pneumonia on recent chest x-ray. Chest x-ray does show COPD and chronic interstitial Scarring (6) Pulmonary edema: Code(s): J81.1 - Chronic pulmonary edema Status: Inactive Assessment and Plan: no evidence of pulmonary edema on current chest x-ray. (7) Congestive heart failure: Code(s): I50.9 - Heart failure, unspecified Status: Acute Assessment and Plan: EF of 40-45% on echo done in April 2023 at [place] apparently her EF was 35% on echo done at [facility] last week This looks compensated right now. (8) Hypertension: Code(s): I10 - Essential (primary) hypertension Status: Chronic Assessment and Plan: Blood pressure in the 150s and 160s. On no blood pressure medications right now. Will try low-dose metoprolol (9) Anemia: Qualifiers: Anemia type: due to chronic kidney disease Code(s): D64.9 - Anemia, unspecified Status: Acute Assessment and Plan: related to FRANCIS and need for dialysis hemoglobin 8.7 getting Epogen with dialysis Subjective Date/time seen: 06/27/23 13:30 Interval history: patient is on dialysis and tolerating it well. she was seen at 2:45 pm. bp is a bit generous. removing fluid. pt wants to go home for [place] for a break we discussed that she needs dialysis for now as her kidney function isn't opening up Exam Narrative: WDWN in NAD skin no rash head ncat lungs clear cor reg no rub abd BS+ Mildly tender and soft ext no edema. Objective Data Vital Signs Vital Signs: Vital Signs - 24 hr 06/26/23 14:00 06/26/23 22:00 06/26/23 20:00 Temperature 97.5 F L 97.2 F L Pulse Rate 100 91 Respiratory Rate 18 20 Blood Pressure 152/86 H 136/75 Pulse Oximetry 96 98 98 Oxygen Delivery Room Air 06/27/23 01:49 06/27/23 06:00 06/27/23 08:40 Temperature 97.2 F L Pulse Rate 89 106 H Respiratory Rate 20 14 Blood Pressure 141/96 H Pulse Oximetry 98 93 Oxygen Delivery Room Air Intake/Output Intake/Output: Intake & Output 06/24/23 06/25/23 06/26/23 06/27/23 23:59 23:59 23:59 23:59 Intake Total 004 502 7194 1040 Output Total 2500 Balance -2036 396 2945 1040 Meds/Results Medications: Active Med
--- NOTE | 2023-06-27 14:21 | PCPTNOTE ---
The patient treatment was not able to be completed due to patient out of room for dialysis. Will plan to continue treatment per plan of care.
[2023-06-27] MEDS: ACETAMINOPHEN 325 MG TABLET 650 MG PO (15:23)
[2023-06-27] MEDS: EPOETIN ALFA-EPBX 10,000 UNITS/ML VIAL 10000 UNITS IV PUSH (16:33)
[2023-06-28] VITALS (7 sets, daily range): BP systolic 143–155; BP diastolic 81–82; PULSE 72–97; RESP 16–20; TEMP 36.2–36.8; O2SAT 97–100
[2023-06-28] MEDS: PIPERACILLIN/TAZ 2.25G/NS 50ML 2.25 GM/50 ML BAG IVPB ×3 (02:15→17:30)
[2023-06-28] MEDS: ALBUTEROL SULFATE NEB 2.5 MG/3 ML INH INHALATION ×2 (04:30→22:01)
[2023-06-28 06:35] LABS: Anion Gap 14 mmol/L (8-16); Blood Urea Nitrogen 21 mg/dL (7-17); Calcium 8.4 mg/dL (8.4-10.2); Carbon Dioxide 25 mmol/L (22-30); Chloride 92 mmol/L (98-107); Estimated CRCL calculation 10 ml/min; Estimated Glomerular Filt Rate 12; Glucose 93 mg/dL (65-110); Potassium 3.6 mmol/L (3.4-5.0); Sodium 131 mmol/L (137-145)
[2023-06-28 06:37] LABS: Lactic Acid Reflex 1.3 mmol/L (0.7-2.0)
[2023-06-28] MEDS: BUMETANIDE 1 MG TABLET 2 MG PO (09:32)
[2023-06-28] MEDS: DICYCLOMINE HCL 10 MG CAPSULE 20 MG PO (09:32)
[2023-06-28] MEDS: ENOXAPARIN 30 MG/0.3 ML SYRINGE SUB-Q (09:32)
[2023-06-28] MEDS: CLOPIDOGREL BISULFATE 75 MG TABLET PO (09:32)
[2023-06-28] MEDS: PANTOPRAZOLE 40 MG TABLET PO ×2 (09:33→17:30)
[2023-06-28] MEDS: CHOLECALCIFEROL 1,000 UNITS TABLET 1000 UNITS PO (09:33)
[2023-06-28] MEDS: THERAPEUTIC MULTIVITAMINS/MINERALS TAB (*BKC) 1 TABLET PO (09:33)
[2023-06-28] MEDS: ASCORBIC ACID 500 MG TABLET PO (09:33)
[2023-06-28] MEDS: ZINC SULFATE 220 MG CAPSULE PO (09:33)
[2023-06-28] MEDS: ATORVASTATIN 40 MG TABLET 80 MG PO (09:33)
[2023-06-28] MEDS: ASPIRIN 81 MG ENTERIC TABLET PO (09:33)
--- NOTE | 2023-06-28 10:39 | PM.PNNEP ---
Progress Note: A&P Assessment and Plan (1) FRANCIS (acute kidney injury): Code(s): N17.9 - Acute kidney failure, unspecified Status: Acute Assessment and Plan: as noted by events on last hospitalization (April 2023) here at [facility] admission creatinine at that time was 1.6mg/dl and progressively deteriorated multifactorial etiology: ATN, prerenal factors, infection, NSTEMI, hyoxia, relative hypotension She is on dialysis currently. She is still making some urine. She is due for dialysis today as we did 's dialysis yesterday. Patient has been talking with the nurses about stopping dialysis. We had a long discussion. The patient was under the impression that she could just stop dialysis and do okay. However I discussed with her that since her BUN and creatinine are so high that she would likely get sick off dialysis with shortness of breath and elevation of kidney poisons leading to nausea vomiting confusion and ultimately . The patient told me that she is not ready to . However she just wants to go home for few days over the holidays. However if she did this she would miss her antibiotics and miss her dialysis and so might become ill creating a setback delaying the improvement in her kidney function and her diverticulitis. I recommend that she stay and continue her dialysis and antibiotics. She did ask some one to recommend hospice; however the patient isn't ready to completely give up yet so she realizes now that hospice would might be the proper route. She understands this now. We did discuss doing another treatment today but the patient refuses to dialyze today knowing that she will get dialysis again until Friday. We can watch her over the weekend. (2) Stage 3b chronic kidney disease: Code(s): N18.32 - Chronic kidney disease, stage 3b Status: Chronic Assessment and Plan: has baseline CKD or is this just random fluctuations in baseline kidney function??? creatinine running around 1.3 - 1.7mg/dl by previous labs done at [facility] HOWEVER, labs review from other hospitalizations at other facilities demonstrate that her creatinine has been as low as 0.9mg/dl in this year.... however, perhaps this normal creatinine value was dilutional from her previous bouts of CHF... risk factors for CKD include HTN, vascular disease, and age (3) Acute hypoxemic respiratory failure: Code(s): J96.01 - Acute respiratory failure with hypoxia Status: Acute Assessment and Plan: The patient is off oxygen right now. Breathing comfortably. (4) COVID: Code(s): U07.1 - COVID-19 Status: Acute Assessment and Plan: Still on respiratory isolation. (5) Pneumonia: Code(s): J18.9 - Pneumonia, unspecified organism Status: Acute Assessment and Plan: No pneumonia on recent chest x-ray. Chest x-ray does show COPD and chronic interstitial Scarring (6) Pulmonary edema: Code(s): J81.1 - Chronic pulmonary edema Status: Inactive Assessment and Plan: no evidence of pulmonary edema on latest chest x-ray. (7) Congestive heart failure: Code(s): I50.9 - Heart failure, unspecified Status: Acute Assessment and Plan: EF of 40-45% on echo done in April 2023 at [place] apparently her EF was 35% on echo done at [facility] last week This looks compensated right now. (8) Hypertension: Code(s): I10 - Essential (primary) hypertension Status: Chronic Assessment and Plan: Blood pressure in the 150s and 160s. On no blood pressure medications right now. Will try low-dose metoprolol (9) Anemia: Qualifiers: Anemia type: due to chronic kidney disease Code(s): D64.9 - Anemia, unspecified Status: Acute Assessment and Plan: related to FRANCIS and need for dialysis hemoglobin 8.7 getting Epogen with dialy
[2023-06-28] MEDS: METOPROLOL SUCCINATE EXT REL 25 MG TABCR PO (12:11)
[2023-06-28] MEDS: SUCRALFATE 1 GM TABLET PO ×2 (12:11→17:30)
--- NOTE | 2023-06-28 13:18 | PC.NURSE ---
Patient is unsure of her next course of action. She does not want HD, refuses her medications by trying to throw them away when not looking, but does not want to . Trio rounds with Dr. Walker and Dr. Moore. Patient was told by both physicians she must do HD or she will . Patient states her daughter is coming at 1:30 and they will have a discussion. Hospice nurse is on the floor and she was updated as well.
[2023-06-28] MEDS: ACETAMINOPHEN 325 MG TABLET 650 MG PO (16:19)
--- NOTE | 2023-06-28 17:15 | PM.IMPN ---
Progress Note: A&P Assessment and Plan (1) Acute respiratory failure: Code(s): J96.00 - Acute respiratory failure, unspecified whether with hypoxia or hypercapnia Status: Acute (2) Congestive heart failure: Code(s): I50.9 - Heart failure, unspecified Status: Acute (3) COVID: Code(s): U07.1 - COVID-19 Status: Acute (4) End-stage renal disease (ESRD): Code(s): N18.6 - End stage renal disease Status: Chronic (5) COPD (chronic obstructive pulmonary disease): Code(s): J44.9 - Chronic obstructive pulmonary disease, unspecified Status: Chronic (6) Acute hypoxemic respiratory failure: Code(s): J96.01 - Acute respiratory failure with hypoxia Status: Acute (7) Acute diverticulitis of intestine: Code(s): K57.92 - Diverticulitis of intestine, part unspecified, without perforation or abscess without bleeding Status: Acute Plan (1) Acute hypoxemic respiratory failure: ?Code(s): J96.01 - Acute respiratory failure with hypoxia ?Status:?Acute ?Assessment and Plan: Due to multiple factors, including pulmonary edema from congestive heart failure and end-stage renal disease, superimposed COVID-19 pneumonia and bacterial pneumonia as she has been in and out of the hospitals,? COPD exacerbation cOPD ?on admission She was placed on BiPAP initially now on room air started on dexamethasone and remdesivir.?06/17, finish on 06/21 started on empiric broad-spectrum antibiotics in the form of vancomycin cefepime? MRSA screen is negative hence discontinued vancomycin.? switching cefepime to Augementin on 06/21, dosing per pharmacist c/w Bronchodilators cxr 06/19: Possible minimal pulmonary edema pattern. CXR 06/22: Cardiomegaly. Improving mild interstitial edema. No pleural effusion. No pneumothorax. Dual-lumen central venous catheter tips in the SVC. (2) COVID: ?Code(s): U07.1 - COVID-19 ?Status:?Acute ?Assessment and Plan: See above (3) Pneumonia: ?Code(s): J18.9 - Pneumonia, unspecified organism ?Status:?Acute ?Assessment and Plan: See above Has blood-stained phlegm, dry nose Likely secondary to minor bleeding from mucous membrane CXR 06/23 ?Stable right-sided central venous line. There is probable mild bibasilar pulmonary edema. Cardiomediastinal silhouette is within normal limits. Bones and soft tissues are unremarkable. repeat CXR 06/26 (4) Pulmonary edema: ?Code(s): J81.1 - Chronic pulmonary edema ?Status:?Inactive ?Assessment and Plan: See above resolves (5) End-stage renal disease (ESRD): ?Code(s): N18.6 - End stage renal disease and anemia ?Status:?Acute ?Assessment and Plan: Nephrology consulted for hemodialysis.? Discussed with dialysis nurse Dialysis per occupational health and safety adviser arrangement, received epoetin once 06/21 ordered by occupational health and safety adviser Patient states she cannot tolerate dialysis because of nausea, diaphoresis, and chest tightness,patient does look anxious, provide Ativan 0.5 mg IV push during dialysis, and also give Zofran 4 mg IV once and q.6 as needed 06/24 (6) COPD (chronic obstructive pulmonary disease): ?Code(s): J44.9 - Chronic obstructive pulmonary disease, unspecified ?Status:?Chronic (7) Elevated troponin: ?Code(s): R79.89 - Other specified abnormal findings of blood chemistry ?Status:?Acute ?Assessment and Plan: History of CAD cardiac catheterization done on 05/02/23 with stent placement to RCA she has mild elevation of troponin on all are admissions and her troponins are mildly elevated with no acute ST elevation on EKG. Chest pain by history appears noncardiac and pleuritic in nature Continue aspirin Plavix statin Repeated troponin below the baseline, EKG shows sinus rhythm no specific ST T-wave changes. Repeat the chest x-ray suggested mild pulmonary edema, cardiomegaly 06/19 ON 06/22 Cardiomegaly. Improving mild interstitial
[2023-06-28] MEDS: IPRATROPIUM BR 0.02% INH SOLN 0.5 MG/2.5 ML VIAL INHALATION (22:01)
[2023-06-29] VITALS (19 sets, daily range): BP systolic 127–166; BP diastolic 51–98; PULSE 73–95; RESP 14–16; TEMP 35.8–37; O2SAT 98
--- NOTE | 2023-06-29 01:15 | PC.NURSE ---
Spoke with Dr. Vargas about patient continuing to c/o pain to LLQ abdomen. New orders received for ketorlac 15 mg IVP Q6H PRN. Called Dr. Vargas back to relay medication warnings r/t dialysis and kidney function. Dr. Vargas says should be okay since patient is already on dialysis, but give a one time dose of dilaudid 0.5 mg IVP and benadryl 25 mg IVP with it to prevent allergic reaction.
[2023-06-29] MEDS: HYDROmorphone HCL INJ (*CRX) 1 MG/ML SYR 0.5 MG IV PUSH (01:24)
[2023-06-29] MEDS: PIPERACILLIN/TAZ 2.25G/NS 50ML 2.25 GM/50 ML BAG IVPB ×2 (01:24→11:57)
[2023-06-29] MEDS: diphenhydrAMINE HCl INJ 50 MG/ML VIAL 25 MG IV PUSH (01:25)
[2023-06-29 06:36] LABS: Albumin Level 3.4 g/dL (3.5-5.1); Anion Gap 13 mmol/L (8-16); Blood Urea Nitrogen 32 mg/dL (7-17); Calcium 8.4 mg/dL (8.4-10.2); Carbon Dioxide 25 mmol/L (22-30); Chloride 91 mmol/L (98-107); Estimated CRCL calculation 7 ml/min; Estimated Glomerular Filt Rate 8; Glucose 79 mg/dL (65-110); Phosphorus 3.8 mg/dL (2.5-4.5); Potassium 3.5 mmol/L (3.4-5.0); Sodium 129 mmol/L (137-145)
--- NOTE | 2023-06-29 07:40 | PC.NURSE ---
To dialysis via bed.
[2023-06-29] MEDS: EPOETIN ALFA-EPBX 10,000 UNITS/ML VIAL 10000 UNITS IV PUSH (09:24)
[2023-06-29] MEDS: HEPARIN SODIUM 1,000 UNITS/ML VIAL 6000 UNITS IV PUSH (11:45)
--- NOTE | 2023-06-29 11:45 | PC.NURSE ---
Back from dialysis via bed.
[2023-06-29] MEDS: CLOPIDOGREL BISULFATE 75 MG TABLET PO (11:58)
[2023-06-29] MEDS: BUMETANIDE 1 MG TABLET 2 MG PO (11:58)
[2023-06-29] MEDS: CHOLECALCIFEROL 1,000 UNITS TABLET 1000 UNITS PO (11:58)
[2023-06-29] MEDS: ASPIRIN 81 MG ENTERIC TABLET PO (11:58)
[2023-06-29] MEDS: PANTOPRAZOLE 40 MG TABLET PO ×2 (11:58→17:18)
[2023-06-29] MEDS: THERAPEUTIC MULTIVITAMINS/MINERALS TAB (*BKC) 1 TABLET PO (11:59)
[2023-06-29] MEDS: ZINC SULFATE 220 MG CAPSULE PO (11:59)
[2023-06-29] MEDS: ASCORBIC ACID 500 MG TABLET PO (11:59)
[2023-06-29] MEDS: METOPROLOL SUCCINATE EXT REL 25 MG TABCR PO (11:59)
[2023-06-29] MEDS: ATORVASTATIN 40 MG TABLET 80 MG PO (12:09)
--- NOTE | 2023-06-29 12:24 | P.PNNP_ITS ---
Progress Note: A&P Assessment and Plan (1) FRANCIS (acute kidney injury): Code(s): N17.9 - Acute kidney failure, unspecified Status: Acute Assessment and Plan: * as noted by events on last hospitalization (April 2023) here at [facility] * admission creatinine at that time was 1.6mg/dl and progressively deteriorated * multifactorial etiology: ATN, prerenal factors, infection, NSTEMI, hyoxia, relative hypotension * She is on dialysis currently. * She is still making some urine. * her dialysis is underway. * Hospitalist talked to her and her daughter at length yesterday. If she promises to go to dialysis on Friday she is going to get discharged today after dialysis. I talked with the patient at length. I asked her if she was going to go to dialysis on Friday and she said I am not promising anything . We discussed that her kidney function is still not good enough to come off dialysis. If she skips treatments he might end up back in the hospital. She admits that she does not want to go back to the hospital. She agreed that it would be in her best interest to continue dialysis until her kidneys are ready for her to come off dialysis. I am hoping that with treatment of infection her renal function might improve. The likelihood of this depends on her prior renal function. When she goes to dialysis as an outpatient she will talk with her original hockey scout to get and better idea of the chances of her renal recovery. (2) Stage 3b chronic kidney disease: Code(s): N18.32 - Chronic kidney disease, stage 3b Status: Chronic Assessment and Plan: * has baseline CKD or is this just random fluctuations in baseline kidney fun ction??? * creatinine running around 1.3 - 1.7mg/dl by previous labs done at [facility] * HOWEVER, labs review from other hospitalizations at other facilities demonstrate that her creatinine has been as low as 0.9mg/dl in this year.... * however, perhaps this normal creatinine value was dilutional from her previous bouts of CHF... * risk factors for CKD include HTN, vascular disease, and age (3) Acute hypoxemic respiratory failure: Code(s): J96.01 - Acute respiratory failure with hypoxia Status: Acute Assessment and Plan: The patient is off oxygen right now. Breathing comfortably. (4) COVID: Code(s): U07.1 - COVID-19 Status: Acute Assessment and Plan: * Her respiratory isolation time doubt (5) Pneumonia: Code(s): J18.9 - Pneumonia, unspecified organism Status: Acute Assessment and Plan: * No pneumonia on recent chest x-ray. * Chest x-ray does show COPD and chronic interstitial scarring (6) Pulmonary edema: Code(s): J81.1 - Chronic pulmonary edema Status: Inactive Assessment and Plan: * no evidence of pulmonary edema on latest chest x-ray. (7) Congestive heart failure: Code(s): I50.9 - Heart failure, unspecified Status: Acute Assessment and Plan: * EF of 40-45% on echo done in April 2023 at [place] * apparently her EF was 35% on echo done at [facility] last week * This looks compensated right now. * her chest x-ray is okay, her lungs are clear, and she does not have very much edema. (8) Hypertension: Code(s): I10 - Essential (primary) hypertension Status: Chronic Assessment and Plan: * Blood pressure Is better on the metoprolol. (9) Anemia: Qualifiers: Anemia type: due to chronic kidney
--- NOTE | 2023-06-29 12:24 | PM.PNNEP ---
Progress Note: A&P Assessment and Plan (1) FRANCIS (acute kidney injury): Code(s): N17.9 - Acute kidney failure, unspecified Status: Acute Assessment and Plan: as noted by events on last hospitalization (April 2023) here at [facility] admission creatinine at that time was 1.6mg/dl and progressively deteriorated multifactorial etiology: ATN, prerenal factors, infection, NSTEMI, hyoxia, relative hypotension She is on dialysis currently. She is still making some urine. her dialysis is underway. Hospitalist talked to her and her daughter at length yesterday. If she promises to go to dialysis on Friday she is going to get discharged today after dialysis. I talked with the patient at length. I asked her if she was going to go to dialysis on Friday and she said I am not promising anything . We discussed that her kidney function is still not good enough to come off dialysis. If she skips treatments he might end up back in the hospital. She admits that she does not want to go back to the hospital. She agreed that it would be in her best interest to continue dialysis until her kidneys are ready for her to come off dialysis. I am hoping that with treatment of infection her renal function might improve. The likelihood of this depends on her prior renal function. When she goes to dialysis as an outpatient she will talk with her original target aircraft controller to get and better idea of the chances of her renal recovery. (2) Stage 3b chronic kidney disease: Code(s): N18.32 - Chronic kidney disease, stage 3b Status: Chronic Assessment and Plan: has baseline CKD or is this just random fluctuations in baseline kidney function??? creatinine running around 1.3 - 1.7mg/dl by previous labs done at [facility] HOWEVER, labs review from other hospitalizations at other facilities demonstrate that her creatinine has been as low as 0.9mg/dl in this year.... however, perhaps this normal creatinine value was dilutional from her previous bouts of CHF... risk factors for CKD include HTN, vascular disease, and age (3) Acute hypoxemic respiratory failure: Code(s): J96.01 - Acute respiratory failure with hypoxia Status: Acute Assessment and Plan: The patient is off oxygen right now. Breathing comfortably. (4) COVID: Code(s): U07.1 - COVID-19 Status: Acute Assessment and Plan: Her respiratory isolation time doubt (5) Pneumonia: Code(s): J18.9 - Pneumonia, unspecified organism Status: Acute Assessment and Plan: No pneumonia on recent chest x-ray. Chest x-ray does show COPD and chronic interstitial scarring (6) Pulmonary edema: Code(s): J81.1 - Chronic pulmonary edema Status: Inactive Assessment and Plan: no evidence of pulmonary edema on latest chest x-ray. (7) Congestive heart failure: Code(s): I50.9 - Heart failure, unspecified Status: Acute Assessment and Plan: EF of 40-45% on echo done in April 2023 at [place] apparently her EF was 35% on echo done at [facility] last week This looks compensated right now. her chest x-ray is okay, her lungs are clear, and she does not have very much edema. (8) Hypertension: Code(s): I10 - Essential (primary) hypertension Status: Chronic Assessment and Plan: Blood pressure Is better on the metoprolol. (9) Anemia: Qualifiers: Anemia type: due to chronic kidney disease Code(s): D64.9 - Anemia, unspecified Status: Acute Assessment and Plan: related to FRANCIS and need for dialysis hemoglobin 8.7 getting Epogen with dialysis Subjective Date/time seen: 06/29/23 12:24 Interval history: patient feels okay. She is on dialysis and tolerating it well. She was seen at 10:30 a.m. Exam Narrative: WDWN in NAD skin no rash head ncat lungs clear cor re
--- NOTE | 2023-06-29 16:00 | PM.DS ---
DS: Admitting Diagnosis Discharge Date 06/29/2023: Admitting Diagnosis Acute respiratory failure with hypoxia and hypercarbia COVID-19 pneumonia Community-acquired pneumonia Missed hemodialysis DS: Summary Hospital Course Reason for hospitalization: Patient admitted with the worsening shortness of breath and missed hemodialysis Hospital Course: H&P: HPI History of Present Illness Date/Time: 06/17/23? 17:04 Chief Complaint: Patient brought to the ER for evaluation due to shortness of breath Narrative: She is an anxious looking 72 years old white female with CHF, COPD and chronic medical issues on hemodialysis who was brought to the ER for evaluation by EMS with? shortness of breath.? She was in the hospital last month, was intubated due to hypoxic respiratory failure and was started on hemodialysis.? She also had a heart attack a few months ago and since then she gets very anxious when she is home alone.? She had a similar episode last night, brought to the ER for evaluation workup was done which showed acute respiratory failure with hypoxia.? She was also diagnosed with COVID-19 as well. She was started on BiPAP and admitted to ICU for critical care management and close monitoring. HOSPITAL COURSE ... Date of Admission - 06/28/2023: (1) Acute hypoxemic respiratory failure: ?Code(s): J96.01 - Acute respiratory failure with hypoxia ?Status:?Acute ?Assessment and Plan: Due to multiple factors,? including pulmonary edema from congestive heart failure and end-stage renal disease, superimposed COVID-19 pneumonia and bacterial pneumonia as she has been in and out of the hospitals,? COPD exacerbation cOPD ?on admission She was placed on BiPAP initially ?now on room air ?started on dexamethasone and remdesivir.?06/17, finish on 06/21 started on empiric broad-spectrum antibiotics in the form of vancomycin cefepime? MRSA screen is negative hence discontinued vancomycin.? switching cefepime to Augementin on 06/21, dosing per pharmacist c/w Bronchodilators cxr 06/19:?Possible minimal pulmonary edema pattern. CXR 06/22: Cardiomegaly. Improving mild interstitial edema. No pleural effusion. No pneumothorax. Dual-lumen central venous catheter tips in the SVC. (2) COVID: ?Code(s): U07.1 - COVID-19 ?Status:?Acute ?Assessment and Plan: See above (3) Pneumonia: ?Code(s): J18.9 - Pneumonia, unspecified organism ?Status:?Acute ?Assessment and Plan: See above Has blood-stained phlegm, dry nose Likely secondary to minor bleeding from mucous membrane CXR 06/23 ?Stable right-sided central venous line. There is probable mild bibasilar pulmonary edema. Cardiomediastinal silhouette is within normal limits. Bones and soft tissues are unremarkable. repeat CXR 06/26 (4) Pulmonary edema: ?Code(s): J81.1 - Chronic pulmonary edema ?Status:?Inactive ?Assessment and Plan: See above resolves (5) End-stage renal disease (ESRD): ?Code(s): N18.6 - End stage renal disease? and anemia ?Status:?Acute ?Assessment and Plan: Nephrology consulted for hemodialysis.? Discussed with dialysis nurse Dialysis per human resources services specialist arrangement, received epoetin once 06/21 ordered by human resources services specialist Patient states she cannot tolerate dialysis because of nausea, diaphoresis, and chest tightness,patient does look anxious, provide Ativan 0.5 mg IV push during dialysis, and also give Zofran 4 mg IV once and q.6 as needed 06/24 (6) COPD (chronic obstructive pulmonary disease): ?Code(s): J44.9 - Chronic obstructive pulmonary disease, unspecified ?Status:?Chronic (7) Elevated troponin: ?Code(s): R79.89 - Other specified abnormal findings of blood chemistry ?Status:?Acute ?Assessment and Plan: History of CAD cardiac catheterization done on 05/02/23 with stent placement to RCA she has mild elevation of troponin on all are admissions and her troponins are mildly elevated with no acute ST katelyn
[2023-06-29 17:15] LABS: Basophils Percent Auto 0.1 % (0.2-1.2); Eosinophils Absolute Auto 0.1 K/mm3 (0-0.3); Eosinophils Percent Auto 0.6 % (0-4.4); Hematocrit 32.3 % (37.0-47.0); Hemoglobin 9.5 g/dL (12.0-15.0); Immature Granulocyte Absolute 0.16 K/mm3 (0.00-0.031); Lymphocytes Absolute Auto 0.85 K/mm3 (0.9-3.2); Lymphocytes Percent Auto 5.3 % (18.3-44.2); Mean Corpuscular HGB Conc 29.4 g/dl (32-36); Mean Corpuscular Hemoglobin 26.1 pg (26-34); Mean Corpuscular Volume 88.7 fl (80-100); Mean Platelet Volume 10.5 fl (7.4-10.4); Monocytes Percent Auto 6.3 % (2.6-8.5); Neutrophils Absolute Auto 13.9 K/mm3 (1.3-6.7); Neutrophils Percent Auto 86.7 % (45.5-73.1); Platelet Count Result 298 k/mm3 (150-375); Red Blood Count 3.64 M/mm3 (4.2-5.4); Red Cell Distribution Width 16.4 % (11.5-14.5); White Blood Count 16.1 K/mm3 (4.5-10.0)
--- NOTE | 2023-06-29 17:55 | PC.NURSE ---
Dr Moore given CBC results okay to discharge.
== END 2023-06-29 17:55 | disposition home health service (06) | DRG 177 ==
LOC: ANHED 06-17 04:35 → ANHICU 06-17 05:07 → ANH3MEDSUR 06-18 12:17
PROVIDERS: Hospitalist; Internal Medicine; Internal Medicine Nephrology; Student in an Organized Health Care Education/Training Program; Admitting Provider Internal Medicine; Emergency Provider Emergency Medicine; PCP Hospitalist; Visit Provider Family Medicine
DX: U07.1 COVID-19 (principal); I50.43 Acute on chronic combined systolic (congestive) and diastolic (congestive) heart failure; J96.01 Acute respiratory failure with hypoxia; N18.6 End stage renal disease; J12.82 Pneumonia due to coronavirus disease 2019; I13.2 Hypertensive heart and chronic kidney disease with heart failure and with stage 5 chronic kidney disease, or end stage renal disease; J44.9 Chronic obstructive pulmonary disease, unspecified; R79.89 Other specified abnormal findings of blood chemistry; N17.9 Acute kidney failure, unspecified; R11.0 Nausea; K57.32 Diverticulitis of large intestine without perforation or abscess without bleeding; D63.1 Anemia in chronic kidney disease; I25.2 Old myocardial infarction; F41.9 Anxiety disorder, unspecified; Z87.891 Personal history of nicotine dependence; Z99.2 Dependence on renal dialysis; Z86.718 Personal history of other venous thrombosis and embolism; Z79.82 Long term (current) use of aspirin; Z95.5 Presence of coronary angioplasty implant and graft; Z79.02 Long term (current) use of antithrombotics/antiplatelets
CPT/HCPCS: 36415; 36600; 71045; 71046; 71275; 74176; 80048; 80053; 80069; 80202; 82805; 82948; 83605; 83690; 83735; 84100; 84145; 84484; 85025; 85027; 85380; 85610; 85730; 86140; 86706; 86850; 86900; 86901; 87040; 87340; 87637; 87641; 93005; 94002; 94640; 96365; 96375; 96376; 97110; 97116; 97161; 97165; 97530; 97535; 99291; A9270; C9113; G0257; J0248; J0692; J1100; J1170; J1200; J1644; J1650; J1940; J2060; J2270; J2405; J2543; J3370; J7030; P9047; Q5105; Q9967

== ENCOUNTER 2023-07-06 15:47 | Emergency (ER) | payer OTHER, SELFPAY ==
[2023-07-06] VITALS (35 sets, daily range): BP systolic 126–174; BP diastolic 81–111; PULSE 91–105; RESP 15–41; TEMP 36.3; O2SAT 95–98
--- NOTE | ~2023-07-06 | XR_ITS ---
EXAMINATION: XR chest 1V portable Exam Date/Time: 07/06/2023 17:15 DEPUTY ADMINISTRATOR HISTORY: sob WITH LOWER LEG EDEMA Comparison: 06/26/2023. RESULT: Lines, tubes, and devices: Dual-lumen dialysis catheter, tip terminating in the distal SVC. Lungs and pleura: Moderate diffuse reticular opacities, increased. Increasing streaky bibasilar opac ities greater in the left lung base. Mild bilateral costophrenic angle blunting. Cardiomediastinal silhouette: Stable. Other: No acute osseous or upper abdominal finding. IMPRESSION: The dialysis catheter terminates in the distal SVC. Moderate interstitial edema. Bibasilar atelectasis/consolidation. Small bilateral effusions. Reviewed, dictated and finalized at location K. TY ADMINISTRATOR IMPRESSION: The dialysis catheter terminates in the distal SVC. Moderate interstitial edema. Bibasilar atelectasis/consolidation. Small bilater al effusions.
--- NOTE | 2023-07-06 17:03 | ECG_ITS ---
Measurements Intervals [place] Rate: 97 P: 59 SD: 162 QRS: 32 QRSD: 92 T: 8 QT: 369 QTc: 469 Interpretive Statements SINUS RHYTHM LEFT ATRIAL ENLARGEMENT BORDERLINE ST-T WAVE ABNORMALITY- INF/LAT LEADS BASELINE ARTIFACT- I, II, AVR, V5-V6 BORDERLINE ECG COMPARED TO ECG 06/19/2023 12:33:26 SINUS RHYTHM NOW PRESENT Electronically Signed On 07-07-2023 8:06:45 DOCUMENT CONTROL MANAGER by Mike Sung D.O.
[2023-07-06] MEDS: LORazepam (*CRX) 0.5 MG TABLET PO ×2 (17:05→21:10)
--- NOTE | 2023-07-06 17:05 | ED.SOB ---
HPI - SOB/Dyspnea General Chief Complaint: Shortness of Breath/Dyspnea Stated Complaint: mult. c/o Time Seen by Provider: 07/06/23 16:02 History of Present Illness HPI Narrative: Patient is a 72-year-old female presenting with anxiety and shortness of breath. Patient has a multitude of medical problems that have required hospitalization several times in the last few months. She is now dialysis dependent. She also COPD, CAD, hypertension, hyperlipidemia. States that she had a heart attack a couple of months ago and has had severe anxiety since then. She lives alone and often feels very scared because she is concerned that her body is failing. States that she has been compliant with dialysis, had a session yesterday. States that she has chronic pain in both of her legs she is concerned that they look more swollen than normal right now. States that she often feels short of breath when she starts feeling anxious. She denies chest pain, fevers, cough, abdominal pain. States that she has a poor appetite due to intermittent nausea. Related Data Home Medications Medication Instructions Recorded Confirmed albuterol sulfate 90 mcg/actuation 2 puff inhalation Q8H PRN 04/28/23 06/17/23 aerosol inhaler Shortness Of Breath Or Wheezing alprazolam 0.25 mg tablet (Xanax) 0.25 mg PO TID PRN Anxiety 05/26/23 06/17/23 melatonin 5 mg tablet 5 mg PO HS PRN prn 05/26/23 06/17/23 Allergies Allergy/AdvReac Type Severity Reaction Status Date / Time oxycodone Allergy Intermediate Hives Verified 06/03/23 10:48 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 Unknown Uncoded 06/03/23 09:04 Review of Systems Review of Systems: All systems reviewed & are unremarkable except as noted in HPI and below PMFSH Past Medical History Medical History Acute kidney injury superimposed on CKD Acute respiratory failure with hypoxia and hypercarbia Intubated during admission on 04/28/23-05/17/23 Anemia Anxiety Congestive heart failure COPD (chronic obstructive pulmonary disease) DVT (deep venous thrombosis) After knee surgery years ago. ESRD on dialysis Hypertension Insomnia Lung nodule NSTEMI (non-ST elevated myocardial infarction) Pneumonia Stage 3b chronic kidney disease Tobacco dependence Surgical History Surgical History H/O right knee surgery History of cholecystectomy History of coronary artery stent placement Social History Social History Social History: Currently resident at [facility]. Surrogate Decision Maker: Nathaly Vann, sister. Code Status: Full Code. Smoking packs per day: 1 Smoking cigarettes per day: 20.0 Years smoked: 40 Smoking pack-years: 40.00 Smoking status: Former smoker Alcohol intake: never Alcohol use details: rarely Substance use: never Substance use type: does not use Do You Feel Safe in your Home?: Yes Lack of Transportation: No Lack of Food: Never True Current Housing: I Have Housing Concerned About Future Housing: No Difficulty Paying Gas/Electric Bills: No Difficulty Paying for Meds: No Currently Unemployed: No Education: Decline to Answer Difficulty w/ Childcare or Family Care: No Living arrangements: alone Spiritual care concerns: No Exam Narrative: GENERAL: Chronically ill-appearing, very anxious, pleasant and cooperative HEAD: Normocephalic, atraumatic. EYES: PERRLA and EOMI. ENT: Mucous membranes moist. NECK: Supple. CHEST: tachypneic, scattered wheezing; +TDC right chest wall HEART: tachycardic, regular rhythm Normal peripheral pulses. ABDOMEN: Soft, nontender, nondistended EXTREMITIES: Normal range of motion. pitting edema involving both feet up to the ankles SKIN: Warm, dry, no rash. NEURO: No focal deficits. Alert and oriented x3. PSYCH: very anxiou
[2023-07-06 17:22] LABS: Basophils Absolute Auto 0.1 K/mm3 (0.0-0.1); Basophils Percent Auto 0.6 % (0.2-1.2); Eosinophils Absolute Auto 0.2 K/mm3 (0-0.3); Eosinophils Percent Auto 1.9 % (0-4.4); Hemoglobin 8.3 g/dL (12.0-15.0); Immature Granulocyte Absolute 0.04 K/mm3 (0.00-0.031); Immature Granulocyte Percent A 0.5 % (0-0.5); Lymphocytes Absolute Auto 1.34 K/mm3 (0.9-3.2); Lymphocytes Percent Auto 15.6 % (18.3-44.2); Mean Corpuscular HGB Conc 29.6 g/dl (32-36); Mean Corpuscular Hemoglobin 26.2 pg (26-34); Mean Corpuscular Volume 88.3 fl (80-100); Mean Platelet Volume 10.6 fl (7.4-10.4); Monocytes Absolute Auto 0.6 K/mm3 (0.1-0.6); Monocytes Percent Auto 6.8 % (2.6-8.5); Neutrophils Absolute Auto 6.4 K/mm3 (1.3-6.7); Neutrophils Percent Auto 74.6 % (45.5-73.1); Platelet Count Result 179 k/mm3 (150-375); Red Blood Count 3.17 M/mm3 (4.2-5.4); Red Cell Distribution Width 15.9 % (11.5-14.5); White Blood Count 8.6 K/mm3 (4.5-10.0)
[2023-07-06 17:33] LABS: Prothrombin Time 13.1 Seconds (11.1-14.7)
[2023-07-06 17:34] LABS: Partial Thromboplastin Time 29.7 SECONDS (22.3-36.8)
[2023-07-06 17:35] LABS: Platelet Estimate Adequate (Adequate)
[2023-07-06 17:36] LABS: Hypochromasia 1+ (NORMAL); Ovalocytes 1+ (NORMAL); Schistocytes None Seen (NORMAL)
[2023-07-06 17:42] LABS: Alanine Aminotransferase 16 U/L (6-35); Albumin Level 3.6 g/dL (3.5-5.1); Alkaline Phosphatase 73 U/L (38-126); Anion Gap 12 mmol/L (8-16); Aspartate Amino Transferase 24 U/L (14-36); Bilirubin,Total 0.5 mg/dL (0.2-1.3); Blood Urea Nitrogen 30 mg/dL (7-17); Calcium 8.4 mg/dL (8.4-10.2); Carbon Dioxide 24 mmol/L (22-30); Chloride 97 mmol/L (98-107); Estimated CRCL calculation 12 ml/min; Estimated Glomerular Filt Rate 12; Glucose 104 mg/dL (65-110); Lipase 231 U/L (23-300); Magnesium 1.8 mg/dL (1.6-2.3); Potassium 3.6 mmol/L (3.4-5.0); Sodium 133 mmol/L (137-145)
[2023-07-06 17:55] LABS: Troponin I 0.063 ng/mL (0.000-0.034)
[2023-07-06 17:58] LABS: Influenza A QL RT-PCR Negative (Negative); Influenza B QL RT-PCR Negative (Negative); RSV RNA, RT-PCR Negative (Negative); SARS-CoV-2 RNA PCR Positive (Negative)
--- NOTE | 2023-07-06 19:55 | PC.NURSE ---
Report received from MIGUE Tyson. Assumed care of patient at this time.
[2023-07-06 21:22] LABS: Troponin I 0.062 ng/mL (0.000-0.034)
== END 2023-07-06 22:02 | disposition home or self-care (01) ==
PROVIDERS: Emergency Provider Emergency Medicine; PCP Hospitalist
DX: F41.9 Anxiety disorder, unspecified (principal); R06.02 Shortness of breath; I13.0 Hypertensive heart and chronic kidney disease with heart failure and stage 1 through stage 4 chronic kidney disease, or unspecified chronic kidney disease; N18.30 Chronic kidney disease, stage 3 unspecified; I50.9 Heart failure, unspecified; Z99.2 Dependence on renal dialysis; D64.9 Anemia, unspecified; I25.2 Old myocardial infarction
CPT/HCPCS: 36415; 71045; 80053; 83690; 83735; 84484; 85025; 85610; 85730; 87637; 93005; 99284; A9270